=== PATIENT | female | born 1960 | race Caucasian/White ===

== ENCOUNTER 2021-04-29 12:36 | Outpatient (REF) | payer MEDICAID, SELFPAY ==
[2021-04-29 15:07] LABS: Free T4 (Free Thyroxine) 0.82 ng/dL (0.71-1.85); Thyroid Stimulating Hormone 4.08 uIU/mL (0.32-4.0)
== END 2021-04-29 12:37 | disposition home or self-care (01) ==
LOC: HO.LAB 12:36
PROVIDERS: PCP Family Medicine; Visit Provider Nurse Practitioner Gerontology
DX: E03.9 Hypothyroidism, unspecified (principal); E66.09 Other obesity due to excess calories
CPT/HCPCS: 36415; 84439; 84443; 99212

== ENCOUNTER 2021-06-11 10:56 | Outpatient (REF) | payer MEDICAID, SELFPAY ==
[2021-06-11 12:30] LABS: Free T4 (Free Thyroxine) 1.38 ng/dL (0.71-1.85)
[2021-06-17 14:30] LABS: Thyroid Stimulating Immunoglob <89 % baseline (<140)
== END 2021-06-11 10:57 | disposition home or self-care (01) ==
LOC: HO.LAB 10:56
PROVIDERS: PCP Family Medicine; Visit Provider Nurse Practitioner Gerontology
DX: E03.9 Hypothyroidism, unspecified (principal)
CPT/HCPCS: 36415; 84439; 84445

== ENCOUNTER 2021-08-02 21:25 | Observation (INO) | payer MEDICAID, SELFPAY ==
--- NOTE | ~2021-08-02 | XR_ITS ---
EXAMINATION: XR CHEST CLINICAL INFORMATION: Chest pain COMPARISON: 04/20/2019 TECHNIQUE: Frontal view of the chest was obtained. FINDINGS: The lungs are well expanded. There is no focal consolidation, edema, or effusion. No pneumothorax. The cardiomediastinal silhouette is within normal limits. No acute osseous abnormality. XR/XR chest 1V IMPRESSION: No acute pulmonary finding.
--- NOTE | 2021-08-02 21:45 | ECG_ITS ---
Test Reason : CHEST PAIN Blood Pressure : / mmHG Vent. Rate : 096 BPM Atrial Rate : 096 BPM P-R Int : 148 ms QRS Dur : 090 ms QT Int : 352 ms P-R-T Axes : 022 -01 033 degrees QTc Int : 444 ms Normal sinus rhythm RSR' or QR pattern in V1 suggests right ventricular conduction delay Nonspecific ST abnormality Possible Left atrial enlargement Left ventricular hypertrophy with repolarization abnormality Abnormal ECG No previous ECGs available Referred By: Generic ED Physician Electronically Signed By:JEN MATHIS MD
[2021-08-02 22:04] VITALS: BP 157/57; PULSE 96; RESP 18; TEMP 36.7; O2SAT 99; BMI 29.6
--- NOTE | 2021-08-02 22:32 | ED.CHESTPAIN ---
HPI - Chest Pain General Chief Complaint: Chest Pain Stated Complaint: Chest pain/High blood pressure Time Seen by Provider: 08/02/21 22:32 Source: patient Mode of arrival: ambulatory Limitations: no limitations History of Present Illness MD complaint: chest pain Onset (ago): day(s) (yesterday in the evening resolved no symptoms now) Timing of current episode: now resolved Prior episodes: No Onset: during rest Pain location: substernal Pain radiation: none Severity: mild Quality: other (pressure) Relieving factors: nothing Exacerbating factors: nothing Context: other (was stressed out, noted her BP has been high - takes 50mg chlorthalidone and lisinopril 5mg) Treatment prior to arrival: none Related Data Home Medications Medication Instructions Recorded Confirmed bupropion HCl 150 mg tablet,12 hr 150 mg PO DAILY 04/29/21 04/29/21 sustained-release (Wellbutrin SR) cholecalciferol (vitamin D3) 25 25 mcg PO DAILY 04/29/21 04/29/21 mcg (1,000 unit) tablet omeprazole magnesium 20 mg 20 mg PO DAILY 04/29/21 04/29/21 tablet,delayed release ranitidine HCl 150 mg tablet 150 mg PO tab 04/29/21 04/29/21 rosuvastatin 20 mg tablet (Crestor) 20 mg PO DAILY 04/29/21 04/29/21 Previous Rx's Medication Instructions Recorded levothyroxine 100 mcg tablet See Rx Instructions PO DAILY #34 04/30/21 tab Allergies Allergy/AdvReac Type Severity Reaction Status Date / Time No Known Allergies Allergy Verified 08/02/21 22:04 Review of Systems Review of Systems: Constitutional : No Weight loss, No Fever, No Chills ENT/Mouth : No sore throat, No Rhinorrhea Eyes: No Eye Pain, No Swelling Cardiovascular : pos Chest Pain, no SOB, no Dyspnea on Exertion, No Orthopnea, No Edema, No Palpitations Respiratory : No Cough, No Sputum Gastrointestinal : no Nausea, No Vomiting, No Diarrhea, No abdominal Pain, No Hematochezia, No Melena Genitourinary : No Dysuria, No Urinary Frequency Musculoskeletal : No joint pain, No Myalgias, No Joint Swelling Skin : No Skin Lesions, No rash Neuro : No Weakness, No Numbness, No Dizziness, No Headache Psych : No Anxiety/Panic, No Depression Heme/Lymph: No Bruising, No Lymphadenopathy Endocrine : No Polyuria, No Polydipsia All other systems reviewed and are negative [facility] Past Medical History Attestation statement: The following information was validated with the patient. Medical History Aortic insufficiency COPD (chronic obstructive pulmonary disease) Diabetes mellitus type 2, controlled, without complications Essential hypertension High cholesterol Hyperlipidemia LDL goal <100 Hypothyroidism Obesity due to excess calories PVD (peripheral vascular disease) Vitamin D deficiency Surgical History History of mandibular surgery History of skin surgery Hx laparoscopic cholecystectomy Hx of tubal ligation Family History Family History (Updated 04/29/21 @ 13:07 by Ciera Bahena Dwayne) Father Diabetes Mother No problems noted. Social History Social History Household Members: None Patient Tobacco Use Status: Current someday Tobacco user Advance Directives: No Advance Directives Information Provided: No Physical Exam Vital Signs: Vital Signs: Last Vital Signs Temp 98.1 F 08/03/21 00:00 Pulse 82 08/03/21 00:00 Resp 18 08/03/21 00:00 BP 142/50 H 08/03/21 00:00 Pulse Ox 97 08/03/21 00:00 Body Mass Index 29.6 Appearance: Alert. Oriented X3. No acute distress. Eyes: Pupils equal, round and reactive to light. ENT: Pharynx normal. Neck: Normal inspection. Neck supple. CVS: Normal heart rate and rhythm. Pulses normal. Respiratory: No respiratory distress. Breath sounds normal. Abdomen: Soft and nontender. Skin: Skin warm and dry. Normal skin color. Normal skin turgor. Extremities: No lower extremity edema. No calf ttp Neuro: Oriented X 3. No motor deficit. No sensory deficit. Course Course Course Narrative: repeat troponin ordered to check delta she has no chest pressure at this time repeat trop increased has no CP, BP stable PO aspirin ordered plan to admit MDM - Chest Pain MDM Narrative Medical decision making narrative: 61 yo female with hx of HTN, HLD, smoker who reports chest pressure and elevated BPs yesterday 170 and 190s. She reports all her symptoms are gone now and she has not had them for the last several hours but wanted to get checked out. She has been more stressed lately. No prior ACS episodes. Doubt PE given lack of tachycardia, hypoxia and pain is now resolved. Will obtain EKG, troponin and reasess, BP 160/70 which I would not expect to be causing symptoms she does have ACS risk factors. Lab Data Result diagrams: 08/02/21 22:49 08/02/21 22:49 Labs: Lab Results 08/02/21 08/02/21 08/02/21 Range/Units 22:49 22:49 22:49 WBC 10.4 (4.8-10.8) X10*3/uL RBC 4.48 (4.20-5.50) X10*6/uL Hgb 12.5 (12.0-16.0) g/dl Hct 37.4 (37-47) % MCV 83.5 (80-98) fL MCH 27.9 (27.0-33.0) pg MCHC 33.4 (31.0-35.0) g/dl RDW 14.8 (11.0-16.0) % Plt Count 300 (160-400) X10*3/uL MPV 9.8 (9.4-12.3) fL Immature Gran % (Auto) 0.3 (0.0-0.4) % Neut % (Auto) 56.4 (45-73) % Lymph % (Auto) 29.7 (20-40) % Mineral % (Auto) 10.4 (2-11) % Eos % (Auto) 2.5 (0-4) % Baso % (Auto) 0.7 (0-2) % Lymph # (Auto) 3.1 (1.2-4.9) X10*3/uL Mineral # (Auto) 1.1 (0.1-1.2) X10*3/uL Eos # (Auto) 0.3 (0.0-0.4) X10*3/uL Baso # (Auto) 0.1 (0.0-0.2) X10*3/uL Abs Immat Gran (auto) 0.03 (0.00-0.03) X10*3/uL Absolute Neuts (auto) 5.9 (2.0-8.3) X10*3/uL Absolute Nucleated RBC 0.000 (0.0-0.012) X10*3/uL Nucleated RBC % (auto) 0.0 (0.0-0.2) /100WBC Sodium 138 (135-145) mmol/L Potassium 3.6 (3.3-5.1) mmol/L Chloride 102 (96-108) mmol/L Carbon Dioxide 26 (22-29) mmol/L Anion Gap 14 (12-20) BUN 19 H (9-16) mg/dL Creatinine 0.89 (0.5-1.4) mg/dL Estim Creat Clear Calc 69.6 Estimated GFR > 60 Random Glucose 132 H (60-115) mg/dL Calcium 9.4 (8.4-10.2) mg/dL Troponin I High Sens 33.5 H* (<3.5-17.0) ng/L 08/03/21 Range/Units 00:41 WBC (4.8-10.8) X10*3/uL RBC (4.20-5.50) X10*6/uL Hgb (12.0-16.0) g/dl Hct (37-47) % MCV (80-98) fL MCH (27.0-33.0) pg MCHC (31.0-35.0) g/dl RDW (11.0-16.0) % Plt Count (160-400) X10*3/uL MPV (9.4-12.3) fL Immature Gran % (Auto) (0.0-0.4) % Neut % (Auto) (45-73) % Lymph % (Auto) (20-40) % Mineral % (Auto) (2-11) % Eos % (Auto) (0-4) % Baso % (Auto) (0-2) % Lymph # (Auto) (1.2-4.9) X10*3/uL Mineral # (Auto) (0.1-1.2) X10*3/uL Eos # (Auto) (0.0-0.4) X10*3/uL Baso # (Auto) (0.0-0.2) X10*3/uL Abs Immat Gran (auto) (0.00-0.03) X10*3/uL Absolute Neuts (auto) (2.0-8.3) X10*3/uL Absolute Nucleated RBC (0.0-0.012) X10*3/uL Nucleated RBC % (auto) (0.0-0.2) /100WBC Sodium (135-145) mmol/L Potassium (3.3-5.1) mmol/L Chloride (96-108) mmol/L Carbon Dioxide (22-29) mmol/L Anion Gap (12-20) BUN (9-16) mg/dL Creatinine (0.5-1.4) mg/dL Estim Creat Clear Calc Estimated GFR Random Glucose (60-115) mg/dL Calcium (8.4-10.2) mg/dL Troponin I High Sens 112.6 H* D (<3.5-17.0) ng/L ECG Data ECG #1: Attestation: I personally reviewed and interpreted this ECG as follows: ECG interpretation date: 08/02/21 ECG interpretation time: 22:33 Interpretation: Rate: 96 Rhythm: NSR [place]: normal LVH Normal P waves. Normal SANDY. Normal QRS complex. Poor R wave progression ST T wave : no EMERALD, nonspecific qTC: normal prior studies: The study has been interpreted contemporaneously by me. . Discharge Plan Discharge Clinical Impression: Elevated troponin Chest pain Qualifiers: Chest pain type: precordial pain Qualified Code(s): R07.2 - Precordial pain Patient Disposition: Admitted As Inpatient
[2021-08-02 22:37] VITALS: BP 160/70; PULSE 94; RESP 19; TEMP 36.9; O2SAT 99
[2021-08-02 22:53] LABS: MANUAL DIFF FLAG NO
[2021-08-02 22:54] LABS: Basophils Absolute Auto 0.1 X10*3/uL (0.0-0.2); Basophils Percent Auto 0.7 % (0-2); Eosinophils Absolute Auto 0.3 X10*3/uL (0.0-0.4); Eosinophils Percent Auto 2.5 % (0-4); Hematocrit 37.4 % (37-47); Hemoglobin 12.5 g/dl (12.0-16.0); Imm Gran Abs Auto 0.03 X10*3/uL (0.00-0.03); Imm Gran Pct Auto 0.3 % (0.0-0.4); Lymphocytes Absolute Auto 3.1 X10*3/uL (1.2-4.9); Lymphocytes Percent Auto 29.7 % (20-40); Mean Corpuscular HGB Conc 33.4 g/dl (31.0-35.0); Mean Corpuscular Hemoglobin 27.9 pg (27.0-33.0); Mean Corpuscular Volume 83.5 fL (80-98); Mean Platelet Volume 9.8 fL (9.4-12.3); Monocytes Absolute Auto 1.1 X10*3/uL (0.1-1.2); Monocytes Percent Auto 10.4 % (2-11); Neutrophils Absolute Auto 5.9 X10*3/uL (2.0-8.3); Neutrophils Percent Auto 56.4 % (45-73); Platelet Count 300 X10*3/uL (160-400); Red Blood Count 4.48 X10*6/uL (4.20-5.50); Red Cell Distribution Width 14.8 % (11.0-16.0); White Blood Count 10.4 X10*3/uL (4.8-10.8)
[2021-08-02 23:09] LABS: Anion Gap 14 (12-20); Blood Urea Nitrogen 19 mg/dL (9-16); Calcium 9.4 mg/dL (8.4-10.2); Carbon Dioxide 26 mmol/L (22-29); Chloride 102 mmol/L (96-108); Creatinine Clr Calc Pharmacy 69.6; Estimated Glomerular Filt Rate > 60; Glucose Random 132 mg/dL (60-115); Potassium 3.6 mmol/L (3.3-5.1); Sodium 138 mmol/L (135-145)
[2021-08-02 23:20] LABS: Troponin-I High Sensitivity 33.5 ng/L (<3.5-17.0)
[2021-08-03] VITALS (10 sets, daily range): BP systolic 123–164; BP diastolic 47–62; PULSE 70–95; RESP 14–20; TEMP 36.7–36.8; O2SAT 95–98
--- NOTE | 2021-08-03 | ECG_ITS ---
Test Reason : NSTEMI Blood Pressure : / mmHG Vent. Rate : 076 BPM Atrial Rate : 076 BPM P-R Int : 158 ms QRS Dur : 092 ms QT Int : 426 ms P-R-T Axes : 025 -03 041 degrees QTc Int : 479 ms Normal sinus rhythm Minimal voltage criteria for LVH, may be normal variant Nonspecific ST abnormality Abnormal ECG When compared with ECG of 02-AUG-2021 21:41, Nonspecific T wave abnormality now evident in Lateral leads Referred By: Nathanael Winslow Electronically Signed By:JEN MATHIS MD
[2021-08-03 01:23] LABS: Troponin-I High Sensitivity 112.6 ng/L (<3.5-17.0)
--- NOTE | 2021-08-03 01:52 | PC.NURSE ---
covid and coags obtained, sent to lab for processing. Dr Moran at bedside conducting eval
[2021-08-03] MEDS: Aspirin 325 MG TABLET 324 MG PO (01:54)
[2021-08-03 02:04] LABS: Prothrombin Time 11.9 SEC (9.9-13.0)
[2021-08-03 02:07] LABS: Partial Thromboplastin Time 35.8 SEC (24.1-38.0)
--- NOTE | 2021-08-03 02:09 | P.HPHOSP_ITS ---
History of Present Illness Date of Service: 08/03/21 Chief Complaint: Chest pain This is a 61-year-old [place]vian-speaking only female with past medical history of COPD, diabetes, HTN, HLD, aortic insufficiency, hypothyroidism, peripheral vascular disease vitamin-D deficiency who presents to the hospital with compla ints of intermittent chest pain. Patient reports that she had 2 episodes 1 on Wednesday night and 1 on Wednesday night which prompted her to come to the hospital. She describes the pain as midsternal with radiation to left as well as up to her neck, lasting 5-10 minutes, intermittent, associated with palpitations, about 8/10, tightening sensation. She denies any shortness of breath, no previous similar episodes. No nausea vomiting dizziness, no abdominal pain, no diarrhea but has constipation, no urinary symptoms and no lower extremity edema. Occurs at rest and resolved spontaneously At this time patient is chest pain-free On arrival to the ED patient hemodynamically stable with a blood pressure of 157/57 otherwise unremarkable Labs are significant for initial high sensitivity troponin of 33 that increased to 121, EKG shows sinus rhythm with no acute changes Given her increase in troponin as well as typical presentation will admit for further evaluation under observation Review of Systems Review of Systems: Yes all other systems are reviewed and are negative [facility] Medical History Aortic insufficiency COPD (chronic obstructive pulmonary disease) Diabetes mellitus type 2, controlled, without complications Essential hypertension High cholesterol Hyperlipidemia LDL goal <100 Hypothyroidism Obesity due to excess calories PVD (peripheral vascular disease) Vitamin D deficiency Family History Father Diabetes Mother No problems noted. Pertinent family history: No present in history Surgical History History of mandibular surgery History of skin surgery Hx laparoscopic cholecystectomy Hx of tubal ligation Social History Household Members: None Patient Tobacco Use Status: Current someday Tobacco user Advance Directives: No Advance Directives Information Provided: No Meds Allergies Allergy/AdvReac Type Severity Reaction Status Date / Time No Known Allergies Allergy Verified 08/03/21 02:09 Active Medications: Current Medications Pharmacy Consult (Consult Rx Perform Med Rec) 1 each MISCELLANE ONCE PRN PRN Reason: Consult order Home Medications Medication Instructions Recorded Confirmed Last Taken Type aspirin 81 mg chewable tablet 1 tab PO DAILY 08/03/21 08/03/21 Unknown History chlorthalidone 50 mg tablet 1 tab PO BEDTIME 08/03/21 08/03/21 Unknown History cholecalciferol (vitamin D3) 25 1 tab PO DAILY 08/03/21 08/03/21 Unknown History mcg (1,000 unit) tablet cyanocobalamin (vitamin B-12) 500 1 tab PO DAILY 08/03/21 08/03/21 Unknown History mcg tablet folic acid 400 mcg tablet 1 tab PO DAILY 08/03/21 08/03/21 Unknown History levothyroxine 100 mcg tablet 100 mcg PO DAILY 08/03/21 08/03/21 Unknown History lisinopril 5 mg tablet 1 tab PO DAILY 08/03/21 08/03/21 Unknown History metformin 500 mg tablet,extended 1 tab PO DAILY 08/03/21 08/03/21 Unknown Histo ry release 24 hr omeprazole 20 mg capsule,delayed 1 cap PO QAM 08/03/21 08/03/21 Unknown History release rosuvastatin 40 mg tablet 1 tab PO BEDTIME 08/03/21 08/03/21 Unknown History Physical Exam Vital Signs and Narrative: Vital Signs: Last Vital Signs Temp 98.2 F 08/03/21 02:00 Pulse 78 08/03/21 02:00 Resp 18 08/03/21 02:00 BP 164/47 H 08/03/21 02:00 Pulse Ox 98 08/03/21 02:00 Body Mass Index 29.6 Const: General: cooperative and no acute distress Orientation /consciousness: patient oriented x3 Eyes: General: appearance normal, both eyes and all related structures Resp: Effort & Inspection: normal respiratory effort Auscultation: clear to auscultation bilaterally Cardio: Rate: regular rate Rhythm: regular rhythm GI: Palpation (GI): Soft to palpation Auscultation: normal bowel sounds Skin: General skin exam: no rashes or lesions noted Neuro: General: patient oriented x3 Cognition (Neuro): normal cognition Extrem: General: Yes normal to inspection and Yes no pedal edema Results Labs CBC and Chem 7: 08/02/21 22:49 08/02/21 22:49 Labs: Laboratory Results - last 24 hr 08/02/21 08/02/21 08/02/21 22:49 22:49 22:49 MCV 83.5 MCH 27.9 MCHC 33.4 RDW 14.8 Plt Count 300 MPV 9.8 Immature Gran % (Auto) 0.3 Neut % (Auto) 56.4 Lymph % (Auto) 29.7 Richardson % (Auto) 10.4 Eos % (Auto) 2.5 Baso % (Auto) 0.7 Lymph # (Auto) 3.1 Richardson # (Auto) 1.1 Eos # (Auto) 0.3 Baso # (Auto) 0.1 Abs Immat Gran (auto) 0.03 Absolute Neuts (auto) 5.9 Absolute Nucleated RBC 0.000 Nucleated RBC % (auto) 0.0 PT INR APTT Anion Gap 14 Estim Creat Clear Calc 69.6 Estimated GFR > 60 Random Glucose 132 H Calcium 9.4 Troponin I High Sens 33.5 H* 08/03/21 08/03/21 00:41 01:48 MCV MCH MCHC RDW Plt Count MPV Immature Gran % (Auto) Neut % (Auto) Lymph % (Auto) Richardson % (Auto) Eos % (Auto) Baso % (Auto) Lymph # (Auto) Richardson # (Auto) Eos # (Auto) Baso # (Auto) Abs Immat Gran (auto) Absolute Neuts (auto) Absolute Nucleated RBC Nucleated RBC % (auto) PT 11.9 INR 1.0 APTT 35.8 Anion Gap Estim Creat Clear Calc Estimated GFR Random Glucose Calcium Troponin I High Sens 112.6 H* D Imaging Radiologist's Impressions: Impressions Chest X-Ray 08/02/21 22:12 IMPRESSION: No acute pulmonary finding. Assessment and Plan (1) Chest pain: Qualifiers: Chest pain type: precordial pain Qualified Code(s): R07.2 - Precordial pain Status: Acute (2) Elevated troponin: Status: Acute 61-year-old female with past medical history of COPD, hyperlipidemia, hypertension, hypothyroidism who presents to the hospital with complaints of jessica st pain found to have elevated troponin # chest pain - currently he is chest pain-free - has no EKG changes - elevated troponin - at this time will consult Cardiology, obtain echocardiogram - admit to telemetry # elevated troponin - possibly type 2 versus type 1 - has no EKG changes - currently chest pain-free - will trend - consult cardiology # diabetes - hold oral antihyperglycemics - start low-dose sliding scale insulin - diabetic diet # hypertension - stable - continue antihypertensives # COPD - not in exacerbation - continue home inhalers - will start her on nicotine patch DVT prophylaxis: Lovenox Quality Stroke Does the patient have a stroke diagnosis?: No VTE Prior VTE?: No VTE Risk Level:: Medical - moderate - high VTE Device Contraindication: Treatment Not Indicated VTE Drug Contraindication: N/A - Med Ordered
[2021-08-03 02:18] LABS: COVID-19 Test Negative (Negative); IDNOW Serial# 9DD0AD1C
[2021-08-03] MEDS: Enoxaparin Sodium 40 MG/0.4 ML SYRINGE SUBCUT (02:55)
[2021-08-03] MEDS: Nicotine Polacrilex Lozenge 4 MG LOZENGE BUCCAL (02:57)
[2021-08-03] MEDS: Docusate Sodium 100 MG CAPSULE PO ×3 (02:57→20:41)
--- NOTE | 2021-08-03 06:25 | PC.NURSE ---
Pt asleep on stretcher in NAD, breathing with ease on RA. Pt's VSS. Pt does not appear to be in any pain/discomfort. Pt stretcher in low locked position, rails raised, call roberts within reach. Pt remains on bedside phototypesetting equipment monitor, NSR.
[2021-08-03 07:02] LABS: MANUAL DIFF FLAG NO
[2021-08-03 07:07] LABS: Basophils Absolute Auto 0.1 X10*3/uL (0.0-0.2); Basophils Percent Auto 0.6 % (0-2); Eosinophils Absolute Auto 0.3 X10*3/uL (0.0-0.4); Eosinophils Percent Auto 3.6 % (0-4); Hematocrit 36.3 % (37-47); Hemoglobin 11.9 g/dl (12.0-16.0); Imm Gran Abs Auto 0.02 X10*3/uL (0.00-0.03); Imm Gran Pct Auto 0.2 % (0.0-0.4); Lymphocytes Absolute Auto 3.2 X10*3/uL (1.2-4.9); Lymphocytes Percent Auto 36.1 % (20-40); Mean Corpuscular HGB Conc 32.8 g/dl (31.0-35.0); Mean Corpuscular Hemoglobin 27.4 pg (27.0-33.0); Mean Corpuscular Volume 83.4 fL (80-98); Mean Platelet Volume 10.2 fL (9.4-12.3); Monocytes Absolute Auto 0.8 X10*3/uL (0.1-1.2); Monocytes Percent Auto 9.1 % (2-11); Neutrophils Absolute Auto 4.5 X10*3/uL (2.0-8.3); Neutrophils Percent Auto 50.4 % (45-73); Platelet Count 300 X10*3/uL (160-400); Red Blood Count 4.35 X10*6/uL (4.20-5.50); Red Cell Distribution Width 14.6 % (11.0-16.0); White Blood Count 8.8 X10*3/uL (4.8-10.8)
[2021-08-03 07:18] LABS: Anion Gap 16 (12-20); Blood Urea Nitrogen 20 mg/dL (9-16); Calcium 9.7 mg/dL (8.4-10.2); Carbon Dioxide 25 mmol/L (22-29); Chloride 101 mmol/L (96-108); Creatinine Clr Calc Pharmacy 79.5; Estimated Glomerular Filt Rate > 60; Glucose Random 139 mg/dL (60-115); Potassium 3.3 mmol/L (3.3-5.1); Sodium 139 mmol/L (135-145)
[2021-08-03] MEDS: Nicotine 21 MG PATCH.TD24 TRANSDERMA (08:44)
[2021-08-03] MEDS: Cyanocobalamin (Vitamin B-12) 500 MCG TABLET PO (08:46)
[2021-08-03] MEDS: hydroCHLOROthiazide 50 MG TABLET PO (08:46)
[2021-08-03] MEDS: Aspirin 81 MG TAB.CHEW PO (08:47)
[2021-08-03] MEDS: lisinopriL 5 MG TABLET PO (08:47)
[2021-08-03] MEDS: Cholecalciferol (Vitamin D3) 25 MCG TABLET PO (08:47)
[2021-08-03] MEDS: 0.9 % Sodium Chloride Flush 3 ML SYRINGE IVFLUSH (08:52)
--- NOTE | 2021-08-03 10:53 | P.CONCA_ITS ---
History of Present Illness History of Present Illness Date of Service: 08/03/21 Requesting physician: Delmis Pedersen Chief complaint: Chest pain, positive troponin Narrative: 61-year-old female who has background history of hypothyroidism and hypertension who is presenting with chest discomfort. She also has background of reported aortic valve insufficiency with no echocardiography will. She is saying she follows up at [facility] and has a compressor mechanic there to. I have contacted have been [facility] and they do not know this patient. She said she had pressure-like feeling in her chest last evening and her blood pressure at home was 190/110. With these symptoms she came to emergency department at [place]. Blood pressure in the ER was not as elevated as she described. She has previously experienced similar pressure-like feeling but has not had any further assessment for it. She is very vague in her history despite using a gas refrigerator servicer. ECG has some nonspecific changes right now. Troponins are 33, 112 and 185. She is currently pain free. Blood pressure control is good. [facility] Past Medical History Medical History (Updated 08/03/21 @ 11:58 by Nathanael Winslow MD) Aortic insufficiency COPD (chronic obstructive pulmonary disease) Diabetes mellitus type 2, controlled, without complications Essential hypertension High cholesterol Hyperlipidemia LDL goal <100 Hypothyroidism Obesity due to excess calories PVD (peripheral vascular disease) Vitamin D deficiency Family History Family History Father Diabetes Mother No problems noted. Surgical History Surgical History History of mandibular surgery History of skin surgery Hx laparoscopic cholecystectomy Hx of tubal ligation Social History Social History Household Members: None Patient Tobacco Use Status: Current someday Tobacco user Advance Directives: No Advance Directives Information Provided: No Meds Allergies Allergy/AdvReac Type Severity Reaction Status Date / Time No Known Allergies Allergy Verified 08/03/21 02:09 Active Medications: Current Medications Acetaminophen (Acetaminophen 325 Mg Tablet) 650 mg PO Q6H PRN PRN Reason: Pain, Mild (Pain Scale 1-3) Aspirin (Aspirin 81 Mg Tab.Chew) 81 mg PO DAILY [facility]ACK Last Admin: 08/03/21 08:47 Dose: 81 mg Documented by: Atorvastatin Calcium (Atorvastatin Calcium 80 Mg Tablet) 80 mg PO BEDTIME [facility] Cyanocobalamin (Cyanocobalamin (Vitamin B-12) 500 Mcg Tablet) 500 mcg PO DAILY [facility] Last Admin: 08/03/21 08:46 Dose: 500 mcg Documented by: Dextrose (Dextrose 50 % 25 Gm/50 Ml Vial) 25 gm IVPUSH Q15M PRN; Protocol PRN Reason: per Hypoglycemia Standing Ord. Docusate Sodium (Docusate Sodium 100 Mg Capsule) 100 mg PO BID [facility] Last Admin: 08/03/21 08:47 Dose: 100 mg Documented by: Enoxaparin Sodium (Enoxaparin Sodium 40 Mg/0.4 Ml Syringe) 40 mg SUBCUT Q24H [facility] Last Admin: 08/03/21 02:55 Dose: 40 mg Documented by: Folic Acid (Folic Acid 1 Mg Tablet) 1 mg PO DAILY [facility] Glucose (Glucose Gel 15 Gm Gel..Gram.) 15 gm PO Q15M PRN; Protocol PRN Reason: per Hypoglycemia Standing Ord. Hydrochlorothiazide (Hydrochlorothiazide 50 Mg Tablet) 50 mg PO DAILY [facility] Last Admin: 08/03/21 08:46 Dose: 50 mg Documented by: Insulin Human Lispro (Insulin Lispro 100 Unit/Ml 3 Ml Vial) 0 unit SUBCUT QIDACHS [facility]; Protocol Last Admin: 08/03/21 07:42 Dose: Not Given Documented by: Levothyroxine Sodium (Levothyroxine Sodium 100 Mcg Tablet) 100 mcg PO DAILY@0600 [facility] Lisinopril (Lisinopril 5 Mg Tablet) 5 mg PO DAILY [facility]; Protocol Last Admin: 08/03/21 08:47 Dose: 5 mg Documented by: Magnesium Hydroxide (Milk Of Magnesia 30 Ml Oral.Susp) 30 ml PO DAILY PRN PRN Reason: Constipation Nicotine (Nicotine 21 Mg Patch.Td24) 21 mg TRANSDERMA DAILY [facility] Last Admin: 08/03/21 08:44 Dose: 21 mg Documented by: Nicotine Polacrilex (Nicotine Polacrilex Lozenge 4 Mg Lozenge) 4 mg BUCCAL Q2H PRN PRN Reason: Nicotine Cravings Last Admin: 08/03/21 02:57 Dose: 4 mg Documented by: Omeprazole (Omeprazole 20 Mg Capsule.Dr) 20 mg PO DAILY@0630 [facility] Ondansetron HCl (Ondansetron Hcl 4 Mg/2 Ml Vial) 4 mg IVPUSH Q8H PRN PRN Reason: Nausea and Vomiting Pharmacy Consult (Consult Rx Perform Med Rec) 1 each MISCELLANE ONCE PRN PRN Reason: Consult order Sodium Chloride (0.9 % Sodium Chloride Flush 3 Ml Syringe) 3 ml IVFLUSH QSHIFT [facility] Last Admin: 08/03/21 08:52 Dose: 3 ml Documented by: Vitamin D (Cholecalciferol (Vitamin D3) 25 Mcg Tablet) 25 mcg PO DAILY [facility] Last Admin: 08/03/21 08:47 Dose: 25 mcg Documented by: Home Medications Medication Instructions Recorded Confirmed Last Taken Type aspirin 81 mg chewable tablet 1 tab PO DAILY 08/03/21 08/03/21 Unknown History chlorthalidone 50 mg tablet 1 tab PO BEDTIME 08/03/21 08/03/21 Unknown History cholecalciferol (vitamin D3) 25 1 tab PO DAILY 08/03/21 08/03/21 Unknown History mcg (1,000 unit) tablet cyanocobalamin (vitamin B-12) 500 1 tab PO DAILY 08/03/21 08/03/21 Unknown History mcg tablet folic acid 400 mcg tablet 1 tab PO DAILY 08/03/21 08/03/21 Unknown History levothyroxine 100 mcg tablet 100 mcg PO MOTUWETHFRSA 08/03/21 08/03/21 Unknown History levothyroxine 100 mcg tablet 200 mcg PO VILLEGAS 08/03/21 08/03/21 Unknown History lisinopril 5 mg tablet 1 tab PO DAILY 08/03/21 08/03/21 Unknown History metformin 500 mg tablet,extended 1 tab PO DAILY 08/03/21 08/03/21 Unknown History release 24 hr omeprazole 20 mg capsule,delayed 1 cap PO QAM 08/03/21 08/03/21 Unknown History release rosuvastatin 40 mg tablet 1 tab PO BEDTIME 08/03/21 08/03/21 Unknown History Physical Exam Vital Signs: Vital Signs: Last Vital Signs Temp 98.2 F 08/03/21 02:00 Pulse 80 08/03/21 08:03 Resp 18 08/03/21 08:03 BP 123/49 L 08/03/21 08:03 Pulse Ox 95 08/03/21 08:03 Body Mass Index 29.6 GENERAL APPEARANCE: in no acute distress, pleasant. NECK: no carotid bruit, no jugular venous distention. SKIN: no suspicious lesions, warm and dry. HEART: no murmurs, regular rate and rhythm. LUNGS: clear to auscultation bilaterally. ABDOMEN: soft, nontender. EXTREMITIES: no edema. PERIPHERAL PULSES: equal. NEUROLOGIC: No gross deficits, AAO X 3 Results Labs and Meds Result diagrams: 08/03/21 06:40 08/03/21 06:40 Lab results: Laboratory Results - last 24 hr 08/02/21 08/02/21 08/02/21 22:49 22:49 22:49 WBC 10.4 RBC 4.48 Hgb 12.5 Hct 37.4 MCV 83.5 MCH 27.9 MCHC 33.4 RDW 14.8 Plt Count 300 MPV 9.8 Immature Gran % (Auto) 0.3 Neut % (Auto) 56.4 Lymph % (Auto) 29.7 [place] % (Auto) 10.4 Eos % (Auto) 2.5 Baso % (Auto) 0.7 Lymph # (Auto) 3.1 [place] # (Auto) 1.1 Eos # (Auto) 0.3 Baso # (Auto) 0.1 Abs Immat Gran (auto) 0.03 Absolute Neuts (auto) 5.9 Absolute Nucleated RBC 0.000 Nucleated RBC % (auto) 0.0 PT INR APTT Sodium 138 Potassium 3.6 Chloride 102 Carbon Dioxide 26 Anion Gap 14 BUN 19 H Creatinine 0.89 Estim Creat Clear Calc 69.6 Estimated GFR > 60 Random Glucose 132 H Calcium 9.4 Troponin I High Sens 33.5 H* COVID-19 (LEXIE) COVID-19 Clin Com 08/03/21 08/03/21 08/03/21 00:41 01:48 01:48 WBC RBC Hgb Hct MCV MCH MCHC RDW Plt Count MPV Immature Gran % (Auto) Neut % (Auto) Lymph % (Auto) [place] % (Auto) Eos % (Auto) Baso % (Auto) Lymph # (Auto) [place] # (Auto) Eos # (Auto) Baso # (Auto) Abs Immat Gran (auto) Absolute Neuts (auto) Absolute Nucleated RBC Nucleated RBC % (auto) PT 11.9 INR 1.0 APTT 35.8 Sodium Potassium Chloride Carbon Dioxide Anion Gap BUN Creatinine Estim Creat Clear Calc Estimated GFR Random Glucose Calcium Troponin I High Sens 112.6 H* D COVID-19 (LEXIE) Negative COVID-19 Clin Com See Note 08/03/21 08/03/21 08/03/21 06:40 06:40 06:40 WBC 8.8 RBC 4.35 Hgb 11.9 L Hct 36.3 L MCV 83.4 MCH 27.4 MCHC 32.8 RDW 14.6 Plt Count 300 MPV 10.2 Immature Gran % (Auto) 0.2 Neut % (Auto) 50.4 Lymph % (Auto) 36.1 [place] % (Auto) 9.1 Eos % (Auto) 3.6 Baso % (Auto) 0.6 Lymph # (Auto) 3.2 [place] # (Auto) 0.8 Eos # (Auto) 0.3 Baso # (Auto) 0.1 Abs Immat Gran (auto) 0.02 Absolute Neuts (auto) 4.5 Absolute Nucleated RBC 0.000 Nucleated RBC % (auto) 0.0 PT INR APTT Sodium 139 Potassium 3.3 Chloride 101 Carbon Dioxide 25 Anion Gap 16 BUN 20 H Creatinine 0.78 Estim Creat Clear Calc 79.5 Estimated GFR > 60 Random Glucose 139 H Calcium 9.7 Troponin I High Sens 185.0 H* D COVID-19 (LEXIE) COVID-19 Clin Com ECG Attestation: I personally reviewed and interpreted this ECG as follows: (Sinus rhythm at 96 beats per minute, normal axis, left ventricular hypertrophy, poor R-wave progression, cannot rule out inferior infarct, QTC 444 milliseconds.) Imaging Radiologist's impression: Impressions Chest X-Ray 08/02/21 22:12 IMPRESSION: No acute pulmonary finding. Assessment and Plan (1) NSTEMI (non-ST elevated myocardial infarction): Status: Acute (2) Essential hypertension: Status: Acute (3) Aortic insufficiency: Status: Acute Pleasant 61-year-old female here for chest discomfort and NSTEMI. She reports high blood pressure at home but blood pressure in the ER has been okay. ECG has some old changes but no dynamic changes are present right now. History is limited from her despite using gas refrigerator servicer. I think we treat her like NSTEMI currently. Please start her on heparin drip. Continue aspirin. She is reporting history of aortic valve insufficiency. I think we should do an echo on her and see how bad the aortic valve insufficiency is. She likely will need transfer after that for cardiac catheterization. Other option is to do 48 hour of heparin and then performing a stress test. Echocardiography will help because of this a wall motion abnormality then that will probably help in making seen. Blood pressure control right now is good. Continue heparin drip for now. Thank you for allowing me to participate in the care of your patient. Please feel free to contact me if you have any questions. Procedures Date of Service Date of Service: 08/03/21
[2021-08-03] MEDS: Folic Acid 1 MG TABLET PO (11:06)
[2021-08-03] MEDS: Levothyroxine Sodium 100 MCG TABLET PO (11:06)
--- NOTE | 2021-08-03 11:18 | PC.NURSE ---
patient a&ox3, no complaints of pain or discomfort, patient nsr on cardiac catheterization technologist 70s, vss, poc obtained 115- no coverage needed, will continue to monitor.
[2021-08-03 11:42] LABS: Glucose, Whole Blood 115 mg/dL (60-115)
--- NOTE | 2021-08-03 12:04 | HO.PM.IMPN ---
Subjective Subjective Date of Service: 08/03/21 Interval History: seen and examined this am follow up for chest pain no chest pain at this time overall vague historian, difficult to obtain details Review of Systems Review of Systems: Yes all other systems are reviewed and are negative Constitutional Constitutional: Denies chills and Denies fever(s) Respiratory Respiratory: Denies cough Gastrointestinal Gastrointestinal: Denies abdominal pain Physical Exam Vital Signs: Vital Signs: Last Vital Signs Temp 98.1 F 08/03/21 11:17 Pulse 70 08/03/21 11:17 Resp 18 08/03/21 11:17 BP 129/51 L 08/03/21 11:17 Pulse Ox 95 08/03/21 11:17 Body Mass Index 29.6 Const: Nutritional Appearance: well nourished Orientation/consciousness: patient oriented x3 HENMT: Head: Yes normocephalic and Yes atraumatic Eyes: Sclerae: sclerae normal Resp: Effort & Inspection: normal respiratory effort and no respiratory distress Auscultation: clear to auscultation bilaterally Cardio: Rate: regular rate Rhythm: regular rhythm GI: Palpation (GI): Soft to palpation and nontender Neuro: General: patient oriented x3 Cranial nerves: Yes CN's II-XII intact bilaterally and Yes Bilaterally intact EOM present Objective Data Active Medications Acetaminophen (Acetaminophen 325 Mg Tablet) 650 mg PO Q6H PRN PRN Reason: Pain, Mild (Pain Scale 1-3) Aspirin (Aspirin 81 Mg Tab.Chew) 81 mg PO DAILY [facility] Last Admin: 08/03/21 08:47 Dose: 81 mg Documented by: TOÑA Atorvastatin Calcium (Atorvastatin Calcium 80 Mg Tablet) 80 mg PO BEDTIME [facility] Cyanocobalamin (Cyanocobalamin (Vitamin B-12) 500 Mcg Tablet) 500 mcg PO DAILY [facility] Last Admin: 08/03/21 08:46 Dose: 500 mcg Documented by: TOÑA Dextrose (Dextrose 50 % 25 Gm/50 Ml Vial) 25 gm IVPUSH Q15M PRN; Protocol PRN Reason: per Hypoglycemia Standing Ord. Docusate Sodium (Docusate Sodium 100 Mg Capsule) 100 mg PO BID [facility] Last Admin: 08/03/21 08:47 Dose: 100 mg Documented by: TOÑA Folic Acid (Folic Acid 1 Mg Tablet) 1 mg PO DAILY [facility] Last Admin: 08/03/21 11:06 Dose: 1 mg Documented by: TOÑA Glucose (Glucose Gel 15 Gm Gel..Gram.) 15 gm PO Q15M PRN; Protocol PRN Reason: per Hypoglycemia Standing Ord. Heparin Sodium (Porcine) (Heparin Sodium,Porcine 5,000 Unit/Ml Vial) 3,200 unit 40 unit/kg (3200 unit) IVPUSH PROTOCOL BOLUS PRN; Protocol PRN Reason: 40 unit/kg - Heparin Protocol Heparin Sodium (Porcine) (Heparin Sodium,Porcine 5,000 Unit/Ml Vial) 6,500 unit 80 unit/kg (6500 unit) IVPUSH PROTOCOL BOLUS PRN; Protocol PRN Reason: 80 unit/kg - Heparin Protocol Hydrochlorothiazide (Hydrochlorothiazide 50 Mg Tablet) 50 mg PO DAILY [facility] Last Admin: 08/03/21 08:46 Dose: 50 mg Documented by: TOÑA Heparin Sodium/Sodium Chloride () 25,000 unit in 250 mls @ 0 mls/hr IVCONT .Q0M [facility]; Protocol Insulin Human Lispro (Insulin Lispro 100 Unit/Ml 3 Ml Vial) 0 unit SUBCUT QIDACHS [facility]; Protocol Last Admin: 08/03/21 11:16 Dose: Not Given Documented by: JOSELYN Non-Admin Reason: No Insulin Coverage Comments: poc 115 Levothyroxine Sodium (Levothyroxine Sodium 100 Mcg Tablet) 100 mcg PO DAILY@0600 [facility] Last Admin: 08/03/21 11:06 Dose: 100 mcg Documented by: TOÑA Lisinopril (Lisinopril 5 Mg Tablet) 5 mg PO DAILY [facility]; Protocol Last Admin: 08/03/21 08:47 Dose: 5 mg Documented by: TOÑA Magnesium Hydroxide (Milk Of Magnesia 30 Ml Oral.Susp) 30 ml PO DAILY PRN PRN Reason: Constipation Nicotine (Nicotine 21 Mg Patch.Td24) 21 mg TRANSDERMA DAILY [facility] Last Admin: 08/03/21 08:44 Dose: 21 mg Documented by: TOÑA Nicotine Polacrilex (Nicotine Polacrilex Lozenge 4 Mg Lozenge) 4 mg BUCCAL Q2H PRN PRN Reason: Nicotine Cravings Last Admin: 08/03/21 02:57 Dose: 4 mg Documented by: MIRTA Omeprazole (Omeprazole 20 Mg Capsule.) 20 mg PO DAILY@0630 [facility] Ondansetron HCl (Ondansetron Hcl 4 Mg/2 Ml Vial) 4 mg IVPUSH Q8H PRN PRN Reason: Nausea and Vomiting Pharmacy Consult (Consult Rx Perform Med Rec) 1 each MISCELLANE ONCE PRN PRN Reason: Consult order Sodium Chloride (0.9 % Sodium Chloride Flush 3 Ml Syringe) 3 ml IVFLUSH QSHIFT [facility] Last Admin: 08/03/21 08:52 Dose: 3 ml Documented by: TOÑA Vitamin D (Cholecalciferol (Vitamin D3) 25 Mcg Tablet) 25 mcg PO DAILY [facility] Last Admin: 08/03/21 08:47 Dose: 25 mcg Documented by: TOÑA Labs CBC & Chem 7: 08/03/21 06:40 08/03/21 06:40 Labs: Laboratory Results - last 24 hr 08/02/21 08/02/21 08/02/21 22:49 22:49 22:49 MCV 83.5 MCH 27.9 MCHC 33.4 RDW 14.8 Plt Count 300 MPV 9.8 Immature Gran % (Auto) 0.3 Neut % (Auto) 56.4 Lymph % (Auto) 29.7 [place] % (Auto) 10.4 Eos % (Auto) 2.5 Baso % (Auto) 0.7 Lymph # (Auto) 3.1 [place] # (Auto) 1.1 Eos # (Auto) 0.3 Baso # (Auto) 0.1 Abs Immat Gran (auto) 0.03 Absolute Neuts (auto) 5.9 Absolute Nucleated RBC 0.000 Nucleated RBC % (auto) 0.0 PT INR APTT Anion Gap 14 Estim Creat Clear Calc 69.6 Estimated GFR > 60 POC Glucose Random Glucose 132 H Calcium 9.4 Troponin I High Sens 33.5 H* COVID-19 ([facility]) COVID-19 Clin Com 08/03/21 08/03/21 08/03/21 00:41 01:48 01:48 MCV MCH MCHC RDW Plt Count MPV Immature Gran % (Auto) Neut % (Auto) Lymph % (Auto) [place] % (Auto) Eos % (Auto) Baso % (Auto) Lymph # (Auto) [place] # (Auto) Eos # (Auto) Baso # (Auto) Abs Immat Gran (auto) Absolute Neuts (auto) Absolute Nucleated RBC Nucleated RBC % (auto) PT 11.9 INR 1.0 APTT 35.8 Anion Gap Estim Creat Clear Calc Estimated GFR POC Glucose Random Glucose Calcium Troponin I High Sens 112.6 H* D COVID-19 (LEXIE) Negative COVID-19 Clin Com See Note 08/03/21 08/03/21 08/03/21 06:40 06:40 06:40 MCV 83.4 MCH 27.4 MCHC 32.8 RDW 14.6 Plt Count 300 MPV 10.2 Immature Gran % (Auto) 0.2 Neut % (Auto) 50.4 Lymph % (Auto) 36.1 [place] % (Auto) 9.1 Eos % (Auto) 3.6 Baso % (Auto) 0.6 Lymph # (Auto) 3.2 [place] # (Auto) 0.8 Eos # (Auto) 0.3 Baso # (Auto) 0.1 Abs Immat Gran (auto) 0.02 Absolute Neuts (auto) 4.5 Absolute Nucleated RBC 0.000 Nucleated RBC % (auto) 0.0 PT INR APTT Anion Gap 16 Estim Creat Clear Calc 79.5 Estimated GFR > 60 POC Glucose Random Glucose 139 H Calcium 9.7 Troponin I High Sens 185.0 H* D COVID-19 (LEXIE) COVID-19 Clin Com 08/03/21 11:13 MCV MCH MCHC RDW Plt Count MPV Immature Gran % (Auto) Neut % (Auto) Lymph % (Auto) [place] % (Auto) Eos % (Auto) Baso % (Auto) Lymph # (Auto) [place] # (Auto) Eos # (Auto) Baso # (Auto) Abs Immat Gran (auto) Absolute Neuts (auto) Absolute Nucleated RBC Nucleated RBC % (auto) PT INR APTT Anion Gap Estim Creat Clear Calc Estimated GFR POC Glucose 115 Random Glucose Calcium Troponin I High Sens COVID-19 (LEXIE) COVID-19 Clin Com Assessment and Plan (1) NSTEMI (non-ST elevated myocardial infarction): Status: Acute (2) Chest pain: Status: Acute (3) Essential hypertension: Status: Acute Assessment and Plan: 61-year-old female with past medical history of COPD, hyperlipidemia, hypertension, hypothyroidism who presents to the hospital with complaints of chest pain found to have elevated troponin NSTEMI Troponin trending up 33, 112, 185. No EKG changes. Patient states BP was very high at home, but BP has not been excessively high while in ED no known h/o CAD, but multiple risk factors including HTN, HLD, DM, smoking currently chest pain-free -seen by cardiology, will start AC with heparin x 48 hrs -echo pending, based on outcome of ECHO, will decide further managment. If WMA, will need cath, otherwise likely stress test. -Continue statin, asa diabetes - hold oral antihyperglycemics - start low-dose sliding scale insulin - diabetic diet hypertension - stable - continue Lisinopril, HCTZ COPD not in exacerbation - continue home inhalers tobaccco dependence Smoking cessation advised -NRT gerd -continue omeprazole hypothyroidism -continue synthroid DVT prophylaxis: Heparin Attendin: Dr. Aragon Quality Stroke Does the patient have a stroke diagnosis?: No VTE Prior VTE?: No VTE Risk Level:: Medical - moderate - high VTE Device Contraindication: Treatment Not Indicated VTE Drug Contraindication: N/A - Med Ordered
[2021-08-03 12:27] LABS: Prothrombin Time 11.9 SEC (9.9-13.0)
[2021-08-03 12:29] LABS: PTT Heparin Drip 40.4 SEC (53-77.9)
[2021-08-03] MEDS: Heparin Sodium,Porcine/1/2NS 25,000 UNIT/250 ML IV.SOLN 9.69 UNIT IVCONT (12:49)
--- NOTE | 2021-08-03 12:51 | PC.NURSE ---
patient a&ox3, heparin drip started per order, pt denies chest pain at this time, ekg monitor nsr 70s, will continue to monitor.
[2021-08-03 14:09] LABS: Glucose, Whole Blood 198 mg/dL (60-115)
[2021-08-03 16:41] LABS: Glucose, Whole Blood 95 mg/dL (60-115)
--- NOTE | 2021-08-03 18:50 | PC.NURSE ---
repeat ptt drawn per order, pt sitting at bedside eating dinner, patient no c/o pain or discomfort, family at bedside, will continue to monitor.
[2021-08-03 19:16] LABS: PTT Heparin Drip 81.4 SEC (53-77.9)
--- NOTE | 2021-08-03 20:01 | PC.NURSE ---
patient a&ox3, hall monitor nsr 90s, pt has no c/o chest pain or discomfort, family at bedside, heparin drip change to 10u/kh/hr- ptt 81.4, ptt redraw to be at 0048, will continue to monitor.
[2021-08-03 20:22] LABS: Glucose, Whole Blood 179 mg/dL (60-115)
[2021-08-03] MEDS: Atorvastatin Calcium 80 MG TABLET PO (20:41)
[2021-08-03] MEDS: Insulin Lispro 100 UNIT/ML 3 ML VIAL SUBCUT (20:41)
--- NOTE | 2021-08-03 20:46 | PC.NURSE ---
patient a&ox3, ekg monitor tech nsr 80s, vss, heparin drip continues to run at 10 u/kg/hr, family at bedside, pt medicated per order, will continue to monitor.
--- NOTE | 2021-08-03 22:00 | PC.NURSE ---
patient currently sleeping, iv running per order, human resources benefits coordinator nsr, will continue to monitor.
--- NOTE | 2021-08-03 23:29 | PC.NURSE ---
pt a&o, no sob or chest pain at this time. pt report no n/v or lightheadedness. Pt on bedside monitor at this time.
[2021-08-03 23:49] LABS: Glucose, Whole Blood 79 mg/dL (60-115)
--- NOTE | 2021-08-04 02:17 | PC.NURSE ---
ptt at this time will remain the same due to protocol, will continue to monitor.
--- NOTE | 2021-08-04 03:05 | PC.NURSE ---
pt sleeping . no sign of distress.
[2021-08-04 06:00] VITALS: BP 127/43; PULSE 76; RESP 12; O2SAT 93
[2021-08-04] MEDS: Levothyroxine Sodium 100 MCG TABLET PO (06:24)
--- NOTE | 2021-08-04 06:29 | PC.NURSE ---
pt a&o , no sob or chest pain. pt sleeping comfortable all night. pt remains on monitor. Granddaughter at the bed side.
[2021-08-04] MEDS: Omeprazole 20 MG CAPSULE.DR PO (06:31)
--- NOTE | 2021-08-04 06:34 | PC.NURSE ---
attempted to call report. Rn will be calling back .
[2021-08-04 07:11] VITALS: BP 142/51; PULSE 74; RESP 17; TEMP 36.4; O2SAT 94
[2021-08-04 07:27] LABS: INTERNATIONAL NORM RATIO 1.1 (0.9-1.1)
--- NOTE | 2021-08-04 07:29 | PC.NURSE ---
nurse to nurse given to nan molina).
[2021-08-04 07:30] LABS: PTT Heparin Drip 70.2 SEC (53-77.9)
[2021-08-04 07:33] VITALS: BMI 35.4
[2021-08-04 07:46] VITALS: BP 145/69; PULSE 77; RESP 18; TEMP 36.9; O2SAT 96
[2021-08-04 08:01] LABS: Glucose, Whole Blood 121 mg/dL (60-115)
--- NOTE | 2021-08-04 09:00 | CA_ITS ---
Transthoracic Echocardiogram Patient (Last, First, Middle): Charisse Staton, Gender: Female Date of : 1960 Age: 61 Procedure Date: 08/04/2021 Procedure Type: Transthoracic Echocardiogram [place] [facility] [place]: 152.4 cm Weight: 82.1 kg BSA: 1.79 m2 Heart Rate: bpm BP: 142 / 51 mmHg Claims Specialist: Referring MD: Hermelindo Moran MD Symptoms: Elevated troponin Study Quality: Fair ECG Rhythm: Sinus Conclusions: - 1. Idly-ro-xxnzldcr LV systolic dysfunction with regional wall motion abnormality in RCA distribution with impaired relaxation filling pattern 2. Moderate aortic regurgitation 3. Normal RV systolic pressure 4. No pericardial effusion Findings Procedure Information Contrast agent, definity, is being given per protocol without apparent complications. Left Ventricle Normal left ventricular cavity size. There is normal left ventricular wall thickness. The left ventricular systolic function is mild to moderately decreased. The visually estimated ejection fraction is between 40-45%. Spectral Doppler is indicative of an impaired relaxation filling pattern. E/E prime ratio is between 8 and 15 consistent with indeterminate filling pressures. Wall Motion Rest Echo Findings The inferoseptal wall and apical septum segment are hypokinetic. The inferior wall is akinetic. All other scored wall segments showed normal motion. Right Ventricle Normal right ventricular cavity size and systolic function. Atria The left atrium is likely dilated. Interatrial shunt cannot be excluded. The right atrium is normal in size. Aortic Valve There is mild calcification of the aortic valve. There is no aortic valve stenosis. There is moderate aortic valve regurgitation. Mitral Valve Normal mitral valve structure and function. There is trace mitral valve regurgitation. There is no mitral valve stenosis. Pulmonic Valve The pulmonic valve was not well visualized. Tricuspid Valve Likely normal tricuspid valve structure and function. There is trace tricuspid valve regurgitation. The right ventricular systolic pressure is normal. The right ventricular systolic pressure is 23 mmHg. Normal right atrial pressure. There is no evidence of pulmonary hypertension. Great Vessels All visible segments of the aorta are normal in size. The pulmonary artery was not well visualized. Venous The inferior vena cava is normal in size and collapses greater than 50% with inspiration. Pericardium/Pleural There is no evidence of pericardial effusion. Prior Study Comparison No prior study available for comparison. Measurements 2D Linear Measurements IVSd: 1.10 0.6-0.9/0.6-1.0 cm LVIDd: 4.35 3.9-5.3/4.2-5.9 cm LVIDd Index: 2.43 2.4-3.2/2.2-3.1 cm/m2 LVIDs: 3.08 2.0-3.6 cm LVPWd: 1.08 0.7-1.1 cm Ao Root: 3.00 2.1-3.5 cm LA Diam: 4.00 2.7-3.8/3.0-4.0 cm LAIDs Index: 2.23 1.5-2.3 cm/m2 LV Mass: 203.98 67-162/88-224 g LV Mass Index: 113.95 43-95/49-115 g/m2 LVOT Diam: 2.00 3.0+(-)1.3 cm 2D Systolic Function EF 4C: 42.20 >55% EF 2C: 36.80 >55% EF BiP: 38.80 >55% Mitral Valve MV Pk E: 0.56 MV PK A: 1.19 MV Decel Time: 141.00 E/A: 0.50 E'Lateral: 5.22 E'Medial: 3.37 E/E' Med: 16.60 E/E' Lat: 10.70 PHT: 41.00 MVA PHT: 5.37 Decel Mellette: 3.99 Aortic Valve AoV Pk Alexandro: 1.94 AoV Mn Alexandro: 1.22 AoV VTI: 0.38 AoV Pk Grad: 15.00 Aov Mn Grad: 7.00 QUIRINO Cont.VTI: 2.13 AI Pk Alexandro: 4.28 AI Mellette: 3.36 LVOT LVOT Pk Alexandro: 1.13 LVOT Mn Alexandro: 0.63 LVOT VTI: 0.26 LVOT Pk Grad: 5.00 LVOT Mn Grad: 2.00 LVOT Diam: 2.00 LVOT Area: 3.14 Diastolic Function MV Pk E: 0.56 MV Pk A: 1.19 E/A: 0.50 E'Medial: 3.37 E/E' Med: 16.60 E' Laterial: 5.22 E/E' Lat: 10.70 Tricuspid Valve TR Pk Alexandro: 2.23 TR Pk Grad: 20.00 RA Press: 3.00 RVSP: 23.00 Great Vessels Aorta Ao Root-2D: 3.00 2.0-3.7 cm Ao Asc: 3.40 2.1-3.4 cm Updated in Other Vendor System with Status of Final Jaquan Orta MD electronically signed on 08/04/2021 11:45:51 AM with status of Final
[2021-08-04] MEDS: 0.9 % Sodium Chloride Flush 3 ML SYRINGE IVFLUSH ×2 (09:59→13:56)
[2021-08-04] MEDS: Nicotine 21 MG PATCH.TD24 TRANSDERMA (09:59)
[2021-08-04 10:00] VITALS: BP 145/69; PULSE 77
[2021-08-04] MEDS: Cyanocobalamin (Vitamin B-12) 500 MCG TABLET PO (10:00)
[2021-08-04] MEDS: Folic Acid 1 MG TABLET PO (10:00)
[2021-08-04] MEDS: Docusate Sodium 100 MG CAPSULE PO (10:00)
[2021-08-04] MEDS: Cholecalciferol (Vitamin D3) 25 MCG TABLET PO (10:00)
[2021-08-04] MEDS: Aspirin 81 MG TAB.CHEW PO (10:00)
[2021-08-04] MEDS: hydroCHLOROthiazide 50 MG TABLET PO (10:00)
[2021-08-04] MEDS: lisinopriL 5 MG TABLET PO (10:00)
[2021-08-04 10:55] LABS: Glucose, Whole Blood 120 mg/dL (60-115)
[2021-08-04 11:17] VITALS: BP 150/74; PULSE 82; RESP 18; TEMP 36.6; O2SAT 97
[2021-08-04 11:26] LABS: Glucose, Whole Blood 209 mg/dL (60-115)
[2021-08-04] MEDS: Insulin Lispro 100 UNIT/ML 3 ML VIAL SUBCUT (11:37)
[2021-08-04] MEDS: Heparin Sodium,Porcine/1/2NS 25,000 UNIT/250 ML IV.SOLN 8.07 UNIT IVCONT (11:38)
--- NOTE | 2021-08-04 12:30 | PM.DS ---
DS: Providers Provider Date of Service: 08/04/21 Date of admission: 08/03/21 02:09 Primary care physician: Mary Anne Armstrong NP Consults: 08/03/21 02:26 Consult to Cardiology Routine Consulting Provider: Nathanael Winslow Reason for consultation: chest pain,elevated trop Has provider been notified: No Attending physician on discharge: Kishor Aragon Discharging clinician: Jackie Pool DS: Diagnosis Discharge Diagnosis (1) NSTEMI (non-ST elevated myocardial infarction): Status: Acute (2) Chest pain: Status: Acute (3) Essential hypertension: Status: Acute DS: Summary Hospital Course Hospital Course: HP as per admitting provider This is a 61-year-old [place]-speaking only female with past medical history of COPD, diabetes, HTN, HLD, aortic insufficiency, hypothyroidism, peripheral vascular disease vitamin-D deficiency who presents to the hospital with complaints of intermittent chest pain.? Patient reports that she had 2 episodes 1 on Wednesday night and 1 on Wednesday night which prompted her to come to the hospital.? She describes the pain as midsternal with radiation to left as well as up to her neck, lasting 5-10 minutes, intermittent, associated with palpitations, about 8/10, tightening sensation.? She denies any shortness of breath, no previous similar episodes.? No nausea vomiting dizziness, no abdominal pain, no diarrhea but has constipation, no urinary symptoms and no lower extremity edema.? Occurs at rest and resolved spontaneously. At this time patient is chest pain-free. On arrival to the ED patient hemodynamically stable with a blood pressure of 157/57 otherwise unremarkable. Labs are significant for initial high sensitivity troponin of 33 that increased to 121, EKG shows sinus rhythm with no? acute changes. Given her increase in troponin as well as typical presentation will admit for further evaluation under observation . NSTEMI. No further chest pain during hospitalization. Troponin range 33.5, 112.6, 185.0. She was started on IV heparin. Echocardiogram showed EF of 40-45% with inferoseptal wall and apical septum segment with hypokinesis, inferior wall akinetic. today she was started on metoprolol 25 mg b.i.d. and Norvasc 2.5 mg daily. She was seen and evaluated by Cardiology with recommendation to transfer to [facility] for cardiac catheterization. Time Spent with Patient Time attestation: Total time spent providing and/or coordinating discharge services: Discharge coordination time: Greater than 30 minutes Quality: Stroke Does the patient have a stroke diagnosis?: No Physical Exam Vital Signs: Vital Signs: Last Vital Signs Temp 97.9 F 08/04/21 11:17 Pulse 82 08/04/21 11:17 Resp 18 08/04/21 11:17 BP 150/74 H 08/04/21 11:17 Pulse Ox 97 08/04/21 11:17 Body Mass Index 35.4 Appearing in no acute distress lung sounds are clear to auscultation heart regular rate rhythm, clear S1, S2 positive bowel sounds, abdomen is soft, nontender neuro patient is alert x3, no focal deficits DS: Data Data Completed and Pending Labs on day of discharge: Laboratory Results - last 24 hr 08/03/21 08/03/21 08/03/21 12:01 14:05 16:35 PT 11.9 INR 1.0 PTT (Heparin Protocol) 40.4 L POC Glucose 198 H 95 08/03/21 08/03/21 08/03/21 18:48 20:19 23:33 PT INR PTT (Heparin Protocol) 81.4 H D POC Glucose 179 H 79 08/04/21 08/04/21 08/04/21 00:49 07:09 07:15 PT 12.0 INR 1.1 PTT (Heparin Protocol) 70.0 70.2 POC Glucose 120 H 08/04/21 08/04/21 07:57 11:19 PT INR PTT (Heparin Protocol) POC Glucose 121 H 209 H Discharge Plan Discharge Anticipated Discharge Date/Time: 08/04/21 12:24 Patient Disposition: Xfer Acute Care Hospital Discharge Diagnosis: NSTEMI Referrals: Mary Anne Armstrong NP [Primary Care Provider] - 1 Week Discharge Medications: New amlodipine 2.5 mg Tablet 2.5 mg PO DAILY Qty: 30 RF: 0 metoprolol tartrate 25 mg Tablet 25 mg PO BID Qty: 60 RF: 0 heparin(porcine) in 0.45% NaCl 25,000 unit/250 mL Parenteral Solution 25,000 unit continuous IV infusion .Q0M Qty: 250 RF: 0 Continued chlorthalidone 50 mg tablet 1 tab PO BEDTIME RF: 0 folic acid 400 mcg tablet 1 tab PO DAILY RF: 0 levothyroxine 100 mcg tablet 100 mcg PO MOTUWETHFRSA RF: 0 cyanocobalamin (vitamin B-12) 500 mcg tablet 1 tab PO DAILY RF: 0 omeprazole 20 mg capsule,delayed release(DR/EC) 1 cap PO QAM RF: 0 aspirin 81 mg tablet,chewable 1 tab PO DAILY RF: 0 lisinopril 5 mg tablet 1 tab PO DAILY RF: 0 metformin 500 mg tablet extended release 24 hr 1 tab PO DAILY RF: 0 rosuvastatin 40 mg tablet 1 tab PO BEDTIME RF: 0 cholecalciferol (vitamin D3) 25 mcg (1,000 unit) tablet 1 tab PO DAILY RF: 0 levothyroxine 100 mcg tablet 200 mcg PO VILLEGAS RF: 0 Discharge Orders: Discharge Order (Routine); Ordered 08/04/21 Ordered By: Jackie Pool Diet: advance to usual diet Activity on Discharge: As tolerated Stand Alone Forms: Patient Portal Discharge page Care Plan Goals: Cardiac care at [facility] Concerns: NSTEMI Plan of Treatment: Plan is to transfer to [facility] for cardiac catheterization for further management and treatment of NSTEMI Assessment: See discharge summary
--- NOTE | 2021-08-04 12:48 | PM.PNCARD ---
Subjective Subjective Date of Service: 08/04/21 Principal diagnosis: Acute coronary syndrome Interval history: Patient seen and examined. Echocardiogram shows [id number] LV systolic dysfunction with RCA territory wall motion abnormality. Patient is currently not having any chest discomfort. Findings were discussed with her with help of a certified fulfillment representative at bedside. Review of Systems Review of Systems Constitutional : No Weight loss, No Fever, No Chills ENT/Mouth : No sore throat, No Rhinorrhea Eyes: No Eye Pain, No Swelling Cardiovascular : pos Chest Pain, no SOB, no Dyspnea on Exertion, No Orthopnea, No Edema, No Palpitations Respiratory : No Cough, No Sputum Gastrointestinal : no Nausea, No Vomiting, No Diarrhea, No abdominal Pain, No Hematochezia, No Melena Genitourinary : No Dysuria, No Urinary Frequency Musculoskeletal : No joint pain, No Myalgias, No Joint Swelling Skin : No Skin Lesions, No rash Neuro : No Weakness, No Numbness, No Dizziness, No Headache Psych : No Anxiety/Panic, No Depression Heme/Lymph: No Bruising, No Lymphadenopathy Endocrine : No Polyuria, No Polydipsia All other systems reviewed and are negative Physical Exam Vital Signs: Last Vital Signs Temp 97.9 F 08/04/21 11:17 Pulse 82 08/04/21 11:17 Resp 18 08/04/21 11:17 BP 150/74 H 08/04/21 11:17 Pulse Ox 97 08/04/21 11:17 Body Mass Index 35.4 Const General: cooperative and comfortable Nutritional Appearance: obese Orientation/consciousness: patient oriented x3 Neck Neck: Yes trachea midline and Yes no JVD Resp Effort & Inspection: normal respiratory effort Auscultation: clear to auscultation bilaterally Cardio Jugular venous distension: no JVD Palpation: normal PMI Rate: regular rate Rhythm: regular rhythm Heart sounds: S1 normal heart sound present, S2 normal heart sound present, no click, no gallops and Murmur heart sound present diastolic Skin General skin exam: no rashes or lesions noted Neuro General: patient oriented x3 and no focal motor deficits Extrem General: Yes no clubbing, cyanosis or edema Results Labs and Meds Result diagrams: 08/03/21 06:40 08/03/21 06:40 Lab results: Laboratory Results - last 24 hr 08/03/21 08/03/21 08/03/21 14:05 16:35 18:48 PT INR PTT (Heparin Protocol) 81.4 H D POC Glucose 198 H 95 08/03/21 08/03/21 08/04/21 20:19 23:33 00:49 PT INR PTT (Heparin Protocol) 70.0 POC Glucose 179 H 79 08/04/21 08/04/21 08/04/21 07:09 07:15 07:57 PT 12.0 INR 1.1 PTT (Heparin Protocol) 70.2 POC Glucose 120 H 121 H 08/04/21 11:19 PT INR PTT (Heparin Protocol) POC Glucose 209 H Progress Note: A&P Assessment and plan (1) NSTEMI (non-ST elevated myocardial infarction): Status: Acute Assessment and Plan: Patient presents with acute coronary syndrome with wall motion noted RCA territory most suggestive of primary acute coronary syndrome. Requires cardiac catheterization. Discussed with patient the risks, benefits, alternatives of procedure and transfer to [facility]. She is agreeable with this management plan. Will make the arrangements for the same. Continue high-intensity statin therapy, IV heparin, aspirin. Add metoprolol 25 mg b.i.d. and Norvasc 2.5 mg daily to her regimen. Further treatment based on finding of cardiac catheterization. Potential outcomes were discussed with her. She understands and agrees. Fall Risk Details Current Medications: Current Medications Acetaminophen (Acetaminophen 325 Mg Tablet) 650 mg PO Q6H PRN PRN Reason: Pain, Mild (Pain Scale 1-3) Amlodipine Besylate (Amlodipine Besylate 2.5 Mg Tablet) 2.5 mg PO DAILY [facility]; Protocol Aspirin (Aspirin 81 Mg Tab.Chew) 81 mg PO DAILY [facility] Last Admin: 08/04/21 10:00 Dose: 81 mg Documented by: Atorvastatin Calcium (Atorvastatin Calcium 80 Mg Tablet) 80 mg PO BEDTIME [facility] Last Admin: 08/03/21 20:41 Dose: 80 mg Documented by: Cyanocobalamin (Cyanocobalamin (Vitamin B-12) 500 Mcg Tablet) 500 mcg PO DAILY [facility] Last Admin: 08/04/21 10:00 Dose: 500 mcg Documented by: Dextrose (Dextrose 50 % 25 Gm/50 Ml Vial) 25 gm IVPUSH Q15M PRN; Protocol PRN Reason: per Hypoglycemia Standing Ord. Docusate Sodium (Docusate Sodium 100 Mg Capsule) 100 mg PO BID [facility] Last Admin: 08/04/21 10:00 Dose: 100 mg Documented by: Folic Acid (Folic Acid 1 Mg Tablet) 1 mg PO DAILY [facility] Last Admin: 08/04/21 10:00 Dose: 1 mg Documented by: Glucose (Glucose Gel 15 Gm Gel..Gram.) 15 gm PO Q15M PRN; Protocol PRN Reason: per Hypoglycemia Standing Ord. Heparin Sodium (Porcine) (Heparin Sodium,Porcine 5,000 Unit/Ml Vial) 3,200 unit 40 unit/kg (3200 unit) IVPUSH PROTOCOL BOLUS PRN; Protocol PRN Reason: 40 unit/kg - Heparin Protocol Heparin Sodium (Porcine) (Heparin Sodium,Porcine 5,000 Unit/Ml Vial) 6,500 unit 80 unit/kg (6500 unit) IVPUSH PROTOCOL BOLUS PRN; Protocol PRN Reason: 80 unit/kg - Heparin Protocol Hydrochlorothiazide (Hydrochlorothiazide 50 Mg Tablet) 50 mg PO DAILY [facility] Last Admin: 08/04/21 10:00 Dose: 50 mg Documented by: Heparin Sodium/Sodium Chloride () 25,000 unit in 250 mls @ 0 mls/hr IVCONT .Q0M [facility]; Protocol Stop: 08/05/21 11:29 Last Admin: 08/04/21 11:38 Dose: 10 units/kg/hr, 8.07 mls/hr Documented by: Insulin Human Lispro (Insulin Lispro 100 Unit/Ml 3 Ml Vial) 0 unit SUBCUT QIDACHS [facility]; Protocol Last Admin: 08/04/21 11:37 Dose: 4 unit Documented by: Levothyroxine Sodium (Levothyroxine Sodium 100 Mcg Tablet) 100 mcg PO DAILY@0600 [facility] Last Admin: 08/04/21 06:24 Dose: 100 mcg Documented by: Lisinopril (Lisinopril 5 Mg Tablet) 5 mg PO DAILY [facility]; Protocol Last Admin: 08/04/21 10:00 Dose: 5 mg Documented by: Magnesium Hydroxide (Milk Of Magnesia 30 Ml Oral.Susp) 30 ml PO DAILY PRN PRN Reason: Constipation Metoprolol Tartrate (Metoprolol Tartrate 25 Mg Tablet) 25 mg PO BID [facility]; Protocol Nicotine (Nicotine 21 Mg Patch.Td24) 21 mg TRANSDERMA DAILY [facility] Last Admin: 08/04/21 09:59 Dose: 21 mg Documented by: Nicotine Polacrilex (Nicotine Polacrilex Lozenge 4 Mg Lozenge) 4 mg BUCCAL Q2H PRN PRN Reason: Nicotine Cravings Last Admin: 08/03/21 02:57 Dose: 4 mg Documented by: Omeprazole (Omeprazole 20 Mg Capsule.) 20 mg PO DAILY@0630 [facility] Last Admin: 08/04/21 06:31 Dose: 20 mg Documented by: Ondansetron HCl (Ondansetron Hcl 4 Mg/2 Ml Vial) 4 mg IVPUSH Q8H PRN PRN Reason: Nausea and Vomiting Pharmacy Consult (Consult Rx Perform Med Rec) 1 each MISCELLANE ONCE PRN PRN Reason: Consult order Sodium Chloride (0.9 % Sodium Chloride Flush 3 Ml Syringe) 3 ml IVFLUSH QSHIFT [facility] Last Admin: 08/04/21 09:59 Dose: 3 ml Documented by: Vitamin D (Cholecalciferol (Vitamin D3) 25 Mcg Tablet) 25 mcg PO DAILY [facility] Last Admin: 08/04/21 10:00 Dose: 25 mcg Documented by: Time Spent With Patient Time: Total time spent is greater than 50% in coordination of care (as documented) at patient's floor/unit and/or counseling patient: Time with patient: 25 - 35 minutes Progress Note: Quality Stroke Does the patient have a stroke diagnosis?: No Procedures Date of Service Date of Service: 08/04/21
[2021-08-04 13:55] VITALS: BP 140/70; PULSE 80
[2021-08-04] MEDS: Metoprolol Tartrate 25 MG TABLET PO (13:55)
[2021-08-04] MEDS: amLODIPine Besylate 2.5 MG TABLET PO (13:55)
--- NOTE | 2021-08-04 15:07 | MHC.CM.PN ---
Addendum entered by Carley Villalobos 08/04/21 15:09: PT WILL BE TRANSFERRED TO [facility] Original Note: CM MET WITH PT WITH THE ASSIST[facility] OF [facility]ENCE CL[place]. PT REPORTS SHE LIVES ALONE AND HAS [employer] SERVICES FOR 4 HOURS DAILY. PT REPORTS SHE HAS A WALKER AND A SHOWER CHAIR FOR DME. PT REPORTS THE PCP ON FILE IS INCORRECT AND SAYS IT IS NOW YESICA BERKOWITZ. PTS CURRENT DC PLAN IS HOME WITH RESUMPTION OF [employer] VS TRANSFER TO [facility]
== END 2021-08-04 14:41 | disposition short-term general hospital (02) ==
LOC: HO.ED 08-03 01:24 → HO.EDOVER 08-03 02:22 → HO.IMC 08-04 06:12
PROVIDERS: Physician Assistant Medical; Admitting Provider Internal Medicine; Emergency Provider Emergency Medicine; PCP Hospitalist; Visit Provider Nurse Practitioner Acute Care
DX: R07.2 Precordial pain (principal); R77.8 Other specified abnormalities of plasma proteins; I21.4 Non-ST elevation (NSTEMI) myocardial infarction; I35.1 Nonrheumatic aortic (valve) insufficiency; I51.7 Cardiomegaly; I73.9 Peripheral vascular disease, unspecified; I10 Essential (primary) hypertension; E03.9 Hypothyroidism, unspecified; E11.9 Type 2 diabetes mellitus without complications; E78.00 Pure hypercholesterolemia, unspecified; E78.5 Hyperlipidemia, unspecified; E66.01 Morbid (severe) obesity due to excess calories; J44.9 Chronic obstructive pulmonary disease, unspecified; Z68.29 Body mass index [BMI] 29.0-29.9, adult; Z20.822 Contact with and (suspected) exposure to COVID-19; Z79.899 Other long term (current) drug therapy
CPT/HCPCS: 36415; 71045; 80048; 82947; 84484; 85025; 85610; 85730; 87635; 93005; 93306; 99219; 99285; J1650; Q9957

== ENCOUNTER 2021-08-13 09:43 | Outpatient (REF) | payer MEDICAID, SELFPAY ==
[2021-08-13 11:19] LABS: Free T4 (Free Thyroxine) 1.14 ng/dL (0.71-1.85); Thyroid Stimulating Hormone 5.07 uIU/mL (0.32-4.0)
== END 2021-08-13 09:44 | disposition home or self-care (01) ==
LOC: HO.LAB 09:43
PROVIDERS: PCP Family Medicine; Visit Provider Nurse Practitioner Gerontology
DX: E03.9 Hypothyroidism, unspecified (principal)
CPT/HCPCS: 36415; 84439; 84443

== ENCOUNTER → 2021-08-20 14:51 | Outpatient (BNVA) | payer MEDICAID, SELFPAY | PROVIDERS: PCP Hospitalist; Visit Provider Nurse Practitioner Gerontology | DX: E03.9 Hypothyroidism, unspecified (principal); E05.00 Thyrotoxicosis with diffuse goiter without thyrotoxic crisis or storm; E11.9 Type 2 diabetes mellitus without complications; I10 Essential (primary) hypertension; E78.00 Pure hypercholesterolemia, unspecified; E78.5 Hyperlipidemia, unspecified; E55.9 Vitamin D deficiency, unspecified; E66.09 Other obesity due to excess calories; F17.210 Nicotine dependence, cigarettes, uncomplicated; Z68.34 Body mass index [BMI] 34.0-34.9, adult; Z79.84 Long term (current) use of oral hypoglycemic drugs; Z79.899 Other long term (current) drug therapy | CPT/HCPCS: 99212 ==

== ENCOUNTER → 2021-08-25 10:51 | Outpatient (BNVA) | payer MEDICAID, SELFPAY | PROVIDERS: PCP Family Medicine; Referring Provider Family Medicine; Visit Provider Internal Medicine Cardiovascular Disease | DX: I21.4 Non-ST elevation (NSTEMI) myocardial infarction (principal); I10 Essential (primary) hypertension; T14.8XXD Other injury of unspecified body region, subsequent encounter | CPT/HCPCS: 93926; 99212 ==

== ENCOUNTER 2021-08-25 11:45 | Outpatient (REF) | payer MEDICAID, SELFPAY ==
--- NOTE | ~2021-08-25 | US_ITS ---
EXAMINATION: LEFT GROIN AND COLOR-FLOW DUPLEX IMAGING CLINICAL INFORMATION: This is a 61-year-old female who is status post left groin cardiac catheterization. Hematoma and swelling. Possible pseudoaneurysm. COMPARISON: None TECHNIQUE: Color-flow duplex imaging with spectral waveform analysis was performed. FINDINGS: No pseudoaneurysm is seen. There is calcified atherosclerotic disease with narrowing in the common femoral artery. High velocities measuring 498 cm/s are evident. This appears to be a high-grade hemodynamically significant stenosis. There is fluid in the subcutaneous space consistent with a hematoma. US/US arterial duplex LE LT IMPRESSION: 1. No pseudoaneurysm is seen. 2. Localized hematoma. 3. There is narrowing in the left common femoral artery with elevated velocities of 498 cm/s.
== END 2021-08-25 11:46 | disposition home or self-care (01) ==
LOC: HO.US 11:45
PROVIDERS: PCP Family Medicine; Visit Provider Internal Medicine Cardiovascular Disease
DX: R60.0 Localized edema (principal); N94.89 Other specified conditions associated with female genital organs and menstrual cycle
CPT/HCPCS: 93926

== ENCOUNTER 2021-10-01 09:57 | Outpatient (REF) | payer MEDICAID, SELFPAY ==
[2021-10-01 10:15] LABS: MANUAL DIFF FLAG NO
[2021-10-01 10:37] LABS: Basophils Absolute Auto 0.1 X10*3/uL (0.0-0.2); Basophils Percent Auto 0.8 % (0-2); Eosinophils Absolute Auto 0.4 X10*3/uL (0.0-0.4); Eosinophils Percent Auto 4.8 % (0-4); Hematocrit 37.2 % (37.0-47.0); Hemoglobin 11.7 g/dl (12.0-16.0); Imm Gran Abs Auto 0.02 X10*3/uL (0.00-0.03); Imm Gran Pct Auto 0.3 % (0.0-0.4); Lymphocytes Absolute Auto 2.7 X10*3/uL (1.2-4.9); Lymphocytes Percent Auto 35.6 % (20-40); Mean Corpuscular HGB Conc 31.5 g/dl (31.0-35.0); Mean Corpuscular Hemoglobin 27.2 pg (27.0-33.0); Mean Corpuscular Volume 86.5 fL (80.0-98.0); Mean Platelet Volume 9.6 fL (9.4-12.3); Monocytes Absolute Auto 0.8 X10*3/uL (0.1-1.2); Monocytes Percent Auto 9.9 % (2-11); Neutrophils Absolute Auto 3.7 x10*3/uL (2.0-8.3); Neutrophils Percent Auto 48.6 % (45-73); Platelet Count 372 X10*3/uL (160-400); Red Cell Distribution Width 15.6 % (11.0-16.0); White Blood Count 7.6 X10*3/uL (4.8-10.8)
[2021-10-01 11:07] LABS: Anion Gap 16 (12-20); Blood Urea Nitrogen 16 mg/dL (9-16); Calcium 9.9 mg/dL (8.4-10.2); Carbon Dioxide 23 mmol/L (22-29); Chloride 109 mmol/L (96-108); Estimated Glomerular Filt Rate > 60; Glucose Random 113 mg/dL (60-115); Iron 63 mcg/dL (30-160); Magnesium 1.9 mg/dL (1.6-2.6); Percent Iron Saturation 19 % (15-50); Potassium 4.5 mmol/L (3.3-5.1); Sodium 143 mmol/L (135-145); Total Iron Binding Capacity 334 mcg/dL (228-428); Unsaturated Iron Binding 271 ug/dL
[2021-10-01 11:21] LABS: Free T4 (Free Thyroxine) 1.25 ng/dL (0.71-1.85)
[2021-10-01 11:22] LABS: Ferritin 79 ng/mL (10-250)
[2021-10-01 11:27] LABS: Vitamin B12 574 pg/mL (200-900)
== END 2021-10-01 09:58 | disposition home or self-care (01) ==
LOC: HO.LAB 09:57
PROVIDERS: Absent Provider Family Medicine; PCP Family Medicine; Visit Provider Nurse Practitioner Gerontology
DX: G62.9 Polyneuropathy, unspecified (principal); I10 Essential (primary) hypertension; E03.9 Hypothyroidism, unspecified
CPT/HCPCS: 36415; 80048; 82607; 82728; 83540; 83735; 84439; 84443; 85025

== ENCOUNTER 2021-10-07 13:10 | Outpatient (REF) | payer MEDICAID, SELFPAY ==
--- NOTE | ~2021-10-07 | US_ITS ---
EXAMINATION: ANKLE-BRACHIAL INDICES. CLINICAL INFORMATION: This is a 61-year-old female with peripheral arterial disease. COMPARISON: None. TECHNIQUE: Ankle-brachial indices were obtained. The study was performed pre-exercise. FINDINGS: RIGHT SIDE: The right ankle-brachial index is 0.72 rest. The ankle pressures demonstrate evidence of peripheral arterial disease. LEFT SIDE: The left ankle-brachial index is 0.60 at rest. The ankle pressures demonstrate evidence of significant peripheral arterial disease. US/US PELON complete IMPRESSION: 1. RIGHT SIDE: There is hemodynamically significant atherosclerotic disease that appears moderate in severity. 2. LEFT SIDE: There is hemodynamically significant atherosclerotic disease that appears moderate in severity. INTERPRETATION CRITERIA FOR PERIPHERAL ARTERIAL DISEASE: > 0.97-1.25 = normal - no significant peripheral arterial disease. (0.95 - 0.91 may be abnormal-consider PVRs and Doppler waveforms). 0.75 - 0.96 = MILD peripheral arterial disease. 0.50 -0.74 = MODERATE peripheral arterial disease. < 0.50 = SEVERE peripheral arterial disease. < 0.30 = CRITICAL peripheral arterial disease.
== END 2021-10-07 13:11 | disposition home or self-care (01) ==
LOC: HO.US 13:10
PROVIDERS: PCP Family Medicine; Visit Provider Internal Medicine Cardiovascular Disease
DX: I73.9 Peripheral vascular disease, unspecified (principal)
CPT/HCPCS: 93923

== ENCOUNTER 2021-10-08 10:18 | Outpatient (REF) | payer MEDICAID, SELFPAY ==
--- NOTE | 2021-10-08 10:25 | EMG_ITS ---
This is a 61-year-old woman with a history of diabetes for 6 months and back problems, who comes in with intermittent numbness if she walks around in both lower extremities. PHYSICAL EXAMINATION: She moves slowly and seems to be in some pain. Muscle tone and strength are normal with slight atrophy of the left EDB muscle. Reflexes symmetrical. IMPRESSION: Rule out peripheral neuropathy. Nerve conduction EMG study: Moderate motor axonal loss of the left peroneal nerve, otherwise normal study. No evidence of diffuse neuropathy. EMG of the left L4-S1 innervated muscle is consistent with chronic denervated changes in the left EDB consistent with chronic peroneal neuropathy. MD GUERLINE Gutierrez/NOAH / [id number]
== END 2021-10-08 10:19 | disposition home or self-care (01) ==
LOC: HO.NEURO 10:18
PROVIDERS: Visit Provider Family Medicine
DX: G62.9 Polyneuropathy, unspecified (principal)
CPT/HCPCS: 95885; 95911

== ENCOUNTER → 2021-11-19 11:01 | Outpatient (BNVA) | payer MEDICAID, SELFPAY ==
[2021-10-28 07:27] VITALS: BP 116/56
== END ==
PROVIDERS: PCP Family Medicine; Referring Provider Family Medicine; Visit Provider Internal Medicine Cardiovascular Disease
DX: I25.2 Old myocardial infarction (principal); I10 Essential (primary) hypertension; I73.9 Peripheral vascular disease, unspecified; Z71.6 Tobacco abuse counseling
CPT/HCPCS: 99212

== ENCOUNTER → 2021-12-09 14:48 | Outpatient (BNVA) | payer MEDICAID, SELFPAY ==
[2021-11-25 08:05] VITALS: BP 124/52; BMI 33.6
== END ==
PROVIDERS: PCP Family Medicine; Visit Provider Surgery Vascular Surgery
DX: I73.9 Peripheral vascular disease, unspecified (principal)
CPT/HCPCS: 99202

== ENCOUNTER → 2022-01-12 10:22 | Outpatient (REF) | payer MEDICAID, SELFPAY ==
[2021-11-25 08:05] VITALS: BP 124/52; BMI 33.6
--- NOTE | 2022-01-12 10:27 | CA_ITS ---
Transthoracic Echocardiogram Patient (Last, First, Middle): Charisse Staton, Gender: Female Date of : 1960 Age: 61 Procedure Date: 01/12/2022 Procedure Type: Transthoracic Echocardiogram Location: OP Height: 152.4 cm Weight: 78.02 kg BSA: 1.75 m2 Heart Rate: bpm BP: 112 / [address] Roller Engineer: SARAH Referring MD: Nathanael Winslow MD Symptoms: I21.4 - Non-ST elevation (NSTEMI) myocardial infarction Study Quality: Fair/contrast Conclusions: - Normal left ventricular size and systolic function. There is moderately increased left ventricular wall thickness. The visually estimated ejection fraction is between 55-60%. - Normal right ventricular cavity size and systolic function. - There is mild aortic valve stenosis. There is mild aortic valve regurgitation. Findings Procedure Information Contrast agent, definity, is being given per protocol without apparent complications. Left Ventricle Normal left ventricular size and systolic function. There is moderately increased left ventricular wall thickness. The visually estimated ejection fraction is between 55-60%. Abnormal diastolic function is noted. Spectral Doppler is indicative of an impaired relaxation filling pattern. E/E prime ratio is between 8 and 15 consistent with indeterminate filling pressures. Right Ventricle Normal right ventricular cavity size and systolic function. Atria Both atria are normal in size. Aortic Valve The aortic valve structure and function is likely normal. There is mild calcification of the aortic valve. There is mild aortic valve stenosis. There is mild aortic valve regurgitation. Mitral Valve Normal mitral valve structure and function. There is no mitral valve regurgitation. There is no mitral valve stenosis. Pulmonic Valve The pulmonic valve is likely normal. Tricuspid Valve Normal tricuspid valve structure and function. There is trace tricuspid valve regurgitation. Normal right atrial pressure. There is no evidence of pulmonary hypertension. Great Vessels All visible segments of the aorta are normal in size. The visualized portions of the pulmonary artery and branches are normal. Venous The inferior vena cava is normal in size and collapses greater than 50% with inspiration. Pericardium/Pleural There is no evidence of pericardial effusion. Prior Study Comparison Changes noted compared to prior study dated: 08/04/2021. EF has improved back to normal. Measurements 2D Linear Measurements IVSd: 1.24 0.6-0.9/0.6-1.0 cm LVIDd: 5.06 3.9-5.3/4.2-5.9 cm LVIDd Index: 2.89 2.4-3.2/2.2-3.1 cm/m2 LVIDs: 3.51 2.0-3.6 cm LVPWd: 1.21 0.7-1.1 cm LA Diam: 4.00 2.7-3.8/3.0-4.0 cm LAIDs Index: 2.29 1.5-2.3 cm/m2 LV Mass: 305.77 67-162/88-224 g LV Mass Index: 174.73 43-95/49-115 g/m2 LVOT Diam: 2.00 3.0+(-)1.3 cm 2D Systolic Function EF 4C: 50.80 >55% EF 2C: 49.40 >55% EF BiP: 50.50 >55% Mitral Valve MV Pk E: 0.75 MV PK A: 1.14 MV Decel Time: 277.00 E/A: 0.70 E'Lateral: 6.20 E'Medial: 4.68 E/E' Med: 16.00 E/E' Lat: 12.00 PHT: 81.00 MVA PHT: 2.72 Decel Costilla: 2.70 Aortic Valve AoV Pk Alexandro: 2.02 AoV Mn Alexandro: 1.31 AoV VTI: 0.42 AoV Pk Grad: 16.00 Aov Mn Grad: 8.00 QUIRINO Cont.VTI: 2.56 AI Pk Alexandro: 3.94 AI Costilla: 2.32 LVOT LVOT Pk Alexandro: 1.64 LVOT Mn Alexandro: 0.98 LVOT VTI: 0.34 LVOT Pk Grad: 11.00 LVOT Mn Grad: 5.00 LVOT Diam: 2.00 LVOT Area: 3.14 Diastolic Function MV Pk E: 0.75 MV Pk A: 1.14 E/A: 0.70 E'Medial: 4.68 E/E' Med: 16.00 E' Laterial: 6.20 E/E' Lat: 12.00 Right Ventricle TAPSE (mm): 2.00 TVS' Alexandro: 10.80 Tricuspid Valve TR Pk Alexandro: 2.39 TR Pk Grad: 23.00 RA Press: 3.00 RVSP: 26.00 Great Vessels Aorta Sinus of Valsalva: 3.02 2.0-3.[address] Ridge: 2.66 1.7-3.4 cm Ao Asc: 3.10 2.1-3.4 cm Ao Arch: 3.00 Updated in Other Vendor System with Status of Final Nathanael Winslow MD electronically signed on 01/14/2022 2:36:11 PM with status of Final
== END ==
LOC: HO.CARD 10:22
PROVIDERS: Visit Provider Internal Medicine Cardiovascular Disease
DX: I21.4 Non-ST elevation (NSTEMI) myocardial infarction (principal)
CPT/HCPCS: 93306; Q9957

== ENCOUNTER 2022-01-26 08:18 | Outpatient (REF) | payer MEDICAID, SELFPAY ==
[2021-11-25 08:05] VITALS: BP 124/52; BMI 33.6
[2022-01-14 14:49] VITALS: BP 120/68
--- NOTE | ~2022-01-26 | US_ITS ---
EXAMINATION: NONINVASIVE ASSESSMENT OF THE ARTERIES OF BOTH LOWER EXTREMITIES WITH PVR EXAM AND BILATERAL LOWER EXTREMITY DUPLEX CLINICAL INFORMATION: Claudication. TECHNIQUE: Ankle pulse volume recordings, ankle pressure measurements and ankle brachial indices were obtained of the lower extremity arterial system bilaterally. Additionally, duplex Doppler techniques were used with wave form analysis and measurement of velocities in the common femoral, profunda femoral, superficial femoral, popliteal and tibial arteries. The study was performed only at rest. COMPARISON: Bilateral lower extremity ABIs/PVR on 02/05/2012. FINDINGS: ANKLE-BRACHIAL INDEX: Right: 0.71 Left: 0.63. PVR WAVEFORM: Right: Loss of dicrotic notch Left: Loss of dicrotic notch DIRECT DUPLEX DOPPLER FINDINGS: RIGHT LEG: Common femoral artery: 237 cm/s, diastolic flow reversal: Yes. Profunda femoris artery: 173 cm/s, diastolic flow reversal: Yes. Superficial femoral artery (proximal): 388 cm/s, diastolic flow reversal: No. Superficial femoral artery (mid): 119 cm/s, diastolic flow reversal: No. Superficial femoral artery (distal): 87 cm/s, diastolic flow reversal: No. Popliteal artery: 84.7 cm/s, diastolic flow reversal: No. Posterior tibial artery: 51.3cm/s, diastolic flow reversal: No. LEFT LEG: Common femoral artery: 329 cm/s, diastolic flow reversal: Yes. Profunda femoris artery: 146 cm/s, diastolic flow reversal: No. Superficial femoral artery (proximal): 184 cm/s, diastolic flow reversal: No. Superficial femoral artery (mid): Occluded Superficial femoral artery (distal): 84.3 cm/s, diastolic flow reversal: No. Popliteal artery: 71.6 cm/s, diastolic flow reversal: No. Posterior tibial artery: 75.7cm/s, diastolic flow reversal: No. Peroneal artery: 49.2cm/s, diastolic flow reversal: No. US/US arterial duplex LE BI IMPRESSION: RIGHT LEG: PELON 0.71 consistent with moderate peripheral arterial disease. Duplex ultrasound reveals elevated velocity within the common femoral artery consistent with moderate stenosis. There is markedly elevated velocity within the proximal superficial femoral artery consistent with a moderate to high-grade stenosis. Monophasic waveforms are present from the mid SFA to the distal calf. LEFT LEG: PELON 0.63 consistent with moderate peripheral arterial disease. Duplex ultrasound reveals elevated velocity within the common femoral artery consistent with a moderate stenosis. The mid SFA appears completely occluded. Monophasic waveforms are present from the distal SFA to the distal calf. PELON REFERENCE: - >0.97-1.25 = normal - no significant arterial disease. - 0.75-0.96 = mild peripheral arterial disease. - 0.5-0.74 = moderate peripheral arterial disease. - <0.50 = severe peripheral arterial disease.
== END 2022-01-26 08:19 | disposition home or self-care (01) ==
LOC: HO.US 08:18
PROVIDERS: PCP Family Medicine; Visit Provider Surgery Vascular Surgery
DX: I73.9 Peripheral vascular disease, unspecified (principal)
CPT/HCPCS: 93923; 93925

== ENCOUNTER → 2022-01-29 09:54 | Outpatient (BNVA) | payer MEDICAID, SELFPAY ==
[2021-11-25 08:05] VITALS: BMI 33.6
[2022-01-29 09:54] VITALS: BP 108/64
== END ==
PROVIDERS: PCP Family Medicine; Visit Provider Surgery Vascular Surgery
DX: I73.9 Peripheral vascular disease, unspecified (principal); I35.1 Nonrheumatic aortic (valve) insufficiency; J44.9 Chronic obstructive pulmonary disease, unspecified; E11.9 Type 2 diabetes mellitus without complications; I10 Essential (primary) hypertension; R79.89 Other specified abnormal findings of blood chemistry; E03.9 Hypothyroidism, unspecified; E78.5 Hyperlipidemia, unspecified; E78.00 Pure hypercholesterolemia, unspecified; E55.9 Vitamin D deficiency, unspecified; E66.01 Morbid (severe) obesity due to excess calories; F17.210 Nicotine dependence, cigarettes, uncomplicated; Z68.32 Body mass index [BMI] 32.0-32.9, adult
CPT/HCPCS: 99212

== ENCOUNTER 2022-02-11 07:25 | Day surgery (SDC) | payer MEDICAID, SELFPAY ==
[2021-11-25 08:05] VITALS: BMI 33.6
[2022-01-29 09:54] VITALS: BP 108/64
[2022-02-11] VITALS (8 sets, daily range): BP systolic 135–156; BP diastolic 43–60; PULSE 65–85; RESP 16–21; TEMP 36.3–36.7; O2SAT 96–97; BMI 30.9
[2022-02-11 07:55] LABS: Glucose, Whole Blood 149 mg/dL (60-115)
[2022-02-11] MEDS: 0.9 % Sodium Chloride 1,000 ML 100 ML IVCONT (08:16)
[2022-02-11 08:17] LABS: MANUAL DIFF FLAG NO
[2022-02-11 08:22] LABS: Basophils Absolute Auto 0.1 X10*3/uL (0.0-0.2); Basophils Percent Auto 0.6 % (0-2); Eosinophils Absolute Auto 0.3 X10*3/uL (0.0-0.4); Eosinophils Percent Auto 3.4 % (0-4); Hematocrit 35.2 % (37.0-47.0); Hemoglobin 11.5 g/dl (12.0-16.0); Imm Gran Abs Auto 0.03 X10*3/uL (0.00-0.03); Imm Gran Pct Auto 0.3 % (0.0-0.4); Lymphocytes Absolute Auto 2.3 X10*3/uL (1.2-4.9); Lymphocytes Percent Auto 22.7 % (20-40); Mean Corpuscular HGB Conc 32.7 g/dl (31.0-35.0); Mean Corpuscular Hemoglobin 27.1 pg (27.0-33.0); Mean Platelet Volume 9.6 fL (9.4-12.3); Monocytes Percent Auto 10.4 % (2-11); Neutrophils Absolute Auto 6.3 x10*3/uL (2.0-8.3); Neutrophils Percent Auto 62.6 % (45-73); Platelet Count 304 X10*3/uL (160-400); Red Blood Count 4.24 X10*6/uL (4.20-5.50); Red Cell Distribution Width 15.1 % (11.0-16.0)
[2022-02-11 08:40] LABS: Blood Urea Nitrogen 13 mg/dL (9-16); Creatinine Clr Calc Pharmacy 81.8; Estimated Glomerular Filt Rate > 60
--- NOTE | 2022-02-11 11:26 | P.OP_ITS ---
Operative Note Operative Note Date of Service: 02/11/22 Narrative: Angiogram report from [facility] Preoperative diagnosis: Atherosclerosis of right lower extremity with activity limiting claudication Postoperative diagnosis: Same Procedure: 1. Ultrasound-guided left common femoral access 2. Aortogram with bilateral lower extremity runoff 3. Right SFA atherectomy and stent Surgeon:Daniel Faye M.D., FACS, RPVI Psychiatry Adult Physician:None Anesthesia: Local with moderate conscious sedation. Total intraservice moderat e sedation time was 65 minutes. I monitored the patient's level of consciousness and physiologic status continuously throughout the procedure. Specimens:none Drains:none Estimated blood loss: Less than 10 ml Implant: Medtronic Ev 3 6 x 150, 6 x 100 Indications: Very pleasant 61 year old female with severe activity limiting claudication of the right lower extremity. She has had noninvasive testing. She now presents for endovascular intervention The patient has signed the informed consent after reviewing risks, complications, benefits, and alternatives previously discussed with the patient. The patient was given the opportunity to ask any additional questions or voice any concerns. All questions were answered to the patient's satisfaction. Procedure in detail: Patient was brought to the angiography suite prior to which a time-out was called for patient identification and site verification. Bilateral groins were prepped and draped in the standard surgical fashion. Under ultrasound guidance left common femoral was punctured with micro puncture needle and wire. Subsequently a precision 5 [place] sheath was then placed. Bentson wire was advanced to the level of the aorta. 5 [place] Flush catheter was brought up and parked at the level of the renal arteries. Aortogram was then undertaken. Catheter was brought down to the level of the iliac bifurcation. Iliacs were subsequently imaged. Catheter was then brought in up and over to the right side SFA. Runoff study was then undertaken. SFA disease was identified. At this time 5000 units of systemic heparin was administered. After 5 minutes of circulation time up and over 6 [place] sheath was then placed. We were able to traverse the Glidewire Advantage across the SFA. We confirmed true lumen by advancing a now be cross catheter instilling it with contrast. Once in position we exchanged out for a 6 [place] spider wire. We performed Hawk 1 atherectomy. Due to the long length the nature of disease a single unidirectional past had to be undertaken. The Hawk had to be cleared. And then we had to repeat this. This was done on 3 separate passes. We did notice and improved lumen. There was still residual stenosis. At this time we exchanged out once again of through a now be cross catheter for an 035 glidewire Advantage. Once this was all accomplished we then placed a 6 x 150 stent followed by a 6 x 100 stent for the length of the SFA. We followed this with a 6 x 120 balloon to obtain good wall apposition. Once this was accomplished completion angiogram demonstrated excellent result. Catheter wire sheath was brought back to the ipsilateral side. Left lower extremity runoff was then undertaken. We then placed a StarClose closure device. Patient tolerated the procedure well. Returned to recovery with stable vitals. Interpretation of films: 1. Ultrasound demonstrates appropriate femoral puncture. Image of which was saved. 2. Aortogram demonstrates appropriate caliber aorta. Minimal disease. Appropriate take-off of the renals. 3. Iliac images demonstrate minimal disease 4. Right Leg Common femoral artery: No significant disease Profundus Femoris: No significant disease Superficial femoral artery: High-grade stenosis starting just below the origin to just above the popliteal Popliteal artery (p1,p2,p3): Patent Anterior tibial artery: Patent Peroneal artery: Patent Posterior tibial artery: Patent Dorsalis pedis/plantar arch: Complete 5. Left Leg Common femoral artery: No significant disease Profundus Femoris: No significant disease Superficial femoral artery: Total occlusion from origin to above knee popliteal Popliteal artery (p1,p2,p3): Patent Anterior tibial artery: Patent Peroneal artery: Patent Posterior tibial artery: Patent Dorsalis pedis/plantar arch: Incomplete Conclusion: 1. Successful right SFA atherectomy and stent. If procedure was required on the left it will be a fem-pop bypass. 2. Anticoagulation status: Will resume Brilinta tomorrow and to remain on aspirin This note is constructed using voice recognition software. While every effort has been made to ensure accuracy, clin nurse errors may have been included. Thank you for allowing me to participate in the care of your patient. Yours sincerely, Daniel Faye MD, FACS, R.P.V.I.
== END 2022-02-11 14:29 | disposition home or self-care (01) ==
PROVIDERS: PCP Family Medicine; Visit Provider Surgery Vascular Surgery
DX: E11.51 Type 2 diabetes mellitus with diabetic peripheral angiopathy without gangrene (principal); I70.211 Atherosclerosis of native arteries of extremities with intermittent claudication, right leg; R26.2 Difficulty in walking, not elsewhere classified; J44.9 Chronic obstructive pulmonary disease, unspecified; I10 Essential (primary) hypertension; E78.5 Hyperlipidemia, unspecified; E03.9 Hypothyroidism, unspecified; E55.9 Vitamin D deficiency, unspecified; E66.09 Other obesity due to excess calories; Z68.32 Body mass index [BMI] 32.0-32.9, adult; Z79.84 Long term (current) use of oral hypoglycemic drugs; Z79.01 Long term (current) use of anticoagulants; Z79.82 Long term (current) use of aspirin; F17.210 Nicotine dependence, cigarettes, uncomplicated
CPT/HCPCS: 36415; 37227; 76937; 82565; 82947; 84520; 85025; 99152; 99153; C1714; C1725; C1760; C1769; C1876; C1884; C1887; J2250; J3010; Q9967

== ENCOUNTER → 2022-02-18 15:08 | Outpatient (BNVA) | payer MEDICAID, SELFPAY ==
[2021-11-25 08:05] VITALS: BMI 33.6
[2022-01-29 09:54] VITALS: BP 108/64
== END ==
PROVIDERS: PCP Family Medicine; Visit Provider Nurse Practitioner Gerontology
DX: E03.9 Hypothyroidism, unspecified (principal); E66.09 Other obesity due to excess calories; Z68.29 Body mass index [BMI] 29.0-29.9, adult; Z79.899 Other long term (current) drug therapy
CPT/HCPCS: 99212

== ENCOUNTER 2022-02-25 14:21 | Outpatient (REF) | payer MEDICAID, SELFPAY ==
[2021-11-25 08:05] VITALS: BMI 33.6
[2022-01-29 09:54] VITALS: BP 108/64
[2022-02-25 15:39] LABS: Free T4 (Free Thyroxine) 1.15 ng/dL (0.71-1.85); Thyroid Stimulating Hormone 1.64 uIU/mL (0.32-4.0)
== END 2022-02-25 14:22 | disposition home or self-care (01) ==
LOC: HO.LAB 14:21
PROVIDERS: PCP Family Medicine; Visit Provider Nurse Practitioner Gerontology
DX: I21.4 Non-ST elevation (NSTEMI) myocardial infarction (principal); I10 Essential (primary) hypertension; I73.9 Peripheral vascular disease, unspecified; E03.9 Hypothyroidism, unspecified; F17.200 Nicotine dependence, unspecified, uncomplicated; Z71.6 Tobacco abuse counseling
CPT/HCPCS: 36415; 84439; 84443; 99212

== ENCOUNTER → 2022-03-03 13:07 | Outpatient (BNVA) | payer MEDICAID, SELFPAY ==
[2021-11-25 08:05] VITALS: BMI 33.6
[2022-01-29 09:54] VITALS: BP 108/64
== END ==
PROVIDERS: PCP Family Medicine; Visit Provider Surgery Vascular Surgery
DX: I73.9 Peripheral vascular disease, unspecified (principal)
CPT/HCPCS: 99212

== ENCOUNTER → 2022-03-26 11:10 | Outpatient (BNVA) | payer MEDICAID, SELFPAY ==
[2021-11-25 08:05] VITALS: BMI 33.6
[2022-01-29 09:54] VITALS: BP 108/64
== END ==
PROVIDERS: PCP Family Medicine
DX: R32 Unspecified urinary incontinence (principal)
CPT/HCPCS: 99202

== ENCOUNTER 2022-05-06 14:41 | Outpatient (REF) | payer MEDICAID, SELFPAY ==
[2021-11-25 08:05] VITALS: BMI 33.6
[2022-01-29 09:54] VITALS: BP 108/64
--- NOTE | ~2022-05-06 | MM_ITS ---
EXAMINATION: MM SCREENING DIGITAL BREAST TOMOSYNTHESIS, BILATERAL CLINICAL INFORMATION: Screening. Asymptomatic. Family history breast cancer, mother. The lifetime risk of breast cancer based on the Tyrer-Cuzick Model is 8%. COMPARISON: Mammography: 07/26/2010 TECHNIQUE: Digital breast tomosynthesis is performed in both the craniocaudal and mediolateral oblique views along with computer-aided detection (CAD). Synthesized 2D images are generated from the tomosynthesis. Additional exaggerated left CC view is provided. FINDINGS: There are scattered areas of fibroglandular density (ACR BI-RADS breast composition Category b). There are no significant masses, abnormal calcifications, or other abnormalities. There is no architectural abnormality. The axilla and skin contours are unremarkable. MM/MM tomosynthesis screening BI IMPRESSION: No mammographic evidence of malignancy. ASSESSMENT: BI-RADS 1: Negative RECOMMENDATION: Routine annual mammography screening. This patient's information was entered into a reminder system with a target due date for their next mammogram.
== END 2022-05-06 14:42 | disposition home or self-care (01) ==
LOC: HO.MAMMO 14:41
PROVIDERS: Visit Provider Family Medicine
DX: Z12.31 Encounter for screening mammogram for malignant neoplasm of breast (principal)
CPT/HCPCS: 77063; 77067

== ENCOUNTER 2022-06-09 14:12 | Outpatient (REF) | payer MEDICAID, SELFPAY ==
[2021-11-25 08:05] VITALS: BMI 33.6
[2022-01-29 09:54] VITALS: BP 108/64
--- NOTE | ~2022-06-09 | US_ITS ---
EXAMINATION: ANKLE-BRACHIAL INDICES SINGLE LEVEL PULSE VOLUME RECORDING ARTERIAL DUPLEX BILATERAL LEGS CLINICAL INFORMATION: Peripheral arterial disease. COMPARISON: 01/26/2022 TECHNIQUE: Ankle-brachial indices and PVR at the ankle were obtained. Duplex Doppler of the bilateral lower extremity arterial systems was performed. FINDINGS: RIGHT: Ankle-brachial index: 0.78 PVR: Mildly abnormal Significant plaque on Doppler. Common femoral: Moderate stenosis. PSV 280 cm/s. Biphasic waveform. Deep femoral: Moderate stenosis. PSV 320 cm/s. Biphasic waveform. Proximal superficial femoral: PSV 166 cm/s. Biphasic waveform. Mid superficial femoral: PSV 129 cm/s. Biphasic waveform. Distal superficial femoral: Moderate stenosis. PSV 219 cm/s. Biphasic waveform. Popliteal: PSV 100 cm/s. Biphasic waveform. Posterior tibial: PSV 82 cm/s. Biphasic waveform. LEFT: Ankle-brachial index: 0.43 PVR: Moderately abnormal Significant plaque on Doppler. Common femoral: Moderate stenosis. PSV blank cm/s. Blank waveform. Deep femoral: Moderate stenosis. PSV blank cm/s. Blank waveform. Proximal superficial femoral: Occluded. Mid superficial femoral: Occluded. Distal superficial femoral: PSV 8 cm/s. Monophasic waveform. Popliteal: PSV 66 cm/s. Monophasic waveform. Posterior tibial: PSV 41 cm/s. Monophasic waveform. US/US PELON complete IMPRESSION: Right: PELON 0.78 consistent with mild to moderate peripheral arterial disease. The PVR waveform is mildly abnormal. Doppler examination demonstrated moderate common femoral, profunda femoral, and distal superficial femoral stenoses. Left: PELON 0.43 consistent with severe peripheral arterial disease. The PVR waveform is moderately abnormal. The Doppler examination demonstrates monophasic inflow disease in the common femoral artery and occlusion of the proximal and mid superficial femoral arteries. The distal superficial femoral artery is reconstituted with monophasic waveforms distally.
--- NOTE | ~2022-06-09 | US_ITS ---
EXAMINATION: ANKLE-BRACHIAL INDICES SINGLE LEVEL PULSE VOLUME RECORDING ARTERIAL DUPLEX BILATERAL LEGS CLINICAL INFORMATION: Peripheral arterial disease. COMPARISON: 01/26/2022 TECHNIQUE: Ankle-brachial indices and PVR at the ankle were obtained. Duplex Doppler of the bilateral lower extremity arterial systems was performed. FINDINGS: RIGHT: Ankle-brachial index: 0.78 PVR: Mildly abnormal Significant plaque on Doppler. Common femoral: Moderate stenosis. PSV 280 cm/s. Biphasic waveform. Deep femoral: Moderate stenosis. PSV 320 cm/s. Biphasic waveform. Proximal superficial femoral: PSV 166 cm/s. Biphasic waveform. Mid superficial femoral: PSV 129 cm/s. Biphasic waveform. Distal superficial femoral: Moderate stenosis. PSV 219 cm/s. Biphasic waveform. Popliteal: PSV 100 cm/s. Biphasic waveform. Posterior tibial: PSV 82 cm/s. Biphasic waveform. LEFT: Ankle-brachial index: 0.43 PVR: Moderately abnormal Significant plaque on Doppler. Common femoral: Moderate stenosis. PSV blank cm/s. Blank waveform. Deep femoral: Moderate stenosis. PSV blank cm/s. Blank waveform. Proximal superficial femoral: Occluded. Mid superficial femoral: Occluded. Distal superficial femoral: PSV 8 cm/s. Monophasic waveform. Popliteal: PSV 66 cm/s. Monophasic waveform. Posterior tibial: PSV 41 cm/s. Monophasic waveform. US/US arterial duplex LE BI IMPRESSION: Right: PELNO 0.78 consistent with mild to moderate peripheral arterial disease. The PVR waveform is mildly abnormal. Doppler examination demonstrated moderate common femoral, profunda femoral, and distal superficial femoral stenoses. Left: PELON 0.43 consistent with severe peripheral arterial disease. The PVR waveform is moderately abnormal. The Doppler examination demonstrates monophasic inflow disease in the common femoral artery and occlusion of the proximal and mid superficial femoral arteries. The distal superficial femoral artery is reconstituted with monophasic waveforms distally.
== END 2022-06-09 14:13 | disposition home or self-care (01) ==
LOC: HO.US 14:12
PROVIDERS: Visit Provider Surgery Vascular Surgery
DX: I73.9 Peripheral vascular disease, unspecified (principal)
CPT/HCPCS: 93923; 93925

== ENCOUNTER → 2022-06-16 14:09 | Outpatient (BNVA) | payer MEDICAID, SELFPAY ==
[2021-11-25 08:05] VITALS: BMI 33.6
[2022-01-29 09:54] VITALS: BP 108/64
== END ==
PROVIDERS: PCP Family Medicine; Visit Provider Surgery Vascular Surgery
DX: I73.9 Peripheral vascular disease, unspecified (principal)
CPT/HCPCS: 99212

== ENCOUNTER → 2022-07-08 15:13 | Outpatient (BNVA) | payer MEDICAID, SELFPAY ==
[2021-11-25 08:05] VITALS: BMI 33.6
[2022-01-29 09:54] VITALS: BP 108/64
== END ==
PROVIDERS: PCP Family Medicine; Referring Provider Family Medicine; Visit Provider Internal Medicine Cardiovascular Disease
DX: I10 Essential (primary) hypertension (principal); I73.9 Peripheral vascular disease, unspecified; I20.8 Other forms of angina pectoris
CPT/HCPCS: 99212

== ENCOUNTER 2022-10-21 12:03 | Outpatient (REF) | payer MEDICAID, SELFPAY ==
[2021-11-25 08:05] VITALS: BMI 33.6
[2022-01-29 09:54] VITALS: BP 108/64
--- NOTE | ~2022-10-21 | XR_ITS ---
EXAMINATION: XR LUMBOSACRAL SPINE CLINICAL INFORMATION: Chronic low back pain. COMPARISON: 11/23/2019 TECHNIQUE: Three views of the lumbosacral spine. FINDINGS: There is mild scoliosis convex left. There are 5 [id number] lumbar vertebrae. No acute fracture, spondylolisthesis, or spondylolysis is identified. There has been some progression in mild disc space narrowing at the L4-L5 and L5-S1 levels. Pedicles appear intact. There is facet arthropathy seen at L5-S1 which is unchanged. Sacroiliac joints are unremarkable. XR/XR lumbar spine 2-3V IMPRESSION: Mild degenerative change L4 through S1. Mild progression in disc space narrowing.
== END 2022-10-21 12:04 | disposition home or self-care (01) ==
LOC: HO.XRAY 12:03
PROVIDERS: PCP Family Medicine; Visit Provider Family Medicine
DX: M54.50 Low back pain, unspecified (principal)
CPT/HCPCS: 72100

== ENCOUNTER 2022-12-07 12:11 | Outpatient (REF) | payer MEDICAID, SELFPAY ==
[2021-11-25 08:05] VITALS: BMI 33.6
[2022-01-29 09:54] VITALS: BP 108/64
--- NOTE | ~2022-12-07 | US_ITS ---
EXAMINATION: NONINVASIVE ASSESSMENT OF THE ARTERIES OF BOTH LOWER EXTREMITIES INCLUDING PVR EXAM AND BILATERAL LOWER EXTREMITY DUPLEX CLINICAL INFORMATION: Peripheral vascular disease COMPARISON: Ultrasound 06/09/2022 TECHNIQUE: Ankle pulse volume recordings, ankle pressure measurements and ankle brachial indices were obtained of the lower extremity arterial system bilaterally in addition to duplex Doppler techniques with wave form analysis and measurement of velocities in the common femoral, profunda femoral, superficial femoral, popliteal, tibial and peroneal arteries. The study was performed only at rest. FINDINGS: RIGHT LEG 1. Right Ankle-Brachial Index: 0.49 (higher of the DP/PT) >0.97-1.25 = normal - no significant arterial disease 0.75-0.96 = mild peripheral arterial disease 0.5-0.74 = moderate peripheral arterial disease <0.50 = severe peripheral arterial disease <0.30 = critical arterial disease 2. Segmental Pressures (mmHg): Brachial: 142 Ankle: PT 76, DP 76 3. PVR Waveforms: Ankle: Abnormal 4. Direct Duplex: Common femoral artery: 186 cm/s, Multiphasic Profunda femoris artery: Not visualized, possibly occluded. There are stents extending from the origin of the superficial femoral artery along its length to the above the knee popliteal. Proximal to SFA stent construct: 144 cm/s, multiphasic Proximal stent construct: 377 cm/s, monophasic Mid stent construct: 148 cm/s, monophasic Distal stent construct: 131 cm/s, monophasic Distal to SFA stent construct: 63.9 cm/s, monophasic Proximal Popliteal artery: 84.4 cm/s, monophasic Distal posterior tibial artery: 36.9 cm/s, monophasic Peroneal artery: 66.8 cm/s, monophasic LEFT LE. Left Ankle-Brachial Index: 0.5 (higher of the DP/PT) >0.97-1.25 = normal - no significant arterial disease 0.75-0.96 = mild peripheral arterial disease 0.5-0.74 = moderate peripheral arterial disease <0.50 = severe peripheral arterial disease <0.30 = critical arterial disease 2. Segmental Pressures: Brachial: 155 Ankle: PT 78, DP 67 3. PVR Waveforms: Ankle: Abnormal 4. Direct Duplex: Common femoral artery: 400 cm/s, Multiphasic Profunda femoris artery: 279 cm/s, monophasic Superficial femoral artery (proximal): 91.1 cm/s, monophasic Shortly beyond the origin of the superficial femoral artery the vessel is occluded throughout its midportion. Superficial femoral artery (distal): 95.1 cm/s, monophasic Proximal Popliteal artery: 88 cm/s, monophasic Distal posterior tibial artery: 99.8 cm/s, Multiphasic Peroneal artery: 76.2 cm/s, Multiphasic US/US arterial duplex LE BI IMPRESSION: Right PELON 0.49 with abnormal PVR waveform. The profunda femoris is not visualized and possibly occluded. There is elevated velocity at the origin of the superficial femoral artery stent construct suggesting severe stenosis with monophasic flow throughout the lower extremity beyond. Left PELON 0.5 with abnormal PVR waveform. There is elevated velocity within the common femoral artery suggesting severe inflow disease. There is proximal occlusion of the superficial femoral artery, occlusion of the mid superficial femoral artery with reconstitution of the distal superficial femoral artery with monophasic flow beyond.
== END 2022-12-07 12:12 | disposition home or self-care (01) ==
LOC: HO.US 12:11
PROVIDERS: Visit Provider Surgery Vascular Surgery
DX: I70.213 Atherosclerosis of native arteries of extremities with intermittent claudication, bilateral legs (principal)
CPT/HCPCS: 93923; 93925

== ENCOUNTER → 2022-12-15 13:21 | Outpatient (BNVA) | payer MEDICAID, SELFPAY ==
[2021-11-25 08:05] VITALS: BMI 33.6
[2022-01-29 09:54] VITALS: BP 108/64
== END ==
PROVIDERS: PCP Family Medicine; Visit Provider Surgery Vascular Surgery
DX: I73.9 Peripheral vascular disease, unspecified (principal)
CPT/HCPCS: 99212

== ENCOUNTER 2022-12-30 05:48 | Day surgery (SDC) | payer MEDICAID, SELFPAY ==
[2022-12-15 14:12] VITALS: BP 108/64; BMI 33.6
[2022-12-30] VITALS (7 sets, daily range): BP systolic 116–159; BP diastolic 45–67; PULSE 61–77; RESP 16–18; TEMP 36.1; O2SAT 94–99; BMI 34.5
[2022-12-30 06:35] LABS: Glucose, Whole Blood 145 mg/dL (60-115)
[2022-12-30] MEDS: 0.9 % Sodium Chloride 1,000 ML 100 ML IVCONT (06:40)
[2022-12-30 06:44] LABS: MANUAL DIFF FLAG NO
[2022-12-30 06:49] LABS: Basophils Percent Auto 0.5 % (0-2); Eosinophils Absolute Auto 0.3 X10*3/uL (0.0-0.4); Eosinophils Percent Auto 4.3 % (0-4); Hematocrit 34.9 % (37.0-47.0); Hemoglobin 11.5 g/dl (12.0-16.0); Imm Gran Abs Auto 0.01 X10*3/uL (0.00-0.03); Imm Gran Pct Auto 0.1 % (0.0-0.4); Lymphocytes Absolute Auto 2.7 X10*3/uL (1.2-4.9); Lymphocytes Percent Auto 34.8 % (20-40); Mean Corpuscular Hemoglobin 27.3 pg (27.0-33.0); Mean Corpuscular Volume 82.9 fL (80.0-98.0); Mean Platelet Volume 9.7 fL (9.4-12.3); Monocytes Absolute Auto 0.9 X10*3/uL (0.1-1.2); Monocytes Percent Auto 12.3 % (2-11); Neutrophils Absolute Auto 3.7 x10*3/uL (2.0-8.3); Platelet Count 285 X10*3/uL (160-400); Red Blood Count 4.21 X10*6/uL (4.20-5.50); Red Cell Distribution Width 13.9 % (11.0-16.0); White Blood Count 7.7 X10*3/uL (4.8-10.8)
[2022-12-30 07:00] LABS: Blood Urea Nitrogen 14 mg/dL (9-16); Estimated Glomerular Filt Rate > 60
[2022-12-30] MEDS: iohexoL 300 MG/ML 100 ML INFUS..BTL IV (08:53)
--- NOTE | 2022-12-30 09:43 | W.PM.OPN ---
Operative Note Operative Note Date of Service: 12/30/22 Narrative: Angiogram report from [facility] Preoperative diagnosis: Atherosclerosis of right lower extremity with activity limiting claudication Postoperative diagnosis: Same Procedure: 1. Ultrasound-guided left common femoral access 2. Aortogram with right lower extremity runoff 3. Right SFA plasty Surgeon:Daniel Faye M.D., FACS, RPVI Emr Specialist:None Anesthesia: Local with moderate conscious sedation. Total intraservice moderate sedation time was 50 minutes. I monitored the patient's level of consciousness and physiologic status continuously throughout the procedure. Specimens:none Drains:none Estimated blood loss: Less than 10 ml Implant: Medtronic Impact DCB 6 x 250 Indications: Pleasant 62-year-old female found to have InStent restenosis on surveillance ultrasound. Now presents for endovascular intervention. The patient has signed the informed consent after reviewing risks, complications, benefits, and alternatives previously discussed with the patient. The patient was given the opportunity to ask any additional questions or voice any concerns. All questions were answered to the patient's satisfaction. Procedure in detail: Patient was brought to the angiography suite prior to which a time-out was called for patient identification and site verification. Bilateral groins were prepped and draped in the standard surgical fashion. Under ultrasound guidance left common femoral was punctured with micro puncture needle and wire. Subsequently a precision 4 Brazilian sheath was then placed. Bentson wire was advanced to the level of the aorta. 4 Brazilian Flush catheter was brought up and parked at the level of the renal arteries. Aortogram was then undertaken. Catheter was brought down to the level of the iliac bifurcation. Iliacs were subsequently imaged. Catheter was then brought in up and over to the right side SFA. Runoff study was then undertaken. We discovered that she had InStent restenoses. At this time 5000 units of systemic heparin was administered up and over 6 Brazilian sheath was then placed. Once this was accomplished glidewire Advantage was then placed and we brought it through in to the popliteal. We confirmed true lumen by instilling contrast into the [place] arteries. Once this was accomplished we plasty did with a 6 x 100 balloon with multiple insufflations. Once this was accomplished through the old [place] status we brought a 6 x 250 drug coated balloon into the right SFA. This was brought into position in under 3 minutes and insufflated for a total of 3 minutes in duration. Once this was all accomplished catheter wire sheath was brought back to the ipsilateral side StarClose closure device was deployed patient tolerated the procedure well. Interpretation of films: 1. Ultrasound demonstrates appropriate femoral puncture. Image of which was saved. Significant atherosclerotic disease was noted on ultrasound on the left common femoral 2. Aortogram demonstrates appropriate caliber aorta. Minimal disease. Appropriate take-off of the renals. 3. Iliac images demonstrate no significant disease, 4. Right Leg Common femoral artery: No significant disease Profundus Femoris: No significant disease Superficial femoral artery: InStent restenoses high-grade Popliteal artery (p1,p2,p3): No disease Anterior tibial artery: No disease Peroneal artery: No disease Posterior tibial artery: No disease Dorsalis pedis/plantar arch: Complete Conclusion: 1. Successful plasty of right SFA improving InStent restenoses 2. Anticoagulation status: Resume Brilinta and aspirin This note is constructed using voice recognition software. While every effort has been made to ensure accuracy, rn clinical errors may have been included. Thank you for allowing me to participate in the care of your patient. Yours sincerely, Daniel Faye MD, FACS, R.P.V.I.
== END 2022-12-30 11:15 | disposition home or self-care (01) ==
PROVIDERS: PCP Family Medicine; Visit Provider Surgery Vascular Surgery
DX: E11.51 Type 2 diabetes mellitus with diabetic peripheral angiopathy without gangrene (principal); I70.211 Atherosclerosis of native arteries of extremities with intermittent claudication, right leg; G62.9 Polyneuropathy, unspecified; I35.1 Nonrheumatic aortic (valve) insufficiency; I10 Essential (primary) hypertension; E78.00 Pure hypercholesterolemia, unspecified; R77.8 Other specified abnormalities of plasma proteins; J44.9 Chronic obstructive pulmonary disease, unspecified; E66.09 Other obesity due to excess calories; Z68.30 Body mass index [BMI] 30.0-30.9, adult; Z79.84 Long term (current) use of oral hypoglycemic drugs; Z79.01 Long term (current) use of anticoagulants; Z79.82 Long term (current) use of aspirin
CPT/HCPCS: 36415; 37224; 76937; 82565; 82947; 84520; 85025; 99152; 99153; C1725; C1769; C1887; J1643; J2250; J3010; Q9967

== ENCOUNTER → 2023-01-12 13:19 | Outpatient (BNVA) | payer MEDICAID, SELFPAY ==
[2022-12-15 14:12] VITALS: BP 108/64; BMI 33.6
== END ==
PROVIDERS: PCP Family Medicine; Referring Provider Family Medicine; Visit Provider Internal Medicine Cardiovascular Disease
DX: I20.8 Other forms of angina pectoris (principal); I10 Essential (primary) hypertension
CPT/HCPCS: 93005; 99212

== ENCOUNTER → 2023-01-19 14:23 | Outpatient (BNVA) | payer MEDICAID, SELFPAY ==
[2022-12-15 14:12] VITALS: BP 108/64; BMI 33.6
== END ==
PROVIDERS: PCP Family Medicine; Visit Provider Surgery Vascular Surgery
DX: I73.9 Peripheral vascular disease, unspecified (principal)
CPT/HCPCS: 99212

== ENCOUNTER 2023-09-07 11:26 | Outpatient (REF) | payer MEDICAID, SELFPAY ==
[2023-08-24 15:58] VITALS: BP 108/64; BMI 33.6
[2023-09-07 14:57] LABS: MANUAL DIFF FLAG NO
[2023-09-07 14:58] LABS: Basophils Absolute Auto 0.1 X10*3/uL (0.0-0.2); Basophils Percent Auto 0.7 % (0-2); Eosinophils Absolute Auto 0.2 X10*3/uL (0.0-0.4); Eosinophils Percent Auto 3.1 % (0-4); Hematocrit 38.9 % (37.0-47.0); Hemoglobin 12.7 g/dl (12.0-16.0); Imm Gran Abs Auto 0.02 X10*3/uL (0.00-0.03); Imm Gran Pct Auto 0.3 % (0.0-0.4); Lymphocytes Absolute Auto 2.3 X10*3/uL (1.2-4.9); Lymphocytes Percent Auto 31.7 % (20-40); Mean Corpuscular HGB Conc 32.6 g/dl (31.0-35.0); Mean Corpuscular Hemoglobin 27.6 pg (27.0-33.0); Mean Corpuscular Volume 84.6 fL (80.0-98.0); Monocytes Absolute Auto 0.7 X10*3/uL (0.1-1.2); Monocytes Percent Auto 9.3 % (2-11); Neutrophils Absolute Auto 3.9 x10*3/uL (2.0-8.3); Neutrophils Percent Auto 54.9 % (45-73); Platelet Count 296 X10*3/uL (160-400); Red Cell Distribution Width 14.2 % (11.0-16.0); White Blood Count 7.1 X10*3/uL (4.8-10.8)
[2023-09-07 15:21] LABS: Alanine Aminotransferase 16 U/L (0-31); Albumin Level 4.3 g/dL (3.5-5.0); Alkaline Phosphatase 68 U/L (39-117); Anion Gap 13 (12-20); Aspartate Amino Transferase 21 U/L (5-31); Bilirubin Total 0.3 mg/dL (0.0-1.0); Blood Urea Nitrogen 10 mg/dL (9-16); Calcium 9.6 mg/dL (8.4-10.2); Carbon Dioxide 26 mmol/L (22-29); Chloride 107 mmol/L (96-108); Cholesterol 122 mg/dL (<200); Estimated Glomerular Filt Rate > 60; Glucose Fasting 106 mg/dL (60-99); HDL Cholesterol 49 mg/dL (>40); LDL Cholesterol Calculated 56 mg/dL (<100); Potassium 4.8 mmol/L (3.3-5.1); Sodium 141 mmol/L (135-145); Total Protein 7.2 g/dL (6.5-8.0); Triglycerides 85 mg/dL (<150)
[2023-09-07 15:35] LABS: Creatinine Urine 147.21 mg/dL; Microalbum/Creatinine Ratio Ur 11.5 ug/mg cr (<30)
[2023-09-07 15:36] LABS: TSH reflex Free T4 0.78 uIU/mL (0.32-4.0)
[2023-09-08 03:10] LABS: HIV AB/AG Nonreactive (Nonreactive); HIV Num 1 0.18 S/CO (0.00-0.99); ~HepC Num1 0.04 S/CO (0.00-0.79); ~Hepatitis C Antibody Nonreactive (Nonreactive)
[2023-09-13 08:59] LABS: VITAMIN D (1,25 OH) D3 19 pg/mL; Vit D (1,25-Dihydroxy) Total 19 pg/mL (18-72); Vitamin D (1,25 OH) D2 <8 pg/mL
== END 2023-09-07 11:27 | disposition home or self-care (01) ==
LOC: HO.CHCLDS 11:26
PROVIDERS: Visit Provider Family Medicine
DX: E11.69 Type 2 diabetes mellitus with other specified complication (principal); E55.9 Vitamin D deficiency, unspecified; E03.9 Hypothyroidism, unspecified
CPT/HCPCS: 36415; 80053; 80061; 82043; 82570; 82652; 84443; 85025; 86803; 87389; 99212

== ENCOUNTER 2023-09-07 14:01 | Outpatient (AMB) | payer MEDICAID, SELFPAY ==
[2023-08-24 15:58] VITALS: BP 108/64; BMI 33.6
[2023-09-07 14:33] VITALS: BP 128/52; PULSE 81; BMI 29.7
--- NOTE | 2023-09-07 14:33 | MHC.OFFVIS ---
Intake Vital Signs 09/07/23 14:33 Height 5 ft 3 in Weight 167 lb 8.821 oz BMI 29.7 BP 128/52 L Blood Pressure Location Lt brachial Position Sitting Pulse 81 Pulse Source Pulse Oximeter Intake Visit Reasons: 6 month follow up Strapping Machine Tender Required: Yes Strapping Machine Tender Language: Chief Program Officer Name: David Jeffers [id number] / Bebeto Green Information Interpreted: non-clinical & clinical Accompanied by: bebeto green Allergies No Known Allergies Allergy (Verified 09/07/23 14:34) Medication List - Last Reconciled 09/07/23 by Haleigh Brown NP amlodipine 5 mg PO DAILY aspirin 1 tab PO DAILY carboxymethylcellulose sodium 0.5% (Lubricating Plus) 1 - 2 drps ophthalmic (eye) BID PRN chlorthalidone 25 mg PO BEDTIME cholecalciferol (vitamin D3) 1 tab PO DAILY cyanocobalamin (vitamin B-12) 1 tab PO DAILY diaper,brief,adult,disposable ([place] Choice Comfort Protect Adult Diaper X-Large) As directed docusate sodium 100 mg PO BID folic acid 1 mg PO DAILY levothyroxine 100 mcg PO DAILY lisinopril 1 tab PO DAILY metformin ER 750 mg PO QPM metoprolol succinate ER 50 mg PO DAILY omega-3 fatty acids-fish oil 340-1,000 mg (Fish Oil) 1 cap PO DAILY omeprazole 1 cap PO QAM rosuvastatin 40 mg PO DAILY sacubitril-valsartan 24-26 mg (Entresto) 1 tab PO BID 90 days tiotropium bromide (Spiriva with HandiHaler) 1 cap inhalation DAILY tolterodine 2 mg PO BID HPI HPI Comments History of Present Illness Details 63-year old female presents with her son for a follow-up. She reports she has been doing well and denies any symptoms. She did report that she had pressure once the last two days but belched and it was relieved. She has not been doing much for activities. Tolerating medications well. [facility] Medical History Urinary incontinence Essential hypertension Elevated troponin High cholesterol Aortic insufficiency PVD (peripheral vascular disease) Obesity due to excess calories Hypothyroidism COPD (chronic obstructive pulmonary disease) Vitamin D deficiency Essential hypertension Hyperlipidemia LDL goal <100 Diabetes mellitus type 2, controlled, without complications Surgical History Cerebral aneurysm without rupture (04/06/22) Hx laparoscopic cholecystectomy History of mandibular surgery History of skin surgery Hx of tubal ligation Family History Father Diabetes Mother No problems noted. Social History Household Members: Other Household Members Other:: [facility] Housing: Apartment Do you presently have visiting nurse or other home services: Yes ([employer]TERN[employer] APPRENTICE) Alcohol intake: never Patient Tobacco Use Status: Current someday Tobacco user Tobacco use type: Cigarette Cigarette Packs Per Day: 0.5 Cigarettes Per Day: 7 Years Smoked: 45 e-Cigarette/Vaping Use: Never Used Current occupational status: unemployed Review of Systems Const Denies chills, Denies fatigue, Denies fever(s), Denies frequent falls, Denies weakness, Denies weight gain and Denies weight loss ENT Denies dizziness Card Denies chest pain, Denies chest pain with activity, Denies syncope, Denies rapid heart rate, Denies pedal edema, Denies irregular heart rhythm, Denies leg edema, Denies lightheadedness, Denies palpitations, Denies dyspnea, Denies dyspnea on exertion, Denies orthopnea and Denies other (LOC) Resp Denies cough, Denies dyspnea and Denies dyspnea on exertion GI Denies hematochezia and Denies change in bowel habits Musc Denies abnormal gait, Denies arthralgias, Denies muscle weakness, Denies numbness, Denies radiating pain into limb and Denies tingling Neuro Denies abnormal gait, Denies dizziness, Denies syncope, Denies frequent falls, Denies numbness, Denies tingling and Denies weakness Endo Denies fatigue and Denies palpitations Physical Exam Const General: healthy appearing and no acute distress Orientation/consciousness: patient oriented x3 HEENT Head: Yes normal to inspection Eyes General: appearance normal, both eyes and all related structures Neck Neck: Yes normal visual inspection Chest Chest palpation & inspection: normal inspection of the chest Resp Effort & Inspection: normal respiratory effort Auscultation: clear to auscultation bilaterally Cardio Jugular venous distension: no JVD Palpation: normal PMI Rate: regular rate Rhythm: regular rhythm Heart sounds: S1 normal heart sound present, S2 normal heart sound present, no click, no gallops, no murmurs and no rubs GI Inspection: Yes normal to inspection Palpation (GI): Soft to palpation Skin General skin exam: no rashes or lesions noted Neuro General: patient oriented x3 Extrem General: Yes normal to inspection Psych Appearance: grossly normal Assessment & Plan Assessment & Plan (1) Essential hypertension: Code(s): I10 - Essential (primary) hypertension (2) NSTEMI (non-ST elevated myocardial infarction): Code(s): I21.4 - Non-ST elevation (NSTEMI) myocardial infarction (3) Stable angina: Code(s): I20.8 - Other forms of angina pectoris (4) Current every day smoker: Code(s): F17.200 - Nicotine dependence, unspecified, uncomplicated Plan Continue medications as currently prescribed. Heart healthy diet, complete smoking cessation, and increasing physical activities is strongly encouraged. Report any new or worsening symptoms. Monitor blood pressures at home peridoically. Return in six months or sooner if needed Coding Level of Care Code Est Pt Level 4 (38204) Diagnoses Essential hypertension I10 NSTEMI (non-ST elevated myocardial infarction) I21.4 Stable angina I20.8 Current every day smoker F17.200
== END 2023-09-07 14:59 | disposition home or self-care (01) ==
PROVIDERS: PCP Family Medicine; Visit Provider Nurse Practitioner
DX: I10 Essential (primary) hypertension (principal); I21.4 Non-ST elevation (NSTEMI) myocardial infarction; I20.8 Other forms of angina pectoris; F17.200 Nicotine dependence, unspecified, uncomplicated
CPT/HCPCS: 99214

== ENCOUNTER 2023-10-12 15:50 | Outpatient (REF) | payer MEDICAID, SELFPAY ==
[2023-08-24 15:58] VITALS: BP 108/64; BMI 33.6
[2023-10-12 17:56] LABS: Alanine Aminotransferase 17 U/L (0-31); Albumin Level 4.3 g/dL (3.5-5.0); Alkaline Phosphatase 77 U/L (39-117); Anion Gap 12 (12-20); Aspartate Amino Transferase 20 U/L (5-31); Bilirubin Total 0.3 mg/dL (0.0-1.0); Blood Urea Nitrogen 11 mg/dL (9-16); Calcium 9.9 mg/dL (8.4-10.2); Carbon Dioxide 25 mmol/L (22-29); Chloride 106 mmol/L (96-108); Estimated Glomerular Filt Rate > 60; Glucose Random 89 mg/dL (60-115); Lipase 51 U/L (8-78); Potassium 4.2 mmol/L (3.3-5.1); Sodium 139 mmol/L (135-145); Total Protein 8.1 g/dL (6.5-8.0)
== END 2023-10-12 15:51 | disposition home or self-care (01) ==
LOC: HO.CHCLDS 15:50
PROVIDERS: Visit Provider Family Medicine
DX: R10.13 Epigastric pain (principal)
CPT/HCPCS: 36415; 80053; 83690

== ENCOUNTER 2023-10-14 13:04 | Outpatient (REF) | payer MEDICAID, SELFPAY ==
[2023-08-24 15:58] VITALS: BP 108/64; BMI 33.6
== END 2023-10-14 13:05 | disposition home or self-care (01) ==
LOC: HO.CHCLNP 13:04
PROVIDERS: Visit Provider Family Medicine
DX: R10.13 Epigastric pain (principal)
CPT/HCPCS: 87338

== ENCOUNTER 2024-03-08 12:50 | Outpatient (AMB) | payer MEDICAID, SELFPAY ==
[2023-08-24 15:58] VITALS: BP 108/64; BMI 33.6
[2024-03-08 13:09] VITALS: BP 140/60; PULSE 82; BMI 31.0
--- NOTE | 2024-03-08 13:09 | MHC.OFFVIS ---
Vital Signs 03/08/24 13:09 Height 5 ft 3 in Weight 175 lb 0.752 oz BMI 31.0 BP 140/60 H Blood Pressure Location Lt brachial Position Sitting Pulse 82 Intake Visit Reasons: 6 mth f/up Mult Au Matic Operator Required: Yes Mult Au Matic Operator Name: Alycia Accompanied by: Son Allergies No Known Allergies Allergy (Verified 09/07/23 14:34) Medication List - Last Reconciled 03/08/24 by Nathanael Winslow MD amlodipine 5 mg PO DAILY aspirin 1 tab PO DAILY carboxymethylcellulose sodium 0.5% (Lubricating Plus) 1 - 2 drps ophthalmic (eye) BID PRN chlorthalidone 25 mg PO BEDTIME cholecalciferol (vitamin D3) 1 tab PO DAILY cyanocobalamin (vitamin B-12) 1 tab PO DAILY diaper,brief,adult,disposable ([place] Choice Comfort Protect Adult Diaper X-Large) As directed dulaglutide (Trulicity) mg subcut QWEEK folic acid 1 mg PO DAILY levothyroxine 100 mcg PO DAILY lisinopril 1 tab PO DAILY metformin ER 750 mg PO QPM metoprolol succinate ER 50 mg PO DAILY omega-3 fatty acids-fish oil 340-1,000 mg (Fish Oil) 1 cap PO DAILY rosuvastatin 40 mg PO DAILY sacubitril-valsartan 24-26 mg (Entresto) 1 tab PO BID 90 days HPI Comments Details: Pleasant 63-year-old female here for follow-up. She was seen at [facility] when she presented with NSTEMI and was transferred to [facility] for cardiac catheterization. She underwent cardiac catheterization from left femoral approach and was noticed to have severe mid LAD stenosis which was treated with a drug-eluting stent. She was discharged on aspirin and Brilinta. She noted a small hematoma at the site which was confirmed by ultrasound. There was no pseudoaneurysm. She does have peripheral vascular disease and her ankle brachial indices were abnormal pointing to her moderate bilateral lower extremity peripheral vascular disease. Referred to vascular surgery for claudication and underwent SFA PCI. Follow-up echo was reviewed and showed normal biventricular function. In follow-up she is doing well. No bleeding issues. Denying any symptoms currently. On follow-up she has stop the Brilinta. She already completed 1 year of dual antiplatelet therapy in July of 2022. She is denying any chest discomfort. She has some fatigue with activity but overall has been stable. 03/08/24: She is here for follow-up. She is denying any chest pain. She is saying that she is fatigued. On discussing with the she has known history of sleep apnea and has not been using the CPAP machine. She said she was not using it regularly and apparently the machine was taken away. She snores at night and likely cause for her fatigue currently is underlying untreated sleep apnea. [facility] Medical History (Updated 03/08/24 @ 14:31 by Nathanael Winslow MD) Urinary incontinence Essential hypertension Elevated troponin High cholesterol Aortic insufficiency PVD (peripheral vascular disease) Obesity due to excess calories Hypothyroidism COPD (chronic obstructive pulmonary disease) Vitamin D deficiency Essential hypertension Hyperlipidemia LDL goal <100 Diabetes mellitus type 2, controlled, without complications Surgical History (Updated 03/08/24 @ 13:20 by Farzaneh Patterson CMA) Cerebral aneurysm without rupture (04/06/22) Hx laparoscopic cholecystectomy History of mandibular surgery History of skin surgery Hx of tubal ligation Family History Father Diabetes Mother No problems noted. 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) Alcohol intake: never Patient Tobacco Use Status: Current someday Tobacco user Tobacco use type: Cigarette Cigarette Packs Per Day: 0.5 Cigarettes Per Day: 7 Years Smoked: 45 e-Cigarette/Vaping Use: Never Used Current occupational status: unemployed Review of Systems Const Denies chills, Denies fatigue, Denies fever(s), Denies frequent falls, Denies weakness, Denies weight gain and Denies weight loss ENT Denies dizziness Card Denies chest pain, Denies leg edema, Denies lightheadedness, Denies palpitations, Denies dyspnea and Denies dyspnea on exertion Resp Denies cough, Denies dyspnea and Denies dyspnea on exertion GI Denies hematochezia Musc Denies abnormal gait, Denies muscle weakness, Denies numbness, Denies radiating pain into limb and Denies tingling Neuro Denies abnormal gait, Denies dizziness, Denies frequent falls, Denies numbness, Denies tingling and Denies weakness Endo Denies fatigue and Denies palpitations Physical Exam Vital Signs: Last Vital Signs Pulse 82 03/08/24 13:09 BP 140/60 H 03/08/24 13:09 BMI result Body Mass Index 31.0 GENERAL APPEARANCE: in no acute distress, pleasant. NECK: no carotid bruit, no jugular venous distention. SKIN: no suspicious lesions, warm and dry. HEART: no murmurs, regular rate and rhythm. LUNGS: clear to auscultation bilaterally. ABDOMEN: soft, nontender. EXTREMITIES: no edema. NEUROLOGIC: No gross deficits, AAO X 3 Office Procedures EKG Details: Sinus rhythm, limb lead reversal, otherwise normal EKG, QTC 441 milliseconds. [id number], Complete Assessment & Plan Assessment & Plan (1) NENA (obstructive sleep apnea): Code(s): G47.33 - Obstructive sleep apnea (adult) (pediatric) Category: Medical (2) Stable angina: Code(s): I20.8 - Other forms of angina pectoris Category: Medical (3) Essential hypertension: Code(s): I10 - Essential (primary) hypertension Category: Medical Plan Pleasant 63 year female who is here for follow-up. She has known history of coronary disease underwent PCI to LAD. She had LV dysfunction which improved after PCI. She has been on antiplatelet therapy with aspirin. She was on Brilinta which has been stopped after 1 year of dual antiplatelet therapy. Blood pressure control is okay she is slightly elevated on follow-up. She has sleep apnea and fatigue. She was not using the machine regularly and apparently the mass was taken away. I am referring her to sleep Medicine for reassessment and management of sleep apnea. Continue same medications otherwise. On follow-up the blood pressure continues to be above 140 then increase amlodipine to 10 mg daily. Thank you for allowing me to participate in the care of your patient. Please feel free to contact me if you have any questions. Orders: Referrals Sleep Medicine Referral G47.33 - Obstructive sleep apnea (adult) (pediatric) Coding Level of Care Code Est Pt Level 4 (17786) Diagnoses NENA (obstructive sleep apnea) G47.33 Stable angina I20.8 Essential hypertension I10 CPT Codes EKG - CPT: 94953-[id number], Complete ([id number])
== END 2024-03-08 13:45 | disposition home or self-care (01) ==
PROVIDERS: PCP Family Medicine; Visit Provider Internal Medicine Cardiovascular Disease
DX: G47.33 Obstructive sleep apnea (adult) (pediatric) (principal); I20.89 Other forms of angina pectoris; I10 Essential (primary) hypertension
CPT/HCPCS: 93010; 99214

== ENCOUNTER → 2024-03-08 12:50 | Outpatient (BNVA) | payer MEDICAID, SELFPAY ==
[2023-08-24 15:58] VITALS: BP 108/64; BMI 33.6
== END ==
PROVIDERS: PCP Family Medicine; Visit Provider Internal Medicine Cardiovascular Disease
DX: G47.33 Obstructive sleep apnea (adult) (pediatric) (principal); I20.89 Other forms of angina pectoris; I10 Essential (primary) hypertension
CPT/HCPCS: 93005; 99212

== ENCOUNTER 2024-04-11 09:28 | Outpatient (REF) | payer MEDICAID, SELFPAY ==
[2023-08-24 15:58] VITALS: BP 108/64; BMI 33.6
--- NOTE | ~2024-04-11 | US_ITS ---
EXAMINATION: Noninvasive assessment of the bilateral lower extremities with ARTERIAL DUPLEX and ANKLE BRACHIAL INDICES (ABIs). CLINICAL INFORMATION: Peripheral vascular disease, history of arterial occlusions and right superficial femoral artery stent and recent angioplasty from 01/19/2023 TECHNIQUE: Duplex Doppler techniques with waveform analysis and measurement of velocities in the bilateral common femoral, profunda femoris, superficial femoral, popliteal and tibial arteries were performed. Additionally, ankle pulse volume recordings, ankle pressure measurements and ankle brachial indices were obtained of the lower extremity arterial system bilaterally. The study was performed only at rest. COMPARISON: Ultrasound and noninvasive arterial testing from 12/07/2022 and 06/09/2022 FINDINGS: DIRECT DUPLEX DOPPLER FINDINGS: RIGHT LEG: Common femoral artery: 174 cm/s, phasicity: Biphasic. Mild calcified plaque Profunda femoris artery: 126 cm/s, phasicity: Biphasic Stent present from the proximal superficial femoral artery to the distal superficial femoral artery. [place] artery proximal to stent: 230 cm/s, phasicity: Biphasic Stent (proximal): 71 cm/s, phasicity: Biphasic Stent (mid): 83.3 cm/s, phasicity: Monophasic Stent (distal): 97.5 cm/s, phasicity: Triphasic [place] artery distal to stent: 185 cm/s, phasicity: Monophasic Popliteal artery: 153 cm/s, phasicity: Triphasic Posterior tibial artery: 75.3 cm/s, phasicity: Monophasic Peroneal artery: 125 cm/s, phasicity: Biphasic Anterior tibial artery: 84.4 cm/s, phasicity: Monophasic Dorsalis pedis artery: 115 cm/s, phasicity:Monophasic LEFT LEG: Common femoral artery: 259 cm/s, phasicity: Triphasic. Moderate calcified plaque Profunda femoris artery: 113 cm/s, phasicity: Monophasic Superficial femoral artery (proximal): Occluded Superficial femoral artery (mid): Occluded Superficial femoral artery (distal): 118 cm/s, phasicity: Monophasic Popliteal artery: 59.3 cm/s, phasicity: Monophasic Posterior tibial artery: 53.0 cm/s, phasicity: Monophasic Peroneal artery: 34.7 cm/s, phasicity: Monophasic Anterior tibial artery: 45.8 cm/s, phasicity: Monophasic Dorsalis pedis artery: 42.3 cm/s, phasicity: Monophasic ANKLE-BRACHIAL INDEX: Right: 0.91, previously 0.49? Left: 0.49, previously 0.5 ANKLE PRESSURES: Right: PT 121, DP 136 Left: PT?68, DP?73 ANKLE PVR WAVEFORMS: Right: Abnormal Left: Abnormal US/US arterial duplex LE BI IMPRESSION: Right leg: Low-normal ankle-brachial index measures 0.91, previously 0.49. Previously seen elevated velocity in the proximal superficial femoral artery stent is improved post angioplasty with normal velocities and waveforms. Left leg: Severely decreased ankle-brachial index and PVR waveform with chronic occlusion of the left superficial femoral artery. No significant change compared to the prior exam PELON Reference: - >1.4 = calcified vessels - 0.9 - 1.4 = normal - no significant arterial disease - 0.7 - 0.89 = mild peripheral arterial disease - 0.51 - 0.69 = moderate peripheral arterial disease - ? 0.50 = severe peripheral arterial disease - < .30 = critical arterial disease
== END 2024-04-11 09:29 | disposition home or self-care (01) ==
LOC: HO.US 09:28
PROVIDERS: PCP Family Medicine; Visit Provider Surgery Vascular Surgery
DX: I73.9 Peripheral vascular disease, unspecified (principal)
CPT/HCPCS: 93923; 93925

== ENCOUNTER 2024-05-09 14:05 | Outpatient (AMB) | payer MEDICAID, SELFPAY ==
[2023-08-24 15:58] VITALS: BP 108/64; BMI 33.6
--- NOTE | 2024-05-09 14:05 | A.OFFVIS_ITS ---
Intake Visit Reasons: 1yr follow up s/p ART US 04/11/24 Intake Note: Patient presents for 1 year follow up arterial. Patient states she has foot and leg pain. Has on and off swelling as well. Allergies No Known Allergies Allergy (Verified 05/09/24 14:07) HPI HPI 1yr follow up s/p ART 04/11/24: Details: Very pleasant 64-year-old female presents for routine follow-up status post noninvasive arterial testing. She reports that her left leg continues to cramp a fair amount. She is having difficulty ambulating more than a half a block. It has become a source of discomfort for her. She has had prior endovascular intervention and she does have a known left SFA occlusion. She now presents for follow-up with noninvasive testing. [facility] Medical History (Updated 03/08/24 @ 14:31 by Nathanael Winslow MD) Urinary incontinence Essential hypertension Elevated troponin High cholesterol Aortic insufficiency PVD (peripheral vascular disease) Obesity due to excess calories Hypothyroidism COPD (chronic obstructive pulmonary disease) Vitamin D deficiency Essential hypertension Hyperlipidemia LDL goal <100 Diabetes mellitus type 2, controlled, without complications Surgical History (Updated 03/08/24 @ 13:20 by Farzaneh Patterson CMA) Cerebral aneurysm without rupture (04/06/22) Hx laparoscopic cholecystectomy History of mandibular surgery History of skin surgery Hx of tubal ligation Family History Father Diabetes Mother No problems noted. 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) Alcohol intake: never Patient Tobacco Use Status: Current someday Tobacco user Tobacco use type: Cigarette Cigarette Packs Per Day: 0.5 Cigarettes Per Day: 7 Years Smoked: 45 e-Cigarette/Vaping Use: Never Used Current occupational status: unemployed Review of Systems Const All systems reviewed & are unremarkable except as noted in HPI and below Reports no additional complaints ENT Reports Normal hearing present Card Denies chest pain, Denies chest pain at rest, Denies chest pain with activity and Denies pedal edema Resp Denies cough GI Denies abdominal pain Musc Denies abnormal gait, Denies muscle cramps and Denies radiating pain into limb Skin/Breast Denies skin ulcer and Denies wounds Neuro Reports Normal hearing present and Denies abnormal gait Psych Reports no additional complaints Physical Exam Const General: cooperative, healthy appearing and comfortable Orientation/consciousness: oriented to person, oriented to place and oriented to time HEENT Head: Yes normal to inspection Neck Neck: Yes normal visual inspection Carotids: no bruits Chest Chest palpation & inspection: normal inspection of the chest Resp Effort & Inspection: normal respiratory effort and able to speak in complete sentences Auscultation: clear to auscultation bilaterally, no crackles, no rales, no rhonchi and no wheezes Cardio Other: Bilateral DP signals Rate: regular rate Rhythm: regular rhythm Heart sounds: S1 normal heart sound present and S2 normal heart sound present Bruits: no carotid bruits Peripheral pulses: Peripheral pulses 2+ throughout GI Inspection: Yes normal to inspection Skin Wounds: no wounds Hair: normal Neuro General: oriented to person, oriented to place and oriented to time Cranial nerves: Yes CN's II-XII intact bilaterally and Yes Normal hearing present Cognition (Neuro): normal cognition Motor exam (neuro): 5/5 motor strength present throughout Extrem Other: venous exam: No significant superficial varicosities or spider telangiectasias, minimal edema General: No clubbing, No cyanosis and No edema Psych Appearance: grossly normal Mental Status: mental status grossly normal Speech and movement: Normal speech and movement present Results Reviewed Results Reviewed: Noninvasive testing dated 04/11/2024 demonstrates PELON on the right of 0.91 and on the left of 0.49. Assessment & Plan Assessment & Plan (1) PVD (peripheral vascular disease): Comment: 02/11/2022 - right SFA atherectomy and stent 12/30/2022 right SFA plasty Code(s): I73.9 - Peripheral vascular disease, unspecified Category: Medical Plan: In short it appears that she does have progression of disease of the left lower extremity. She does note some discomfort when ambulating more than half a block. On previous angiograms dating back to 2021 it is a total occlusion and she will need operative bypass if so clinically required. To better confirm this I have taken the liberty of ordering a CT angiogram with runoff to better identify my targets. She will follow up with me after testing and we can have a more in-depth discussion as to the need for surgery and if clinically warranted we will pursue this. Once again she will follow up with us after testing. Thank you for allowing us to assist in her care. Orders: Orders Blood Urea Nitrogen Today I73.9 - Peripheral vascular disease, unspecified Creatinine Today I73.9 - Peripheral vascular disease, unspecified CT angio abd aorta runoff 1 Week I73.9 - Peripheral vascular disease, unspecified Coding Level of Care Code Est Pt Level 4 (22552) Diagnoses PVD (peripheral vascular disease) I73.9
== END 2024-05-09 14:34 | disposition home or self-care (01) ==
PROVIDERS: PCP Family Medicine; Visit Provider Surgery Vascular Surgery
DX: I73.9 Peripheral vascular disease, unspecified (principal)
CPT/HCPCS: 99214

== ENCOUNTER → 2024-05-09 14:05 | Outpatient (BNVA) | payer MEDICAID, SELFPAY ==
[2023-08-24 15:58] VITALS: BP 108/64; BMI 33.6
== END ==
PROVIDERS: PCP Family Medicine; Visit Provider Surgery Vascular Surgery
DX: I73.9 Peripheral vascular disease, unspecified (principal)
CPT/HCPCS: 99212

== ENCOUNTER 2024-07-17 10:50 | Outpatient (AMB) | payer MEDICAID, SELFPAY ==
[2023-08-24 15:58] VITALS: BP 108/64; BMI 33.6
[2024-07-17 11:12] VITALS: BP 134/62; PULSE 78; BMI 31.3
--- NOTE | 2024-07-17 11:12 | A.OFFVIS_ITS ---
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: Manufacturing Laborer Services: Wood Milling Machine Tender Offered & Declined Wood Milling Machine Tender Name: timothy/Son Accompanied by: Son Allergies No Known Allergies Allergy (Verified 05/09/24 14:07) Medication List - Last Reconciled 07/17/24 by Nathanael Winslow MD amlodipine 5 mg PO DAILY aspirin 1 tab PO DAILY carboxymethylcellulose sodium 0.5% (Lubricating Plus) 1 - 2 drps ophthalmic (eye) BID PRN chlorthalidone 25 mg PO BEDTIME cholecalciferol (vitamin D3) 1 tab PO DAILY cyanocobalamin (vitamin B-12) 1 tab PO DAILY diaper,brief,adult,disposable (Reading Choice Comfort Protect Adult Diaper X- Large) As directed dulaglutide (Trulicity) mg subcut QWEEK folic acid 1 mg PO DAILY levothyroxine 100 mcg PO DAILY lisinopril 1 tab PO DAILY metformin ER 750 mg PO QPM metoprolol succinate ER 50 mg PO DAILY omega-3 fatty acids-fish oil 340-1,000 mg (Fish Oil) 1 cap PO DAILY rosuvastatin 40 mg PO DAILY sacubitril-valsartan 24-26 mg (Entresto) 1 tab PO BID 90 days HPI Comments Details: Pleasant 63-year-old female here for follow-up. She was seen at [facility] when she presented with NSTEMI and was transferred to [facility] for cardiac catheterization. She underwent cardiac catheterization from left femoral approach and was noticed to have severe mid LAD stenosis which was treated with a drug-eluting stent. She was discharged on aspirin and Brilinta. She noted a small hematoma at the site which was confirmed by ultrasound. There was no pseudoaneurysm. She does have peripheral vascular disease and her ankle brachial indices were abnormal pointing to her moderate bilateral lower extremity peripheral vascular disease. Referred to vascular surgery for claudication and underwent SFA PCI. Follow-up echo was reviewed and showed normal biventricular function. In follow-up she is doing well. No bleeding issues. Denying any symptoms currently. On follow-up she has stop the Brilinta. She already completed 1 year of dual antiplatelet therapy in July of 2022. She is denying any chest discomfort. She has some fatigue with activity but overall has been stable. 03/08/24: She is here for follow-up. She is denying any chest pain. She is saying that she is fatigued. On discussing with the she has known history of sleep apnea and has not been using the CPAP machine. She said she was not using it regularly and apparently the machine was taken away. She snores at night and likely cause for her fatigue currently is underlying untreated sleep apnea. 07/17/2024: She is here for follow-up. She continues to smoke and has claudication like symptoms. She is following with vascular surgery. No chest discomfort shortness of breath. Blood pressure is well controlled. She is glenny ing baby aspirin currently without any bleeding concerns. [facility] Medical History (Updated 03/08/24 @ 14:31 by Nathanael Winslow MD) Urinary incontinence Essential hypertension Elevated troponin High cholesterol Aortic insufficiency PVD (peripheral vascular disease) Obesity due to excess calories Hypothyroidism COPD (chronic obstructive pulmonary disease) Vitamin D deficiency Essential hypertension Hyperlipidemia LDL goal <100 Diabetes mellitus type 2, controlled, without complications Surgical History Cerebral aneurysm without rupture (04/06/22) Hx laparoscopic cholecystectomy History of mandibular surgery History of skin surgery Hx of tubal ligation Family History Father Diabetes Mother No problems noted. Social History Household Members: Other Household Members Other:: 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) Alcohol intake: never Patient Tobacco Use Status: Current someday Tobacco user Tobacco use type: Cigarette Cigarette Packs Per Day: 0.5 Cigarettes Per Day: 7 Years Smoked: 45 e-Cigarette/Vaping Use: Never Used Current occupational status: unemployed Review of Systems Const Denies chills, Denies fatigue, Denies fever(s), Denies frequent falls, Denies weakness, Denies weight gain and Denies weight loss ENT Denies dizziness Card Denies chest pain, Denies leg edema, Denies lightheadedness, Denies palpitations, Denies dyspnea and Denies dyspnea on exertion Resp Denies cough, Denies dyspnea and Denies dyspnea on exertion GI Denies hematochezia Musc Denies abnormal gait, Denies muscle weakness, Denies numbness, Denies radiating pain into limb and Denies tingling Neuro Denies abnormal gait, Denies dizziness, Denies frequent falls, Denies numbness, Denies tingling and Denies weakness Endo Denies fatigue and Denies palpitations Physical Exam Vital Signs: Last Vital Signs Pulse 78 07/17/24 11:12 BP 134/62 07/17/24 11:12 BMI result Body Mass Index 31.3 GENERAL APPEARANCE: in no acute distress, pleasant. NECK: no carotid bruit, no jugular venous distention. SKIN: no suspicious lesions, warm and dry. HEART: no murmurs, regular rate and rhythm. LUNGS: clear to auscultation bilaterally. ABDOMEN: soft, nontender. EXTREMITIES: no edema. NEUROLOGIC: No gross deficits, AAO X 3 Assessment & Plan Assessment & Plan (1) Stable angina: Code(s): I20.8 - Other forms of angina pectoris Category: Medical (2) Essential hypertension: Code(s): I10 - Essential (primary) hypertension Category: Medical Plan Pleasant 64 year female who is here for follow-up. She has known history of coronary disease and underwent PCI to LAD. She had LV dysfunction which improved after PCI. She has been on antiplatelet therapy with aspirin. She was on Brilinta which has been stopped after 1 year of dual antiplatelet therapy. Blood pressure control is good. Continue same medications otherwise. She has claudication like symptoms in the lower extremities. She will follow-up with vascular surgery as before. Thank you for allowing me to participate in the care of your patient. Please feel free to contact me if you have any questions. Medications: New nicotine 1 patch transdermal DAILY 28 ea 0RF F17.200 - Nicotine dependence, unspecified, uncomplicated Coding Level of Care Code Est Pt Level 4 (09131) Diagnoses Stable angina I20.8 Essential hypertension I10
== END 2024-07-17 11:42 | disposition home or self-care (01) ==
PROVIDERS: PCP Family Medicine; Visit Provider Internal Medicine Cardiovascular Disease
DX: I20.89 Other forms of angina pectoris (principal); I10 Essential (primary) hypertension
CPT/HCPCS: 99214

== ENCOUNTER → 2024-07-17 10:50 | Outpatient (BNVA) | payer MEDICAID, SELFPAY ==
[2023-08-24 15:58] VITALS: BP 108/64; BMI 33.6
== END ==
PROVIDERS: PCP Family Medicine; Visit Provider Internal Medicine Cardiovascular Disease
DX: I20.89 Other forms of angina pectoris (principal); I10 Essential (primary) hypertension; F17.210 Nicotine dependence, cigarettes, uncomplicated
CPT/HCPCS: 99212

== ENCOUNTER 2024-08-17 09:06 | Outpatient (REF) | payer MEDICAID, SELFPAY ==
[2023-08-24 15:58] VITALS: BP 108/64; BMI 33.6
--- NOTE | ~2024-08-17 | CT_ITS ---
EXAMINATION: CT ANGIOGRAM ABDOMEN AND PELVIS WITH RUN-OFF CLINICAL INFORMATION: Peripheral vascular disease. History of prior angioplasty and stents COMPARISON: Noninvasive evaluation from 04/11/2024. Arteriogram from 12/30/2022 TECHNIQUE: Multiple axial images were obtained through the abdomen, pelvis, and lower extremities following the administration of 100 mL of Omnipaque 350 intravenous contrast. Sagittal, coronal, and MIP oblique sagittal reformatted images were obtained on the CT workstation, uploaded to PACS, and reviewed. Images were evaluated on independent dedicated 3-D workstation and 3-D images were reconstructed with concurrent radiologist supervision and subsequently interpreted. This CT examination was performed using dose optimization techniques as appropriate, variously including the following: *Automated exposure control *Adjustment of mA and/or kV according to patient size (this includes techniques or standardized protocols for targeted exams where dose is matched to indication/reason for exam; i.e. extremities or head) *Use of iterative reconstruction technique DLP: 730 mGy-cm FINDINGS: VASCULATURE: AORTA: Normal in caliber. Scattered calcified plaque without significant stenosis. CELIOMESENTERIC ARTERIES: Patent. RENAL ARTERIES: Patent. RIGHT ILIAC ARTERIES: * Common iliac: Patent * External iliac: Patent * Internal iliac: Patent LEFT ILIAC ARTERIES: * Common iliac: Patent * External iliac: Patent * Internal iliac: Patent RIGHT LOWER EXTREMITY: * Common femoral: Patent. Mild atherosclerotic plaque without significant stenosis. * Profunda femoral: Patent * Superficial femoral: Overlapping stents extending from the ostium of the superior mesenteric artery through the adductor canal. Stents are widely patent without evidence of in-stent restenosis. * Popliteal: Patent Mild atherosclerotic plaque without significant stenosis. * Anterior tibial: Patent Dorsalis pedis artery is patent. * Posterior tibial: Patent * Peroneal: Patent LEFT LOWER EXTREMITY: * Common femoral: Patent. Mild atherosclerotic plaque without significant stenosis. * Profunda femoral: Patent * Superficial femoral: Chronic total occlusion. * Popliteal: Reconstituted flow in the P1 segment. Patent flow throughout the popliteal artery without significant stenosis * Anterior tibial: Patent Dorsalis pedis artery is patent. * Posterior tibial: Patent * Peroneal: Patent NONVASCULAR: Lung bases are clear. Liver is diffusely decreased in attenuation consistent with hepatic steatosis. Status post cholecystectomy. There are 2 small cortical cyst in the upper pole of the right kidney. No follow-up indicated. Solid abdominal organs are otherwise unremarkable. Bowel loops are unremarkable. No free fluid seen in the abdomen and pelvis. Status post hysterectomy. Urinary bladder is unremarkable. No pathologic lymphadenopathy or mass lesion seen in the abdomen and pelvis. Osseous structures are intact. CT/CT angio abd aorta runoff IMPRESSION: 1. Right superficial femoral artery stents which are widely patent. Three-vessel runoff to the right foot. 2. Chronic total occlusion of the left superficial femoral artery with reconstituted flow in the popliteal artery. Three-vessel runoff to the left foot. 3. Hepatic steatosis. Electronically signed by: Logan Yanez MD 08/28/2024 08:02 PM EST
[2024-08-17] MEDS: iohexoL 350 MG/ML 100 ML INFUS..BTL IV (10:29)
[2024-08-18 08:16] LABS: Creatinine POC 0.8 mg/dL (0.5-1.4); GFR POC > 60
== END 2024-08-17 09:07 | disposition home or self-care (01) ==
LOC: HO.CT 09:06
PROVIDERS: PCP Family Medicine; Visit Provider Surgery Vascular Surgery
DX: I73.9 Peripheral vascular disease, unspecified (principal)
CPT/HCPCS: 75635; 82565; Q9967

== ENCOUNTER 2024-08-17 11:37 | Outpatient (REF) | payer MEDICAID, SELFPAY ==
[2023-08-24 15:58] VITALS: BP 108/64; BMI 33.6
[2024-08-17 14:01] LABS: MANUAL DIFF FLAG NO
[2024-08-17 14:10] LABS: Basophils Absolute Auto 0.1 X10*3/uL (0.0-0.2); Eosinophils Absolute Auto 0.2 X10*3/uL (0.0-0.4); Eosinophils Percent Auto 2.4 % (0-4); Hematocrit 38.8 % (37.0-47.0); Imm Gran Abs Auto 0.02 X10*3/uL (0.00-0.03); Imm Gran Pct Auto 0.3 % (0.0-0.4); Lymphocytes Absolute Auto 3.1 X10*3/uL (1.2-4.9); Lymphocytes Percent Auto 42.7 % (20-40); Mean Corpuscular HGB Conc 33.5 g/dl (31.0-35.0); Mean Corpuscular Hemoglobin 28.7 pg (27.0-33.0); Mean Corpuscular Volume 85.7 fL (80.0-98.0); Mean Platelet Volume 10.1 fL (9.4-12.3); Monocytes Absolute Auto 0.7 X10*3/uL (0.1-1.2); Monocytes Percent Auto 9.8 % (2-11); Neutrophils Absolute Auto 3.1 x10*3/uL (2.0-8.3); Neutrophils Percent Auto 43.8 % (45-73); Platelet Count 268 X10*3/uL (160-400); Red Blood Count 4.53 X10*6/uL (4.20-5.50); Red Cell Distribution Width 13.7 % (11.0-16.0); White Blood Count 7.2 X10*3/uL (4.8-10.8)
[2024-08-17 14:40] LABS: Alanine Aminotransferase 33 U/L (0-31); Albumin Level 4.3 g/dL (3.5-5.0); Alkaline Phosphatase 80 U/L (39-117); Anion Gap 13 (12-20); Aspartate Amino Transferase 31 U/L (5-31); Bilirubin Total 0.2 mg/dL (0.0-1.0); Blood Urea Nitrogen 14 mg/dL (9-16); Calcium 9.6 mg/dL (8.4-10.2); Carbon Dioxide 23 mmol/L (22-29); Chloride 108 mmol/L (96-108); Cholesterol 208 mg/dL (<200); Estimated Glomerular Filt Rate > 60; Glucose Random 123 mg/dL (60-115); HDL Cholesterol 47 mg/dL (>40); LDL Cholesterol Calculated 124 mg/dL (<100); Potassium 4.4 mmol/L (3.3-5.1); Sodium 140 mmol/L (135-145); TSH reflex Free T4 0.73 uIU/mL (0.32-4.0); Total Protein 7.6 g/dL (6.5-8.0); Triglycerides 187 mg/dL (<150); Vitamin D 25-OH Total 65.7 ng/mL (>30)
== END 2024-08-17 11:38 | disposition home or self-care (01) ==
LOC: HO.HHCL 11:37
PROVIDERS: Visit Provider Family Medicine
DX: E66.9 Obesity, unspecified (principal); E55.9 Vitamin D deficiency, unspecified
CPT/HCPCS: 36415; 80053; 80061; 82306; 84443; 85025

== ENCOUNTER 2024-09-14 10:45 | Outpatient (AMB) | payer MEDICAID, SELFPAY ==
[2023-08-24 15:58] VITALS: BP 108/64; BMI 33.6
--- NOTE | 2024-09-14 10:48 | MHC.OFFVIS ---
Intake Visit Reasons: 3m follow up s/p Aorta CTA w/ runoff 08/17/24 Intake Note: Patient presents for 3 month follow up CTA. Patient has no complaints. Accompanied by: Family/Other Allergies No Known Allergies Allergy (Verified 09/14/24 10:51) HPI HPI 3m follow up s/p Aorta CTA w/ runoff 08/17/24: Details: Very pleasant 64-year-old female presents for follow-up regarding CT angiogram of her lower extremities. Upon discussion with her she reports that she has bilateral lower extremity discomfort actually right more so than left. She reports that it is more of a persistent pain. She now presents for follow-up with CT angiogram. [facility] Medical History (Updated 03/08/24 @ 14:31 by Nathanael Winslow MD) Urinary incontinence Essential hypertension Elevated troponin High cholesterol Aortic insufficiency PVD (peripheral vascular disease) Obesity due to excess calories Hypothyroidism COPD (chronic obstructive pulmonary disease) Vitamin D deficiency Essential hypertension Hyperlipidemia LDL goal <100 Diabetes mellitus type 2, controlled, without complications Surgical History Cerebral aneurysm without rupture (04/06/22) Hx laparoscopic cholecystectomy History of mandibular surgery History of skin surgery Hx of tubal ligation Family History Father Diabetes Mother No problems noted. 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) Alcohol intake: never Patient Tobacco Use Status: Current someday Tobacco user Tobacco use type: Cigarette Cigarette Packs Per Day: 0.5 Cigarettes Per Day: 7 Years Smoked: 45 e-Cigarette/Vaping Use: Never Used Current occupational status: unemployed Review of Systems Const All systems reviewed & are unremarkable except as noted in HPI and below Reports no additional complaints ENT Reports Normal hearing present Card Denies chest pain, Denies chest pain at rest, Denies chest pain with activity and Denies pedal edema Resp Denies cough GI Denies abdominal pain Musc Denies abnormal gait, Denies muscle cramps and Denies radiating pain into limb Skin/Breast Denies skin ulcer and Denies wounds Neuro Reports Normal hearing present and Denies abnormal gait Psych Reports no additional complaints Physical Exam Const General: cooperative, healthy appearing and comfortable Orientation/consciousness: oriented to person, oriented to place and oriented to time HEENT Head: Yes normal to inspection Neck Neck: Yes normal visual inspection Carotids: no bruits Chest Chest palpation & inspection: normal inspection of the chest Resp Effort & Inspection: normal respiratory effort and able to speak in complete sentences Auscultation: clear to auscultation bilaterally, no crackles, no rales, no rhonchi and no wheezes Cardio Other: Bilateral DP signals Rate: regular rate Rhythm: regular rhythm Heart sounds: S1 normal heart sound present and S2 normal heart sound present Bruits: no carotid bruits GI Inspection: Yes normal to inspection Skin Wounds: no wounds Hair: normal Neuro General: oriented to person, oriented to place and oriented to time Cranial nerves: Yes CN's II-XII intact bilaterally and Yes Normal hearing present Cognition (Neuro): normal cognition Motor exam (neuro): 5/5 motor strength present throughout Extrem Other: venous exam: No significant superficial varicosities or spider telangiectasias, minimal edema General: No clubbing, No cyanosis and No edema Psych Appearance: grossly normal Mental Status: mental status grossly normal Speech and movement: Normal speech and movement present Results Reviewed Results Reviewed: CT angiogram dated 08/17/2024 demonstrates right SFA stents are widely patent left SFA total occlusion. Written report and images were reviewed. Assessment & Plan Assessment & Plan (1) PVD (peripheral vascular disease): Comment: 02/11/2022 - right SFA atherectomy and stent 12/30/2022 right SFA plasty Code(s): I73.9 - Peripheral vascular disease, unspecified Category: Medical Plan: In short the patient does have an element of PA D. The right side seems to be flowing well all the way down. Left side has a known SFA occlusion but on CT scan it does appear to be well collateralized. If surgery was needed it would be a left fem to above knee popliteal bypass. At the current time I do not think that this is clinically warranted. We would continue with conservative measures. I did review the pathophysiology of peripheral vascular disease with the patient. In addition we did discuss routine conservative measures including a healthy diet and the importance of exercise and ambulation. We did discuss risk factor modification. The patient will continue to to follow-up with surveillance follow-up in approximately 6 months. Thank you for allowing us to participate in this patient's care. If there are any questions or concerns please do not hesitate to contact us. Orders: Orders US arterial duplex LE BI 6 Months I73.9 - Peripheral vascular disease, unspecified Coding Level of Care Code Est Pt Level 4 (38533) Diagnoses PVD (peripheral vascular disease) I73.9
== END 2024-09-14 11:20 | disposition home or self-care (01) ==
PROVIDERS: PCP Family Medicine; Visit Provider Surgery Vascular Surgery
DX: I73.9 Peripheral vascular disease, unspecified (principal)
CPT/HCPCS: 99214

== ENCOUNTER → 2024-09-14 10:45 | Outpatient (BNVA) | payer MEDICAID, SELFPAY ==
[2023-08-24 15:58] VITALS: BP 108/64; BMI 33.6
== END ==
PROVIDERS: PCP Family Medicine; Visit Provider Surgery Vascular Surgery
DX: I73.9 Peripheral vascular disease, unspecified (principal)
CPT/HCPCS: 99212

== ENCOUNTER 2024-10-09 11:00 | Outpatient (AMB) | payer MEDICAID, SELFPAY ==
[2023-08-24 15:58] VITALS: BP 108/64; BMI 33.6
[2024-10-09 11:18] VITALS: BP 120/58; PULSE 78; BMI 31.2
--- NOTE | 2024-10-09 11:18 | A.OFFVIS_ITS ---
Vital Signs 10/09/24 11:18 Height 5 ft 3 in Weight 175 lb 14.862 oz BMI 31.2 BP 120/58 L Blood Pressure Location Lt brachial Position Sitting Pulse 78 Pulse Source Pulse Oximeter Intake Visit Reasons: 3m follow up Intake Note: 3 mth f/up Regulatory Consultant Required: No Regulatory Consultant Services: Regulatory Consultant Offered & Declined Regulatory Consultant Name: timothy/ son/ samoan Accompanied by: Son Allergies No Known Allergies Allergy (Verified 09/14/24 10:51) Medication List - Last Reconciled 10/09/24 by Nathanael Winslow MD amlodipine 10 mg PO DAILY aspirin 1 tab PO DAILY bupropion HCl SR 150 mg PO Q12H carboxymethylcellulose sodium 0.5% (Lubricating Plus) 1 - 2 drps ophthalmic (eye) BID PRN chlorthalidone 25 mg PO BEDTIME cholecalciferol (vitamin D3) 1 tab PO DAILY cyanocobalamin (vitamin B-12) 1 tab PO DAILY diaper,brief,adult,disposable ([place] [employer] Comfort Protect Adult Diaper X- Large) As directed docusate sodium 100 mg PO DAILY doxepin 10 mg PO DAILY dulaglutide (Trulicity) mg subcut QWEEK folic acid 1 mg PO DAILY levothyroxine 100 mcg PO DAILY metformin ER 500 mg PO QPM metoprolol succinate ER 50 mg PO DAILY nicotine 1 patch transdermal DAILY omega-3 fatty acids-fish oil 340-1,000 mg (Fish Oil) 1 cap PO DAILY rosuvastatin 40 mg PO DAILY sacubitril-valsartan 24-26 mg (Entresto) 1 tab PO BID 90 days varenicline (Chantix Starting Month Box) PO PER PKG DIR HPI Comments Details: Pleasant 64-year-old female here for follow-up. She was seen at [facility] when she presented with NSTEMI and was transferred to [facility] for cardiac catheterization. She underwent cardiac catheterization from left femoral approach and was noticed to have severe mid LAD stenosis which was treated with a drug-eluting stent. She was discharged on aspirin and Brilinta. She noted a small hematoma at the site which was confirmed by ultrasound. There was no pseudoaneurysm. She does have peripheral vascular disease and her ankle brachial indices were abnormal pointing to her moderate bilateral lower extremity peripheral vascular disease. Referred to vascular surgery for claudication and underwent SFA PCI. Follow-up echo was reviewed and showed normal biventricular function. In follow-up she is doing well. No bleeding issues. Denying any symptoms currently. On follow-up she has stop the Brilinta. She already completed 1 year of dual antiplatelet therapy in July of 2022. She is denying any chest discomfort. She has some fatigue with activity but overall has been stable. 03/08/24: She is here for follow-up. She is denying any chest pain. She is saying that she is fatigued. On discussing with the she has known history of sleep apnea and has not been using the CPAP machine. She said she was not using it regularly and apparently the machine was taken away. She snores at night and likely cause for her fatigue currently is underlying untreated sleep apnea. 07/17/2024: She is here for follow-up. She continues to smoke and has claudication like symptoms. She is following with vascular surgery. No chest discomfort shortness of breath. Blood pressure is well controlled. She is taking baby aspirin currently without any bleeding concerns. 10/09/2024: She is here for follow-up. She is denying any chest discomfort shortness of breath. Continues to smoke unfortunately. She is following with vascular surgery for lower extremity PVD. [facility] Medical History (Updated 03/08/24 @ 14:31 by Nathanael Winslow MD) Urinary incontinence Essential hypertension Elevated troponin High cholesterol Aortic insufficiency PVD (peripheral vascular disease) Obesity due to excess calories Hypothyroidism COPD (chronic obstructive pulmonary disease) Vitamin D deficiency Essential hypertension Hyperlipidemia LDL goal <100 Diabetes mellitus type 2, controlled, without complications Surgical History Hx laparoscopic cholecystectomy History of mandibular surgery History of skin surgery Hx of tubal ligation Cerebral aneurysm without rupture (04/06/22) Family History Father Diabetes Mother No problems noted. 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) Alcohol intake: never Patient Tobacco Use Status: Current someday Tobacco user Tobacco use type: Cigarette Cigarette Packs Per Day: 0.5 Cigarettes Per Day: 7 Years Smoked: 45 e-Cigarette/Vaping Use: Never Used Current occupational status: unemployed Review of Systems Const Denies chills, Denies fatigue, Denies fever(s), Denies frequent falls, Denies weakness, Denies weight gain and Denies weight loss ENT Denies dizziness Card Denies chest pain, Denies leg edema, Denies lightheadedness, Denies palpitations, Denies dyspnea and Denies dyspnea on exertion Resp Denies cough, Denies dyspnea and Denies dyspnea on exertion GI Denies hematochezia Musc Denies abnormal gait, Denies muscle weakness, Denies numbness, Denies radiating pain into limb and Denies tingling Neuro Denies abnormal gait, Denies dizziness, Denies frequent falls, Denies numbness, Denies tingling and Denies weakness Endo Denies fatigue and Denies palpitations Physical Exam Vital Signs: Last Vital Signs Pulse 78 10/09/24 11:18 BP 120/58 L 10/09/24 11:18 BMI result Body Mass Index 31.2 GENERAL APPEARANCE: in no acute distress, pleasant. NECK: no carotid bruit, no jugular venous distention. SKIN: no suspicious lesions, warm and dry. HEART: no murmurs, regular rate and rhythm. LUNGS: clear to auscultation bilaterally. ABDOMEN: soft, nontender. EXTREMITIES: no edema. NEUROLOGIC: No gross deficits, AAO X 3 Assessment & Plan Assessment & Plan (1) Stable angina: Code(s): I20.8 - Other forms of angina pectoris Category: Medical (2) Essential hypertension: Code(s): I10 - Essential (primary) hypertension Category: Medical Plan Pleasant 64 year female who is here for follow-up. She has known history of coronary disease and underwent PCI to LAD. She had LV dysfunction which improved after PCI. She has been on antiplatelet therapy with aspirin. She was on Brilinta which has been stopped after 1 year of dual antiplatelet therapy. Blood pressure control is good. Continue same medications otherwise. She has no peripheral vascular disease and is following with vascular surgery. She continues to smoke. I have discussed with her that she is multiple cardiovascular issues which are due to smoking. She is interested in quitting smoking. I am sending Heidi for her. Thank you for allowing me to participate in the care of your patient. Please feel free to contact me if you have any questions. Medications: New varenicline (Chantix Starting Month Box) PO PER PKG DIR 53 ea 0RF Z71.6 - Tobacco abuse counseling Changed From amlodipine 10 mg PO DAILY T14.8XXA - Other injury of unspecified body region, initial encounter To amlodipine 5 mg PO DAILY 90 tabs 0RF T14.8XXA - Other injury of unspecified body region, initial encounter Coding Level of Care Code Est Pt Level 4 (05272) Diagnoses Stable angina I20.8 Essential hypertension I10
== END 2024-10-09 11:53 | disposition home or self-care (01) ==
PROVIDERS: PCP Family Medicine; Visit Provider Internal Medicine Cardiovascular Disease
DX: I20.89 Other forms of angina pectoris (principal); I10 Essential (primary) hypertension
CPT/HCPCS: 99214

== ENCOUNTER → 2024-10-09 11:00 | Outpatient (BNVA) | payer MEDICAID, SELFPAY ==
[2023-08-24 15:58] VITALS: BP 108/64; BMI 33.6
== END ==
PROVIDERS: PCP Family Medicine; Visit Provider Internal Medicine Cardiovascular Disease
DX: I20.89 Other forms of angina pectoris (principal); I10 Essential (primary) hypertension
CPT/HCPCS: 99212

== ENCOUNTER 2025-02-05 10:36 | Outpatient (AMB) | payer MEDICAID, SELFPAY ==
[2023-08-24 15:58] VITALS: BP 108/64; BMI 33.6
--- NOTE | 2025-02-05 10:50 | A.OFFVIS_ITS ---
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 Name: timothy/son/burundian Accompanied by: Son Allergies No Known Allergies Allergy (Verified 09/14/24 10:51) Medication List - Last Reconciled 02/05/25 by Nathanael Winslow MD amlodipine 5 mg PO DAILY aspirin 1 tab PO DAILY bupropion HCl SR 150 mg PO Q12H carboxymethylcellulose sodium 0.5% (Lubricating Plus) 1 - 2 drps ophthalmic (eye) BID PRN chlorthalidone 25 mg PO BEDTIME cholecalciferol (vitamin D3) 1 tab PO DAILY cyanocobalamin (vitamin B-12) 1 tab PO DAILY diaper,brief,adult,disposable ([place] Choice Comfort Protect Adult Diaper X- Large) As directed docusate sodium 100 mg PO DAILY doxepin 10 mg PO DAILY dulaglutide (Trulicity) mg subcut QWEEK folic acid 1 mg PO DAILY levothyroxine 100 mcg PO DAILY metformin ER 500 mg PO QPM metoprolol succinate ER 50 mg PO DAILY nicotine 1 patch transdermal DAILY omega-3 fatty acids-fish oil 340-1,000 mg (Fish Oil) 1 cap PO DAILY rosuvastatin 40 mg PO DAILY sacubitril-valsartan 24-26 mg (Entresto) 1 tab PO BID 90 days varenicline tartrate (Chantix Starting Month Box) PO PER PKG DIR HPI Comments Details: Pleasant 64-year-old female here for follow-up. She was seen at [facility] when she presented with NSTEMI and was transferred to [facility] for cardiac catheterization. She underwent cardiac catheterization from left femoral approach and was noticed to have severe mid LAD stenosis which was treated with a drug-eluting stent. She was discharged on aspirin and Brilinta. She noted a small hematoma at the site which was confirmed by ultrasound. There was no pseudoaneurysm. She does have peripheral vascular disease and her ankle brachial indices were abnormal pointing to her moderate bilateral lower extremity peripheral vascular disease. Referred to vascular surgery for claudication and underwent SFA PCI. Follow-up echo was reviewed and showed normal biventricular function. In follow-up she is doing well. No bleeding issues. Denying any symptoms currently. On follow-up she has stop the Brilinta. She already completed 1 year of dual antiplatelet therapy in July of 2022. She is denying any chest discomfort. She has some fatigue with activity but overall has been stable. 03/08/24: She is here for follow-up. She is denying any chest pain. She is saying that she is fatigued. On discussing with the she has known history of sleep apnea and has not been using the CPAP machine. She said she was not using it regularly and apparently the machine was taken away. She snores at night and likely cause for her fatigue currently is underlying untreated sleep apnea. 07/17/2024: She is here for follow-up. She continues to smoke and has claudication like symptoms. She is following with vascular surgery. No chest discomfort shortness of breath. Blood pressure is well controlled. She is taking baby aspirin currently without any bleeding concerns. 10/09/2024: She is here for follow-up. She is denying any chest discomfort shortness of breath. Continues to smoke unfortunately. She is following with vascular surgery for lower extremity PVD. 02/05/2025: She returns for follow-up. With Chantix, she has stopped smoking. I have congratulated her. She is saying she has been eating more and has gained more weight since then. This is normal after smoking cessation. She is going to senior [employer] and is trying to exercise. I have advised her to start doing some treadmill and become more active. Blood pressure is well controlled. Otherwise clinically stable. [facility] Medical History (Updated 03/08/24 @ 14:31 by Nathanael Winslow MD) Urinary incontinence Essential hypertension Elevated troponin High cholesterol Aortic insufficiency PVD (peripheral vascular disease) Obesity due to excess calories Hypothyroidism COPD (chronic obstructive pulmonary disease) Vitamin D deficiency Essential hypertension Hyperlipidemia LDL goal <100 Diabetes mellitus type 2, controlled, without complications Surgical History Hx laparoscopic cholecystectomy History of mandibular surgery History of skin surgery Hx of tubal ligation Cerebral aneurysm without rupture (04/06/22) Family History Father Diabetes Mother No problems noted. 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) Alcohol intake: never Patient Tobacco Use Status: Current someday Tobacco user Tobacco use type: Cigarette Cigarette Packs Per Day: 0.5 Cigarettes Per Day: 7 Years Smoked: 45 e-Cigarette/Vaping Use: Never Used Current occupational status: unemployed Review of Systems Const Denies chills, Denies fatigue, Denies fever(s), Denies frequent falls, Denies weakness, Denies weight gain and Denies weight loss ENT Denies dizziness Card Denies chest pain, Denies leg edema, Denies lightheadedness, Denies palpitations, Denies dyspnea and Denies dyspnea on exertion Resp Denies cough, Denies dyspnea and Denies dyspnea on exertion GI Denies hematochezia Musc Denies abnormal gait, Denies muscle weakness, Denies numbness, Denies radiating pain into limb and Denies tingling Neuro Denies abnormal gait, Denies dizziness, Denies frequent falls, Denies numbness, Denies tingling and Denies weakness Endo Denies fatigue and Denies palpitations Physical Exam Vital Signs: Last Vital Signs Pulse 80 02/05/25 10:52 BP 124/62 02/05/25 10:52 BMI result Body Mass Index 32.4 GENERAL APPEARANCE: in no acute distress, pleasant. NECK: no carotid bruit, no jugular venous distention. SKIN: no suspicious lesions, warm and dry. HEART: no murmurs, regular rate and rhythm. LUNGS: clear to auscultation bilaterally. ABDOMEN: soft, nontender. EXTREMITIES: no edema. NEUROLOGIC: No gross deficits, AAO X 3 Office Procedures EKG Details: Sinus rhythm 80 beats per minute, normal axis, nonspecific ST changes, QTC 456 milliseconds. [id number], Complete Assessment & Plan Assessment & Plan (1) Stable angina: Code(s): I20.8 - Other forms of angina pectoris Category: Medical (2) Essential hypertension: Code(s): I10 - Essential (primary) hypertension Category: Medical Plan Pleasant 64 year female who is here for follow-up. She has known history of coronary disease and underwent PCI to LAD. She had LV dysfunction with EF 40 45% but more recent echocardiography has shown normal LVEF. She has been on antiplatelet therapy with aspirin. She was on Brilinta which has been stopped after 1 year of dual antiplatelet therapy. Blood pressure control is good. Continue same medications otherwise. She has known peripheral vascular disease and is following with vascular surgery. She has stopped smoking after using Chantix in September 2024. I have advised her to become more physically active and start exercising regularly at the [facility]. If she wishes she can be referred for cardiac rehabilitation also. Thank you for allowing me to participate in the care of your patient. Please feel free to contact me if you have any questions. Coding Level of Care Code Est Pt Level 4 (35898) Diagnoses Stable angina I20.8 Essential hypertension I10 CPT Codes EKG - CPT: 63380-[id number], Complete ([id number])
[2025-02-05 10:52] VITALS: BP 124/62; PULSE 80; BMI 32.4
--- OUTSIDE RECORDS SUMMARY | 2025-02-05 12:14 | XMS_ITS | Clinical Summary ---
Author Organization [employer] Address [address] [place] [address] [address] [place] [address] Care Team Providers Care Sound Mixer Name Role Phone Li Langford MD Primary Care Provider [phone] Allergies No known active allergies Medications Spiriva HandiHaler 18 MCG inhalation capsuleIndicatio ns:Chronic obstructive pulmonary disease, unspecified COPD type (CMS/HCC) USE 1 CAPSULE FOR INHALATION ONCE A DAY DO NOT SWALLOW CAPSULE 90 capsule 3 10/30/19 23 Active docusate sodium (Colace) 100 MG capsuleIndicatio ns:Constipation, unspecified constipation type TAKE 1 CAPSULE BY MOUTH TWICE DAILY 60 capsule 5 11/18/19 23 Active buPROPion SR (Wellbutrin SR) 150 MG 12 hr tablet Take 150 mg by mouth in the morning. 10/29/19 23 Active Magnesium Citrate 100 MG tablet Take 100 mg by mouth in the morning. 90 tablet 1 10/12/20 23 Active cholecalciferol (Vitamin D-3) 50 MCG (1999 UT) capsule Take 1 capsule (50 mcg) by mouth in the morning. 120 capsule 3 10/12/20 23 Active glucose blood (FREESTYLE LITE) test strip 1 each by Other route every 12 (twelve) hours. USE 1 STRIP by DIRECTED route 2 times every day 100 each 11 10/12/20 23 Active Blood Glucose Monitoring Suppl (FreeStyle Lite) w/Device kit 1 Units 2 times daily. 1 kit 10/12/20 23 Active Entresto 24-26 MG tabletIndication s:Atherosclerosi s of coronary artery, unspecified vessel or lesion type, unspecified whether angina present, unspecified whether [place] or transplanted heart TAKE 1 TABLET BY MOUTH TWICE DAILY 60 tablet 5 12/27/19 24 Active rosuvastatin (Crestor) 40 MG tablet TAKE 1 TABLET BY MOUTH EVERY DAY 90 tablet 3 02/23/20 24 Active Magnesium Citrate 200 MG tablet TAKE 1/2 TABLET BY MOUTH DAILY IN THE MORNING 45 tablet 1 02/23/20 24 Active amLODIPine (Norvasc) 10 MG tabletIndication s:Hypertension Take 10 mg by mouth Once per day. Active cyanocobalamin (Vitamin B-12) 500 MCG tabletIndication s:Type 2 diabetes mellitus with other specified complication, without long-term current use of insulin (CMS/HCC) Take 1 tablet (500 mcg) by mouth in the morning. 90 tablet 1 05/22/20 24 Active Lubricating Plus Eye Drops 0.5 % ophthalmic solution Administer 1 drop into both eyes if needed in the morning, at noon, and at bedtime for dry eyes. 10 mL 2 05/22/20 24 Active carboxymethylcel lulose (Refresh Plus) 0.5 % ophthalmic solution Administer 1 drop into both eyes if needed for dry eyes. 30 mL 5 05/22/20 24 Active tiZANidine (Zanaflex) 4 MG tablet Take 1 tablet (4 mg) by mouth 3 times daily. 30 tablet 1 05/22/20 24 Active Aspirin Low Dose 81 MG chewable tablet CHEW AND SWALLOW 1 TABLET EVERY MORNING 90 tablet 1 06/05/20 24 Active metoprolol succinate XL (Toprol-XL) 50 MG 24 hr tablet TAKE 1 TABLET BY MOUTH EVERY MORNING 90 tablet 1 06/05/20 24 Active metFORMIN XR (Glucophage-XR) 500 MG 24 hr tabletIndication s:Type 2 diabetes mellitus with hyperglycemia, without long-term current use of insulin (CMS/HCC) TAKE 1 TABLET BY MOUTH TWICE DAILY DO NOT BREAK, CRUSH, DISSOLVE OR CHEW 180 tablet 1 06/05/20 24 Active levothyroxine (Synthroid, Levoxyl) 100 MCG tablet Take 1 tablet (100 mcg) by mouth before breakfast. 90 tablet 1 11/28/19 25 Active omeprazole (PriLOSEC) [address] capsule TAKE 2 CAPSULES BY MOUTH EVERY DAY IN THE MORNING BEFORE BREAKFAST, DO NOT BREAK, CRUSH, DISSOLVE OR CHEW 90 capsule 12/05/19 25 Active chlorthalidone (Hygroton) 25 MG tablet TAKE 1 TABLET BY MOUTH EVERY MORNING 90 tablet 1 12/05/19 25 Active doxepin (SINEquan) 10 MG capsuleIndicatio ns:Insomnia, unspecified type TAKE 1 CAPSULE BY MOUTH EVERY MORNING 90 capsule 1 12/05/19 25 Active folic acid (Folvite) 1 MG tabletIndication s:Type 2 diabetes mellitus with other specified complication, without long-term current use of insulin (CMS/HCC) TAKE 1 TABLET BY MOUTH EVERY DAY IN THE MORNING 90 tablet 1 12/05/19 25 Active Trulicity 0.75 MG/0.5ML solution auto-injectorInd ications:Type 2 diabetes mellitus with hyperglycemia, without long-term current use of insulin (CMS/HCC) INJECT ONE PEN (=0.75MG) SUBCUTANEOUSLY ONCE A WEEK DIRECTED 2 mL 3 12/15/19 Active Active Problems Problem Noted Date Diagnosed Date Symptomatic varicose veins, right 02/14/2024 Assessment & Plan (02/14/2024 2:27 PM EDT): Referring to Vascular Surgery for varicose vein pain and inflammation. Epigastric abdominal pain 10/12/2023 Assessment & Plan (10/12/2023 3:45 PM EST): Patient that presented visit with complaints of epigastric abdominal pain will be provided with medications to treat discomfort. In addition, patient will be sent for labs for further evaluation. -Labs: Comp. Metabolic Panel, Helicobacter Pylori Antigen, Lipase. 3+ pitting edema 03/26/2023 Intermittent claudication 11/26/2022 Trigger middle finger of left hand 11/26/2022 Assessment & Plan (11/26/2022 5:20 PM EST): Symptoms c/w triggering, discussed options with patient and she will want to proceed with occupational therapy. If she has not improvement with her symptoms she may benefit of a steroid injection. Black spot in vision 11/26/2022 Assessment & Plan (11/26/2022 5:18 PM EST): Patient reports see like a [place] in her field of vision that moves on her right eye that has been present since end of August. Reports it comes and goes and that she attempt to get an appt with eye doctor but was told she needed a referral, referral placed. Memory impairment 10/14/2022 Intracranial aneurysm 10/14/2022 Assessment & Plan (02/15/2024 3:37 PM EDT): Reports recently had imaging done and was told everything was stable. Assessment & Plan (11/26/2022 5:18 PM EST): Patient reports had imaging done recently and was told things were stable Class 1 obesity 10/14/2022 Assessment & Plan (05/23/2024 8:35 AM EDT): Ordering lab work for further evaluation. Assessment & Plan (08/09/2023 11:12 AM EDT): Discussed calorie deficit, recommended reduction of 20-30% of maintenance calories; paralegal specialist referral offered. Recommended to decrease soda and sugary beverage consumption. Recommended at least 20 g per meal of protein to assist with satiety. Recommended at least 150 min/week of moderate intensity exercise. Low back pain at multiple sites 10/14/2022 Assessment & Plan (10/20/2022 5:00 PM EST): Patient with LBP on multiple sites, paraspinal spasms on examination, normal bending test, will send lumbar X ray and followup with results. Will trial tizanidine. Mixed stress and urge urinary incontinence 10/14 Assessment & Plan (10/20/2022 4:59 PM EST): Reports no improvement with medications trialed, reports concern not approval of her disposable briefs despite symptoms. Pending urology and GI referrals to assess her symptoms. Reports trial of lifestyle modifications to assist with her symptoms, patient requires this DME given her symptoms, will send to DME specialist to assist in what insurance is requiring to approve her DME. Coronary atherosclerosis 10/05/2022 Peripheral neuropathy 10/05/2022 Status post non-ST elevation myocardial infarcti on (NSTEMI) 10/05/2022 History of cardiac cath 10/05/2022 History of swenson 10/05/2022 Presence of stent in anterio r descending branch of left coronary artery 08/02/2021 Depressive disorder 09/06/2015 Muscle pain 09/06/2015 Hypertension 09/06/2015 Assessment & Plan (08/09/2023 11:18 AM EDT): Controlled, will keep treating with medications. Advised to keep monitoring BP readings at home. Assessment & Plan (03/26/2023 2:24 PM EDT): Controlled. Will decrease chlorthalidone from 50 mg to 25 mg. Assessment & Plan (11/26/2022 5:21 PM EST): Controlled, continue current regimen and f/u in 3 months, per patient was told she needs a PA for Entresto this was sent by wool shearing supervisor, strongly encouraged for her to speak with office to start process as we need reasoning to answer PA request. Obstructive sleep apnea syndrome 09/06/2015 Tobacco dependence syndrome 09/06/2015 Type 2 diabetes mellitus 09/06/2015 Assessment & Plan (08/14/2024 1:35 PM EDT): DM is controlled at 6.2%. Referral to Podiatry for further evaluation. Continue on medications and to monitor glucose at home. Pt declined influenza immunization today. Follow up in 6 months. Assessment & Plan (05/23/2024 8:34 AM EDT): Discussed medications and refills as needed. Continue on medications. F/u in 4 months Assessment & Plan (02/15/2024 3:37 PM EDT): Controlled. Continue on current medication. Target A1c <7%. Followup in 6 months Assessment & Plan (08/09/2023 11:18 AM EDT): -Controlled: will keep treating with medication. Advised to keep monitoring glucose levels at home. -Labs: CBC, Met. Panel, Albumin, Lipid Panel. Assessment & Plan (03/26/2023 2:21 PM EDT): Improved. Continue current regimen. Will follow up in 3 months. Assessment & Plan (02/26/2023 9:45 AM EDT): Uncontrolled. Patient currently on max dose of metformin. Will start on 0.75mg of trulicity and follow up in a month. Assessment & Plan (11/26/2022 5:20 PM EST): Will increase dose of metformin to 1 tab BID and recheck in 3 months. POC a1c 7.5%, target < 7%. Encouraged continue lifestyle modification Assessment & Plan (10/20/2022 4:57 PM EST): POC a1c of 7.1%, close to target of < 7%. Cont current regimen, encouraged continue lifestyle modification. F/up in 3 months Vitamin D deficiency 09/06/2015 Chronic obstructive lung disease 05/22/2015 Pain in lower limb 05/22/2015 Aortic valve regurgitation 05/10/2014 Peripheral arterial disease 05/10/2014 Assessment & Plan (05/23/2024 8:34 AM EDT): Continue to follow up with [employer]. Acquired hypothyroidism 04/22/2012 Pure hypercholesterolemia 04/22/2012 Assessment & Plan (10/20/2022 5:00 PM EST): Reports was not really using her lipid medication when she had testing, now started using her rosuvastatin 20 mg and wants it to be recheck before proceeding with taking higher dose. Encounters Date Type Department Care Team Description 01/05/2025 Population Health Risk Score [facility] (C3) Department [address] [id number] Provider, Population Health Generic 12/15/2024 Refill [facility] PEDS [address] [place] [address] Li Langford MD Type 2 diabetes mellitus with hyperglycemia, without long-term current use of insulin ([facility]) 12/05/2024 Refill [facility] PEDS [address] [place] [address] Li Langford MD Insomnia, unspecified type; Type 2 diabetes mellitus with other specified complication, without long-term current use of insulin ([facility]) 11/28/2024 Refill [facility] MEDICINE [address] [place], [place] [phone] Li Langford MD from Last 3 Months Immunizations Name Administration Dates Next Due Hep B, adult 05/10/2013 Influenza injectable quadriv alent IIV4 with preservative 07/20/2018,09/06/2015 Influenza injectable quadrivalent preservative f ree 11/02/2019 Tdap 11/15/2009 Social History Tobacco Use Types Packs/Day Years Used Date Smoking Tobacco: Never Passive Smoke Exposure: Never Smokeless Tobacco: Never Tobacco Cessation:Counseling Given: Not Answered Alcohol Use Standard Drinks/Week Comments Never 0 (1 standard drink = 0.6 oz pur e alcohol) Alcohol Answer Date Recorded Frequency of Alcohol Consumption Not on file 08/14/2024 Average Number of Drinks Not on file 024 Frequency of Binge Drinking Not on file 07/26 Score 0 08/14/2024 Depression Answer Date Recorded Patient Health Questionnaire-9 Score 0 11/26/2022 Housing Stability Answer Date Recorded What is your housing situation today? I have radhacoy loja 08/09/[address] you li ve. Do you have problems with any of the following? None of the above 08/09/2023 Food Insecurity Answer Date Recorded Within the past 12 months, y ou worried that your food would run out before you got money to buy more: Never True 08/09/2023 Within the past 12 months,th e food you bought just didn't last and you didn't have enough money to get more: Never True Transportation Answer Date Recorded In the past 12 months, has l ack of transportation kept you from medical appts, meetings, work or from getting things needed for daily living? No 08/09/2023 Utilities Answer Date Recorded In the past 12 months, has t he electric, gas, oil or water company threatened to shut off services in your home? No 08/09/2023 Depression Answer Date Recorded Patient Health Questionnaire-2 Score 0 11/26/2022 Comments Unknown Sex and Gender Information Value Date Recorded Sex Assigned at Female 08/24/2022 10:14 AM EDT Legal Sex Female 10:14 AM EDT Gender Identity Female 08/24/2022 10:14 AM EDT Sexual Orientation Straight 08/24/2022 10 :14 AM EDT Last Filed Vital Signs Vital Sign Reading Time Taken Comments Blood Pressure 138/66 08/14/2024 1:00 PM EDT Pulse 86 08/14/2024 1:00 PM EDT Temperature 37.1 ??C (98.8 ??F) 08/14/2024 1:00 PM ED T Respiratory Rate 18 08/14/2024 1:00 PM EDT Oxygen Saturation 98% 08/14/2024 1:00 PM EDT Inhaled Oxygen Concentration - - Weight 78.8 kg (173 lb 12.8 oz) 08/14/2024 1:00 PM EDT Height 152.4 cm (5') 08/14/2024 1:00 PM EDT Body Mass Index 33.94 08/14/2024 1:00 PM EDT Plan of Treatment Upcoming Encounters Date Type Department Care Team ([facility] st Contact Info) Description 02/16/2025 10:45 AM EDT Office Visit [facility] [address] [place] [address] Lm Flanagan MD [address] [place] [address] Health Maintenance Due Date Last Done Comments CT Colonography 1960 Colonoscopy 1960 Colorectal Cancer Screening 1960 FIT DNA/Cologuard 1960 FIT 1960 FOBT 1960 Sigmoidoscopy 1960 Pneumococcal Vaccine: 50+ Years (1 of 2 - PCV) 1979 Depression Screening 11/26/2023 11/26/2022, 11/26/19 23 SDOH Screening 11/26/2023 11/26/2022 Mammogram 05/06/2024 05/06/2022 COVID-19 Vaccine ( season) 2024 Diabetes: Urine Protein Screening 09/07/2024 09/07/2023, 02/19/2021, 11/23/2019 Diabetes: Hemoglobin A1C 02/12/202508/14/ 024, 05/22/2024, 02/14/2024, Additional history exists Influenza Vaccine (#1) 2025 , 07/20/2018, 09/06/2015 Postponed from 06/25/2024 (Patient Refused) Pap Smear 05/12/2025 05/12/2022 DTaP/Tdap/Td Vaccines (2 - Td or Tdap) 05/22/2025 11/15/2009 Postponed from 11/15/2019 (Patient Refused) Hepatitis B Vaccines (2 of 3 - 19+ 3-dose series) 05/22/2025 05/10/2013 Postponed from 06/07/2013 (Patient Refused) RSV Patients and Patients Aged 60 years or older (1 - Risk 60-74 years 1-dose series) 05/22/2025 Postponed from 2020 (Patient Refused) Zoster Vaccines (1 of 2) 05/22/2025 Pos tponed from 2010 (Patient Refused) Alcohol/Substance Use Screening 08/14/2025 08/14/2024 Diabetes: Foot Exam 08/14/2025 08/14/2024, 08/14/2024, 08/14/2024, Additional history exists Tobacco Screening 08/14/2025 08/14/2024 Lipid Panel 08/17/2025 08/17/2024, 08/25, 10/14/2022, Additional history exists Eye Exam 12/15/2025 12/15/2023 Cervical Cancer Screening 05/12/2027 HPV/Cotest 05/12/2027 05/12/2022 HIV Screening Completed 09/07/2023 Hepatitis C Screening Completed 09/07/2023 HIB Vaccines Aged Out No longer eligi ble based on patient's age to complete this topic HPV Vaccines Aged Out No longer eligi ble based on patient's age to complete this topic Hepatitis A Vaccines Aged Out No long er eligible based on patient's age to complete this topic IPV Vaccines Aged Out No longer eligi ble based on patient's age to complete this topic Meningococcal Vaccine Aged Out No tarsha pepe eligible based on patient's age to complete this topic RSV under 20 months Aged Out No longe r eligible based on patient's age to complete this topic Rotavirus Vaccines Aged Out No longer eligible based on patient's age to complete this topic Procedures Procedure Name Priority Date/Time Associated Diagnosis Comments LIPID PANEL, STANDARD Routine 08/17/2024 11:40 AM EDT Class 1 obesity POCT GLYCATED HEMOGLOBIN, TOTAL Routine 08/14/2024 1:47 PM EDT Type 2 diabetes mellitus with other specified complication, without long-term current use of insulin (CMS/HCC) HM DIABETES EYE EXAM Routine 12/15/2023 ALBUMIN, RANDOM URINE W/CREATININE Routine 09/07/2023 11:40 AM EST Type 2 diabetes mellitus with other specified complication, without long-term current use of insulin (CMS/HCC) HEPATITIS C ANTIBODY Routine 09/07/2023 11:37 AM EST Encounter for health-related screening HIV 1/2 ANTIGEN/ANTIBODY, FOURTH GENERATION W/RFL Routine 09/07/2023 11:37 AM EST Encounter for health-related screening HP LINK DIABETIC FOOT EXAM Routine 08/09/2023 THINPREP IMAGING PAP AND HPV MRNA E6/E7 WITH REFLEX TO HPV 16,18/45 Routine 05/12/2022 3:31 PM EDT MAMMOGRAM GENERIC Routine 05/06/2022 3:1 0 PM EDT from Last 3 Months or Most Recently Relevant to Health Maintenance Results * (ABNORMAL) Lipid Panel, Standard (08/17/2024 11:40 AM EDT) Triglycerides 187(H) <150 mg/dL [facility] Comment:Desirable Triglyceri de: less than 150 mg/dLBorderline High Triglyceride 150-199 mg/dLHigh Triglyceride: 200-499 mg/dLVery High Triglyceride: greater than or equal to 5OO mg/dL Cholesterol 208(H) <200 mg/dL [facility] Comment:Desirable Cholestero l: less than 200 mg/dLBorderline High Cholesterol: 200-239 mg/dLHigh Cholesterol: greater than 239 mg/dL LDL Cholesterol Calculated 124(H) <100 mg/dL [facility] Comment:Desirable LDL: less than 100 mg/dLNear Optimal/Above Optimal LDL: 110- 129 mg/dLBorderline High LDL: 130-159 mg/dLHigh LDL: 160-189 mg/dLVery High LDL: greater than or equal to 190 mg/dL HDL Cholesterol 47 >40 mg/dL [facility] Comment:Desirable HDL: great er than 40 mg/dL Note: This HDL assay may give artificially low results in patients with liver disease. Blood Venous blood specimen / Unknown 08/17/2024 11:40 AM EDT 08/17/2024 1:54 PM EDT Li Langford MD LAB BLOOD ORDERABLES Final Re sult [facility] [address] [place] [phone] * (ABNORMAL) POCT HGB A1C (08/14/2024 1:47 PM EDT) Hemoglobin A1C 6.2(A) 4.0 - 6.0 % QC Media Lot # [id number] Lot# Expiration Date Blood 08/14/2024 1:47 PM EDT Li Langford MD POINT OF CARE TEST ENTER/EDIT ORDERABLES Final Result * Diabetes Eye Exam (12/15/2023) Eye Exam Normal Normal Comment:Scanned in EMR Historical Provider HEALTH MAINTENANCE Final Result * Albumin, Random Urine W/Creatinine (09/07/2023 11:40 AM EST) Creatinine, Urine 147.21 mg/dL [facility] Microalbumin Urine 17.0 mg/L [facility] Microalbum Creatinine Ratio Ur 11.5 <30 ug/mg cr [facility] Comment:Albumin/Creatinine R atio Reference Ranges: Normal: < 30 ug/mg creatinine Microalbuminuria: 30 - 300 ug/mg creatinineClinical Albuminuria: > 300 ug/mg creatinine Urine (Urine, Random) 09/07/2023 11:40 AM EST 09/07/2023 2:59 PM EST Li Langford MD LAB URINE ORDERABLES Final Re sult Performing Organization Address [facility] de Phone Number [facility] [address] [place] [phone] * Hepatitis C Ab (09/07/2023 11:37 AM EST) Hepatitis C Antibody Nonreactive Nonreactive [facility] Comment:Antibodies to HCV no t detected; does not exclude early acuteHCV infection. Blood 09/07/2023 11:3 7 AM EST 09/07/2023 2:50 PM EST Li Langford MD LAB BLOOD ORDERABLES Final Re sult Performing Organization Address [facility] de Phone Number [facility] [address] [place] [phone] * HIV-1/2 Antigen and Antibodies, Fourth Generation, with Reflexes (09/07/2023 11:37 AM EST) HIV AB/AG Nonreactive Nonreactive [facility] Comment:HIV-1 p24 Ag and/or HIV-1/HIV-2 Ab not detected.A test result that is nonreactive does not exclude thepossibility of exposure to or infection with HIV-1 and/orHIV-2. Nonreactive results in this assay for individualswith prior exposure to HIV-1 and/or HIV-2 may be due toantigen and antibody levels that are below the limit ofdetection of this assay.The [employer] HIV Ag/Ab Combo assay result andsupplemental assay results should be interpreted inconjunction with the patient's clinical presentation,history and other laboratory results. If the results areinconsistent with clinical evidence, additional testing issuggested to confirm the result. Blood Venous blood specimen / Unknown 09/07/2023 11:37 AM EST 09/07/2023 2:50 PM EST Li Langford MD LAB BLOOD ORDERABLES Final Re sult [facility] [address] [place] [phone] * HP Diabetic Foot Exam (08/09/2023) Narrative Li Langford MD - 08/09/2023 Decr sensation on left foot hx of peroneal neuropathy Li Langford MD HEALTH MAINTENANCE Final Resu lt * THINPREP TIS PAP AND HPV mRNA E6/E7 WITH REFLEX TO HPV 16,18/45 (05/12/2022 3:31 PM EDT) Clinical Information: None given [facility] COMMENT SEE COMMENT [facility] Comment: EXPLANATORY NOTE: ? The Pap is a screening test for cervical cancer. It is ?? not a diagnostic test and is subject to false negative ?? and false positive results. It is most reliable when a ?? satisfactory sample, regularly obtained, is submitted ?? with relevant clinical findings and history, and when ?? the Pap result is evaluated along with historic and ?? current clinical information. ?? COMMENT: This Pap test has been evaluated with computer assisted technology. [facility] Cytotechnologis t: SEE COMMENT [facility] Comment: HECTOR, CT(ASCP) CT screening location: [address] ??[id number] HPV nRNA E6/E7 Not Detected Not Detected [facility] Comment: Methodology: Product Inspection Supervisor-Mediated Amplification This assay detects E6/E7 viral messenger RNA (mRNA) from 14 high-risk HPV types (16,18,31,33,35,39,45,51,52,56,58,59,66,68). ? Cervical sources are required for HPV testing. If a vaginal source from a patient who has had a total hysterectomy with removal of cervix was ?? submitted, please contact the testing laboratory for alternative testing options. ?? For additional information, please refer to http://education.DNA Guide.[employer]/faq/KLW176g0 (This link if provided for information/ educational purposes only.) Interpretation/ Result: Negative for intraepithelial lesion or malignancy. [facility] LMP: NONE GIVEN [facility] Prev. BX: NONE [facility]IVEN [facility] Prev. PAP: NONE GIVEN [facility] SOURCE: None given [facility] Statement Of Adequacy: SEE COMMENT [facility] Comment: Satisfactory for evaluation. Endocervical/transformation zone component absent. 05/12/2022 3:31 PM EDT Li Langford MD LAB PATHOLOGY ORDERABLES Claire grace Result Performing Organization Address City/State/[facility] Co de Phone Number [facility] [address] * Mammography Report 1 (05/06/2022 3:10 PM EDT) Anatomical Region Laterality Modality Breast Bilateral Mammography 05/06/2022 3:10 PM EDT Narrative 05/08/2022 7:38 AM EDT Refer to the Notes tab for result details [facility] Procedure: Mammography Report 1 Procedure Note Provider, MD Dian - 01/17/2023 Refer to the Notes tab for result details [facility] Procedure: Mammography Report 1 us Li Langford MD IMG BI PROCEDURES Final Resul t from Last 3 Months or Most Recently Relevant to Health Maintenance Insurance [facility]3 Care Teams Sound Mixer Relationship Specialty Start Date End Date Li Langford MD [address] [place] [address] PCP - General Family Medicine 08/12/21
== END 2025-02-05 11:10 | disposition home or self-care (01) ==
LOC: HO.HCS 10:36
PROVIDERS: PCP Family Medicine; Visit Provider Internal Medicine Cardiovascular Disease
DX: I20.89 Other forms of angina pectoris (principal); I10 Essential (primary) hypertension
CPT/HCPCS: 93010; 99214

== ENCOUNTER → 2025-02-05 10:36 | Outpatient (BNVA) | payer MEDICAID, SELFPAY ==
[2023-08-24 15:58] VITALS: BP 108/64; BMI 33.6
== END ==
PROVIDERS: PCP Family Medicine; Visit Provider Internal Medicine Cardiovascular Disease
DX: I20.89 Other forms of angina pectoris (principal); I10 Essential (primary) hypertension; R94.31 Abnormal electrocardiogram [ECG] [EKG]
CPT/HCPCS: 93005; 99212

== ENCOUNTER 2025-02-16 11:27 | Outpatient (REF) | payer MEDICAID, SELFPAY ==
[2023-08-24 15:58] VITALS: BP 108/64; BMI 33.6
--- OUTSIDE RECORDS SUMMARY | 2025-02-16 12:22 | XMS_ITS | Encounter Summary ---
Author Organization [employer] Address [address] [facility] [address] [place] [address] Care Team Providers Care Mat Linker Name Role Phone Li Langford MD Primary Care Provider [phone] Encounter Details Date Type Department Care Team ([facility] st Contact Info) Description 02/16/2025 10:45 AM EDT Office Visit [facility] [address] [place], [place] [id number] Lm Flanagan MD [address] [place] [address] Screening-pulmonary TB (Primary Dx); Type 2 diabetes mellitus with hyperglycemia, without long-term current use of insulin ([facility]); Hypertension, unspecified type; Physical exam Social History Tobacco Use Types Packs/Day Years Used Date Smoking Tobacco: Never Passive Smoke Exposure: Never Smokeless Tobacco: Never Alcohol Use Standard Drinks/Week Comments Never 0 [...] is your housing situation today? I have radha loja 02/06/[address] you li ve. Do you have problems with any of the following? None of the above 02/06/2025 Food Insecurity Answer Date Recorded Within the past 12 months, y ou worried that your food would run out before you got money to buy more: Never True 02/06/2025 Within the past 12 months,th e food you bought just didn't last and you didn't have enough money to get more: Never True Transportation Answer Date Recorded In the past 12 months, has l ack of transportation kept you from medical appts, meetings, work or from getting things needed for daily living? No 02/06/2025 Utilities Answer Date Recorded In the past 12 months, has t he electric, gas, oil or water company threatened to shut off services in your home? No 02/06/2025 Depression Answer Date Recorded Patient Health Questionnaire-2 Score 0 11/26/2022 Internet Access Answer Date Recorded Internet Access Q1 Yes 02/06/2025 Internet Access Q2 Not on file 02/06/2025 Comments Unknown Sex and Gender Information Value Date Recorded Sex Assigned at Female 08/24/2022 10:14 AM EDT Legal Sex Female 10:14 AM EDT Gender Identity Female 08/24/2022 10:14 AM EDT Sexual Orientation Straight 08/24/2022 10 :14 AM EDT documented as of this encounter Last Filed Vital Signs Vital Sign Reading Time Taken Comments Blood Pressure 167/68 02/16/2025 10:37 AM EDT Pulse 80 02/16/2025 10:37 AM EDT Temperature 36.6 ??C (97.8 ??F) 02/16/2025 10:37 AM E DT Respiratory Rate 20 02/16/2025 10:37 AM EDT Oxygen Saturation - - Inhaled Oxygen Concentration - - Weight 81.7 kg (180 lb 3.2 oz) 02/16/2025 10:37 AM EDT Height 152.4 cm (5') 02/16/2025 10:37 AM EDT Body Mass Index 35.19 02/16/2025 10:37 AM EDT documented in this encounter Progress Notes * Lm Berry MD - 02/16/2025 10:45 AM EDT Subjective Patient ID: Charisse Staton is a 64 y.o. female who presents for No chief complaint on file.. HPI Patient was seen on office for a physical examination Review of Systems Constitutional: Negative for chills, fatigue and fever. Respiratory: Negative for cough and shortness of breath. Cardiovascular: Negative for chest pain and palpitations. Objective Physical Exam Constitutional: General: She is not in acute distress. Appearance: Normal appearance. She is normal weight. HENT: Head: Normocephalic. Right Ear: Tympanic membrane, ear canal and external ear normal. There is no impacted cerumen. Left Ear: Tympanic membrane, ear canal and external ear normal. There is no impacted cerumen. Nose: Nose normal. Mouth/Throat: Mouth: Mucous membranes are moist. Comments: Has braces Eyes: Extraocular Movements: Extraocular movements intact. Pupils: Pupils are equal, round, and reactive to light. Cardiovascular: Rate and Rhythm: Normal rate and regular rhythm. Pulses: Dorsalis pedis pulses are 2+ on the right side and 2+ on the left side. Posterior tibial pulses are 2+ on the right side and 2+ on the left side. Heart sounds: Normal heart sounds. No murmur heard. Pulmonary: Effort: Pulmonary effort is normal. No respiratory distress. Breath sounds: Normal breath sounds. No stridor. No wheezing or rhonchi. Abdominal: General: Abdomen is flat. Bowel sounds are normal. There is no distension. Palpations: Abdomen is soft. There is no mass. Tenderness: There is no abdominal tenderness. There is no guarding. Hernia: No hernia is present. Musculoskeletal: General: Normal range of motion. Cervical back: Normal range of motion. No rigidity or tenderness. Right lower leg: No edema. Left lower leg: No edema. Right foot: Normal range of motion. No deformity, bunion, Charcot foot or prominent metatarsal heads. Left foot: Normal range of motion. No deformity, bunion, Charcot foot or prominent metatarsal heads. Feet: Right foot: Protective Sensation: 7 sites tested. 7 sites sensed. Skin integrity: Skin integrity normal. No ulcer, blister, skin breakdown, erythema, warmth, callus or dry skin. Toenail Condition: Right toenails are normal. Left foot: Protective Sensation: 7 sites tested. 7 sites sensed. Skin integrity: Skin integrity normal. No ulcer, blister, skin breakdown, erythema, warmth, callus or dry skin. Toenail Condition: Left toenails are normal. Lymphadenopathy: Cervical: No cervical adenopathy. Skin: Capillary Refill: Capillary refill takes less than 2 seconds. Findings: No rash. Neurological: General: No focal deficit present. Mental Status: She is alert and oriented to person, place, and time. Psychiatric: Mood and Affect: Mood normal. Behavior: Behavior normal. Assessment/Plan Problem List Items Addressed This Visit Hypertension Uncontrolled, she refers has not taken her bp medication in over 2 days, risk were discussed, reinforced importance of low sodium diet, keep bp log, follow up in 4 months Type 2 diabetes mellitus (CMS/HCC) Not at target, will increase trulicity to 1.5mg, continue low carb/no sugar diet, follow up in 3-4 months, labs ordered Relevant Orders POCT Glucose (Completed) POCT HGB A1C (Completed) Comprehensive Metabolic Panel Lipid Panel, Standard TSH W/Reflex to FT4 Albumin, Random Urine W/Creatinine Other Visit Diagnoses Screening-pulmonary TB - Primary Relevant Orders T-SPOT??.TB Physical exam Examination was unremarkable, renforced importance of medication adherance, new labs ordered, pending mammogram and colon cancer screening test documented in this encounter Miscellaneous Notes * Assessment & Plan Note - Lm Berry MD - 02/16/2025 11:09 AM EDTAssociated Problem(s): Type 2 diabetes mellitus (CMS/HCC) Not at target, will increase trulicity to 1.5mg, continue low carb/no sugar diet, follow up in 3-4 months, labs ordered * Assessment & Plan Note - Lm Berry MD - 02/16/2025 11:08 AM EDTAssociated Problem(s): Hypertension Uncontrolled, she refers has not taken her bp medication in over 2 days, risk were discussed, reinforced importance of low sodium diet, keep bp log, follow up in 4 months documented in this encounter Plan of Treatment Scheduled Orders Name Type Priority Associated Diagnoses Orde r Schedule Comprehensive Metabolic Panel Lab Routine Type 2 diabetes mellitus with hyperglycemia, without long-term current use of insulin ([facility]) Expected: 02/16/2025 (Approximate), Expires: 02/16/2026 Lipid Panel, Standard Lab Routine Type 2 diabetes mellitus with hyperglycemia, without long-term current use of insulin ([facility]) Expected: 02/16/2025 (Approximate), Expires: 02/16/2026 TSH W/Reflex to FT4 Lab Routine Type 2 diabetes mellitus with hyperglycemia, without long-term current use of insulin ([facility]) Expected: 02/16/2025 (Approximate), Expires: 02/16/2026 Albumin, Random Urine W/Creatinine Lab Routine Type 2 diabetes mellitus with hyperglycemia, without long-term current use of insulin ([facility]) Expected: 02/16/2025 (Approximate), Expires: 02/16/2026 T-SPOT??.TB Lab Routine Screening-pulmonary TB Expected: 02/16/2025 (Approximate), Expires: 02/16/2026 documented as of this encounter Procedures Procedure Name Priority Date/Time Associated Diagnosis Comments POCT GLYCATED HEMOGLOBIN, TOTAL Routine 02/16/2025 10:41 AM EDT Type 2 diabetes mellitus with hyperglycemia, without long-term current use of insulin ([facility]) POCT GLUCOSE Routine 02/16/2025 10:41 AM EDT Type 2 diabetes mellitus with hyperglycemia, without long-term current use of insulin ([facility]) documented in this encounter Results * (ABNORMAL) POCT HGB A1C (02/16/2025 10:41 AM EDT) Hemoglobin A1C 7.1(A) 4.0 - 6.0 % QC Media Lot # [id number] Lot# Expiration Date Blood 02/16/2025 10:4 1 AM EDT Lm Berry MD POINT OF CARE TEST ENTER/EDIT ORDERABLES Final Result * POCT Glucose (02/16/2025 10:41 AM EDT) Glucose Blood, POC 110 60 - 200 mg/dL QC Media Lot # [id number] Lot# Expiration Date Blood Capillary blood specimen / Unknown 02/16/2025 10:41 AM EDT Lm Berry MD POINT OF CARE TEST ENTER/EDIT ORDERABLES Final Result documented in this encounter Visit Diagnoses Diagnosis Screening-pulmonary TB- Primary Screening examination for pulmonary tuberculosis Type 2 diabetes mellitus with hyperglycemia, without long-term current use of insulin ([facility]) Hypertension, unspecified type Physical exam Unspecified general medical examination documented in this encounter Additional Health Concerns Assessment Noted Time PHQ-9 Depression Total Score: 0 11/26/19 23 1:38 PM EST documented as of this encounter Care Teams Mat Linker Relationship Specialty Start Date End Date Li Langford MD [address] [place] [id number] PCP - General Family Medicine 08/12/21 documented as of this encounter
--- OUTSIDE RECORDS SUMMARY | 2025-02-16 12:22 | XMS_ITS | Encounter Summary ---
Author Organization [employer] Address [address] [facility] [address] [place] [address] Care Team Providers Care Cane Stripper Name Role Phone Li Langford MD Primary Care Provider Encounter Details Date Type Department Care Team (Latest Contact Info) Description 02/16/2025 Travel Social History Tobacco Use Types Packs/Day Years [...] AM EDT documented as of this encounter Plan of Treatment Not on file documented as of this encounter Visit Diagnoses Not on filedocumented in this encounter Additional Health Concerns Assessment Noted Time PHQ-9 Depression Total Score: 0 11/26/19 23 1:38 PM EST documented as of this encounter Care Teams Cane Stripper Relationship Specialty Start Date End Date Li Langford MD [address] [place] [id number] PCP - General Family Medicine 08/12/21 documented as of this encounter
--- OUTSIDE RECORDS SUMMARY | 2025-02-16 12:23 | XMS_ITS | Clinical Summary ---
Author Organization [employer] Address [address] [place] [address] [address] [place] [address] Care Team Providers Care Cleat Layer Name Role Phone Li Langford MD Primary Care Provider [phone] Allergies No known active allergies Medications Spiriva HandiHaler 18 MCG inhalation capsuleIndicati ons:Chronic obstructive pulmonary disease, unspecified COPD type (CMS/HCC) USE 1 CAPSULE FOR INHALATION ONCE A DAY DO NOT SWALLOW CAPSULE 90 capsule 3 023 Active docusate sodium (Colace) 100 MG capsuleIndicati ons:Constipatio n, unspecified constipation type TAKE 1 CAPSULE BY MOUTH TWICE DAILY 60 capsule 5 023 Active buPROPion SR (Wellbutrin SR) 150 MG 12 hr tablet Take 150 mg by mouth in the morning. 023 Active Magnesium Citrate 100 MG tablet Take 100 mg by mouth in the morning. 90 tablet 1 023 Active glucose blood (FREESTYLE LITE) test strip 1 each by Other route every 12 (twelve) hours. USE 1 STRIP by DIRECTED route 2 times every day 100 each 11 023 Active Blood Glucose Monitoring Suppl (FreeStyle Lite) w/Device kit 1 Units 2 times daily. 1 kit 023 Active Entresto 24-26 MG tabletIndicatio ns:Atherosclero sis of coronary artery, unspecified vessel or lesion type, unspecified whether angina present, unspecified whether crow or transplanted heart TAKE 1 TABLET BY MOUTH TWICE DAILY 60 tablet 5 024 Active rosuvastatin (Crestor) 40 MG tablet TAKE 1 TABLET BY MOUTH EVERY DAY 90 tablet 3 024 Active Magnesium Citrate 200 MG tablet TAKE 1/2 TABLET BY MOUTH DAILY IN THE MORNING 45 tablet 1 024 Active amLODIPine (Norvasc) 10 MG tabletIndicatio ns:Hypertension Take 10 mg by mouth Once per day. Active cyanocobalamin (Vitamin B-12) 500 MCG tabletIndicatio ns:Type 2 diabetes mellitus with other specified complication, without long-term current use of insulin (CMS/HCC) Take 1 tablet (500 mcg) by mouth in the morning. 90 tablet 1 024 Active Lubricating Plus Eye Drops 0.5 % ophthalmic solution Administer 1 drop into both eyes if needed in the morning, at noon, and at bedtime for dry eyes. 10 mL 2 024 Active carboxymethylce llulose (Refresh Plus) 0.5 % ophthalmic solution Administer 1 drop into both eyes if needed for dry eyes. 30 mL 5 024 Active tiZANidine (Zanaflex) 4 MG tablet Take 1 tablet (4 mg) by mouth 3 times daily. 30 tablet 1 024 Active Aspirin Low Dose 81 MG chewable tablet CHEW AND SWALLOW 1 TABLET EVERY MORNING 90 tablet 1 024 Active metoprolol succinate XL (Toprol-XL) 50 MG 24 hr tablet TAKE 1 TABLET BY MOUTH EVERY MORNING 90 tablet 1 024 Active metFORMIN XR (Glucophage-XR) 500 MG 24 hr tabletIndicatio ns:Type 2 diabetes mellitus with hyperglycemia, without long-term current use of insulin (CMS/HCC) TAKE 1 TABLET BY MOUTH TWICE DAILY DO NOT BREAK, CRUSH, DISSOLVE OR CHEW 180 tablet 024 Active levothyroxine (Synthroid, Levoxyl) 100 MCG tablet Take 1 tablet (100 mcg) by mouth before breakfast. 90 tablet 1 025 Active omeprazole (PriLOSEC) [address] capsule TAKE 2 CAPSULES BY MOUTH EVERY DAY IN THE MORNING BEFORE BREAKFAST, DO NOT BREAK, CRUSH, DISSOLVE OR CHEW 90 capsule 025 Active chlorthalidone (Hygroton) 25 MG tablet TAKE 1 TABLET BY MOUTH EVERY MORNING 90 tablet 025 Active doxepin (SINEquan) 10 MG capsuleIndicati ons:Insomnia, unspecified type TAKE 1 CAPSULE BY MOUTH EVERY MORNING 90 capsule 1 025 Active folic acid (Folvite) 1 MG tabletIndicatio ns:Type 2 diabetes mellitus with other specified complication, without long-term current use of insulin (CMS/HCC) TAKE 1 TABLET BY MOUTH EVERY DAY IN THE MORNING 90 tablet 1 025 Active Trulicity 0.75 MG/0.5ML solution auto-injectorIn dications:Type 2 diabetes mellitus with hyperglycemia, without long-term current use of insulin (CMS/HCC) INJECT ONE PEN (=0.75MG) SUBCUTANEOUSLY ONCE A WEEK DIRECTED 2 mL 3 025 Active Dulaglutide (Trulicity) 1.5 MG/0.5ML solution auto-injector Inject 1.5 mg under the skin 1 (one) time per week. 3 mL 3 025 Active cholecalciferol (Vitamin D-3) 50 MCG (2000 UT) capsule Take 1 capsule (50 mcg) by mouth Once per day. 120 capsule 3 025 Active cholecalciferol (Vitamin D-3) 50 MCG (2000 UT) capsule Take 1 capsule (50 mcg) by mouth in the morning. 120 capsule 3 023 2024 Discontinued(R eorder (will not trigger notification to Pharmacy)) Active Problems Problem Noted Date Diagnosed Date [...] recommended reduction of 20-30% of maintenance calories; material expeditor referral offered. Recommended to decrease soda and [...] pain 09/06/2015 Hypertension 09/06/2015 Assessment & Plan (02/16/2025 11:08 AM EDT): Uncontrolled, she refers has not taken her bp medication in over 2 days, risk were discussed, reinforced importance of low sodium diet, keep bp log, follow up in 4 months Assessment & Plan (08/09/2023 11:18 AM [...] PA for Entresto this was sent by solid surface fabricator, strongly encouraged for her to speak with office to start process as we need reasoning to answer PA request. Obstructive sleep apnea syndrome 09/06/2015 Tobacco dependence syndrome 09/06/2015 Type 2 diabetes mellitus 09/06/2015 Assessment & Plan (02/16/2025 11:09 AM EDT): Not at target, will increase trulicity to 1.5mg, continue low carb/no sugar diet, follow up in 3-4 months, labs ordered Assessment & Plan (08/14/2024 1:35 PM EDT): [...] AM EDT): Continue to follow up with Internal Communications Manager. Acquired hypothyroidism 04/22/2012 Pure hypercholesterolemia 04/22/2012 Assessment & Plan (10/20/2022 5:00 PM EST): Reports was not really using her lipid medication when she had testing, now started using her rosuvastatin 20 mg and wants it to be recheck before proceeding with taking higher dose. Encounters Date Type Department Care Team Description 02/16/2025 10:45 AM EDT Office Visit [facility] & PEDS [address] [place], [place] [phone] Lm Flanagan MD Screening-pulmonar y TB (Primary Dx); Type 2 diabetes mellitus with hyperglycemia, without long-term current use of insulin (CMS/HCC); Hypertension, unspecified type; Physical exam 02/16/2025 Travel 02/08/2025 11:15 AM EDT Office Visit [facility] OPTOMETRY [address] [place] [address] Jose, Kateryna, OD Myopia of both eyes (Primary Dx) 02/06/2025 Patient Outreach [facility] MEDICINE [address] [place] [address] Li Langford MD Pre-visit Planning (SDOH screening negative and Tobacco screening negative) 01/05/2025 Population Health Risk Score [facility] Department [address] [phone] Provider, Population Health Generic 12/15/2024 Refill [facility] [address] [place] [address] Li Langford MD Type 2 diabetes mellitus with hyperglycemia, without long-term current use of insulin (CMS/HCC) 12/05/2024 Refill [facility]ED[facility] [address] [place] [address] Li Langford MD Insomnia, unspecified type; Type 2 diabetes mellitus with other specified complication, without long-term current use of insulin (CMS/HCC) 11/28/2024 Refill [facility] MEDIC[facility] [address] [place], [place] [phone] Li Langford MD from Last 3 Months [...] 20 02/16/2025 10:37 AM EDT Oxygen Saturation 98% 08/14/2024 1:00 PM EDT Inhaled Oxygen Concentration - - Weight 81.7 kg (180 lb 3.2 oz) 02/16/2025 10:37 AM EDT Height 152.4 cm (5') 02/16/2025 10:37 AM EDT Body Mass Index 35.19 02/16/2025 10:37 AM EDT Plan of Treatment Health Maintenance Due Date Last Done Comments CT Colonography 1960 Colonoscopy 1960 Colorectal Cancer Screening 1960 FIT DNA/Cologuard 1960 FIT 1960 FOBT 1960 Sigmoidoscopy 1960 Pneumococcal Vaccine: 50+ Years (1 of 2 - PCV) 1979 Depression Screening 11/26/2023 11/26/2022, 11/26/19 23 Mammogram 05/06/2024 05/06/2022 COVID-19 Vaccine ( season) 2024 Diabetes: Urine Protein Screening 09/07/2024 09/07/2023, 02/19/2021, 11/23/2019 Influenza Vaccine (#1) 2025 , 07/20/2018, 09/06/2015 Postponed from 06/25/2024 (Patient Refused) Pap Smear 05/12/2025 05/12/2022 Diabetes: Hemoglobin A1C 05/18/202502/16/ 025, 08/14/2024, 05/22/2024, Additional history exists DTaP/Tdap/Td Vaccines (2 - Td or Tdap) [...] (Patient Refused) Alcohol/Substance Use Screening 08/14/2025 08/14/2024 Tobacco Screening 08/14/2025 08/14/2024 Lipid Panel 08/17/2025 08/17/2024, 08/25, 10/14/2022, Additional history exists Eye Exam 12/15/2025 12/15/2023 SDOH Screening 02/06/2026 02/06/2025 Diabetes: Foot Exam 02/16/2026 02/16/2025, 02/16/2025, 02/16/2025, Additional history exists Cervical Cancer Screening 05/12/2027 HPV/Cotest 05/12/2027 05/12/2022 [...] hyperglycemia, without long-term current use of insulin ([facility]) POCT GLUCOSE Routine 02/16/2025 10:41 AM EDT Type 2 diabetes mellitus with hyperglycemia, without long-term current use of insulin (CMS/[facility]) LIPID PANEL, STANDARD Routine 08/17/2024 11:40 AM EDT Class 1 obesity HM DIABETES EYE EXAM Routine 12/15/2023 ALBUMIN, [...] Relevant to Health Maintenance Results * (ABNORMAL) POCT HGB A1C (02/16/2025 [...] Media Lot # [id number] Lot# Expiration Date 025 Blood Capillary blood specimen / Unknown 02/16/2025 10:41 AM EDT Lm Berry MD POINT OF CARE TEST ENTER/EDIT ORDERABLES Final Result * (ABNORMAL) Lipid Panel, Standard (08/17/2024 11:40 AM EDT) Triglycerides 187(H) <150 mg/dL [facility] Comment:Desirable Triglyceri de: less than 150 mg/dLBorderline High Triglyceride 150-199 mg/dLHigh Triglyceride: 200-499 mg/dLVery High Triglyceride: greater than or equal to 5OO mg/dL Cholesterol 208(H) <200 mg/dL [facility] Comment:Desirable Cholestero l: less than 200 mg/dLBorderline High Cholesterol: 200-239 mg/dLHigh Cholesterol: greater than 239 mg/dL LDL Cholesterol Calculated 124(H) <100 mg/dL [facility] Comment:Desirable LDL: less than 100 mg/dLNear Optimal/Above Optimal LDL: 110- 129 mg/dLBorderline High LDL: 130-159 mg/dLHigh LDL: 160-189 mg/dLVery High LDL: greater than or equal to 190 mg/dL HDL Cholesterol 47 >40 mg/dL [facility] Comment:Desirable HDL: great er than 40 mg/dL Note: This HDL assay may give artificially low results in patients with liver disease. Blood Venous blood specimen / Unknown 08/17/2024 11:40 AM EDT 08/17/2024 1:54 PM EDT Li Langford MD LAB BLOOD ORDERABLES Final Re sult [facility] [address] [place] [phone] * Diabetes Eye Exam (12/15/2023) Eye Exam Normal Normal Comment:Scanned in EMR us Dian Provider HEALTH MAINTENANCE Final Result * Albumin, Random Urine W/Creatinine (09/07/2023 11:40 AM EST) Creatinine, Urine 147.21 mg/dL [facility] Microalbumin Urine 17.0 mg/L H [facility] Microalbum Creatinine Ratio Ur 11.5 <30 ug/mg cr [facility] Comment:Albumin/Creatinine R atio Reference Ranges: Normal: < 30 ug/mg creatinine Microalbuminuria: 30 - 300 ug/mg creatinineClinical Albuminuria: > 300 ug/mg creatinine Urine (Urine, Random) 09/07/2023 11:40 AM EST 09/07/2023 2:59 PM EST us Li Langford MD LAB URINE ORDERABLES Final Re sult Performing Organization Address [facility]/ZIP Co de Phone Number [facility] [address] [place] [phone] * Hepatitis C Ab (09/07/2023 11:37 AM EST) Hepatitis C Antibody Nonreactive Nonreactive [facility] Comment:Antibodies to HCV no t detected; does not exclude early acuteHCV infection. Blood 09/07/2023 11:3 7 AM EST 09/07/2023 2:50 PM EST Li Langford MD LAB BLOOD ORDERABLES Final Re sult Performing Organization Address [facility] Co de Phone Number [facility] [address] [place] [phone] * HIV-1/2 Antigen and Antibodies, Fourth Generation, with Reflexes (09/07/2023 11:37 AM EST) HIV AB/AG Nonreactive Nonreactive [facility] Comment:HIV-1 p24 Ag and/or HIV-1/HIV-2 Ab not detected.A test result that is nonreactive does not exclude thepossibility of exposure to or infection with HIV-1 and/orHIV-2. Nonreactive results in this assay for individualswith prior exposure to HIV-1 and/or HIV-2 may be due toantigen and antibody levels that are below the limit ofdetection of this assay.The Pace Alinity HIV Ag/Ab Combo assay result andsupplemental assay results should be interpreted inconjunction with the patient's clinical presentation,history and other laboratory results. If the results areinconsistent with clinical evidence, additional testing issuggested to confirm the result. Blood Venous blood specimen / Unknown 09/07/2023 11:37 AM EST 09/07/2023 2:50 PM EST Li Langford MD LAB BLOOD ORDERABLES Final Re sult [facility] [address] [place] [phone] * HP Diabetic Foot Exam (08/09/2023) Narrative Li Langford MD - 08/09/2023 Decr sensation on left foot hx of peroneal neuropathy Li Langford MD HEALTH MAINTENANCE Final Resu lt * THINPREP TIS PAP AND HPV mRNA E6/E7 WITH REFLEX TO HPV 16,18/45 (05/12/2022 3:31 PM EDT) Clinical Information: None given [facility] COMMENT SEE COMMENT [facility] ON [...] has been evaluated with computer assisted technology. [facility] Cytotechnologis t: SEE COMMENT [facility] Comment: HECTOR, CT(ASCP) CT screening location: [address] ??[id number] HPV nRNA E6/E7 Not Detected Not Detected [facility] Comment: Methodology: Production Statistical Clerk-Mediated Amplification This assay detects E6/E7 viral messenger RNA (mRNA) from 14 high-risk HPV types (16,18,31,33,35,39,45,51,52,56,58,59,66,68). ? Cervical sources are required for HPV testing. If a vaginal source from a patient who has had a total hysterectomy with removal of cervix was ?? submitted, please contact the testing laboratory for alternative testing options. ?? For additional information, please refer to http://education.[employer]/faq/PPV389x6 (This link if provided for information/ educational [...] ORDERABLES Claire grace Result Performing Organization Address City/State/[facility] Co de Phone Number [facility] [address] * Mammography Report 1 (05/06/2022 3:10 PM EDT) Anatomical Region Laterality Modality Breast Bilateral Mammography 05/06/2022 3:10 PM EDT Narrative 05/08/2022 7:38 AM EDT Refer to the Notes tab for result details [facility] Procedure: Mammography Report 1 Procedure Note Provider, MD Dian - 01/17/2023 Refer to the Notes tab for result details [facility] Procedure: Mammography Report 1 Li Langford MD IMG BI PROCEDURES Final Resul t from Last 3 Months or Most Recently Relevant to Health Maintenance [facility] Care Teams Cleat Layer Relationship Specialty Start Date End Date Li Langford MD [address] [place] [phone] PCP - General Family Medicine 08/12/21
[2025-02-16 14:37] LABS: Creatinine Urine 111.85 mg/dL; Microalbum/Creatinine Ratio Ur 35.7 ug/mg cr (<30)
[2025-02-16 14:38] LABS: Alanine Aminotransferase 40 U/L (0-31); Albumin Level 4.3 g/dL (3.5-5.0); Alkaline Phosphatase 87 U/L (39-117); Anion Gap 11 (12-20); Aspartate Amino Transferase 38 U/L (5-31); Bilirubin Total 0.4 mg/dL (0.0-1.0); Blood Urea Nitrogen 15 mg/dL (9-16); Calcium 9.4 mg/dL (8.4-10.2); Carbon Dioxide 23 mmol/L (22-29); Chloride 109 mmol/L (96-108); Cholesterol 195 mg/dL (<200); Estimated Glomerular Filt Rate > 60; Glucose Random 98 mg/dL (60-115); HDL Cholesterol 49 mg/dL (>40); LDL Cholesterol Calculated 125 mg/dL (<100); Potassium 4.1 mmol/L (3.3-5.1); Sodium 139 mmol/L (135-145); Total Protein 7.8 g/dL (6.5-8.0); Triglycerides 109 mg/dL (<150)
[2025-02-16 14:46] LABS: TSH reflex Free T4 0.63 uIU/mL (0.32-4.0)
[2025-02-19 18:28] LABS: TS Negative Control Passed; TS Panel A 23; TS Panel B 7; TS Positive Control Passed; TSpotTB Positive (Negative)
== END 2025-02-16 11:28 | disposition home or self-care (01) ==
LOC: HO.CHCLDS 11:27
PROVIDERS: Visit Provider Internal Medicine
DX: E11.65 Type 2 diabetes mellitus with hyperglycemia (principal); Z11.1 Encounter for screening for respiratory tuberculosis
CPT/HCPCS: 36415; 80053; 80061; 82043; 82570; 84443; 86481

== ENCOUNTER 2025-02-26 09:26 | Outpatient (REF) | payer MEDICAID, SELFPAY ==
[2023-08-24 15:58] VITALS: BP 108/64; BMI 33.6
--- NOTE | ~2025-02-26 | XR_ITS ---
EXAMINATION: XR CHEST CLINICAL INFORMATION: positive tspot COMPARISON: August 02, 2021. TECHNIQUE: 2 views of the chest were obtained. FINDINGS: Pulmonary reticular pattern. No consolidation, pleural effusion or pneumothorax. No gross hyperinflation. Cardiomediastinal silhouette size is normal. Calcified lesions in the thoracic aortic arch. Mild S-shaped curvature of the thoracolumbar spine. Mild endplate sclerosis. Vascular clips right upper abdomen, likely cholecystectomy. XR/XR chest 2V IMPRESSION: No acute airspace disease. Stable chest. Electronically signed by: Jourdan Rodríguez MD 02/26/2025 01:30 PM EDT
--- OUTSIDE RECORDS SUMMARY | 2025-02-26 10:13 | XMS_ITS | Encounter Summary ---
Author Organization [employer] Address [address] [facility] [address] [place] [address] Care Team Providers Care Supervisor Carding Name Role Phone Li Langford MD Primary Care Provider [phone] Reason for Visit * Reason Onset Date Comments Results 02/22/2025 Encounter Details Date Type Department Care Team ([facility] Contact Info) Description 02/22/2025 Telephone [facility] MED [facility] PEDS [address] [place], [place] [phone] Li Langford MD [address] [place] [address] Results Social History Tobacco Use Types Packs/Day Years [...] AM EDT documented as of this encounter Miscellaneous Notes * Telephone Encounter - Delmis Ambrocio RN - 02/23/2025 4:03 PM EDT TC to pt with hospice manager services. Informed pt of Tspot result and x- ray. Pt stated will ask son to bring her on Wednesday. Author advised for pt to wear mask to radiology and will look for x-ray results Wednesday afternoon. Pt verbalized understanding and agreement with plan. * Telephone Encounter - Addi Corbin - 02/22/2025 2:02 PM EDT Tc from pt returning call regarding prior message. Contact pt at [phone] * Telephone Encounter - Delmis Ambrocio RN - 02/22/2025 11:13 AM EDT TC to pt son, who pt signed off on HIPAA consent within past year authorizing office to communicatewith son. Author advised office attempted to call a couple of times to go over results, and asked if son could ask pt to have pt call office back. Pt son stated that pt is currently at a day center program and will be home around 2pm. Author verbalized understanding and stated would call pt in afternoon. Pt son stated understanding and agreement with plan, will tell pt that phone number may be different area code as author will call with an dining room host. * Telephone Encounter - Delmis Ambrocio RN - 02/22/2025 11:09 AM EDT TC to pt using hospice manager services. No answer x2. Voicemail left instructing pt to return call to office. * Telephone Encounter - Marlene Valentin RN - 02/22/2025 9:51 AM EDT Placed call to pt to inform of XR order placed by provider d/t positive T-Spot result. LVM to return call to nurses. Will forward message to PCP as FYI as well as team nurses for second attempt. documented in this encounter Plan of Treatment Not on file documented as of this encounter Visit Diagnoses Not on filedocumented in this encounter Additional Health Concerns Assessment Noted Time PHQ-9 Depression Total Score: 0 11/26/19 23 1:38 PM EST documented as of this encounter Care Teams Supervisor Carding Relationship Specialty Start Date End Date Li Langford MD [address] [place] [address] PCP - General Family Medicine 08/12/21 documented as of this encounter
--- OUTSIDE RECORDS SUMMARY | 2025-02-26 10:13 | XMS_ITS | Clinical Summary ---
Author Organization [employer] Address [address] [place] [address] [address] [place] [address] Care Team Providers Care Underwriting Support Manager Name Role Phone Li Langford MD Primary Care Provider [phone] Allergies No known active allergies Medications Spiriva [...] type, unspecified whether angina present, unspecified whether paimiut or transplanted heart TAKE 1 TABLET BY [...] recommended reduction of 20-30% of maintenance calories; benzene still utility operator referral offered. Recommended to decrease soda and [...] PA for [employer] this was sent by shorer, strongly encouraged for her to speak with [...] AM EDT): Continue to follow up with [facility]. Acquired hypothyroidism 04/22/2012 Pure hypercholesterolemia 04/22/2012 Assessment & Plan (10/20/2022 5:00 PM EST): Reports was not really using her lipid medication when she had testing, now started using her rosuvastatin 20 mg and wants it to be recheck before proceeding with taking higher dose. Encounters Date Type Department Care Team Description 02/22/2025 Telephone [facility] [address] [place] [address] Li Langford MD Results 02/21/2025 Orders Only [facility] MEDICINE [address] [place] [address] Lm Flanagan MD Screening-pulmonar y TB (Primary Dx) 02/16/2025 10:45 AM EDT Office Visit [facility] [address] [place] [address] Lm Flanagan MD Screening-pulmonar y TB (Primary Dx); Type 2 diabetes mellitus with hyperglycemia, without long-term current use of insulin (CMS/[facility]); Hypertension, unspecified type; Physical exam 02/16/2025 Travel 02/08/2025 11:15 AM EDT Office Visit [facility] OPTOMETRY [address] [place] [address] Jose, Kateryna, OD Myopia of both eyes (Primary Dx) 02/06/2025 Patient Outreach [facility] [address] [place] [address] Li Langford MD Pre-visit Planning (SDOH screening negative and Tobacco screening negative) 01/05/2025 Population Health Risk Score [facility] Department [address] [phone] Provider, Population Health Generic 12/15/2024 Refill [facility] [address] [place] [address] Li Langford MD Type 2 diabetes mellitus with hyperglycemia, without long-term current use of insulin (CMS/HCC) 12/05/2024 Refill [facility] [address], [place] [phone] Li Langford MD Insomnia, unspecified type; Type 2 diabetes mellitus with other specified complication, without long-term current use of insulin ([facility]) from Last 3 Months Immunizations Name Administration [...] 23 Mammogram 05/06/2024 05/06/2022 COVID-19 Vaccine ( - season) 2024 Influenza Vaccine (#1) 2025 0, 07/20/2018, 09/06/2015 Postponed from 06/25/2024 (Patient Refused) [...] Screening 08/14/2025 08/14/2024 Tobacco Screening 08/14/2025 08/14/2024 Eye Exam 12/15/2025 12/15/2023 SDOH Screening 02/06/2026 02/06/2025 Diabetes: Foot Exam 02/16/2026 02/16/2025, 02/16/2025, 02/16/2025, Additional history exists Diabetes: Urine Protein Screening 02/16/2026 02/16/2025, 09/07/2023, 02/19/2021, Additional history exists Lipid Panel 02/16/2026 02/16/2025, 07/26, 09/07/2023, Additional history exists Cervical Cancer Screening 05/12/2027 [...] Procedure Name Priority Date/Time Associated Diagnosis Comments T-SPOT(R).TB Routine 02/16/2025 11:30 AM EDT Screening-pulmonar y TB ALBUMIN, RANDOM URINE W/CREATININE Routine 02/16/2025 11:30 AM EDT Type 2 diabetes mellitus with hyperglycemia, without long-term current use of insulin (CMS/HCC) TSH W/REFLEX TO FT4 Routine 02/16/2025 1 1:30 AM EDT Type 2 diabetes mellitus with hyperglycemia, without long-term current use of insulin (CMS/HCC) LIPID PANEL, STANDARD Routine 02/16/2025 11:30 AM EDT Type 2 diabetes mellitus with hyperglycemia, without long-term current use of insulin (CMS/HCC) COMPREHENSIVE METABOLIC PANEL Routine 02/16/2025 11:30 AM EDT Type 2 diabetes mellitus with hyperglycemia, without long-term current use of insulin (CMS/HCC) POCT GLYCATED HEMOGLOBIN, TOTAL Routine 02/16/2025 10:41 AM EDT Type 2 diabetes mellitus with hyperglycemia, without long-term current use of insulin (CMS/HCC) POCT GLUCOSE Routine 02/16/2025 10:41 AM EDT Type 2 diabetes mellitus with hyperglycemia, without long-term current use of insulin (CMS/HCC) HM DIABETES EYE EXAM Routine 12/15/2023 HEPATITIS C ANTIBODY Routine 09/07/2023 11:37 AM [...] Relevant to Health Maintenance Results * (ABNORMAL) T-SPOT??.TB (02/16/2025 11:30 AM EDT) T Spot TB Positive( A) Negative [facility] Comment: Diagnosing or excluding tuberculosis (TB) disease andassessing the probability of latent TB infection (LTBI)requires a combination of epidemiological, historical,medical and diagnostic findings that should be takeninto consideration when interpreting T-SPOT.TB testresults. A positive test result does not rule in activeTB disease caused by Mycobacterium tuberculosis(M. tuberculosis); active TB disease should beconfirmed by other tests such as sputum smear andculture, PCR, and chest radiography.Uncommonly, a positive T-SPOT.TB result may be due toinfection with other Mycobacterium species includingM. kansasii, M. szulgai, M. gordonae, or M. marinum.Alternative tests would be required if these infectionsare suspected.The T-SPOT.TB test is qualitative and results arereported as positive, borderline, or negative, giventhat the test controls perform as expected. In linewith the Centers for Disease Control and Prevention's2010 recommendation to report quantitative measurementsalongside the qualitative result, the laboratoryprovides spot counts for informational purposes only.The T-SPOT.TB test should not be interpreted as aquantitative test. TS PANEL A 23 [facility] TS PANEL B 7 [facility] Negative Control Passed [facility] Positive Control Passed [facility] Comment:For additional infor ke, please refer tohttp://education.The Trade Desk/faq/DVG234(This link is being provided for informational/educational purposes only.)REPORT COMMENT:REC'D AT [facility] TEST WAS PERFORMED AT:[employer] [id number] [place] [id number] GILES MD,PHD 02/16/2025 11:3 0 AM EDT 02/16/2025 2:08 PM EDT us Lm Berry MD LAB BLOOD ORDERABL ES Final Result [facility] [address] [place] [phone] * TSH W/Reflex to FT4 (02/16/2025 11:30 AM EDT) TSH reflex Free T4 0.63 0.32 - 4.0 uIU/mL [facility] Blood Venous blood specimen / Unknown 02/16/2025 11:30 AM EDT 02/16/2025 2:08 PM EDT us Lm Berry MD LAB BLOOD ORDERABL ES Final Result Performing Organization Address [facility] [place] [facility]/ZIP Co de Phone Number [facility] [address] [place] [phone] * (ABNORMAL) Albumin, Random Urine W/Creatinine (02/16/2025 11:30 AM EDT) Creatinine, Urine 111.85 mg/dL [facility] Microalbumin Urine 40.0 mg/L H [facility] Microalbum Creatinine Ratio Ur 35.7(H) <30 ug/mg cr [facility] Comment:Albumin/Creatinine R atio Reference Ranges: Normal: < 30 ug/mg creatinine Microalbuminuria: 30 - 300 ug/mg creatinineClinical Albuminuria: > 300 ug/mg creatinine Urine (Urine, Random) 02/16/2025 11:30 AM EDT 02/16/2025 2:01 PM EDT us Lm Berry MD LAB URINE ORDERABL ES Final Result Performing Organization Address [facility] [place] [facility]/ZIP Co de Phone Number [facility] [address] [place] [phone] * (ABNORMAL) Lipid Panel, Standard (02/16/2025 11:30 AM EDT) Triglycerides 109 <150 mg/dL [facility] Comment:Desirable Triglyceri de: less than 150 mg/dLBorderline High Triglyceride 150-199 mg/dLHigh Triglyceride: 200-499 mg/dLVery High Triglyceride: greater than or equal to 5OO mg/dL Cholesterol 195 <200 mg/dL [facility] Comment:Desirable Cholestero l: less than 200 mg/dLBorderline High Cholesterol: 200-239 mg/dLHigh Cholesterol: greater than 239 mg/dL LDL Cholesterol Calculated 125(H) <100 mg/dL [facility] Comment:Desirable LDL: less than 100 mg/dLNear Optimal/Above Optimal LDL: 110- 129 mg/dLBorderline High LDL: 130-159 mg/dLHigh LDL: 160-189 mg/dLVery High LDL: greater than or equal to 190 mg/dL HDL Cholesterol 49 >40 mg/dL [facility] Comment:Desirable HDL: great er than 40 mg/dL Note: This HDL assay may give artificially low results in patients with liver disease. Blood Venous blood specimen / Unknown 02/16/2025 11:30 AM EDT 02/16/2025 2:08 PM EDT us Lm Berry MD LAB BLOOD ORDERABL ES Final Result [facility] [address] [place], [place] [phone] * (ABNORMAL) Comprehensive Metabolic Panel (02/16/2025 11:30 AM EDT) Sodium 139 135 - 145 mmol/L [facility] Potassium 4.1 3.3 - 5.1 mmol/L [facility] Chloride 109(H) 96 - 108 mmol/L [facility] Carbon Dioxide 23 22 - 29 mmol/L [facility] Anion Gap 11(L) 12 - 20 [facility] Urea Nitrogen (BUN) 15 9 - 16 mg/dL [facility] Creatinine, Serum 0.80 0.5 - 1.4 mg/dL [facility] Estimated Glomerular Filt Rate >60 [facility] Comment:Chronic Kidney Disea se: Estimated GFR < 60 mL/min/1.79t5Ssjgew Kidney Disease: Estimated GFR < 15 mL/min/1.73m2 Glucose 98 60 - 115 mg/dL [facility] Calcium 9.4 8.4 - 10.2 mg/dL [facility] Bilirubin, Total 0.4 0.0 - 1.0 mg/dL [facility] Aspartate Amino Transferase 38(H) 5 - 31 U/L [facility] Alanine Aminotransferase 40(H) 0 - 31 U/L [facility] Total Protein 7.8 6.5 - 8.0 g/dL [facility] Albumin Level 4.3 3.5 - 5.0 g/dL [facility] Alkaline Phosphatase 87 39 - 117 U/L [facility] Blood Venous blood specimen / Unknown 02/16/2025 11:30 AM EDT 02/16/2025 2:08 PM EDT Lm Berry MD LAB BLOOD ORDERABL ES Final Result Performing Organization Address City/State/[facility] Co de Phone Number [facility] [address] [place] [phone] * (ABNORMAL) POCT HGB A1C (02/16/2025 10:41 AM EDT) [facility] Hemoglobin A1C 7.1(A) 4.0 - 6.0 % QC Media Lot # [id number] Lot# Expiration Date Blood 02/16/2025 10:4 1 AM EDT Lm Berry MD POINT OF CARE TEST ENTER/EDIT ORDERABLES Final Result * POCT Glucose (02/16/2025 10:41 AM EDT) Pathologist [facility] Glucose Blood, POC 110 60 - 200 mg/dL QC Media Lot # [id number] Lot# Expiration Date , Blood Capillary blood specimen / Unknown 02/16/2025 10:41 AM EDT Lm Berry MD POINT OF CARE TEST ENTER/EDIT ORDERABLES Final Result * Hm Diabetes Eye Exam (12/15/2023) Eye Exam Normal Normal Comment:Scanned in EMR Dian Provider HEALTH MAINTENANCE Final Result * Hepatitis C Ab (09/07/2023 11:37 AM EST) Hepatitis C Antibody Nonreactive Nonreactive [facility] Comment:Antibodies to HCV no t detected; does not exclude early acuteHCV infection. Blood 09/07/2023 11:3 7 AM EST 09/07/2023 2:50 PM EST Result [facility] Li Langford MD LAB BLOOD ORDERABLES Final Re sult [facility] [address] [place] [phone] * HIV-1/2 Antigen and Antibodies, Fourth Generation, with Reflexes (09/07/2023 11:37 AM EST) HIV AB/AG Nonreactive Nonreactive [facility] Comment:HIV-1 p24 Ag and/or HIV-1/HIV-2 Ab not detected.A test result that is nonreactive does not exclude thepossibility of exposure to or infection with HIV-1 and/orHIV-2. Nonreactive results in this assay for individualswith prior exposure to HIV-1 and/or HIV-2 may be due toantigen and antibody levels that are below the limit ofdetection of this assay.The [employer] HIV Ag/Ab Combo assay result andsupplemental assay results should be interpreted inconjunction with the patient's clinical presentation,history and other laboratory results. If the results areinconsistent with clinical evidence, additional testing issuggested to confirm the result. Blood Venous blood specimen / Unknown 09/07/2023 11:37 AM EST 09/07/2023 2:50 PM EST Result [facility] Li Langford MD LAB BLOOD ORDERABLES Final Re sult [facility] [address] [place] [phone] * HP Diabetic Foot Exam (08/09/2023) Li Rizzo MD - 08/09/2023 Decr sensation on left foot hx of peroneal neuropathy us Li Langford MD HEALTH MAINTENANCE Final Resu lt * THINPREP TIS PAP AND HPV mRNA E6/E7 WITH REFLEX TO HPV 16,18/45 (05/12/2022 3:31 PM EDT) Clinical Information: None given [facility] COMMENT SEE COMMENT FOUNDAT[facility] [...] has been evaluated with computer assisted technology. Present LAB SYSTEM Cytotechnologis t: SEE COMMENT [facility] Comment: HECTOR, CT(ASCP) CT screening location: [address] ??[address] HPV nRNA E6/E7 Not Detected Not Detected [facility] Comment: Methodology: [employer] Associate-Mediated Amplification This assay detects E6/E7 viral messenger RNA (mRNA) from 14 high-risk HPV types (16,18,31,33,35,39,45,51,52,56,58,59,66,68). ? Cervical sources are required for HPV testing. If a vaginal source from a patient who has had a total hysterectomy with removal of cervix was ?? submitted, please contact the testing laboratory for alternative testing options. ?? For additional information, please refer to http://education.The Trade Desk/faq/OWG933t0 (This link if provided for information/ educational purposes only.) Interpretation/ Result: Negative for intraepithelial lesion or malignancy. [facility] LMP: NONE GIVEN [facility] Prev. BX: NONE GIVEN [facility] Prev. PAP: NONE GIVEN [facility] SOURCE: None given [facility] Statement Of Adequacy: SEE COMMENT [facility] Comment: Satisfactory for evaluation. Endocervical/transformation zone component absent. 05/12/2022 3:31 PM EDT Li Langford MD LAB PATHOLOGY ORDERABLES Claire l Result [facility] [address] * Mammography Report 1 (05/06/2022 3:10 [...] Most Recently Relevant to Health Maintenance Insurance C3 Care Teams Underwriting Support Manager Relationship Specialty Start Date End Date Li Langford MD [address] [place] [phone] PCP - General Family Medicine 08/12/21
--- OUTSIDE RECORDS SUMMARY | 2025-02-26 10:13 | XMS_ITS | Encounter Summary ---
Author Organization [employer] Address [address] [facility] [address] [place] [address] Care Team Providers Care Visual C Developer Name Role Phone Li Langford MD Primary Care Provider [phone] Encounter Details Date Type Department Care Team ([facility] st Contact Info) Description 02/21/2025 Orders Only [facility] [address] [place] [address] Lm Flanagan MD [address] [place] [address] Screening-pulmonary TB (Primary Dx) Social History Tobacco Use Types Packs/Day Years [...] as of this encounter Plan of Treatment Scheduled Orders Name Type Priority Associated Diagnoses Orde r Schedule XR Chest 2 Views Imaging Routine Screening-pulmonary TB Expected: 02/21/2025, Expires: 02/21/2026 documented as of this encounter Visit Diagnoses Diagnosis Screening-pulmonary TB- Primary Screening examination for pulmonary tuberculosis documented in this encounter Additional Health Concerns Assessment Noted Time PHQ-9 Depression Total Score: 0 11/26/19 23 1:38 PM EST documented as of this encounter Care Teams Visual C Developer Relationship Specialty Start Date End Date Li Langford MD [address] [place] [address] PCP - General Family Medicine 08/12/21 documented as of this encounter
== END 2025-02-26 09:27 | disposition home or self-care (01) ==
LOC: HO.XRAY 09:26
PROVIDERS: PCP Family Medicine; Visit Provider Internal Medicine
DX: Z11.1 Encounter for screening for respiratory tuberculosis (principal); R76.11 Nonspecific reaction to tuberculin skin test without active tuberculosis
CPT/HCPCS: 71046

== ENCOUNTER → 2025-02-26 09:29 | Outpatient (BNV) | payer MEDICAID, SELFPAY ==
[2023-08-24 15:58] VITALS: BP 108/64; BMI 33.6
== END ==
PROVIDERS: PCP Family Medicine; Visit Provider Radiology Diagnostic Radiology
DX: R76.11 Nonspecific reaction to tuberculin skin test without active tuberculosis (principal)
CPT/HCPCS: 71046

== ENCOUNTER 2025-03-06 12:49 | Outpatient (REF) | payer MEDICAID, SELFPAY ==
[2023-08-24 15:58] VITALS: BP 108/64; BMI 33.6
--- NOTE | ~2025-03-06 | US_ITS ---
EXAMINATION: Noninvasive assessment of the bilateral lower extremities with ARTERIAL DUPLEX, ANKLE BRACHIAL INDICES (ABIs), and PULSE VOLUME RECORDINGS (PVRs). CLINICAL INFORMATION: Status post stent, right superficial femoral artery. Peripheral vascular disease. TECHNIQUE: Duplex Doppler techniques with waveform analysis and measurement of velocities in the bilateral common femoral, profunda femoris, superficial femoral, popliteal and tibial arteries were performed. Additionally, ankle pulse volume recordings, ankle pressure measurements and ankle brachial indices were obtained of the lower extremity arterial system bilaterally. The study was performed only at rest. COMPARISON: April 11, 2024 FINDINGS: DIRECT DUPLEX DOPPLER FINDINGS: RIGHT LEG: Common femoral artery: 239 cm/s, phasicity: Biphasic. Profunda femoris artery: 185 cm/s, phasicity: Biphasic. Superficial femoral artery (proximal): Stent. 131 cm/s, phasicity: Biphasic Superficial femoral artery (mid): Stent: 162 cm/s, phasicity: Biphasic Superficial femoral artery (distal): Stent: 91 cm/s, phasicity: Biphasic. Popliteal artery: 117 cm/s, phasicity: Monophasic. Posterior tibial artery: 119 cm/s, phasicity: Biphasic. Peroneal artery: Normal color Doppler. Anterior tibial artery: 106 cm/s, phasicity: Monophasic. Dorsalis pedis artery: 204 cm/s, phasicity:Biphasic. Direct duplex of the stent: [place] artery, proximal to the stent: 131 cm/s. Biphasic. [place] artery, distal to stent: 104 cm/s. Biphasic. LEFT LEG: Common femoral artery: 240 cm/s, phasicity: Triphasic. Profunda femoris artery: 144 cm/s, phasicity: Triphasic. Superficial femoral artery (proximal): 78 cm/s, phasicity: Monophasic. Superficial femoral artery (mid): No color Doppler flow. Superficial femoral artery (distal): No color Doppler flow. Popliteal artery: 62 cm/s, phasicity: Monophasic. Posterior tibial artery: 51 cm/s, phasicity: Monophasic. Peroneal artery: No color Doppler flow. Anterior tibial artery: 32 cm/s, phasicity: Monophasic. Dorsalis pedis artery: 10 cm/s, phasicity: Monophasic. BRACHIAL PRESSURES: Right: 139 Left: 164 ANKLE PRESSURES: Right: PT 136, DP 157 Left: PT 94, DP 90 ANKLE-BRACHIAL INDEX: Right: 0.96 Left: 0.57 ANKLE PVR WAVEFORMS: Right: Abnormal Left: Abnormal US/US arterial duplex BI w/ PELON IMPRESSION: Right leg: Normal patency of the stent, superficial femoral artery with biphasic waveforms. Moderate to severe inflow disease more pronounced in the popliteal and anterior tibialis artery. Left leg: Severe inflow disease from the proximal superficial femoral artery to the dorsalis pedis artery. Occluded mid to distal segment superficial femoral artery with collateral flow. PELON Reference: - >1.4 = calcified vessels - 0.9 - 1.4 = normal - no significant arterial disease - 0.7 - 0.89 = mild peripheral arterial disease - 0.51 - 0.69 = moderate peripheral arterial disease - d 0.50 = severe peripheral arterial disease - < .30 = critical arterial disease Electronically signed by: Jourdan Rodríguez MD 03/06/2025 03:58 PM EDT
== END 2025-03-06 12:50 | disposition home or self-care (01) ==
LOC: HO.US 12:49
PROVIDERS: PCP Family Medicine; Visit Provider Surgery Vascular Surgery
DX: I73.9 Peripheral vascular disease, unspecified (principal)
CPT/HCPCS: 93922; 93925

== ENCOUNTER → 2025-03-06 12:54 | Outpatient (BNV) | payer MEDICAID, SELFPAY ==
[2023-08-24 15:58] VITALS: BP 108/64; BMI 33.6
== END ==
PROVIDERS: PCP Family Medicine; Visit Provider Radiology Diagnostic Radiology
DX: I70.203 Unspecified atherosclerosis of native arteries of extremities, bilateral legs (principal); Z95.820 Peripheral vascular angioplasty status with implants and grafts
CPT/HCPCS: 93922; 93925

== ENCOUNTER 2025-03-20 09:55 | Outpatient (AMB) | payer MEDICAID, SELFPAY ==
[2023-08-24 15:58] VITALS: BP 108/64; BMI 33.6
--- NOTE | 2025-03-20 10:00 | MHC.OFFVIS ---
Intake Visit Reasons: 6m follow up s/p Arterial 03/06/25 Intake Note: Patient presents for follow up arterial US. No complaints. Accompanied by: Son Allergies No Known Allergies Allergy (Verified 03/20/25 10:02) HPI HPI 6m follow up s/p Arterial 03/06/25: Details: The patient is a 64-year-old female presenting with routine arterial surveillance follow-up. She has a significant history of right superficial femoral artery stenosis, initially treated with artherectomy and stent placement in January 2022. Subsequent follow-up in December 2022 necessitated a repeat angioplasty to sustain arterial patency. Today, she reports no new symptoms or worsening of her leg condition, maintaining it is about the same. She experiences bilateral hip pain, particularly on the right, which impairs her walking ability and is reportedly influenced by physical activity levels. She has quit smoking since October of this year and reports that she did gained some weight. Overall doing fairly well. She now presents for routine arterial surveillance with noninvasive arterial testing. She is being maintained on aspirin and statin. COUNTS INCLUDE 234 BEDS AT THE [facility] Medical History Urinary incontinence Essential hypertension Elevated troponin High cholesterol Aortic insufficiency PVD (peripheral vascular disease) Obesity due to excess calories Hypothyroidism COPD (chronic obstructive pulmonary disease) Vitamin D deficiency Essential hypertension Hyperlipidemia LDL goal <100 Diabetes mellitus type 2, controlled, without complications Surgical History Hx laparoscopic cholecystectomy History of mandibular surgery History of skin surgery Hx of tubal ligation Cerebral aneurysm without rupture (04/06/22) Family History Father Diabetes Mother No problems noted. Social History Household Members: Other Household Members Other:: [facility] Housing: Apartment Do you presently have visiting nurse or other home services: Yes ([employer]) Alcohol intake: never Patient Tobacco Use Status: Current someday Tobacco user Tobacco use type: Cigarette Cigarette Packs Per Day: 0.5 Cigarettes Per Day: 7 Years Smoked: 45 e-Cigarette/Vaping Use: Never Used Current occupational status: unemployed Review of Systems Const All systems reviewed & are unremarkable except as noted in HPI and below Reports no additional complaints ENT Reports Normal hearing present Card Denies chest pain, Denies chest pain at rest, Denies chest pain with activity and Denies pedal edema Resp Denies cough GI Denies abdominal pain Musc Denies abnormal gait, Denies muscle cramps and Denies radiating pain into limb Skin/Breast Denies skin ulcer and Denies wounds Neuro Reports Normal hearing present and Denies abnormal gait Psych Reports no additional complaints Physical Exam Const General: cooperative, healthy appearing and comfortable Orientation/consciousness: oriented to person, oriented to place and oriented to time HEENT Head: Yes normal to inspection Neck Neck: Yes normal visual inspection Carotids: no bruits Chest Chest palpation & inspection: normal inspection of the chest Resp Effort & Inspection: normal respiratory effort and able to speak in complete sentences Auscultation: clear to auscultation bilaterally, no crackles, no rales, no rhonchi and no wheezes Cardio Other: Bilateral DP signals Rate: regular rate Rhythm: regular rhythm Heart sounds: S1 normal heart sound present and S2 normal heart sound present Bruits: no carotid bruits GI Inspection: Yes normal to inspection Skin Wounds: no wounds Hair: normal Neuro General: oriented to person, oriented to place and oriented to time Cranial nerves: Yes CN's II-XII intact bilaterally and Yes Normal hearing present Cognition (Neuro): normal cognition Motor exam (neuro): 5/5 motor strength present throughout Extrem Other: venous exam: No significant superficial varicosities or spider telangiectasias, minimal edema General: No clubbing, No cyanosis and No edema Psych Appearance: grossly normal Mental Status: mental status grossly normal Speech and movement: Normal speech and movement present Assessment & Plan Assessment & Plan (1) PVD (peripheral vascular disease): Comment: 02/11/2022 - right SFA atherectomy and stent 12/30/2022 right SFA plasty Code(s): I73.9 - Peripheral vascular disease, unspecified Category: Medical Plan: In short patient has stable claudication. I did review the pathophysiology of peripheral vascular disease with the patient. In addition we did discuss routine conservative measures including a healthy diet and the importance of exercise and ambulation. We did discuss risk factor modification. The patient will continue to to follow-up with surveillance follow-up in approximately 1 year. Thank you for allowing us to participate in this patient's care. If there are any questions or concerns please do not hesitate to contact us. Orders: Orders US arterial duplex LE 1 Year I73.9 - Peripheral vascular disease, unspecified Coding Level of Care Code Est Pt Level 4 (39557) Complex EM visit Add On G2211 Diagnoses PVD (peripheral vascular disease) I73.9
--- OUTSIDE RECORDS SUMMARY | 2025-03-20 10:34 | XMS_ITS | Clinical Summary ---
Author Organization [employer] Address [address] [place] [address] [address] [place] [address] Care Team Providers Care Comic Book Artist Name Role Phone Li Langford MD Primary Care Provider [phone] Allergies No known active allergies Medications Spiriva [...] morning. 90 tablet 1 10/12/20 23 Active glucose blood (FREESTYLE LITE) [...] type, unspecified whether angina present, unspecified whether inupiat or transplanted heart TAKE 1 TABLET BY [...] TABLET BY MOUTH EVERY MORNING 90 tablet 12/05/19 25 Active doxepin (SINEquan) 10 MG [...] A WEEK DIRECTED 2 mL 3 12/15/19 25 Active Dulaglutide (Trulicity) 1.5 MG/0.5ML solution auto-injector Inject 1.5 mg under the skin 1 (one) time per week. 3 mL 3 02/17/20 25 Active cholecalciferol (Vitamin D-3) 50 MCG (2000 UT) capsule Take 1 capsule (50 mcg) by mouth Once per day. 120 capsule 3 02/17/20 Active Active Problems Problem Noted Date Diagnosed [...] recommended reduction of 20-30% of maintenance calories; machine finisher referral offered. Recommended to decrease soda and [...] PA for Entresto this was sent by filter washer and presser, strongly encouraged for her to speak with [...] AM EDT): Continue to follow up with Production Technician. Acquired hypothyroidism 04/22/2012 Pure hypercholesterolemia 04/22/2012 Assessment & Plan (10/20/2022 5:00 PM EST): Reports was not really using her lipid medication when she had testing, now started using her rosuvastatin 20 mg and wants it to be recheck before proceeding with taking higher dose. Encounters Date Type Department Care Team Description 02/22/2025 Telephone [facility] [address] [place] [address] Li Langford MD Results 02/21/2025 Orders Only [facility] [address] [place] [address] Lm Flanagan MD Screening-pulmonar y TB (Primary Dx) 02/16/2025 10:45 AM EDT Office Visit [facility] [address] [place] [address] Lm Flanagan MD Screening-pulmonar y TB (Primary Dx); Type 2 diabetes mellitus with hyperglycemia, without long-term current use of insulin ([facility]); Hypertension, unspecified type; Physical exam 02/16/2025 Travel 02/08/2025 11:15 AM EDT Office Visit [facility] [address] [place] [address] Jose, Kateryna, OD Myopia of both eyes (Primary Dx) 02/06/2025 Patient Outreach [facility] [address] [place] [address] iL Langford MD Pre-visit Planning (SDOH screening negative and Tobacco screening negative) 01/05/2025 Population Health Risk Score [facility] () Department [address] [place] [phone] Provider, Population Health Generic from Last 3 Months Immunizations Immunization Administration Dates Next Due Hep B, adult [...] 1960 FIT 1960 FOBT 1960 Sigmoidoscopy 1960 Disability Screening 1960 Pneumococcal Vaccine: 50+ Years (1 of 2 - PCV) 1979 Depression Screening 11/26/2023 11/26/2022, 11/26/19 23 Mammogram 05/06/2024 05/06/2022 COVID-19 Vaccine ( - season) 2024 Influenza Vaccine (#1) 2025 , 07/20/2018, 09/06/2015 Postponed from 06/25/2024 (Patient Refused) Pap Smear 05/12/2025 05/12/2022 Diabetes: Hemoglobin A1C 05/18/2025 025, 08/14/2024, 05/22/2024, Additional history exists DTaP/Tdap/Td [...] patient's age to complete this topic Meningococcal B Vaccine Aged Out No l onger eligible based on patient's age to complete [...] Procedure Name Priority Date/Time Associated Diagnosis Comments VASC US LOWER EXTREMITY ARTERIAL DUPLEX BILATERAL WITH HANSA Routine 03/06/2025 1:29 PM EDT XR CHEST 2 VIEWS Routine 02/26/2025 9:35 AM EDT Screening-pulmonar y TB T-SPOT(R).TB Routine 02/16/2025 11:30 AM EDT Screening-pulmonar [...] Recently Relevant to Health Maintenance Results * [facility] US Lower Extremity Arterial Duplex Bilateral With Hansa (03/06/2025 1:29 PM EDT) 03/06/2025 1:29 PM EDT Narrative [facility] - 03/06/2025 4:01 PM EDT ? [facility] ?[address] ?[place] [address] ? Ultrasound Report ? Signed ? Patient: Staton,Charisse ?MR#: [id number] ?? 95 ? : 1960 ?Acct:[id number] ? Age/Sex: 64 / F ?ADM Date: 03/06/25 ? Loc: HO.US ? Attending Dr: Daniel Faye MD ? Ordering Physician: Daniel Faye MD ?? Date of Service: 03/06/25 ?? Procedure(s): US arterial duplex BI w/ HANSA ?? Accession Number(s): [id number] ? cc: Daniel Faye MD; Li Langford MD ? EXAMINATION: ?? Noninvasive assessment of the bilateral lower extremities with ARTERIAL ?? DUPLEX, ANKLE BRACHIAL INDICES (ABIs), and PULSE VOLUME RECORDINGS ?? (PVRs). ? CLINICAL INFORMATION: ?? Status post stent, right superficial femoral artery. Peripheral ?? vascular disease. ? TECHNIQUE: ?? Duplex Doppler techniques with waveform analysis and measurement of ?? velocities in the bilateral common femoral, profunda femoris, ?? superficial femoral, popliteal and tibial arteries were performed. ? Additionally, ankle pulse volume recordings, ankle pressure ?? measurements and ankle brachial indices were obtained of the lower ?? extremity arterial system bilaterally. The study was performed only at ?? rest. ? COMPARISON: April 11, 2024 ? FINDINGS: ? DIRECT DUPLEX DOPPLER FINDINGS: ? RIGHT LEG: ?? Common femoral artery: 239 cm/s, phasicity: Biphasic. ?? Profunda femoris artery: 185 cm/s, phasicity: Biphasic. ?? Superficial femoral artery (proximal): Stent. 131 cm/s, phasicity: ?? Biphasic ?? Superficial femoral artery (mid): Stent: 162 cm/s, phasicity: Biphasic ?? Superficial femoral artery (distal): Stent: 91 cm/s, phasicity: ?? Biphasic. ?? Popliteal artery: 117 cm/s, phasicity: Monophasic. ?? Posterior tibial artery: 119 cm/s, phasicity: Biphasic. ?? Peroneal artery: Normal color Doppler. ?? Anterior tibial artery: 106 cm/s, phasicity: Monophasic. ?? Dorsalis pedis artery: 204 cm/s, phasicity:Biphasic. ? Direct duplex of the stent: ?? [place] artery, proximal to the stent: 131 cm/s. Biphasic. ?? [place] artery, distal to stent: 104 cm/s. Biphasic. ? LEFT LEG: ?? Common femoral artery: 240 cm/s, phasicity: Triphasic. ?? Profunda femoris artery: 144 cm/s, phasicity: Triphasic. ?? Superficial femoral artery (proximal): 78 cm/s, phasicity: Monophasic. ?? Superficial femoral artery (mid): No color Doppler flow. ?? Superficial femoral artery (distal): No color Doppler flow. ?? Popliteal artery: 62 cm/s, phasicity: Monophasic. ?? Posterior tibial artery: 51 cm/s, phasicity: Monophasic. ?? Peroneal artery: No color Doppler flow. ?? Anterior tibial artery: 32 cm/s, phasicity: Monophasic. ?? Dorsalis pedis artery: 10 cm/s, phasicity: Monophasic. ? BRACHIAL PRESSURES: ? Right: 139 ? Left: 164 ? ANKLE PRESSURES: ? Right: PT 136, DP 157 ?? Left: PT 94, DP 90 ? ANKLE-BRACHIAL INDEX: ? Right: 0.96 ? Left: 0.57 ? ANKLE PVR WAVEFORMS: ? Right: Abnormal ?? Left: Abnormal ? US/US arterial duplex BI w/ HANSA ?? IMPRESSION: ? Right leg: Normal patency of the stent, superficial femoral artery with ?? biphasic waveforms. Moderate to severe inflow disease more pronounced ?? in the popliteal and anterior tibialis artery. ? Left leg: Severe inflow disease from the proximal superficial femoral ?? artery to the dorsalis pedis artery. Occluded mid to distal segment ?? superficial femoral artery with collateral flow. ? HANSA Reference: ?? - >1.4 = calcified vessels ?? - 0.9 - 1.4 = normal - no significant arterial disease ?? - 0.7 - 0.89 = mild peripheral arterial disease ?? - 0.51 - 0.69 = moderate peripheral arterial disease ?? - d 0.50 = severe peripheral arterial disease ?? - < .30 = critical arterial disease ? Electronically signed by: ??Jourdan Rodríguez MD ??03/06/2025 03:58 PM ?? EDT RP ? Dictated By: ?Jourdan Daniel MD ? Signed By: ?<Electronically signed by Jourdan Duong MD in OV> ? 03/06/25 1558 ? DD/ 1329 ? TD/TT: 03/06/25 1351 ? Fiber Technician: ? Procedure Note Donotuseinterpreter, Image - 03/06/2025 [place] [address] Ultrasound Report Signed Patient: Adenike Staton#: [id number] 95 : 1960Acct:[id number] Age/Sex: 64 / FADM Date: 03/06/25 Loc: HO.US Attending Dr: Daniel Faye MD Ordering Physician: Daniel Faye MD Date of Service: 03/06/25 Procedure(s): US arterial duplex BI w/ HANSA Accession Number(s): [id number] cc: Daniel Faye MD; iL Langford MD EXAMINATION: Noninvasive assessment of the bilateral lower extremities with ARTERIAL DUPLEX, ANKLE BRACHIAL INDICES (ABIs), and PULSE VOLUME RECORDINGS (PVRs). CLINICAL INFORMATION: Status post stent, right superficial femoral artery. Peripheral vascular disease. TECHNIQUE: Duplex Doppler techniques with waveform analysis and measurement of velocities in the bilateral common femoral, profunda femoris, superficial femoral, popliteal and tibial arteries were performed. Additionally, ankle pulse volume recordings, ankle pressure measurements and ankle brachial indices were obtained of the lower extremity arterial system bilaterally. The study was performed only at rest. COMPARISON: April 11, 2024 FINDINGS: DIRECT DUPLEX DOPPLER FINDINGS: RIGHT LEG: Common femoral artery: 239 cm/s, phasicity: Biphasic. Profunda femoris artery: 185 cm/s, phasicity: Biphasic. Superficial femoral artery (proximal): Stent. 131 cm/s, phasicity: Biphasic Superficial femoral artery (mid): Stent: 162 cm/s, phasicity: Biphasic Superficial femoral artery (distal): Stent: 91 cm/s, phasicity: Biphasic. Popliteal artery: 117 cm/s, phasicity: Monophasic. Posterior tibial artery: 119 cm/s, phasicity: Biphasic. Peroneal artery: Normal color Doppler. Anterior tibial artery: 106 cm/s, phasicity: Monophasic. Dorsalis pedis artery: 204 cm/s, phasicity:Biphasic. Direct duplex of the stent: [place]hal[place] artery, proximal to the stent: 131 cm/s. Biphasic. [place] artery, distal to stent: 104 cm/s. Biphasic. LEFT LEG: Common femoral artery: 240 cm/s, phasicity: Triphasic. Profunda femoris artery: 144 cm/s, phasicity: Triphasic. Superficial femoral artery (proximal): 78 cm/s, phasicity: Monophasic. Superficial femoral artery (mid): No color Doppler flow. Superficial femoral artery (distal): No color Doppler flow. Popliteal artery: 62 cm/s, phasicity: Monophasic. Posterior tibial artery: 51 cm/s, phasicity: Monophasic. Peroneal artery: No color Doppler flow. Anterior tibial artery: 32 cm/s, phasicity: Monophasic. Dorsalis pedis artery: 10 cm/s, phasicity: Monophasic. BRACHIAL PRESSURES: Right: 139 Left: 164 ANKLE PRESSURES: Right: PT 136, DP 157 Left: PT 94, DP 90 ANKLE-BRACHIAL INDEX: Right: 0.96 Left: 0.57 ANKLE PVR WAVEFORMS: Right: Abnormal Left: Abnormal US/US arterial duplex BI w/ HANSA IMPRESSION: Right leg: Normal patency of the stent, superficial femoral artery with biphasic waveforms. Moderate to severe inflow disease more pronounced in the popliteal and anterior tibialis artery. Left leg: Severe inflow disease from the proximal superficial femoral artery to the dorsalis pedis artery. Occluded mid to distal segment superficial femoral artery with collateral flow. HANSA Reference: - >1.4 = calcified vessels - 0.9 - 1.4 = normal - no significant arterial disease - 0.7 - 0.89 = mild peripheral arterial disease - 0.51 - 0.69 = moderate peripheral arterial disease - d 0.50 = severe peripheral arterial disease - < .30 = critical arterial disease Electronically signed by: Jourdan Rodríguez MD 03/06/2025 03:58 PM EDT Dictated By: Jourdan Daniel MD Signed By: <Electronically signed by Jourdan Duong MDin OV> 03/06/25 5248 DD/ 1329 TD/TT: 03/06/25 1351 Fiber Technician: us [facility] External Provider CV VASC ULAR PROCEDURES Final Result [facility] [address] [place] [address] * XR Chest 2 Views (02/26/2025 9:35 AM EDT) Anatomical Region Laterality Modality Chest Radiographic Christa ging 02/26/2025 9:35 AM EDT Narrative 02/26/2025 1:33 PM EDT ? [facility] ?[address] ?[place] [address] ?XRay Report ? Signed ? Patient: Charisse Staton ?MR#: [id number] ?? 95 ? : 1960 ?Acct:[id number] ? Age/Sex: 64 / F ?ADM Date: 02/26/25 ? Loc: HO.XRAY ? Attending Dr: Lm Berry MD ? Ordering Physician: Lm Flanagan MD ?? Date of Service: 02/26/25 ?? Procedure(s): XR chest 2V ?? Accession Number(s): [id number] ? cc: Lm Flanagan MD; Li Langford MD ? EXAMINATION: ?? XR CHEST ? CLINICAL INFORMATION: ?? positive tspot ? COMPARISON: ?? August 02, 2021. ? TECHNIQUE: ?? 2 views of the chest were obtained. ? FINDINGS: ?? Pulmonary reticular pattern. ?? No consolidation, pleural effusion or pneumothorax. No gross ?? hyperinflation. ?? Cardiomediastinal silhouette size is normal. ?? Calcified lesions in the thoracic aortic arch. ?? Mild S-shaped curvature of the thoracolumbar spine. Mild endplate ?? sclerosis. ?? Vascular clips right upper abdomen, likely cholecystectomy. ? XR/XR chest 2V ?? IMPRESSION: ?? No acute airspace disease. Stable chest. ? Electronically signed by: ??Jourdan Rodríguez MD ??02/26/2025 01:30 PM ?? EDT RP ? Dictated By: ?Jourdan Daniel MD ? Signed By: ?<Electronically signed by Jourdan Duong MD in OV> ? 02/26/25 1330 ? DD/ 0935 ? TD/TT: 02/26/25 0940 ? Fiber Technician: ? Procedure Note Donotuseinterpreter, Image - 02/26/[address] [address] XRay Report Signed Patient: Adenike Staton#: [id number] 95 : 1960Acct:[id number] Age/Sex: 64 / FADM Date: 02/26/25 Loc: HO.XRAY Attending Dr: Lm Berry MD Ordering Physician: Lm Flanagan MD Date of Service: 02/26/25 Procedure(s): XR chest 2V Accession Number(s): [id number] cc: Lm Flanagan MD; Li Langford MD EXAMINATION: XR CHEST CLINICAL INFORMATION: positive tspot COMPARISON: August 02, 2021. TECHNIQUE: 2 views of the chest were obtained. FINDINGS: Pulmonary reticular pattern. No consolidation, pleural effusion or pneumothorax. No gross hyperinflation. Cardiomediastinal silhouette size is normal. Calcified lesions in the thoracic aortic arch. Mild S-shaped curvature of the thoracolumbar spine. Mild endplate sclerosis. Vascular clips right upper abdomen, likely cholecystectomy. XR/XR chest 2V IMPRESSION: No acute airspace disease. Stable chest. Electronically signed by: Jourdan Rodríguez MD 02/26/2025 01:30 PM EDT Dictated By: Jourdan Daniel MD Signed By: <Electronically signed by Jourdan Duong MDin OV> 02/26/25 1330 DD/ 0935 TD/TT: 02/26/25 0940 Fiber Technician: Lm Berry MD IMG XR PROCEDURES Final Result * (ABNORMAL) T-SPOT??.TB (02/16/2025 11:30 AM EDT) T Spot TB Positive( A) Negative [facility] Comment: Diagnosing or excluding tuberculosis [...] as aquantitative test. TS PANEL A 23 [facility] TS PANEL B 7 [facility] Negative Control Passed [facility] Positive Control Passed [facility] Comment:For additional infor ke, please refer tohttp://education.[employer]/faq/LSF032(This link is being provided for informational/educational purposes only.)REPORT COMMENT:REC'D AT [facility] TEST WAS PERFORMED AT:[employer]/[facility] [address] [id number] [place] [phone] GILES MD,PHD 02/16/2025 11:3 0 AM EDT 02/16/2025 2:08 PM EDT us Lm Berry MD LAB BLOOD ORDERABL ES Final Result [facility] [address] [place] [phone] * TSH W/Reflex to FT4 (02/16/2025 11:30 AM EDT) TSH reflex Free T4 0.63 0.32 - 4.0 uIU/mL [facility] Blood Venous blood specimen / Unknown 02/16/2025 11:30 AM EDT 02/16/2025 2:08 PM EDT Lm Berry MD LAB BLOOD ORDERABL ES Final Result Performing Organization Address [facility] Co de Phone Number [facility] [address] [place] [phone] * (ABNORMAL) Albumin, Random Urine W/Creatinine (02/16/2025 11:30 AM EDT) Creatinine, Urine 111.85 mg/dL [facility] Microalbumin Urine 40.0 mg/L [facility] Microalbum Creatinine Ratio Ur 35.7(H) <30 ug/mg cr [facility] Comment:Albumin/Creatinine R atio Reference Ranges: Normal: < 30 ug/mg creatinine Microalbuminuria: 30 - 300 ug/mg creatinineClinical Albuminuria: > 300 ug/mg creatinine Urine (Urine, Random) 02/16/2025 11:30 AM EDT 02/16/2025 2:01 PM EDT Lm Berry MD LAB URINE ORDERABL ES Final Result Performing Organization Address [facility] Co de Phone Number [facility] [address] [place] [phone] * (ABNORMAL) Lipid Panel, Standard (02/16/2025 11:30 AM EDT) Triglycerides 109 <150 mg/dL [facility] Comment:Desirable Triglyceri de: less than 150 mg/dLBorderline High Triglyceride 150-199 mg/dLHigh Triglyceride: 200-499 mg/dLVery High Triglyceride: greater than or equal to 5OO mg/dL Cholesterol 195 <200 mg/dL [facility] Comment:Desirable Cholestero l: less than 200 mg/dLBorderline High Cholesterol: 200-239 mg/dLHigh Cholesterol: greater than 239 mg/dL LDL Cholesterol Calculated 125(H) <100 mg/dL [facility] Comment:Desirable LDL: less than 100 mg/dLNear Optimal/Above Optimal LDL: 110- 129 mg/dLBorderline High LDL: 130-159 mg/dLHigh LDL: 160-189 mg/dLVery High LDL: greater than or equal to 190 mg/dL HDL Cholesterol 49 >40 mg/dL [facility] Comment:Desirable HDL: great er than 40 mg/dL Note: This HDL assay may give artificially low results in patients with liver disease. Blood Venous blood specimen / Unknown 02/16/2025 11:30 AM EDT 02/16/2025 2:08 PM EDT us Lm Berry MD LAB BLOOD ORDERABL ES Final Result [facility] [address] [place] [phone] * (ABNORMAL) Comprehensive Metabolic Panel (02/16/2025 11:30 AM EDT) Sodium 139 135 - 145 mmol/L [facility] Potassium 4.1 3.3 - 5.1 mmol/L [facility] Chloride 109(H) 96 - 108 mmol/L [facility] Carbon Dioxide 23 22 - 29 mmol/L [facility] Anion Gap 11(L) 12 - 20 [facility] Urea Nitrogen (BUN) 15 9 - 16 mg/dL [facility] Creatinine, Serum 0.80 0.5 - 1.4 mg/dL [facility] Estimated Glomerular Filt Rate >60 [facility] Comment:Chronic Kidney Disea se: Estimated GFR < 60 mL/min/[id number] Kidney Disease: Estimated GFR < 15 mL/min/1.73m2 Glucose 98 60 - 115 mg/dL [facility] Calcium 9.4 8.4 - 10.2 mg/dL [facility] Bilirubin, Total 0.4 0.0 - 1.0 mg/dL [facility] Aspartate Amino Transferase 38(H) 5 - 31 U/L [facility] Alanine Aminotransferase 40(H) 0 - 31 U/L [facility] Total Protein 7.8 6.5 - 8.0 g/dL [facility] Albumin Level 4.3 3.5 - 5.0 g/dL [facility] Alkaline Phosphatase 87 39 - 117 U/L [facility] Blood Venous blood specimen / Unknown 02/16/2025 11:30 AM EDT 02/16/2025 2:08 PM EDT us Lm Berry MD LAB BLOOD ORDERABL ES Final Result [facility] [address] [place] [phone] * (ABNORMAL) POCT HGB A1C (02/16/2025 10:41 AM EDT) Hemoglobin A1C 7.1(A) 4.0 - 6.0 % QC Media Lot # [id number] Lot# Expiration Date Blood 02/16/2025 10:4 1 AM EDT us Lm Berry MD POINT OF CARE TEST ENTER/EDIT ORDERABLES Final Result * POCT Glucose (02/16/2025 10:41 AM EDT) Glucose Blood, POC 110 60 - 200 mg/dL QC Media Lot # [id number] Lot# Expiration Date Blood Capillary blood specimen / Unknown 02/16/2025 10:41 AM EDT us Lm Berry MD POINT OF CARE TEST ENTER/EDIT ORDERABLES Final Result * Hm Diabetes Eye Exam (12/15/2023) Pathologist [facility] Eye Exam Normal Normal Comment:Scanned in EMR Historical Provider HEALTH MAINTENANCE Final Result * Hepatitis C Ab (09/07/2023 11:37 AM EST) [facility] Hepatitis C Antibody Nonreactive Nonreactive [facility] Comment:Antibodies to HCV no t detected; does not exclude early acuteHCV infection. Blood 09/07/2023 11:3 7 AM EST 09/07/2023 2:50 PM EST Li Langford MD LAB BLOOD ORDERABLES Final Re sult Performing Organization Address [facility] Co de Phone Number [facility] [address] [place] [phone] * HIV-1/2 Antigen and Antibodies, Fourth Generation, with Reflexes (09/07/2023 11:37 AM EST) [facility] HIV AB/AG Nonreactive Nonreactive [facility] Comment:HIV-1 p24 Ag and/or HIV-1/HIV-2 Ab not detected.A test result that is nonreactive does not exclude thepossibility of exposure to or infection with HIV-1 and/orHIV-2. Nonreactive results in this assay for individualswith prior exposure to HIV-1 and/or HIV-2 may be due toantigen and antibody levels that are below the limit ofdetection of this assay.The [employer] HIV Ag/Ab Combo assay result andsupplemental assay results should be interpreted inconjunction with the patient's clinical presentation,history and other laboratory results. If the results areinconsistent with clinical evidence, additional testing issuggested to confirm the result. Blood Venous blood specimen / Unknown 09/07/2023 11:37 AM EST 09/07/2023 2:50 PM EST Li Langford MD LAB BLOOD ORDERABLES Final Re sult Performing Organization Address [facility] Co de Phone Number [facility] [address] [place] [phone] * HP Diabetic Foot Exam (08/09/2023) Narrative Li Langford MD - 08/09/2023 Decr sensation on left foot hx of peroneal neuropathy Li Langford MD HEALTH MAINTENANCE Final Resu lt * THINPREP TIS PAP AND HPV mRNA E6/E7 WITH REFLEX TO HPV 16,18/45 (05/12/2022 3:31 PM EDT) Clinical Information: None given [facility] COMMENT SEE COMMENT [facility] [...] has been evaluated with computer assisted technology. [facility] Cytotechnologis t: SEE COMMENT [facility] Comment: HECTOR, CT(ASCP) CT screening location: [address] ??[phone] HPV nRNA E6/E7 Not Detected Not Detected [facility] Comment: Methodology: Wood Carving Machine Operator-Mediated Amplification This assay detects E6/E7 viral messenger RNA (mRNA) from 14 high-risk HPV types (16,18,31,33,35,39,45,51,52,56,58,59,66,68). ? Cervical sources are required for HPV testing. If a vaginal source from a patient who has had a total hysterectomy with removal of cervix was ?? submitted, please contact the testing laboratory for alternative testing options. ?? For additional information, please refer to http://education.[employer]/faq/AHG040n2 (This link if provided for information/ educational purposes only.) Interpretation/ Result: Negative for intraepithelial lesion or malignancy. [facility] LMP: NONE GIVEN [facility] Prev. BX: NONE GIVEN [facility] Prev. PAP: NONE GIVEN [facility] SOURCE: None given [facility] Statement Of Adequacy: SEE COMMENT [facility] Comment: Satisfactory for evaluation. Endocervical/transformation zone component absent. 05/12/2022 3:31 PM EDT us Li Langford MD LAB PATHOLOGY ORDERABLES Claire grace Result [facility] [address] * Mammography Report 1 (05/06/2022 3:10 [...] Most Recently Relevant to Health Maintenance Insurance [facility] C3 Care Teams Comic Book Artist Relationship Specialty Start Date End Date Li Langford MD [address] [place] [phone] PCP - General Family Medicine 08/12/21
== END 2025-03-20 10:09 | disposition home or self-care (01) ==
LOC: HO.HVS 09:56
PROVIDERS: PCP Family Medicine; Visit Provider Surgery Vascular Surgery
DX: I73.9 Peripheral vascular disease, unspecified (principal)
CPT/HCPCS: 99214

== ENCOUNTER → 2025-03-20 09:55 | Outpatient (BNVA) | payer MEDICAID, SELFPAY ==
[2023-08-24 15:58] VITALS: BP 108/64; BMI 33.6
== END ==
PROVIDERS: PCP Family Medicine; Visit Provider Surgery Vascular Surgery
DX: I73.9 Peripheral vascular disease, unspecified (principal)
CPT/HCPCS: 99212

== ENCOUNTER 2025-06-01 13:22 | Outpatient (REF) | payer MEDICAID, SELFPAY ==
[2023-08-24 15:58] VITALS: BP 108/64; BMI 33.6
== END 2025-06-01 13:23 | disposition home or self-care (01) ==
LOC: HO.LNP 13:22
PROVIDERS: Visit Provider Internal Medicine
DX: R30.0 Dysuria (principal)
CPT/HCPCS: 87086; 87088; 87186

== ENCOUNTER 2025-06-18 10:37 | Outpatient (AMB) | payer MEDICAID, SELFPAY ==
[2023-08-24 15:58] VITALS: BP 108/64; BMI 33.6
--- NOTE | 2025-06-18 10:49 | MHC.OFFVIS ---
Vital Signs 06/18/25 10:50 Height 5 ft 3 in Weight 183 lb 6.793 oz BMI 32.5 BP 124/62 Blood Pressure Location Lt brachial Position Sitting Pulse 83 Pulse Source Pulse Oximeter Intake Visit Reasons: 4 mth f/uip Intake Note: 4 mth f/up Publication Manager Required: Yes Publication Manager Name: [email or web address] Accompanied by: Self / Same As Patient Allergies No Known Allergies Allergy (Verified 03/20/25 10:02) Medication List - Last Reconciled 06/18/25 by Nathanael Winslow MD amlodipine 5 mg PO DAILY aspirin 1 tab PO DAILY bupropion HCl SR 150 mg PO Q12H carboxymethylcellulose sodium 0.5% (Lubricating Plus) 1 - 2 drps ophthalmic (eye) BID PRN chlorthalidone 25 mg PO BEDTIME cholecalciferol (vitamin D3) 1 tab PO DAILY cyanocobalamin (vitamin B-12) 1 tab PO DAILY diaper,brief,adult,disposable ([employer] Choice Comfort Protect Adult Diaper X-Large) As directed docusate sodium 100 mg PO DAILY doxepin 10 mg PO DAILY dulaglutide (Trulicity) mg subcut QWEEK folic acid 1 mg PO DAILY levothyroxine 100 mcg PO DAILY metformin ER 500 mg PO QPM metoprolol succinate ER 50 mg PO DAILY nicotine 1 patch transdermal DAILY omega-3 fatty acids-fish oil 340-1,000 mg (Fish Oil) 1 cap PO DAILY rosuvastatin 40 mg PO DAILY sacubitril-valsartan 24-26 mg (Entresto) 1 tab PO BID 90 days varenicline tartrate (Chantix Starting Month Box) PO PER PKG DIR HPI Comments Details: Pleasant 65-year-old female here for follow-up. She was seen at [facility] when she presented with NSTEMI and was transferred to [facility] for cardiac catheterization. She underwent cardiac catheterization from left femoral approach and was noticed to have severe mid LAD stenosis which was treated with a drug-eluting stent. She was discharged on aspirin and Brilinta. She noted a small hematoma at the site which was confirmed by ultrasound. There was no pseudoaneurysm. She does have peripheral vascular disease and her ankle brachial indices were abnormal pointing to her moderate bilateral lower extremity peripheral vascular disease. Referred to vascular surgery for claudication and underwent SFA PCI. Follow-up echo was reviewed and showed normal biventricular function. In follow-up she is doing well. No bleeding issues. Denying any symptoms currently. On follow-up she has stop the Brilinta. She already completed 1 year of dual antiplatelet therapy in July of 2022. She is denying any chest discomfort. She has some fatigue with activity but overall has been stable. 03/08/24: She is here for follow-up. She is denying any chest pain. She is saying that she is fatigued. On discussing with the she has known history of sleep apnea and has not been using the CPAP machine. She said she was not using it regularly and apparently the machine was taken away. She snores at night and likely cause for her fatigue currently is underlying untreated sleep apnea. 07/17/2024: She is here for follow-up. She continues to smoke and has claudication like symptoms. She is following with vascular surgery. No chest discomfort shortness of breath. Blood pressure is well controlled. She is taking baby aspirin currently without any bleeding concerns. 10/09/2024: She is here for follow-up. She is denying any chest discomfort shortness of breath. Continues to smoke unfortunately. She is following with vascular surgery for lower extremity PVD. 02/05/2025: She returns for follow-up. With Chantix, she has stopped smoking. I have congratulated her. She is saying she has been eating more and has gained more weight since then. This is normal after smoking cessation. She is going to [employer] and is trying to exercise. I have advised her to start doing some treadmill and become more active. Blood pressure is well controlled. Otherwise clinically stable. 06/18/2025: She is here for follow-up. She is complaining of some palpitations which happen this week. They lasted for a minute or so and she felt her heart racing. No dizziness or syncope. Denying any other symptoms currently. [facility] Medical History Urinary incontinence Essential hypertension Elevated troponin High cholesterol Aortic insufficiency PVD (peripheral vascular disease) Obesity due to excess calories Hypothyroidism COPD (chronic obstructive pulmonary disease) Vitamin D deficiency Essential hypertension Hyperlipidemia LDL goal <100 Diabetes mellitus type 2, controlled, without complications Surgical History Hx laparoscopic cholecystectomy History of mandibular surgery History of skin surgery Hx of tubal ligation Cerebral aneurysm without rupture (04/06/22) Family History Father Diabetes Mother No problems noted. Social History Household Members: Other Household Members Other:: [facility] Housing: Apartment Do you presently have visiting nurse or other home services: Yes ([employer]) Alcohol intake: never Patient Tobacco Use Status: Current someday Tobacco user Tobacco use type: Cigarette Cigarette Packs Per Day: 0.5 Cigarettes Per Day: 7 Years Smoked: 45 e-Cigarette/Vaping Use: Never Used Current occupational status: unemployed Review of Systems Const Denies chills, Denies fatigue, Denies fever(s), Denies frequent falls, Denies weakness, Denies weight gain and Denies weight loss ENT Denies dizziness Card Denies chest pain, Denies leg edema, Denies lightheadedness, Denies palpitations, Denies dyspnea and Denies dyspnea on exertion Resp Denies cough, Denies dyspnea and Denies dyspnea on exertion GI Denies hematochezia Musc Denies abnormal gait, Denies muscle weakness, Denies numbness, Denies radiating pain into limb and Denies tingling Neuro Denies abnormal gait, Denies dizziness, Denies frequent falls, Denies numbness, Denies tingling and Denies weakness Endo Denies fatigue and Denies palpitations Physical Exam Vital Signs: Last Vital Signs Pulse 83 06/18/25 10:50 BP 124/62 06/18/25 10:50 BMI result Body Mass Index 32.5 GENERAL APPEARANCE: in no acute distress, pleasant. NECK: no carotid bruit, no jugular venous distention. SKIN: no suspicious lesions, warm and dry. HEART: no murmurs, regular rate and rhythm. LUNGS: clear to auscultation bilaterally. ABDOMEN: soft, nontender. EXTREMITIES: no edema. NEUROLOGIC: No gross deficits, AAO X 3 Assessment & Plan Assessment & Plan (1) Essential hypertension: Code(s): I10 - Essential (primary) hypertension Category: Medical (2) Stable angina: Code(s): I20.8 - Other forms of angina pectoris Category: Medical (3) Palpitations: Code(s): R00.2 - Palpitations Category: Medical Plan Pleasant 65-year-old female presenting for follow-up. She has known history of coronary disease with previous LAD PCI. LV function is preserved by echocardiography. Denying any chest discomfort shortness of breath. Blood pressure well controlled. She is complaining of some palpitations off and on. We will arrange a 7 days Holter monitor to rule out any significant arrhythmia. Same medications for now. Thank you for allowing me to participate in the care of your patient. Please feel free to contact me if you have any questions. Orders: Orders ECG 7 day holter monitor Today R00.2 - Palpitations Medications: New rosuvastatin 40 mg PO DAILY 90 tabs 3RF R00.2 - Palpitations aspirin 1 tab PO DAILY 120 tabs 3RF R00.2 - Palpitations chlorthalidone 25 mg (1/2 x 50 mg) PO BEDTIME 90 tabs 3RF R00.2 - Palpitations Refilled sacubitril-valsartan 24-26 mg (Entresto) 1 tab PO BID 180 tabs 3RF 90 days R00.2 - Palpitations metoprolol succinate ER 50 mg PO DAILY 90 tabs 3RF T14.8XXA - Other injury of unspecified body region, initial encounter amlodipine 5 mg PO DAILY 90 tabs 3RF T14.8XXA - Other injury of unspecified body region, initial encounter Coding Level of Care Code Est Pt Level 4 (78952) Diagnoses Essential hypertension I10 Stable angina I20.8 Palpitations R00.2
[2025-06-18 10:50] VITALS: BP 124/62; PULSE 83; BMI 32.5
--- OUTSIDE RECORDS SUMMARY | 2025-06-18 11:51 | XMS_ITS | Encounter Summary ---
Author Organization [employer] Address [address] [place] [address] Care Team Providers Care Assistant Coach Name Role Phone iL Langford MD Primary Care Provider Reason for Visit * Reason Comments Med Refill Encounter Details Date Type Department Care Team ([facility] st Contact Info) Description 06/18/2025 Refill [facility] [address] [place], [place] [id number] Fawad Blood MD [address] [place] [address] Insomnia, unspecified type; Type 2 diabetes mellitus with other specified complication, without long-term current use of insulin ([facility]) Social History Tobacco Use Types Packs/Day Years [...] as of this encounter Plan of Treatment Upcoming Encounters Date Type Department Care Team (Late st Contact Info) Description 06/19/2025 10:30 AM EDT Immunization [facility] [address] [place] [address] 07/18/2025 9:45 AM EDT Office Visit [facility] [address] [place] [address] Li Langford MD [address] [place] [address] documented as of this encounter Visit Diagnoses Diagnosis Insomnia, unspecified type Type 2 diabetes mellitus with other specified complication, without long-term current use of insulin ([facility]) documented in this encounter Additional Health Concerns Assessment Noted Time PHQ-9 Depression Total Score: 0 11/26/19 23 1:38 PM EST documented as of this encounter Care Teams Assistant Coach Relationship Specialty Start Date End Date Li Langford MD [address] [place] [id number] PCP - General Family Medicine 08/12/21 documented as of this encounter
== END 2025-06-18 11:07 | disposition home or self-care (01) ==
LOC: HO.HCS 10:40
PROVIDERS: PCP Family Medicine; Visit Provider Internal Medicine Cardiovascular Disease
DX: I10 Essential (primary) hypertension (principal); I20.89 Other forms of angina pectoris; R00.2 Palpitations
CPT/HCPCS: 99214

== ENCOUNTER → 2025-06-18 10:37 | Outpatient (BNVA) | payer MEDICAID, SELFPAY ==
[2023-08-24 15:58] VITALS: BP 108/64; BMI 33.6
== END ==
PROVIDERS: PCP Family Medicine; Visit Provider Internal Medicine Cardiovascular Disease
DX: I10 Essential (primary) hypertension (principal); R00.2 Palpitations; I20.89 Other forms of angina pectoris
CPT/HCPCS: 99212

== ENCOUNTER → 2025-07-09 09:45 | Outpatient (REF) | payer OTHER, SELFPAY ==
[2023-08-24 15:58] VITALS: BP 108/64; BMI 33.6
--- NOTE | 2025-07-09 09:48 | HM_ITS ---
Conclusion: 1. Patient was monitored for total period of 1 day and 23 hours 2. Baseline was normal sinus rhythm with average heart of 94 beats per minute 3. Frequent sinus tachycardia noted with 30% of the time heart rate about 100 beats per minute 4. No significant pauses noted 5. Very rare ectopy noted 6. Patient marked the counter 1 time with no obvious symptoms reported correlating with sinus rhythm MTDD
--- OUTSIDE RECORDS SUMMARY | 2025-07-09 11:59 | XMS_ITS | Clinical Summary ---
Author Organization [employer] Address [address] [place] [address] [address] [place] [address] Care Team Providers Care Public Health Sanitarian Name Role Phone Li Langford MD Primary Care Provider [phone] Allergies No known active allergies Medications Spiriva HandiHaler 18 MCG inhalation capsuleIndicati ons:Chronic obstructive pulmonary disease, unspecified COPD type (CMS/[facility]) USE 1 CAPSULE FOR INHALATION ONCE A [...] type, unspecified whether angina present, unspecified whether [place] or transplanted heart TAKE 1 TABLET BY MOUTH TWICE DAILY 60 tablet 5 024 Active rosuvastatin (Crestor) 40 MG tablet TAKE 1 TABLET BY MOUTH EVERY DAY 90 tablet 3 024 Active amLODIPine (Norvasc) 10 MG tabletIndicatio ns:Hypertension Take 10 mg by mouth Once per day. Active Lubricating Plus Eye Drops 0.5 % [...] times daily. 30 tablet 1 024 Active chlorthalidone (Hygroton) 25 MG tablet TAKE 1 TABLET BY MOUTH EVERY MORNING 90 tablet 1 025 Active Trulicity [...] per day. 120 capsule 3 025 Active metoprolol succinate XL (Toprol-XL) 50 MG 24 hr tablet TAKE 1 TABLET BY MOUTH EVERY DAY IN THE MORNING 90 tablet 1 025 Active metFORMIN XR (Glucophage-XR) 500 MG 24 hr tabletIndicatio ns:Type 2 diabetes mellitus with hyperglycemia, without long-term current use of insulin (CMS/HCC) TAKE 1 TABLET BY MOUTH TWICE DAILY, DO NOT BREAK, CRUSH, DISSOLVE OR CHEW 180 tablet 1 025 Active Aspirin Low Dose 81 MG chewable tablet CHEW AND SWALLOW 1 TABLET BY MOUTH EVERY DAY IN THE MORNING 90 tablet 1 025 Active cyanocobalamin (Vitamin B-12) 500 MCG tabletIndicatio ns:Type 2 diabetes mellitus with other specified complication, without long-term current use of insulin (CMS/[facility]) TAKE 1 TABLET BY MOUTH EVERY DAY IN THE MORNING 90 tablet 1 025 Active omeprazole (PriLOSEC) [address] capsule TAKE 2 CAPSULES BY MOUTH EVERY DAY IN THE MORNING BEFORE BREAKFAST. DO NOT BREAK, CRUSH, DISSOLVE OR CHEW. 180 capsule 1 025 Active levothyroxine (Synthroid, Levoxyl) 100 MCG tablet TAKE 1 TABLET BY MOUTH EVERY DAY BEFORE BREAKFAST 90 tablet 1 025 Active doxepin (SINEquan) 10 MG capsuleIndicati ons:Insomnia, unspecified type TAKE 1 CAPSULE BY MOUTH EVERY DAY IN THE MORNING 90 capsule 1 025 Active folic acid (Folvite) 1 MG tabletIndicatio ns:Type 2 diabetes mellitus with other specified complication, without long-term current use of insulin (CMS/HCC) TAKE 1 TABLET BY MOUTH EVERY DAY IN THE MORNING 90 tablet 1 025 Active doxepin (SINEquan) 10 MG capsuleIndicati ons:Insomnia, unspecified type TAKE 1 CAPSULE BY MOUTH EVERY MORNING 90 capsule 1 025 2024 Discontinued folic acid (Folvite) 1 MG tabletIndicatio ns:Type 2 diabetes mellitus with other specified complication, without long-term current use of insulin ([facility]) TAKE 1 TABLET BY MOUTH EVERY DAY IN THE MORNING 90 tablet 1 025 2024 Discontinued Active Problems Problem Noted Date Diagnosed Date Acute cystitis with hematuria 06/01/2025 Assessment & Plan (06/01/2025 9:21 AM EDT): UA consistent with UTI, culture send patient will be contacted with results Bactrim prescribed I advise to drink plenty of water and do not hold the urine Latent tuberculosis by blood test 05/14/2025 Transaminitis 05/14/2025 Symptomatic varicose veins, right 02/14/2024 Assessment & [...] recommended reduction of 20-30% of maintenance calories; mattress filler referral offered. Recommended to decrease soda and [...] PA for Entresto this was sent by feather shaper, strongly encouraged for her to speak with [...] AM EDT): Continue to follow up with [facility]ist. Acquired hypothyroidism 04/22/2012 Pure hypercholesterolemia 04/22/2012 Assessment & Plan (10/20/2022 5:00 PM EST): Reports was not really using her lipid medication when she had testing, now started using her rosuvastatin 20 mg and wants it to be recheck before proceeding with taking higher dose. Encounters Date Type Department Care Team Description 06/18/2025 Refill [facility] [address] [place] [address] Fawad Blood MD Insomnia, unspecified type; Type 2 diabetes mellitus with other specified complication, without long-term current use of insulin ([facility]) 06/01/2025 9:00 AM EDT Office Visit [facility] [address] [place] [phone] Indu Godoy MD Dysuria; Acute cystitis with hematuria 06/01/2025 Travel 05/31/2025 Telephone [facility] [address] [place] [phone] Li Langford MD Nurse Triage 05/20/2025 Refill [facility] [address] [place] [phone] Fawad lBood MD 05/15/2025 Telephone [facility] [address] [place] [address] Li Langford MD 05/14/2025 1:45 PM EDT Office Visit [facility] [address] [place] [address] Li Langford MD Type 2 diabetes mellitus with other specified complication, without long-term current use of insulin (CMS/HCC) (Primary Dx); Latent tuberculosis by blood test; Breast cancer screening by mammogram; Encounter for immunization; Colon cancer screening; Dietary counseling; Exercise counseling; Class 2 severe obesity with serious comorbidity and body mass index (BMI) of 36.0 to 36.9 in adult, unspecified obesity type (CMS/HCC); Transaminitis 05/14/2025 Travel 05/10/2025 Telephone [facility] [address] [place] [address] Li Langford MD chart prep 05/04/2025 Patient Outreach [facility] [address] [place], [place] [phone] Li Langford MD Pre-visit Planning ([facility] screening completed on 02/06/25) 04/08/2025 Refill [facility] [address] [place] [address] Fawad Blood MD 04/08/2025 Refill [facility] [address] [place] [address] Li Langford MD Type 2 diabetes mellitus with hyperglycemia, without long-term current use of insulin (CMS/HCC); Type 2 diabetes mellitus with other specified complication, without long-term current use of insulin (CMS/HCC) from Last 3 Months Immunizations Immunization Administration Dates Next Due Hep B, adult 05/10/2013 Influenza injectable quadriv alent IIV4 with preservative 07/20/2018,09/06/2015 Influenza injectable quadrivalent preservative f ree 11/02/2019 Pneumococcal Conjugate PCV 20 05/14/2025 Tdap 11/15/2009 Social History Tobacco Use Types [...] Sign Reading Time Taken Comments Blood Pressure 134/64 06/01/2025 9:13 AM EDT MAN UALLY Pulse 88 06/01/2025 9:01 AM EDT Temperature 37.2 C (98.9 F) 06/01/2025 9:01 AM EDT Respiratory Rate 19 06/01/2025 9:01 AM EDT Oxygen Saturation 98% 06/01/2025 9:01 AM EDT Inhaled Oxygen Concentration - - Weight 82.1 kg (181 lb) 06/01/2025 9:01 AM EDT Height 152.4 cm (5') 06/01/2025 9:01 AM EDT Body Mass Index 35.35 06/01/2025 9:01 AM EDT Plan of Treatment Upcoming Encounters Date Type Department Care Team (Late st Contact Info) Description 07/18/2025 9:45 AM EDT Office Visit [facility] [address] [place] [address] Li Langford MD [address] [place] [address] 08/28/2025 10:30 AM EST Immunization [facility] [address] [place] [address] Health Maintenance Due Date Last Done Comments CT Colonography 1960 Colonoscopy 1960 Colorectal Cancer Screening 1960 FIT DNA/Cologuard 1960 FIT 1960 FOBT 1960 Sigmoidoscopy 1960 Zoster Vaccines (1 of 2) 2010 Hepatitis B Vaccines (2 of 3 - 19+ 3-dose series) 06/07/2013 05/10/2013 DTaP/Tdap/Td Vaccines (2 - Td or Tdap) 11/15/2019 11/15/2009 RSV Patients and Patients Aged 60 years or older (1 - Risk 60-74 years 1-dose series) 2020 Depression Screening 11/26/2023 11/26/2022, 11/26/19 23 Mammogram 05/06/2024 05/06/2022 COVID-19 Vaccine ( season) 2025 Influenza Vaccine (#1) 2025 , 07/20/2018, 09/06/2015 Alcohol/Substance Use Screening 08/14/2025 08/14/2024 Diabetes: Hemoglobin A1C 11/14/2025 025, 02/16/2025, 08/14/2024, Additional history exists Eye Exam 12/15/2025 12/15/2023 SDOH Screening 02/06/2026 02/06/2025 Diabetes: Foot Exam 02/16/2026 02/16/2025, 02/16/2025, 02/16/2025, Additional history exists Diabetes: Urine Protein Screening 02/16/2026 02/16/2025, 09/07/2023, 02/19/2021, Additional history exists Lipid Panel 02/16/2026 02/16/2025, 07/26, 09/07/2023, Additional history exists Tobacco Screening 06/01/2026 06/01/2025 Cervical Cancer Screening 05/12/2027 HPV/Cotest 05/12/2027 05/12/2022 Pap Smear 05/12/2027 05/12/2022 Hepatitis C Screening Completed 09/07/2023 Pneumococcal Vaccine: 50+ Years Completed 05/14/2025 HIB Vaccines Aged Out No longer eligi [...] Procedure Name Priority Date/Time Associated Diagnosis Comments CULTURE, URINE, ROUTINE Routine 06/01/2025 9:15 AM EDT Dysuria POCT URINALYSIS DIPSTICK Routine 06/01/2025 9:13 AM EDT Dysuria POCT GLYCATED HEMOGLOBIN, TOTAL Routine 05/14/2025 3:04 PM EDT Type 2 diabetes mellitus with other specified complication, without long-term current use of insulin ([facility]/HCC) POCT GLUCOSE Routine 05/14/2025 3:04 PM EDT Type 2 diabetes mellitus with other specified complication, without long-term current use of insulin (CMS/HCC) ALBUMIN, RANDOM URINE W/CREATININE Routine 02/16/2025 11:30 AM EDT Type 2 diabetes mellitus with hyperglycemia, without long-term current use of insulin (CMS/HCC) LIPID PANEL, STANDARD Routine 02/16/2025 11:30 AM EDT Type 2 diabetes mellitus with hyperglycemia, without long-term current use of insulin ([facility]) HM DIABETES EYE EXAM Routine 12/15/2023 HEPATITIS C ANTIBODY Routine 09/07/2023 11:37 AM EST Encounter for health-related screening HP LINK DIABETIC FOOT EXAM Routine 08/09/2023 THINPREP IMAGING PAP AND HPV MRNA E6/E7 WITH REFLEX TO HPV 16,18/45 Routine 05/12/2022 3:31 PM EDT MAMMOGRAM GENERIC Routine 05/06/2022 3:1 0 PM EDT from Last 3 Months or Most Recently Relevant to Health Maintenance Results * Culture, Urine, Routine (06/01/2025 9:15 AM EDT) Urine Urine specimen obtained by clean catch procedure / Unknown 06/01/2025 9:15 AM EDT 06/01/2025 1:23 PM EDT Comment:[facility] - 06/03/2025 7:51 AM EDT Escherichia coli Quant > 100,000 cfu/mL Escherichia coli: Ampicillin <=2(S) Escherichia coli: Cefazolin (Urine) <=1(S) Escherichia coli: Cefepime <=0.12(S) Escherichia coli: Ceftriaxone <=0.25(S) Escherichia coli: Ciprofloxacin <=0.06(S) Escherichia coli: Gentamicin <=1(S) Escherichia coli: Nitrofurantoin <=16(S) Escherichia coli: Trimethoprim/Sulfamethoxazole <=20(S) Specimen Source: Urine clean catch us Indu Ayala MD LAB MICROBIOLOGY - GE NERAL ORDERABLES Final Result [facility] [address] [place] [phone] * (ABNORMAL) POCT Urinalysis (06/01/2025 9:13 AM EDT) Color, UA Yellow Clarity, UA Clear Glucose, UA Negative Bilirubin, UA Negative Ketones, UA Negative Spec Grav, UA 1.020 Blood, UA Positive(A) Negative, None Detected Comment:Large pH, UA 6.0 Protein, UA Trace Comment:>=300 mg/dL Urobilinogen, UA 0.2 Leukocytes, UA Moderate(A) Negative, Rare, Trace Nitrite, UA Positive(A) Negative, None Detected Appearance, UA clear QC Media Lot # [id number] Lot# Expiration Date [id number] Urine 06/01/2025 9:13 AM EDT Indu Ayala MD POINT OF CARE TEST EN TER/EDIT ORDERABLES Final Result * (ABNORMAL) POCT HGB A1C (05/14/2025 3:04 PM EDT) Pathologist [facility] Hemoglobin A1C 6.6(A) 4.0 - 5.7 % Blood 05/14/2025 3:04 PM EDT Li Langford MD POINT OF CARE TEST ENTER/EDIT ORDERABLES Final Result * POCT Glucose (05/14/2025 3:04 PM EDT) Glucose Blood, POC 158 60 - 200 mg/dL Blood Capillary blood specimen / Unknown 05/14/2025 3:04 PM EDT Li Langford MD POINT OF CARE TEST ENTER/EDIT ORDERABLES Final Result * (ABNORMAL) Albumin, Random Urine W/Creatinine (02/16/2025 11:30 AM EDT) Creatinine, Urine 111.85 mg/dL [facility] Microalbumin Urine 40.0 mg/L H [facility] Microalbum Creatinine Ratio Ur 35.7(H) <30 ug/mg cr [facility] Comment:Albumin/Creatinine R atio Reference Ranges: Normal: < 30 ug/mg creatinine Microalbuminuria: 30 - 300 ug/mg creatinineClinical Albuminuria: > 300 ug/mg creatinine Urine (Urine, Random) 02/16/2025 11:30 AM EDT 02/16/2025 2:01 PM EDT us Lm Berry MD LAB URINE ORDERABL ES Final Result Performing Organization Address [facility] de Phone Number [facility] [address] [place] [phone] * (ABNORMAL) Lipid Panel, Standard (02/16/2025 11:30 AM EDT) Triglycerides 109 <150 mg/dL [facility] Comment:Desirable Triglyceri de: less than 150 mg/dLBorderline High Triglyceride 150-199 mg/dLHigh Triglyceride: 200-499 mg/dLVery High Triglyceride: greater than or equal to 5OO mg/dL Cholesterol 195 <200 mg/dL [facility] Comment:Desirable Cholestero l: less than 200 mg/dLBorderline High Cholesterol: 200-239 mg/dLHigh Cholesterol: greater than 239 mg/dL LDL Cholesterol Calculated 125(H) <100 mg/dL [facility] Comment:Desirable LDL: less than 100 mg/dLNear Optimal/Above Optimal LDL: 110- 129 mg/dLBorderline High LDL: 130-159 mg/dLHigh LDL: 160-189 mg/dLVery High LDL: greater than or equal to 190 mg/dL HDL Cholesterol 49 >40 mg/dL [facility] Comment:Desirable HDL: great er than 40 mg/dL Note: This HDL assay may give artificially low results in patients with liver disease. Blood Venous blood specimen / Unknown 02/16/2025 11:30 AM EDT 02/16/2025 2:08 PM EDT us Lm Berry MD LAB BLOOD ORDERABL ES Final Result Performing Organization Address [facility] Co de Phone Number [facility] [address] [place] [address] [phone] * Hm Diabetes Eye Exam (12/15/2023) Eye Exam Normal Normal Comment:Scanned in EMR Historical Provider HEALTH MAINTENANCE Final Result * Hepatitis C Ab (09/07/2023 11:37 AM EST) Hepatitis C Antibody Nonreactive Nonreactive [facility] Comment:Antibodies to HCV no t detected; does not exclude early acuteHCV infection. Blood 09/07/2023 11:3 7 AM EST 09/07/2023 2:50 PM EST Li Langford MD LAB BLOOD ORDERABLES Final Re sult [facility] [address] [place] [phone] * HP Diabetic Foot Exam (08/09/2023) Narrative Li Langford MD - 08/09/2023 Decr sensation on left foot hx of peroneal neuropathy Result [facility] Li Langford MD HEALTH MAINTENANCE Final Resu lt * THINPREP TIS PAP AND HPV mRNA E6/E7 WITH REFLEX TO HPV 16,18/45 (05/12/2022 3:31 PM EDT) Clinical Information: None given [facility] COMMENT SEE COMMENT [facility] Comment: EXPLANATORY NOTE: The Pap is a screening test for cervical cancer. It is not a diagnostic test and is subject to false negative and false positive results. It is most reliable when a satisfactory sample, regularly obtained, is submitted with relevant clinical findings and history, and when the Pap result is evaluated along with historic and current clinical information. COMMENT: This Pap test has been evaluated with computer assisted technology. [facility] Cytotechnologis t: SEE COMMENT [facility] Comment: HECTOR, CT(ASCP) CT screening location: [place] [address] HPV nRNA E6/E7 Not Detected Not Detected [facility] Comment: Methodology: Help Desk Analyst-Mediated Amplification This assay detects E6/E7 viral messenger RNA (mRNA) from 14 high-risk HPV types (16,18,31,33,35,39,45,51,52,56,58,59,66,68). Cervical sources are required for HPV testing. If a vaginal source from a patient who has had a total hysterectomy with removal of cervix was submitted, please contact the testing laboratory for alternative testing options. For additional information, please refer to http://education.[employer]/faq/EHG776n7 (This link if provided for information/ educational purposes only.) Interpretation/ Result: Negative for intraepithelial lesion or malignancy. [facility] LMP: NONE GIVEN [facility] Prev. BX: NONE GIVEN [facility] Prev. PAP: NONE GIVEN [facility] SOURCE: None given [facility] Statement Of Adequacy: SEE COMMENT [email or web address] Comment: Satisfactory for evaluation. Endocervical/transformation zone component absent. 05/12/2022 3:31 PM EDT us Li Langford MD LAB PATHOLOGY ORDERABLES Claire l Result [email or web address] [address] * Mammography Report 1 (05/06/2022 3:10 [...] Most Recently Relevant to Health Maintenance Insurance [facility] [employer] (HMO D-SNP) [place] [id number] Care Teams Public Health Sanitarian Relationship Specialty Start Date End Date Li Langford MD [address] [place] [address] PCP - General Family Medicine 08/12/21
== END ==
LOC: HO.CARD 09:45
PROVIDERS: PCP Family Medicine; Visit Provider Internal Medicine Cardiovascular Disease
DX: R00.2 Palpitations (principal)
CPT/HCPCS: 93242

== ENCOUNTER → 2025-07-09 09:48 | Outpatient (BNV) | payer OTHER, SELFPAY ==
[2023-08-24 15:58] VITALS: BP 108/64; BMI 33.6
== END ==
PROVIDERS: PCP Family Medicine; Visit Provider Internal Medicine Cardiovascular Disease
DX: R00.0 Tachycardia, unspecified (principal)
CPT/HCPCS: 93227

== ENCOUNTER 2025-07-23 09:12 | Outpatient (REF) | payer OTHER, SELFPAY ==
[2023-08-24 15:58] VITALS: BP 108/64; BMI 33.6
--- OUTSIDE RECORDS SUMMARY | 2025-07-18 09:45 | XMS_ITS | Encounter Summary ---
Author Organization [employer] Address [address] [place] [address] [address] [place] [address] Care Team Providers Care Csm Consultant Name Role Phone Li Langford MD Primary Care Provider [phone] Reason for Visit * Reason Comments Follow-up Encounter Details Date Type Department Care Team ([facility] st Contact Info) Description 07/18/2025 9:45 AM EDT Office Visit [facility] [address] [place] [address] Li Langford MD [address] [place] [address] Type 2 diabetes mellitus with other specified complication, without long-term current use of insulin ([facility]) (Primary Dx); Right hip pain; Arthritis of right hip Social History Tobacco Use Types Packs/Day Years [...] the past 12 months, has t he [employer] gas, oil or water company threatened to [...] Sign Reading Time Taken Comments Blood Pressure 136/80 07/18/2025 10:22 AM EDT Pulse 78 07/18/2025 10:22 AM EDT Temperature 36.6 C (97.9 F) 07/18/2025 10:22 AM EDT Respiratory Rate 20 07/18/2025 10:22 AM EDT Oxygen Saturation 98% 07/18/2025 10:22 AM EDT Inhaled Oxygen Concentration - - Weight 81.2 kg (179 lb) 07/18/2025 10:22 AM EDT Height 153 cm (5' 0.24 ) 07/18/2025 10:22 AM EDT Body Mass Index 34.69 07/18/2025 10:22 AM EDT documented in this encounter Progress Notes * Li Langford MD - 07/18/2025 9:45 AM EDT Subjective Patient ID: Charisse Staton is a 65 y.o. female who presents for Follow-up. Charisse Staton is a 65-year-old female with a history of heart attacks and diabetes mellitus presenting for follow-up care with multiple ongoing concerns. The patient reports difficulty with nasal breathing, describing that when she practices breathing through her nose, she feels like she cannot breathe well and has to open her mouth. She states that when trying not to breathe through her mouth and practicing nasal breathing, she forgets to breathe and feels it's dangerous. This breathing difficulty appears to be an ongoing concern affecting her daily functioning. She continues to experience significant lower back pain, describing it as hurting a lot. Additionally, she reports hip pain and notes that her foot fails her, having recently fallen though she states nothing happened from the fall. These mobility issues appear to be impacting her ability to walk safely. The patient acknowledges poor adherence to blood pressure monitoring, stating she forgets to check both her blood sugar and blood pressure because both machines are damaged. She reports that the pharmacy does not have a blood pressure machine available for use. Regarding recent healthcare interactions, she confirms she went to a pharmacy billing adjudicator who placed a Holter monitor, though she does not know the results. She mentions still having tavares from the monitor that were itching. She has not completed a recommended colonoscopy, stating she failed twice in previous attempts. The patient reports she has not received her flu vaccine or tetanus vaccine and has not had her mammography, though she mentions possibly going for mammography in August. Medical History - History of heart attacks - Diabetes mellitus - Hypertension - Arthritis affecting hip and lower back - Failed colonoscopy attempts (twice) Social History - Substance Use: History of cigarette smoking Review of Systems Respiratory: Positive for difficulty breathing through nose, feels like cannot breathe well throughnose and has to open mouth to breathe. Musculoskeletal: Positive for lower back pain, positive for falls. Review of Systems Objective Visit Vitals BP 136/80 Pulse 78 Temp 97.9 ??F (36.6 ??C) (Oral) Resp 20 Ht 5' 0.24 (1.53 m) Wt 179 lb (81.2 kg) SpO2 98% BMI 34.69 kg/m?? Smoking Status Never BSA 1.86 m?? Physical Exam Constitutional: General: She is not in acute distress. Appearance: She is not ill-appearing. HENT: Head: Normocephalic and atraumatic. Nose: No congestion. Pulmonary: Effort: Pulmonary effort is normal. No respiratory distress. Breath sounds: Normal breath sounds. Musculoskeletal: Cervical back: Normal range of motion. Right hip: No tenderness, bony tenderness or crepitus. Decreased range of motion. Normal strength. Left hip: No tenderness, bony tenderness or crepitus. Normal range of motion. Normal strength. Comments: Stiff hips Neurological: General: No focal deficit present. Mental Status: She is alert. Psychiatric: Mood and Affect: Mood normal. Assessment/Plan Problem List Items Addressed This Visit Type 2 diabetes mellitus ([facility]) - Primary Relevant Orders POCT Glucose (Completed) POCT Hgb A1c (Completed) Right hip pain Relevant Medications acetaminophen (Tylenol Extra Strength) 500 MG tablet Diclofenac Sodium 1 % gel Other Relevant Orders XR Lumbar Spine Complete 4+ Views XR Hip 2 or 3 Views Right Arthritis of right hip Relevant Medications acetaminophen (Tylenol Extra Strength) 500 MG tablet Diclofenac Sodium 1 % gel Charisse Staton is a 65-year-old female with a history of heart attacks and smoking presenting with breathing difficulties, hip and lower back pain, and concerns about blood sugar and blood pressure management. Dyspnea Assessment: Patient reports difficulty breathing through her nose, feeling like she can't breathe well and has to open her mouth. This may be related to her history of heart attacks and smoking. The exact cause of the dyspnea is unclear, but it appears to be causing significant distress and concernfor the patient. Plan: - Consider referral to pulmonology for further evaluation and potential breathing exercises Hip and lower back pain Assessment: Physical examination reveals evidence of arthritis in the hip. Patient also complains of significant lower back pain. The pain is affecting mobility, as evidenced by the patient's report of falling due to foot issues. Plan: - Order cane for mobility assistance - Prescribe Tylenol 1 gram for pain management - Recommend topical treatments for pain relief - Educate patient on safe use of anti-inflammatory medications, considering risks to cardiovascularhealth Diabetes mellitus Assessment: Current blood glucose reading is 176.6 mg/dL, which is consistent with the previous reading of 6.6% from April. The condition appears stable. Plan: - Continue current diabetes management plan - Order new glucose monitoring machine - Educate patient on importance of regular blood glucose monitoring Hypertension Assessment: Blood pressure is reported as fine during this visit, suggesting adequate control with current management. Plan: - Recommend purchase of blood pressure machine using [employer] card for home monitoring - Educate patient on importance of regular blood pressure monitoring Preventive care Assessment: Patient is due for several preventive care measures, including tetanus vaccine, flu vaccine, and mammography. A colonoscopy has been attempted twice but not completed. Plan: - Schedule flu vaccine administration - Schedule tetanus vaccine administration - Confirm mammography appointment for September 18 - Provide referral letter for colonoscopy ~~~~~~~~~~~~~~~~~~~~~~~~~~~~ Patient???s clinical findings support the need for a cane given the patient has a mobility limitation that significantly impairs her ability to participate in one or more mobility-related activities of daily living (MRADL). Medical condition: Right hip arthritis (Offset Cane): Indications -> moderate lower limb arthritis Patient has capability and willingness to operate a cane safely, she needs to intermittently use one upper extremity for weight-bearing . documented in this encounter Plan of Treatment Upcoming Encounters Date Type Department Care Team (Late st Contact Info) Description 08/28/2025 10:30 AM EST Immunization [facility] [address] [place] [id number] Scheduled Orders Name Type Priority Associated Diagnoses Orde r Schedule XR Lumbar Spine Complete 4+ Views Imaging Routine Right hip pain Expected: 07/18/2025, Expires: 07/18/2026 XR Hip 2 or 3 Views Right Imaging Routine Right hip pain Expected: 07/18/2025, Expires: 07/18/2026 documented as of this encounter Procedures Procedure Name Priority Date/Time Associated Diagnosis Comments POCT GLYCATED HEMOGLOBIN, TOTAL Routine 07/18/2025 11:00 AM EDT Type 2 diabetes mellitus with other specified complication, without long-term current use of insulin ([facility]) POCT GLUCOSE Routine 07/18/2025 11:00 AM EDT Type 2 diabetes mellitus with other specified complication, without long-term current use of insulin ([facility]) documented in this encounter Results * (ABNORMAL) POCT Hgb A1c (07/18/2025 11:00 AM EDT) Hemoglobin A1C 6.6(A) 4.0 - 5.7 % QC Media Lot # [id number] Lot# Expiration Date 072,[id number] Blood 07/18/2025 11:0 0 AM EDT Li Langford MD POINT OF CARE TEST ENTER/EDIT ORDERABLES Final Result * POCT Glucose (07/18/2025 11:00 AM EDT) Glucose Blood, POC 102 60 - 200 mg/dL QC Media Lot # [id number] Lot# Expiration Date ,464 Blood Capillary blood specimen / Unknown 07/18/2025 11:00 AM EDT Li Langford MD POINT OF CARE TEST ENTER/EDIT ORDERABLES Final Result documented in this encounter Visit Diagnoses Diagnosis Type 2 diabetes mellitus with other specified complication, without long-term current use of insulin (HCC)- Primary Right hip pain Pain in joint, pelvic region and thigh Arthritis of right hip documented in this encounter Additional Health Concerns Assessment Noted Time PHQ-9 Depression Total Score: 0 11/26/19 23 1:38 PM EST documented as of this encounter Care Teams Csm Consultant Relationship Specialty Start Date End Date Li Langford MD [address] [place] [id number] PCP - General Family Medicine 08/12/21 documented as of this encounter
--- NOTE | ~2025-07-23 | XR_ITS ---
EXAMINATION: XR LUMBOSACRAL SPINE CLINICAL INFORMATION: 65 yo F with right hip and lumbar pain ddx OA. COMPARISON: 10/21/2022, 11/23/2019. TECHNIQUE: 5 views of the lumbar spine, inclusive of bilateral oblique views, were obtained. FINDINGS: There is a trace levoconvex scoliosis, apex at L3-4. There is a normal lumbar lordosis. There is no subluxation. Alignment is anatomic. There is no fracture, compression deformity, or suspicious bone lesion evident. There is minimal multilevel disc degeneration present. Facets are normally aligned. There are very mild facet degenerative changes spanning L4-S1. Mild to moderate degenerative changes in both SI joints. Sacrum is intact. There are vascular calcifications in the soft tissues. There are cholecystectomy clips. XR/XR lumbar spine 4V min IMPRESSION: 1. No acute bony or soft tissue abnormality of the lumbar spine. 2. Mild degenerative lumbar spondylosis, without change from prior exams. Electronically signed by: Bernardo Brown MD 07/23/2025 10:45 AM EDT
--- NOTE | ~2025-07-23 | XR_ITS ---
EXAMINATION: XR HIP, RIGHT CLINICAL INFORMATION: 65 yo F with right hip and lumbar pain ddx OA. COMPARISON: 03/07/2013. TECHNIQUE: Two views of the right hip. FINDINGS: No fracture, dislocation, or suspicious bone lesion. There is normal alignment of the right hip joint. There is mild osteoarthritis present, with superolateral acetabular spurring, similar to the prior examination without definite progression. There is over coverage of the posterior acetabulum, finding which can be seen with pincer-type ELIZABETH. Normal femoral head contour without evidence of AVN. Overlapping stents noted in the proximal thigh. Soft tissues otherwise normal. XR/XR hip RT min 2V IMPRESSION: 1. No acute bony abnormalities. 2. Mild osteoarthrosis of the right hip joint, similar to the prior examination. Electronically signed by: Bernardo Brown MD 07/23/2025 10:40 AM EDT
--- OUTSIDE RECORDS SUMMARY | 2025-07-23 09:54 | XMS_ITS | Clinical Summary ---
Author Organization [employer] Address [address] [place] [address] 7[address] [place] [address] Care Team Providers Care Quality Assurance Tester Name Role Phone Li Langford MD Primary Care Provider [phone] Allergies No known active allergies Medications Spiriva HandiHaler 18 MCG inhalation capsuleIndicati ons:Chronic obstructive pulmonary disease, unspecified COPD type (CMS/HCC) ([facility]) USE 1 CAPSULE FOR INHALATION ONCE A [...] every day 100 each 11 023 Active Entresto 24-26 MG tabletIndicatio ns:Atherosclero sis of coronary artery, unspecified vessel or lesion type, unspecified whether angina present, unspecified whether squaxin or transplanted heart TAKE 1 TABLET BY [...] at bedtime for dry eyes. 10 mL 024 Active carboxymethylce llulose (Refresh Plus) 0.5 % ophthalmic solution Administer 1 drop into both eyes if needed for dry eyes. 30 mL 5 024 Active tiZANidine (Zanaflex) 4 MG tablet Take 1 tablet (4 mg) by mouth 3 times daily. 30 tablet 024 Active Dulaglutide (Trulicity) 1.5 MG/0.5ML solution auto-injector Inject 1.5 mg under the skin 1 (one) time per week. 3 mL 3 Active cholecalciferol (Vitamin D-3) 50 MCG (2000 UT) capsule Take 1 capsule (50 mcg) by mouth Once per day. 120 capsule Active metoprolol succinate XL (Toprol-XL) 50 MG 24 hr tablet TAKE 1 TABLET BY MOUTH EVERY DAY IN THE MORNING 90 tablet 025 Active metFORMIN XR (Glucophage-XR) 500 MG 24 hr tabletIndicatio ns:Type 2 diabetes mellitus with hyperglycemia, without long-term current use of insulin (HCC) TAKE 1 TABLET BY MOUTH TWICE DAILY, DO NOT BREAK, CRUSH, DISSOLVE OR CHEW 180 tablet 025 Active Aspirin Low Dose 81 MG chewable tablet CHEW AND SWALLOW 1 TABLET BY MOUTH EVERY DAY IN THE MORNING 90 tablet 025 Active cyanocobalamin (Vitamin B-12) 500 MCG tabletIndicatio ns:Type 2 diabetes mellitus with other specified complication, without long-term current use of insulin (HCC) TAKE 1 TABLET BY MOUTH EVERY DAY IN THE MORNING 90 tablet 025 Active omeprazole (PriLOSEC) [address] capsule TAKE 2 CAPSULES BY MOUTH EVERY DAY IN THE MORNING BEFORE BREAKFAST. DO NOT BREAK, CRUSH, DISSOLVE OR CHEW. 180 capsule 025 Active levothyroxine (Synthroid, Levoxyl) 100 MCG tablet TAKE 1 TABLET BY MOUTH EVERY DAY BEFORE BREAKFAST 90 tablet 025 Active doxepin (SINEquan) 10 MG capsuleIndicati ons:Insomnia, unspecified type TAKE 1 CAPSULE BY MOUTH EVERY DAY IN THE MORNING 90 capsule 1 Active folic acid (Folvite) 1 MG tabletIndicatio ns:Type 2 diabetes mellitus with other specified complication, without long-term current use of insulin (HCC) TAKE 1 TABLET BY MOUTH EVERY DAY IN THE MORNING 90 tablet 1 Active chlorthalidone (Hygroton) 25 MG tablet TAKE 1 TABLET BY MOUTH EVERY DAY IN THE MORNING 90 tablet 1 Active Blood Glucose Monitoring Suppl (FreeStyle Lite) w/Device kit 1 Units 2 times daily. 1 kit Active acetaminophen (Tylenol Extra Strength) 500 MG tablet Take 2 tablets (1,000 mg) by mouth every 8 (eight) hours if needed for mild pain for up to 10 days. 30 tablet 025 2024 Active Diclofenac Sodium 1 % gel Apply 5 g topically 4 times daily. 200 g Active Blood Glucose Monitoring Suppl (FreeStyle Lite) w/Device kit 1 Units 2 times daily. 1 kit 023 2024 Discontinued(R eorder (will not trigger notification to Pharmacy)) chlorthalidone (Hygroton) 25 MG tablet TAKE 1 TABLET BY MOUTH EVERY MORNING 90 tablet 1 025 2024 Discontinued Trulicity 0.75 MG/0.5ML solution auto-injectorIn dications:Type 2 diabetes mellitus with hyperglycemia, without long-term current use of insulin ([facility]) INJECT ONE PEN (=0.75MG) SUBCUTANEOUSLY ONCE A WEEK DIRECTED 2 mL 3 025 2024 Discontinued(T herapy completed) Active Problems Problem Noted Date Diagnosed Date Right hip pain 07/18/2025 Arthritis of right hip 07/18/2025 Acute cystitis with hematuria 06/01/2025 Assessment & [...] recommended reduction of 20-30% of maintenance calories; reconsignment clerk referral offered. Recommended to decrease soda and [...] PA for Entresto this was sent by quarry equipment operator, strongly encouraged for her to speak with [...] AM EDT): Continue to follow up with Looping Inspector. Acquired hypothyroidism 04/22/2012 Pure hypercholesterolemia 04/22/2012 Assessment & Plan (10/20/2022 5:00 PM EST): Reports was not really using her lipid medication when she had testing, now started using her rosuvastatin 20 mg and wants it to be recheck before proceeding with taking higher dose. Encounters Date Type Department Care Team Description 07/18/2025 9:45 AM EDT Office Visit [facility] [address] [place] [address] Li Langford MD Type 2 diabetes mellitus with other specified complication, without long-term current use of insulin ([facility]) (Primary Dx); Right hip pain; Arthritis of right hip 07/18/2025 Travel 07/18/2025 Refill [facility] [address] [place] [address] Fawad Blood MD 07/11/2025 Patient Outreach [facility] [address] [place], [place] [phone] Li Langford MD Pre-visit Planning (SDOH screening completed on 02/06/25) 06/18/2025 Refill [facility] [address] [place] [address] Fawad Blood MD Insomnia, unspecified type; Type 2 diabetes mellitus with other specified complication, without long-term current use of insulin (CMS/HCC) 06/01/2025 9:00 AM EDT Office Visit [facility] [address] [place] [phone] Indu Godoy MD Dysuria; Acute cystitis with hematuria 06/01/2025 Travel 05/31/2025 Telephone [facility] [address] [place] [phone] Li Langford MD Nurse Triage 05/20/[address] [address] Fawad Blood MD 05/15/2025 Telephone [facility] [address] [place] [address] Li Langford MD 05/14/2025 1:45 PM EDT Office Visit [facility] [address] [place] [address] Li Langford MD Type 2 diabetes mellitus [...] type (CMS/HCC); Transaminitis 05/14/2025 Travel 05/10/2025 Telephone [facility] [address] [place] [address] Li Langford MD chart prep 05/04/2025 Patient Outreach [address] [address] Li Langford MD Pre-visit Planning ([facility] screening completed on 02/06/25) from Last 3 Months Immunizations Immunization Administration Dates Next Due Hep B, adult 05/10/2013 Influenza injectable quadriv alent IIV4 with preservative 07/20/2018,09/06/2015 Influenza injectable quadrivalent preservative f ree 11/02/2019 Pneumococcal Conjugate PCV 20 05/14/2025 Tdap 11/15/2009 Zoster, Recombinant 06/19/2025 Social History Tobacco Use Types Packs/Day Years [...] Mass Index 34.69 07/18/2025 10:22 AM EDT Plan of Treatment Upcoming Encounters Date Type Department Care Team (Late st Contact Info) Description 08/28/2025 10:30 AM EST Immunization [facility] [address] [place] [address] Health Maintenance Due Date Last Done Comments CT Colonography 1960 Colonoscopy 1960 Colorectal Cancer Screening 1960 FIT DNA/Cologuard 1960 FIT 1960 FOBT 1960 Sigmoidoscopy 1960 Hepatitis B Vaccines (2 of 3 - [...] 07/20/2018, 09/06/2015 Alcohol/Substance Use Screening 08/14/2025 08/14/2024 Zoster Vaccines (2 of 2) 08/14/2025 06/19/2025 Eye Exam 12/15/2025 12/15/2023 Diabetes: Hemoglobin A1C 01/15/2026 025, 05/14/2025, 02/16/2025, Additional history exists SDOH Screening 02/06/2026 02/06/2025 Diabetes: Foot Exam 02/16/2026 02/16/2025, 02/16/2025, 02/16/2025, Additional history exists Diabetes: Urine Protein Screening 02/16/2026 02/16/2025, 09/07/2023, 02/19/2021, Additional history exists Lipid Panel 02/16/2026 02/16/2025, 10/01/2024, 09/07/2023, Additional history exists Tobacco Screening 07/18/2026 07/18/2025 Cervical Cancer Screening 05/12/2027 HPV/Cotest 05/12/2027 05/12/2022 [...] complication, without long-term current use of insulin ([facility]) POCT GLUCOSE Routine 07/18/2025 11:00 AM EDT Type 2 diabetes mellitus with other specified complication, without long-term current use of insulin ([facility]) CULTURE, URINE, ROUTINE Routine 06/01/2025 9:15 AM EDT Dysuria POCT URINALYSIS DIPSTICK Routine 06/01/2025 9:13 AM EDT Dysuria POCT GLYCATED HEMOGLOBIN, TOTAL Routine 05/14/2025 3:04 PM EDT Type 2 diabetes mellitus with other specified complication, without long-term current use of insulin ([facility]) POCT GLUCOSE Routine 05/14/2025 3:04 PM EDT Type 2 diabetes mellitus with other specified complication, without long-term current use of insulin ([facility]) ALBUMIN, RANDOM URINE W/CREATININE Routine 02/16/2025 11:30 AM EDT Type 2 diabetes mellitus with hyperglycemia, without long-term current use of insulin ([facility]) LIPID PANEL, STANDARD Routine 02/16/2025 11:30 AM EDT Type 2 diabetes mellitus with hyperglycemia, without long-term current use of insulin ([facility]) HM DIABETES EYE EXAM Routine 12/15/2023 HEPATITIS [...] to Health Maintenance Results * (ABNORMAL) POCT Hgb A1c (07/18/2025 11:00 AM EDT) Only the most recent of2 resultswithin the time period is included. Hemoglobin A1C 6.6(A) 4.0 - 5.7 % QC Media Lot # [id number] Lot# Expiration Date [id number] Blood 07/18/2025 11:0 0 AM EDT Li Langford MD POINT OF CARE TEST ENTER/EDIT ORDERABLES Final Result * POCT Glucose (07/18/2025 11:00 AM EDT) Only the most recent of2 resultswithin the time period is included. Glucose Blood, POC 102 60 - 200 mg/dL QC Media Lot # [id number] Lot# Expiration Date Blood Capillary blood specimen / Unknown 07/18/2025 11:00 AM EDT Li Langford MD POINT OF CARE TEST ENTER/EDIT ORDERABLES Final Result * Culture, Urine, Routine (06/01/2025 9:15 AM EDT) Urine Urine specimen obtained by clean catch procedure / Unknown 06/01/2025 9:15 AM EDT 06/01/2025 1:23 PM EDT Comment:CC Narrative [facility] - 06/03/2025 7:51 AM EDT Escherichia coli Quant > 100,000 cfu/mL Escherichia coli: Ampicillin <=2(S) Escherichia coli: Cefazolin (Urine) <=1(S) Escherichia coli: Cefepime <=0.12(S) Escherichia coli: Ceftriaxone <=0.25(S) Escherichia coli: Ciprofloxacin <=0.06(S) Escherichia coli: Gentamicin <=1(S) Escherichia coli: Nitrofurantoin <=16(S) Escherichia coli: Trimethoprim/Sulfamethoxazole <=20(S) Specimen Source: Urine clean catch Indu Ayala MD LAB MICROBIOLOGY - NERAL ORDERABLES Final Result [facility] [address] [place] [phone] * (ABNORMAL) POCT Urinalysis (06/01/2025 9:13 [...] Media Lot # [id number] Lot# Expiration Date 548 Urine 06/01/2025 9:13 AM EDT us Indu Ayala MD POINT OF CARE TEST EN TER/EDIT ORDERABLES Final Result * (ABNORMAL) Albumin, Random Urine W/Creatinine (02/16/2025 11:30 AM EDT) Creatinine, Urine 111.85 mg/dL [facility] Microalbumin Urine 40.0 mg/L [facility] Microalbum Creatinine Ratio Ur 35.7(H) <30 ug/mg cr [facility] Comment:Albumin/Creatinine R atio Reference Ranges: Normal: < 30 ug/mg creatinine Microalbuminuria: 30 - 300 ug/mg creatinineClinical Albuminuria: > 300 ug/mg creatinine Urine (Urine, Random) 02/16/2025 11:30 AM EDT 02/16/2025 2:01 PM EDT us Lm Berry MD LAB URINE ORDERABL ES Final Result [facility] [address] [place] [phone] * (ABNORMAL) Lipid Panel, Standard (02/16/2025 11:30 AM EDT) Triglycerides 109 <150 mg/dL [facility] Comment:Desirable Triglyceri de: less than 150 mg/dLBorderline High Triglyceride 150-199 mg/dLHigh Triglyceride: 200-499 mg/dLVery High Triglyceride: greater than or equal to 5OO mg/dL Cholesterol 195 <200 mg/dL [facility] Comment:Desirable Cholestero l: less than 200 mg/dLBorderline High Cholesterol: 200-239 mg/dLHigh Cholesterol: greater than 239 mg/dL LDL Cholesterol Calculated 125(H) <100 mg/dL [facility] Comment:Desirable LDL: less than 100 mg/dLNear Optimal/Above Optimal LDL: 110- 129 mg/dLBorderline High LDL: 130-159 mg/dLHigh LDL: 160-189 mg/dLVery High LDL: greater than or equal to 190 mg/dL HDL Cholesterol 49 >40 mg/dL [facility] Comment:Desirable HDL: great er than 40 mg/dL Note: This HDL assay may give artificially low results in patients with liver disease. Blood Venous blood specimen / Unknown 02/16/2025 11:30 AM EDT 02/16/2025 2:08 PM EDT Lm Berry MD LAB BLOOD ORDERABL ES Final Result Performing Organization Address [facility] Co de Phone Number [facility] [address] [place] [phone] * Hm Diabetes Eye Exam (12/15/2023) Eye Exam Normal Normal Comment:Scanned in EMR Dian Haney MD HEALTH MAINTENANCE Final Result * Hepatitis C Ab (09/07/2023 11:37 AM EST) Hepatitis C Antibody Nonreactive Nonreactive [facility] Comment:Antibodies to HCV no t detected; does not exclude early acuteHCV infection. Blood 09/07/2023 11:3 7 AM EST 09/07/2023 2:50 PM EST Li Langford MD LAB BLOOD ORDERABLES Final Re sult Performing Organization Address City/[facility] Co de Phone Number [facility] [address] [place] [address] [phone] * HP Diabetic Foot Exam (08/09/2023) [...] has been evaluated with computer assisted technology. [facility] Cytotechnologis t: SEE COMMENT [facility] Comment: HECTOR, CT(ASCP) CT screening location: [place] [address] HPV nRNA E6/E7 Not Detected Not Detected [facility] Comment: Methodology: Central Scheduler-Mediated Amplification This assay detects E6/E7 viral messenger RNA (mRNA) from 14 high-risk HPV types (16,18,31,33,35,39,45,51,52,56,58,59,66,68). Cervical sources are required for HPV testing. If a vaginal source from a patient who has had a total hysterectomy with removal of cervix was submitted, please contact the testing laboratory for alternative testing options. For additional information, please refer to [email or web address]/faq/ONM621c7 (This link if provided for information/ educational purposes only.) Interpretation/ Result: Negative for intraepithelial lesion or malignancy. [facility] LMP: NONE [facility] Prev. BX: NONE [facility] Prev. PAP: NONE [facility] SOURCE: None given [facility] Statement Of Adequacy: SEE COMMENT [facility] Comment: Satisfactory for evaluation. Endocervical/transformation zone component absent. 05/12/2022 3:31 PM EDT Li Langford MD LAB PATHOLOGY ORDERABLES Claire grace Result [facility] [address] * Mammography Report 1 (05/06/2022 3:10 [...] Most Recently Relevant to Health Maintenance Insurance [facility] [employer] (O D-SNP) [place] [id number] Care Teams Quality Assurance Tester Relationship Specialty Start Date End Date Li Langford MD [address] [facility] [place] [address] PCP - General Family Medicine 08/12/21
--- OUTSIDE RECORDS SUMMARY | 2025-07-23 09:54 | XMS_ITS | Encounter Summary ---
Author Organization [employer] Address [address] [facility] [address] [place] [address] Care Team Providers Care Mail Weigher Name Role Phone Li Langford MD Primary Care Provider [phone] Reason for Visit * Reason Comments Med Refill Encounter Details Date Type Department Care Team ([facility] Contact Info) Description 07/18/2025 Refill [facility] [address] [place], [place] [phone] Fawad Blood MD [address] [place] [address] Social History Tobacco Use Types Packs/Day Years [...] Info) Description 08/28/2025 10:30 AM EST Immunization [facility] [address] [place] [address] documented as of this encounter Visit Diagnoses Not on filedocumented in this encounter Additional Health Concerns Assessment Noted Time PHQ-9 Depression Total Score: 0 11/26/19 23 1:38 PM EST documented as of this encounter Care Teams Mail Weigher Relationship Specialty Start Date End Date Li Langford MD [address] [place] [address] PCP - General Family Medicine 08/12/21 documented as of this encounter
--- OUTSIDE RECORDS SUMMARY | 2025-07-23 09:54 | XMS_ITS | Encounter Summary ---
Author Organization [employer] Address [address] [facility] [address] [place] [address] Care Team Providers Care Photographer Lithographic Name Role Phone Li Langford MD Primary Care Provider [phone] Encounter Details Date Type Department Care Team (Latest Contact Info) Description 07/18/2025 Travel Social History Tobacco Use Types Packs/Day [...] Info) Description 08/28/2025 10:30 AM EST Immunization [facility] [address] [place] [address] documented as of this encounter Visit Diagnoses Not on filedocumented in this encounter Additional Health Concerns Assessment Noted Time PHQ-9 Depression Total Score: 0 11/26/19 23 1:38 PM EST documented as of this encounter Care Teams Photographer Lithographic Relationship Specialty Start Date End Date Li Langford MD [address] [place] [phone] PCP - General Family Medicine 08/12/21 documented as of this encounter
== END 2025-07-23 09:13 | disposition home or self-care (01) ==
LOC: HO.XRAY 09:12
PROVIDERS: PCP Family Medicine; Visit Provider Family Medicine
DX: M25.551 Pain in right hip (principal); M54.50 Low back pain, unspecified
CPT/HCPCS: 72110; 73502

== ENCOUNTER → 2025-07-23 09:17 | Outpatient (BNV) | payer OTHER, SELFPAY ==
[2023-08-24 15:58] VITALS: BP 108/64; BMI 33.6
== END ==
PROVIDERS: PCP Family Medicine; Visit Provider Radiology Diagnostic Radiology
DX: M54.50 Low back pain, unspecified (principal); M25.551 Pain in right hip
CPT/HCPCS: 72110; 73502

== ENCOUNTER 2025-08-14 11:44 | Outpatient (REF) | payer OTHER, SELFPAY ==
[2023-08-24 15:58] VITALS: BP 108/64; BMI 33.6
--- OUTSIDE RECORDS SUMMARY | 2025-08-14 15:13 | XMS_ITS | Clinical Summary ---
Author Organization [employer] Address [address] [place] [address] [address] [place] [address] Care Team Providers Care Rn Manager Name Role Phone Li Langford MD Primary Care Provider [phone] Allergies No known active allergies Medications Spiriva HandiHaler 18 MCG inhalation capsuleIndicati ons:Chronic obstructive pulmonary disease, unspecified COPD type (CMS/HCC) ([facility]) USE 1 CAPSULE FOR INHALATION [...] type, unspecified whether angina present, unspecified whether knik or transplanted heart TAKE 1 TABLET BY [...] Units 2 times daily. 1 kit Active Diclofenac Sodium 1 % gel Apply [...] without long-term current use of insulin (HCC) INJECT ONE PEN (=0.75MG) SUBCUTANEOUSLY ONCE A WEEK DIRECTED 2 mL 3 025 2024 Discontinued(T herapy completed) acetaminophen (Tylenol Extra Strength) 500 MG tablet Take 2 tablets (1,000 mg) by mouth every 8 (eight) hours if needed for mild pain for up to 10 days. 30 tablet 025 2024 Active Problems Problem Noted Date Diagnosed Date [...] recommended reduction of 20-30% of maintenance calories; glass lathe operator referral offered. Recommended to decrease soda [...] PA for Entrest[employer] this was sent by comb setter, strongly encouraged for her to speak with [...] AM EDT): Continue to follow up with [employer] Waste Technician. Acquired hypothyroidism 04/22/2012 Pure hypercholesterolemia 04/22/2012 Assessment & Plan (10/20/2022 5:00 PM EST): Reports was not really using her lipid medication when she had testing, now started using her rosuvastatin 20 mg and wants it to be recheck before proceeding with taking higher dose. Encounters Date Type Department Care Team Description 08/02/2025 Results Follow-Up [facility] [address] [place] [address] Li Langford MD XR Hip 2 or 3 Views Right 07/18/2025 9:45 AM EDT Office Visit [facility] [address] [place] [address] Li Langford MD Type 2 diabetes mellitus with other specified complication, without long-term current use of insulin ([facility]) (Primary Dx); Right hip pain; Arthritis of right hip 07/18/2025 Travel 07/18/2025 Refill [facility] [address] [place] [address] Fawad Blood MD 07/11/2025 Patient Outreach [facility] [address] [place], [place] [phone] Li Langford MD Pre-visit Planning (SDOH screening completed on 02/06/25) 06/18/2025 Refill [facility] [address] [place] [address] Fawad Blood MD Insomnia, unspecified type; Type 2 diabetes mellitus with other specified complication, without long-term current use of insulin (CMS/HCC) 06/01/2025 9:00 AM EDT Office Visit [facility] [address] [place] [phone] Indu Godoy MD Dysuria; Acute cystitis with hematuria 06/01/2025 Travel 05/31/2025 Telephone [facility] [address] [place] [phone] Li Langford MD Nurse Triage 05/20/2025 Refill [facility] [address] [place] [phone] Fawad Blood MD 05/15/2025 Telephone [facility] [address] [place] [address] Li Langford MD 05/14/2025 1:45 PM EDT Office Visit [facility] [address] [place] [address] Li Langford MD Type 2 diabetes mellitus [...] unspecified obesity type (CMS/HCC); Transaminitis 05/14/2025 Travel from Last 3 Months Immunizations Immunization Administration [...] Info) Description 08/28/2025 10:30 AM EST Immunization [facility] [address] [place] [address] Health Maintenance Due Date Last Done Comments [...] Procedure Name Priority Date/Time Associated Diagnosis Comments XR HIP 2 OR 3 VIEWS RIGHT Routine 07/23/2025 9:38 AM EDT Right hip pain XR LUMBAR SPINE COMPLETE 4+ VIEWS Routine 07/23/2025 9:38 AM EDT Right hip pain POCT GLYCATED HEMOGLOBIN, TOTAL Routine 07/18/2025 11:00 AM EDT Type 2 diabetes mellitus with other specified complication, without long-term current use of insulin ([facility]) POCT GLUCOSE Routine 07/18/2025 11:00 AM EDT Type 2 diabetes mellitus with other specified complication, without long-term current use of insulin (CMS/HCC) CULTURE, URINE, ROUTINE Routine 06/01/2025 9:15 AM EDT Dysuria POCT URINALYSIS DIPSTICK Routine 06/01/2025 9:13 AM EDT Dysuria POCT GLYCATED HEMOGLOBIN, TOTAL Routine 05/14/2025 3:04 PM EDT Type 2 diabetes mellitus with other specified complication, without long-term current use of insulin ([facility]/HCC) POCT GLUCOSE Routine 05/14/2025 3:04 PM EDT Type 2 diabetes mellitus with other specified complication, without long-term current use of insulin (CMS/HCC) ALBUMIN, RANDOM URINE W/CREATININE Routine 02/16/2025 11:30 AM EDT Type 2 diabetes mellitus with hyperglycemia, without long-term current use of insulin ([facility]) LIPID PANEL, STANDARD Routine 02/16/2025 11:30 AM EDT Type 2 diabetes mellitus with hyperglycemia, without long-term current use of insulin ([facility]) HM DIABETES EYE EXAM Routine [...] Recently Relevant to Health Maintenance Results * XR Hip 2 or 3 Views Right (07/23/2025 9:38 AM EDT) Anatomical Region Laterality Modality Lower Extremities, Hip Right Radiograp hic Imaging 07/23/2025 9:38 AM EDT Narrative 07/23/2025 10:43 AM EDT [address] [address] XRay Report Signed Patient: Charisse Staton MR#: [id number] 95 : 1960 Acct:[id number] Age/Sex: 65 / F ADM Date: 07/23/25 Loc: HO.XRAY Attending Dr: Li Langford MD Ordering Physician: Li Langford MD Date of Service: 07/23/25 Procedure(s): XR hip RT min 2V Accession Number(s): [id number] cc: Li Langford MD Reason for Exam: 65 yo F with right hip and lumbar pain ddx OA, send to [facility] EXAMINATION: XR HIP, RIGHT CLINICAL INFORMATION: 65 yo F with right hip and lumbar pain ddx OA. COMPARISON: 03/07/2013. TECHNIQUE: Two views of the right hip. FINDINGS: No fracture, dislocation, or suspicious bone lesion. There is normal alignment of the right hip joint. There is mild osteoarthritis present, with superolateral acetabular spurring, similar to the prior examination without definite progression. There is over coverage of the posterior acetabulum, finding which can be seen with pincer-type ELIZABETH. Normal femoral head contour without evidence of AVN. Overlapping stents noted in the proximal thigh. Soft tissues otherwise normal. XR/XR hip RT min 2V IMPRESSION: 1. No acute bony abnormalities. 2. Mild osteoarthrosis of the right hip joint, similar to the prior examination. Electronically signed by: Bernardo Brown MD 07/23/2025 10:40 AM EDT Dictated By: Bernardo Brown MD Signed By: <Electronically signed by Bernardo Brown MD in OV> 07/23/25 1040 DD/ 0938 TD/TT: 07/23/25 0948 Main Entree Cook And Cashier: Procedure Note Donotuseinterpreter, Image - 07/23/[address] [address] XRay Report Signed Patient: Ish StatonR#: [id number] 95 : 1960Acct:[id number] Age/Sex: 65 / FADM Date: 07/23/25 Loc: HO.XRAY Attending Dr: Li Langford MD Ordering Physician: Li Langford MD Date of Service: 07/23/25 Procedure(s): XR hip RT min 2V Accession Number(s): [id number] cc: Li Langford MD Reason for Exam: 65 yo F with right hip and lumbar pain ddx OA[facility]: XR HIP, RIGHT CLINICAL INFORMATION: 65 yo F with right hip and lumbar pain ddx OA. COMPARISON: 03/07/2013. TECHNIQUE: Two views of the right hip. FINDINGS: No fracture, dislocation, or suspicious bone lesion. There is normal alignment of the right hip joint. There is mild osteoarthritis present, with superolateral acetabular spurring, similar to the prior examination without definite progression. There is over coverage of the posterior acetabulum, finding which can be seen with pincer-type ELIZABETH. Normal femoral head contour without evidence of AVN. Overlapping stents noted in the proximal thigh. Soft tissues otherwise normal. XR/XR hip RT min 2V IMPRESSION: 1. No acute bony abnormalities. 2. Mild osteoarthrosis of the right hip joint, similar to the prior examination. Electronically signed by: Bernardo Brown MD 07/23/2025 10:40 AM EDT Dictated By: Bernardo Brown MD Signed By: <Electronically signed by Bernardo Brown MD in OV> 07/23/25 1040 DD/ 0938 TD/TT: 07/23/25 0948 Main Entree Cook And Cashier: us Li Langford MD IMG XR PROCEDURES Edited Resu lt - Final * XR Lumbar Spine Complete 4+ Views (07/23/2025 9:38 AM EDT) Anatomical Region Laterality Modality Spine, L-spine Radiographic Christa ging 07/23/2025 9:38 AM EDT Narrative 07/23/2025 10:48 AM EDT [address] [address] XRay Report Signed Patient: Charisse Staton MR#: [id number] [birth year] : 1960 Acct:[id number] Age/Sex: 65 / F ADM Date: 07/23/25 Loc: HO.XRAY Attending Dr: Li Langford MD Ordering Physician: Li Langford MD Date of Service: 07/23/25 Procedure(s): XR lumbar spine 4V min Accession Number(s): [id number] cc: Li Langford MD Reason for Exam: 65 yo F with right hip and lumbar pain ddx OA, send to [facility] EXAMINATION: XR LUMBOSACRAL SPINE CLINICAL INFORMATION: 65 yo F with right hip and lumbar pain ddx OA. COMPARISON: 10/21/2022, 11/23/2019. TECHNIQUE: 5 views of the lumbar spine, inclusive of bilateral oblique views, were obtained. FINDINGS: There is a trace levoconvex scoliosis, apex at L3-4. There is a normal lumbar lordosis. There is no subluxation. Alignment is anatomic. There is no fracture, compression deformity, or suspicious bone lesion evident. There is minimal multilevel disc degeneration present. Facets are normally aligned. There are very mild facet degenerative changes spanning L4-S1. Mild to moderate degenerative changes in both SI joints. Sacrum is intact. There are vascular calcifications in the soft tissues. There are cholecystectomy clips. XR/XR lumbar spine 4V min IMPRESSION: 1. No acute bony or soft tissue abnormality of the lumbar spine. 2. Mild degenerative lumbar spondylosis, without change from prior exams. Electronically signed by: Bernardo Brown MD 07/23/2025 10:45 AM EDT Dictated By: Bernardo Brown MD Signed By: <Electronically signed by Bernardo Brown MD in OV> 07/23/25 1045 DD/ 0938 TD/TT: 07/23/25 0948 Main Entree Cook And Cashier: Procedure Note Donotuseinterpreter, Image - 07/23/[address] [address] XRay Report Signed Patient: Adenike Staton#: [id number] [birth year] : 1960Acct:[id number] Age/Sex: 65 / FADM Date: 07/23/25 Loc: [facility] Attending Dr: Li Langford MD Ordering Physician: Li Langford MD Date of Service: 07/23/25 Procedure(s): XR lumbar spine 4V min Accession Number(s): [id number] cc: Li Langford MD Reason for Exam: 65 yo F with right hip and lumbar pain [facility]dx [facility]: XR LUMBOSACRAL SPINE CLINICAL INFORMATION: 65 yo F with right hip and lumbar pain ddx OA. COMPARISON: 10/21/2022, 11/23/2019. TECHNIQUE: 5 views of the lumbar spine, inclusive of bilateral oblique views, were obtained. FINDINGS: There is a trace levoconvex scoliosis, apex at L3-4. There is a normal lumbar lordosis. There is no subluxation. Alignment is anatomic. There is no fracture, compression deformity, or suspicious bone lesion evident. There is minimal multilevel disc degeneration present. Facets are normally aligned. There are very mild facet degenerative changes spanning L4-S1. Mild to moderate degenerative changes in both SI joints. Sacrum is intact. There are vascular calcifications in the soft tissues. There are cholecystectomy clips. XR/XR lumbar spine 4V min IMPRESSION: 1. No acute bony or soft tissue abnormality of the lumbar spine. 2. Mild degenerative lumbar spondylosis, without change from prior exams. Electronically signed by: Bernardo Brown MD 07/23/2025 10:45 AM EDT Dictated By: Bernardo Brown MD Signed By: <Electronically signed by Bernardo Brown MD in OV> 07/23/25 1045 DD/ 0938 TD/TT: 07/23/25 0948 Main Entree Cook And Cashier: us Li Langford MD IMG XR PROCEDURES Edited Resu lt - Final * (ABNORMAL) POCT Hgb A1c (07/18/2025 11:00 AM EDT) Only the most recent of2 resultswithin the time period is included. Hemoglobin A1C 6.6(A) 4.0 - 5.7 % QC Media Lot # [id number] Lot# Expiration Date [id number] Blood 07/18/2025 11:0 0 AM EDT Li Langford MD POINT OF CARE TEST ENTER/EDIT ORDERABLES Final Result * POCT Glucose (07/18/2025 11:00 AM EDT) Only the most recent of2 resultswithin the time period is included. Glucose Blood, POC 102 60 - 200 mg/dL QC Media Lot # [id number] Lot# Expiration Date ,244 Blood Capillary blood specimen / Unknown 07/18/2025 11:00 AM EDT Li Langford MD POINT OF CARE TEST ENTER/EDIT ORDERABLES Final Result * Culture, Urine, Routine (06/01/2025 9:15 AM EDT) Urine Urine specimen obtained by clean catch procedure / Unknown 06/01/2025 9:15 AM EDT 06/01/2025 1:23 PM EDT Comment:[facility] Narrative [facility] - 06/03/2025 7:51 AM EDT Escherichia coli Quant > 100,000 cfu/mL Escherichia coli: Ampicillin <=2(S) Escherichia coli: Cefazolin (Urine) <=1(S) Escherichia coli: Cefepime <=0.12(S) Escherichia coli: Ceftriaxone <=0.25(S) Escherichia coli: Ciprofloxacin <=0.06(S) Escherichia coli: Gentamicin <=1(S) Escherichia coli: Nitrofurantoin <=16(S) Escherichia coli: Trimethoprim/Sulfamethoxazole <=20(S) Specimen Source: Urine clean catch Indu Ayala MD LAB MICROBIOLOGY - NERAL ORDERABLES Final Result [facility] [address] [place] [phone] * (ABNORMAL) POCT Urinalysis (06/01/2025 9:13 [...] Media Lot # [id number] Lot# Expiration Date [id number] Urine 06/01/2025 9:13 AM EDT us Indu Ayala MD POINT OF CARE TEST EN TER/EDIT ORDERABLES Final Result * (ABNORMAL) Albumin, Random Urine W/Creatinine (02/16/2025 11:30 AM EDT) Creatinine, Urine 111.85 mg/dL [facility] Microalbumin Urine 40.0 mg/L H [facility] Microalbum Creatinine Ratio Ur 35.7(H) <30 ug/mg cr [facility] Comment:Albumin/Creatinine R atio Reference Ranges: Normal: < 30 ug/mg creatinine Microalbuminuria: 30 - 300 ug/mg creatinineClinical Albuminuria: > 300 ug/mg creatinine Urine (Urine, Random) 02/16/2025 11:30 AM EDT 02/16/2025 2:01 PM EDT us Lm Berry MD LAB URINE ORDERABL ES Final Result [facility] [address] [place] [phone] * (ABNORMAL) Lipid Panel, Standard (02/16/2025 11:30 AM EDT) Triglycerides 109 <150 mg/dL [facility] Comment:Desirable Triglyceri de: less than 150 mg/dLBorderline High Triglyceride 150-199 mg/dLHigh Triglyceride: 200-499 mg/dLVery High Triglyceride: greater than or equal to 5OO mg/dL Cholesterol 195 <200 mg/dL [facility] Comment:Desirable Cholestero l: less than 200 mg/dLBorderline High Cholesterol: 200-239 mg/dLHigh Cholesterol: greater than 239 mg/dL LDL Cholesterol Calculated 125(H) <100 mg/dL [facility] Comment:Desirable LDL: less than 100 mg/dLNear Optimal/Above Optimal LDL: 110- 129 mg/dLBorderline High LDL: 130-159 mg/dLHigh LDL: 160-189 mg/dLVery High LDL: greater than or equal to 190 mg/dL HDL Cholesterol 49 >40 mg/dL [facility] Comment:Desirable HDL: great er than 40 mg/dL Note: This HDL assay may give artificially low results in patients with liver disease. Blood Venous blood specimen / Unknown 02/16/2025 11:30 AM EDT 02/16/2025 2:08 PM EDT us Lm Berry MD LAB BLOOD ORDERABL ES Final Result Performing Organization Address [facility] de Phone Number [facility] [address] [place] [phone] * Diabetes Eye Exam (12/15/2023) Eye Exam Normal Normal Comment:Scanned in EMR Dian Haney MD HEALTH MAINTENANCE Final Result * Hepatitis C Ab (09/07/2023 11:37 AM EST) Hepatitis C Antibody Nonreactive Nonreactive [facility] Comment:Antibodies to HCV no t detected; does not exclude early acuteHCV infection. Blood 09/07/2023 11:3 7 AM EST 09/07/2023 2:50 PM EST Li Langford MD LAB BLOOD ORDERABLES Final Re sult Performing Organization Address [facility] Co de Phone Number [facility] [address] [place] [phone] * HP Diabetic Foot Exam (08/09/2023) [...] has been evaluated with computer assisted technology. [facility] Cytotechnologis t: SEE COMMENT [facility] Comment: HECTOR, CT(ASCP) CT screening location: [place] [address] HPV nRNA E6/E7 Not Detected Not Detected [facility] Comment: Methodology: Autos Disassembler-Mediated Amplification This assay detects E6/E7 viral messenger RNA (mRNA) from 14 high-risk HPV types (16,18,31,33,35,39,45,51,52,56,58,59,66,68). Cervical sources are required for HPV testing. If a vaginal source from a patient who has had a total hysterectomy with removal of cervix was submitted, please contact the testing laboratory for alternative testing options. For additional information, please refer to http://education.Tugg/faq/PXD945e2 (This link if provided for information/ educational purposes only.) Interpretation/ Result: Negative for intraepithelial lesion or malignancy. [facility] LMP: NONE [facility] Prev. BX: NONE [facility] Prev. PAP: NONE [facility] SOURCE: None given [facility] Statement Of Adequacy: SEE COMMENT [facility] Comment: Satisfactory for evaluation. Endocervical/transformation zone component absent. 05/12/2022 3:31 PM EDT us Li Langford MD LAB PATHOLOGY ORDERABLES Claire l Result [facility] [address] * Mammography Report 1 (05/06/2022 3:10 [...] Most Recently Relevant to Health Maintenance Insurance [employer] [facility] (O D-SNP) Care Teams Rn Manager Relationship Specialty Start Date End Date Li Langford MD [address] [place] [address] PCP - General Family Medicine 08/12/21
== END 2025-08-14 11:45 | disposition home or self-care (01) ==
LOC: HO.MAMMO 11:44
PROVIDERS: PCP Family Medicine; Visit Provider Family Medicine
DX: Z12.31 Encounter for screening mammogram for malignant neoplasm of breast (principal)
CPT/HCPCS: 77063; 77067

== ENCOUNTER → 2025-08-14 12:15 | Outpatient (BNV) | payer OTHER, SELFPAY ==
[2023-08-24 15:58] VITALS: BP 108/64; BMI 33.6
== END ==
PROVIDERS: PCP Family Medicine; Visit Provider Internal Medicine
DX: Z12.31 Encounter for screening mammogram for malignant neoplasm of breast (principal)
CPT/HCPCS: 77063; 77067

== ENCOUNTER 2025-10-22 13:41 | Outpatient (REF) | payer OTHER, SELFPAY ==
[2023-08-24 15:58] VITALS: BP 108/64; BMI 33.6
--- OUTSIDE RECORDS SUMMARY | 2025-10-22 13:00 | XMS_ITS | Encounter Summary ---
Author Organization [employer] Address [address] [place] [address] [address] [place] [address] Care Team Providers Care Cafe Lead Name Role Phone Li Langford MD Primary Care Provider [phone] Reason for Referral * Imaging (Routine) - Pending Review Specialty Diagnoses / Procedures Referred By Contac t Referred To Contact Radiology Diagnoses Intracranial aneurysm Procedures MRA Head w/o Contrast Li Langford MD [address] [place] [address] Phone: tel: fax: Referral ID Status Reason Start Date Expiration Date V isits Requested Visits Authorized [id number] Pending Review 10/22/2025 10/22/2026 1 1 Encounter Details Date Type Department Care Team (Late st Contact Info) Description 10/22/2025 1:00 PM EST Office Visit [facility] [address] [place] [address] Li Langford MD [address] [place] [address] Type 2 diabetes mellitus with other specified complication, without long-term current use of insulin (HCC) (Primary Dx); Mixed stress and urge urinary incontinence; Other fatigue; Intracranial aneurysm Social History Tobacco Use Types Packs/Day Years [...] Sign Reading Time Taken Comments Blood Pressure 142/68 10/22/2025 1:10 PM EST Pulse 80 10/22/2025 1:03 PM EST Temperature 36.9 C (98.4 F) 10/22/2025 1:03 PM EST Respiratory Rate 20 10/22/2025 1:03 PM EST Oxygen Saturation 98% 10/22/2025 1:03 PM EST Inhaled Oxygen Concentration - - Weight 82.6 kg (182 lb) 10/22/2025 1:03 PM EST Height 152.4 cm (5') 10/22/2025 1:03 PM EST Body Mass Index 35.54 10/22/2025 1:03 PM EST documented in this encounter Progress Notes * Li Langford MD - 10/22/2025 1:00 PM EST Subjective Patient ID: Charisse Staton is a 65 y.o. female who presents for No chief complaint on file.. Charisse Staton is a female patient with a history of hypertension, brain aneurysms, and tuberculosis who presents for follow-up care with concerns about elevated blood pressure and worsening fatigue. The patient reports that her blood pressure has been high, with a current reading of 142/68 mmHg during the visit. She notes that her appeals and generalist clerk recently changed her medications in August, with her amlodipine being lowered from 10mg to 5mg and her chlorthalidone being increased. She requires a new prescription for her blood pressure medication. The patient describes significant worsening fatigue that began approximately 2 weeks ago. She reports staying tired all day, getting up to do activities but her body asking her to lie down. She experiences sleeping during the day but then staying up at night, describing being tired without doing anything. This fatigue is impacting her daily functioning and she expresses concern about potential anemia, stating I don't want to have anemia, because if I have good blood pressure, sugar, that fatigue that gives me, I want to be healthy. Regarding her history of brain aneurysms, the patient had coiling procedures performed, with one [id number] and another procedure at [facility] in 2021. She reports having aneurysms in multiple locations including the left VIOLA, anterior communicating artery, and right ICA. She mentions that one small aneurysm was left untreated and was supposed to be followed, but she cannot remember when her last neurosurgical follow-up occurred or the name of the practice. The patient has not completed laboratory work that was ordered in April, stating she was called and told she needed papers but was unclear about what to bring. She has not called for her colonoscopy referral despite being given paperwork previously. She also has not been following up with neurosurgery for her aneurysms and has not had recent imaging studies. Medications and Supplements - Amlodipine 5 mg - Dose was lowered from 10 mg by appeals and generalist clerk in July - Chlorthalidone - Dose was raised by appeals and generalist clerk in July Review of Systems General: Positive for fatigue. Patient reports feeling tired without doing anything and needing to lie down during the day, with symptoms worsening over the past 2 weeks. Review of Systems Constitutional: Negative for appetite change, fatigue and fever. HENT: Negative for congestion, postnasal drip and rhinorrhea. Eyes: Negative for discharge and redness. Respiratory: Negative for apnea, cough, chest tightness and shortness of breath. Cardiovascular: Negative for chest pain. Gastrointestinal: Negative for abdominal pain. Endocrine: Negative for polyphagia. Genitourinary: Negative for difficulty urinating, dysuria and urgency. Musculoskeletal: Negative for arthralgias. Neurological: Negative for dizziness, light-headedness, numbness and headaches. Hematological: Negative for adenopathy. Does not bruise/bleed easily. Objective BP (!) 142/68 (BP Location: Left arm, Patient Position: Sitting, BP Cuff Size: Large adult) Pulse80 Temp 98.4 ??F (36.9 ??C) (Oral) Resp 20 Ht 5' (1.524 m) Wt 182 lb (82.6 kg) SpO2 98% BMI 35.54 kg/m?? Physical Exam Constitutional: General: She is not in acute distress. Appearance: She is obese. She is not ill-appearing. HENT: Head: Normocephalic and atraumatic. Nose: No congestion. Pulmonary: Effort: Pulmonary effort is normal. No respiratory distress. Breath sounds: Normal breath sounds. Musculoskeletal: Cervical back: Normal range of motion. Neurological: General: No focal deficit present. Mental Status: She is alert. Psychiatric: Mood and Affect: Mood normal. Assessment/Plan Problem List Items Addressed This Visit Type 2 diabetes mellitus (HCC) - Primary Relevant Orders POCT Glucose (Completed) POCT Hgb A1c (Completed) Intracranial aneurysm Relevant Medications amLODIPine (Norvasc) 5 MG tablet chlorthalidone (Hygroton) 50 MG tablet Other Relevant Orders MRA Head w/o Contrast Mixed stress and urge urinary incontinence Charisse Staton requires diapers given a history of mixed incontinence, she has had appropriate workup, treatment and referrals to evaluate for potential reversible factors contributing to her incontinence with partial/incomplete resolution of symptoms. The patient has the following risk factors fordeveloping incontinence ( F hx of vaginal deliveries, menopause, impaired mobility, increasing age,obesity). Prior referrals: Urology Recert: Rx since 2021 Prior pelvic/rectal examination: 2021 Other Visit Diagnoses Other fatigue Relevant Orders CBC auto differential Ferritin Iron And Total Iron Binding Capacity Comprehensive Metabolic Panel Lipid Panel, Standard TSH W/Reflex to FT4 Charisse Staton is a female patient with history of hypertension, brain aneurysms status post coiling procedures, and possible latent tuberculosis presenting for routine follow-up with elevated blood pressure and fatigue. Hypertension Assessment: Blood pressure measured at 142/68 mmHg, which remains elevated despite recent medication adjustments by cardiology in August. Patient's amlodipine was decreased from 10mg to 5mg and chlorthalidone was increased, though the specific reasoning for these changes is unclear from available documentation. Current blood pressure reading indicates suboptimal control requiring medication adjustment. Plan: - New prescription for pulpo (blood pressure medication) to be sent to pharmacy - Blood pressure monitor prescription sent to local pharmacy for home monitoring Fatigue Assessment: Patient reports worsening fatigue over the past 2 weeks, describing excessive daytime sleepiness and need to lie down frequently despite minimal activity. Fatigue is concerning for possible anemia or other metabolic causes given the chronicity and impact on daily functioning. Plan: - Order new laboratory studies including iron levels and cholesterol panel - Laboratory work preferably to be done fasting, but can be done non-fasting if patient unable to return - Laboratory orders reissued as April orders were too old Brain aneurysms Assessment: Patient has history of multiple brain aneurysms including left VIOLA, anterior communicating artery, and right ICA aneurysms, status post coiling procedures in 2018 and 2021 at [facility]. Patient reports uncertainty about follow-up care and cannot recall recent neurosurgical evaluations. Last imaging appears to have been in January 2024 showing stable findings, but patient lacks clear follow-up plan with neurosurgery. Plan: - Order brain imaging to assess current status of aneurysms - Depending on imaging results, referral to neurosurgeon will be considered Latent tuberculosis Assessment: Patient has history of latent tuberculosis that was identified but treatment status is unclear. Documentation indicates never been treated, probably in tuberculosis suggesting possible untreated latent TB requiring evaluation for treatment initiation. Plan: - Treatment for tuberculosis to be initiated (specific regimen not detailed) Preventive care Assessment: Patient requires routine preventive care including colonoscopy screening and tetanus vaccination. Colonoscopy referral was previously provided but patient has not followed through with scheduling. Tetanus vaccination is overdue as it has been more than 10 years since last dose. Plan: - Patient instructed to call for colonoscopy scheduling using previously provided referral information - Tetanus vaccination to be administered Follow-up visit scheduled to reassess blood pressure control. documented in this encounter Miscellaneous Notes * Assessment & Plan Note - Li Langford MD - 10/22/2025 1:37 PM EST Associated Problem(s): Mixed stress and urge urinary incontinence Charisse Staton requires diapers given a history of mixed incontinence, she has had appropriate workup, treatment and referrals to evaluate for potential reversible factors contributing to her incontinence with partial/incomplete resolution of symptoms. The patient has the following risk factors fordeveloping incontinence ( F hx of vaginal deliveries, menopause, impaired mobility, increasing age,obesity). Prior referrals: Urology Recert: Rx since 2021 Prior pelvic/rectal examination: 2021 documented in this encounter Plan of Treatment Upcoming Encounters Date Type Department Care Team (Late st Contact Info) Description 11/30/2025 9:00 AM EST Office Visit [facility] [address] [place] [address] Li Langford MD [address] [place] [address] Scheduled Orders Name Type Priority Associated Diagnoses Orde r Schedule MRA Head w/o Contrast Imaging Routine Intracranial aneurysm Expected: 10/22/2025, Expires: 10/22/2026 documented as of this encounter Goals Goal Patient Goal Type Associated Problems Recent Progress Patient-Stated? Author Help patients manage their type 2 diabetes Care Plan Help patients manage their type 2 diabetes No Donya Taveras Weekly blood pressure task Care Plan Weekly blood pressure task No Donya Taveras Help patients manage their type 2 diabetes Care Plan Help patients manage their type 2 diabetes No Donya Taveras Patient has chronic kidney disease Care Plan Patient has chronic kidney disease No Donya Taveras Weekly blood pressure task Care Plan Weekly blood pressure task No Donya Taveras Patient has chronic kidney disease Care Plan Patient has chronic kidney disease No Donya Taveras Weekly blood pressure task Care Plan Weekly blood pressure task No Neda Espana RN Weekly blood pressure task Care Plan Weekly blood pressure task No Neda Espana RN Patient has chronic kidney disease Care Plan Patient has chronic kidney disease No Neda Espana RN Patient has chronic kidney disease Care Plan Patient has chronic kidney disease No Neda Espana RN Weekly blood pressure task Care Plan Weekly blood pressure task No Tyrell Conner [place] Weekly blood pressure task Care Plan Weekly blood pressure task No Tyerll Conner [place] Patient has chronic kidney disease Care Plan Patient has chronic kidney disease No Tyrell Conner [place] Patient has chronic kidney disease Care Plan Patient has chronic kidney disease No Tyrell Conner [place] Weekly blood pressure task Care Plan Weekly blood pressure task No Li Langford MD Weekly blood pressure task Care Plan Weekly blood pressure task No Li Langford MD Patient has chronic kidney disease Care Plan Patient has chronic kidney disease No Li Langford MD Patient has chronic kidney disease Care Plan Patient has chronic kidney disease No Li Langford MD documented as of this encounter Procedures Procedure Name Priority Date/Time Associated Diagnosis Comments TSH W/REFLEX TO FT4 Routine 10/22/2025 1 :42 PM EST Other fatigue CBC WITH AUTO DIFFERENTIAL Routine 10/22/2025 1:42 PM EST Other fatigue IRON AND TOTAL IRON BINDING CAPACITY Routine 10/22/2025 1:42 PM EST Other fatigue FERRITIN Routine 10/22/2025 1:42 PM EST Other fatigue LIPID PANEL, STANDARD Routine 10/22/2025 1:42 PM EST Other fatigue COMPREHENSIVE METABOLIC PANEL Routine 10/22/2025 1:42 PM EST Other fatigue POCT GLYCATED HEMOGLOBIN, TOTAL Routine 10/22/2025 1:09 PM EST Type 2 diabetes mellitus with other specified complication, without long-term current use of insulin (HCC) POCT GLUCOSE (CPT-94928) Routine 10/22/2025 1:08 PM EST Type 2 diabetes mellitus with other specified complication, without long-term current use of insulin (HCC) documented in this encounter Results * TSH W/Reflex to FT4 (10/22/2025 1:42 PM EST) TSH reflex Free T4 0.34 0.32 - 4.0 uIU/mL [facility] Blood Venous blood specimen / Unknown 10/22/2025 1:42 PM EST 10/22/2025 2:51 PM EST us Li Langford MD LAB BLOOD ORDERABLES Final Re sult [facility] [address] [place] [address] [phone] * (ABNORMAL) Lipid Panel, Standard (10/22/2025 1:42 PM EST) Triglycerides 109 <150 mg/dL [facility] Comment:Desirable Triglyceri de: less than 150 mg/dLBorderline High Triglyceride 150-199 mg/dLHigh Triglyceride: 200-499 mg/dLVery High Triglyceride: greater than or equal to 5OO mg/dL Cholesterol 196 <200 mg/dL [facility] Comment:Desirable Cholestero l: less than 200 mg/dLBorderline High Cholesterol: 200-239 mg/dLHigh Cholesterol: greater than 239 mg/dL LDL Cholesterol Calculated 127(H) <100 mg/dL [facility] Comment:Desirable LDL: less than 100 mg/dLNear Optimal/Above Optimal LDL: 110- 129 mg/dLBorderline High LDL: 130-159 mg/dLHigh LDL: 160-189 mg/dLVery High LDL: greater than or equal to 190 mg/dL HDL Cholesterol 48 >40 mg/dL [facility] Comment:Desirable HDL: great er than 40 mg/dL Note: This HDL assay may give artificially low results in patients with liver disease. Blood Venous blood specimen / Unknown 10/22/2025 1:42 PM EST 10/22/2025 2:51 PM EST us Li Langford MD LAB BLOOD ORDERABLES Final Re sult Performing Organization Address City/[facility] Co de Phone Number [facility] [address] [place] [address] [phone] * (ABNORMAL) Comprehensive Metabolic Panel (10/22/2025 1:42 PM EST) Sodium 142 135 - 145 mmol/L [facility] Potassium 4.5 3.3 - 5.1 mmol/L [facility] Chloride 109(H) 96 - 108 mmol/L [facility] Carbon Dioxide 26 22 - 29 mmol/L [facility] Anion Gap 12 12 - 20 [facility] Urea Nitrogen (BUN) 14 9 - 16 mg/dL [facility] Creatinine, Serum 0.79 0.5 - 1.4 mg/dL [facility] Estimated Glomerular Filt Rate >60 [facility] Comment:Chronic Kidney Disea se: Estimated GFR < 60 mL/min/[id number] Kidney Disease: Estimated GFR < 15 mL/min/1.73m2 Glucose 84 60 - 115 mg/dL [facility] Calcium 9.3 8.4 - 10.2 mg/dL [facility] Bilirubin, Total 0.2 0.0 - 1.0 mg/dL [facility] Aspartate Amino Transferase 32(H) 5 - 31 U/L [facility] Alanine Aminotransferase 35(H) 0 - 31 U/L [facility] Total Protein 7.8 6.5 - 8.0 g/dL [facility] Albumin Level 4.4 3.5 - 5.0 g/dL [facility] Alkaline Phosphatase 76 39 - 117 U/L [facility] Blood Venous blood specimen / Unknown 10/22/2025 1:42 PM EST 10/22/2025 2:51 PM EST us Li Langford MD LAB BLOOD ORDERABLES Final Re sult Performing Organization Address City/[facility]/ZIP Co de Phone Number [facility] [address] [place] [address] [phone] * Iron And Total Iron Binding Capacity (10/22/2025 1:42 PM EST) Pathologist [facility] [place] Iron 67 30 - 160 mcg/dL [facility] Total Iron Binding Capacity 279 228 - 428 mcg/dL [facility] Percent Iron Saturation 24 15 - 50 % [facility] Unsaturated Iron Binding 212 ug/dL [facility] Blood Venous blood specimen / Unknown 10/22/2025 1:42 PM EST 10/22/2025 2:51 PM EST Li Langford MD LAB BLOOD ORDERABLES Final Re sult Performing Organization Address [facility]/ZIP Co de Phone Number [facility] [address] [place] [address] [phone] * Ferritin (10/22/2025 1:42 PM EST) Pathologist [facility] [place] Ferritin 90 10 - 250 ng/mL [facility] Blood Venous blood specimen / Unknown 10/22/2025 1:42 PM EST 10/22/2025 2:51 PM EST Li Langford MD LAB BLOOD ORDERABLES Final Re sult Performing Organization Address City/[facility]/ZIP Co de Phone Number [facility] [address] [place] [address] [phone] * (ABNORMAL) CBC auto differential (10/22/2025 1:42 PM EST) Pathologist [facility] [place] White Blood Count 6.4 4.8 - 10.8 X10*3/uL [facility] Red Blood Count 4.65 4.20 - 5.50 X10*6/uL [facility] Hemoglobin 12.7 12.0 - 16.0 g/dl [facility] Hematocrit 39.1 37.0 - 47.0 % [facility] Mean Corpuscular Volume 84.1 80.0 - 98.0 fL [facility] Mean Corpuscular Hemoglobin 27.3 27.0 - 33.0 pg [facility] Mean Corpuscular HGB Conc 32.5 31.0 - 35.0 g/dl [facility] Red Cell Distribution Width 14.2 11.0 - 16.0 % [facility] Platelet Count 251 160 - 400 X10*3/uL [facility] Mean Platelet Volume 9.7 9.4 - 12.3 fL [facility] Neutrophils Percent Auto 33.8(L) 45 - 73 % [facility] Imm Gran Pct Auto 0.2 0.0 - 0.4 % [facility] Lymphocytes Percent Auto 51.8(H) 20 - 40 % [facility] Monocytes Percent Auto 11.2(H) 2 - 11 % [facility] Eosinophils Percent Auto 2.2 0 - 4 % [facility] Basophils Percent Auto 0.8 0 - 2 % [facility] NRBC Pct Auto 0.0 0.0 - 0.2 /100WBC [facility] Neutrophils Absolute Auto 2.2 2.0 - 8.3 x10*3/uL [facility] Imm Gran Abs Auto 0.01 0.00 - 0.03 X10*3/uL [facility] Lymphocytes Absolute Auto 3.3 1.2 - 4.9 X10*3/uL [facility] Monocytes Absolute Auto 0.7 0.1 - 1.2 X10*3/uL [facility] Eosinophils Absolute Auto 0.1 0.0 - 0.4 X10*3/uL [facility] Basophils Absolute Auto 0.1 0.0 - 0.2 X10*3/uL [facility] NRBC Abs Auto 0.000 0.0 - 0.012 X10*3/uL [facility] Blood Venous blood specimen / Unknown 10/22/2025 1:42 PM EST 10/22/2025 2:51 PM EST us Li Langford MD LAB BLOOD ORDERABLES Final Re sult [facility] [address] [place] [address] [phone] * (ABNORMAL) POCT Hgb A1c (10/22/2025 1:09 PM EST) Hemoglobin A1C 6.5(A) 4.0 - 5.7 % [employer] Lot # [id number] Lot# Expiration Date Blood 10/22/2025 1:09 PM EST Li Langford MD POINT OF CARE TEST ENTER/EDIT ORDERABLES Final Result * POCT Glucose (10/22/2025 1:08 PM EST) Glucose Blood, POC 113 60 - 200 mg/dL [employer] Lot # [id number] Lot# Expiration Date 59 Blood Capillary blood specimen / Unknown 10/22/2025 1:08 PM EST Li Langford MD POINT OF CARE TEST ENTER/EDIT ORDERABLES Final Result documented in this encounter Visit Diagnoses Diagnosis Type 2 diabetes mellitus with other specified complication, without long-term current use of insulin (HCC)- Primary Mixed stress and urge urinary incontinence Mixed incontinence urge and stress (male)(female) Other fatigue Intracranial aneurysm Cerebral aneurysm, nonruptured documented in this encounter Additional Health Concerns Active Problems Noted Date Diagnosed Date Help patients manage their type 2 diabetes 10/09 Weekly blood pressure task 10/09/2025 Help patients manage their type 2 diabetes 10/09 Patient has chronic kidney disease 10/09/2025 Weekly blood pressure task 10/09/2025 Patient has chronic kidney disease 10/09/2025 Weekly blood pressure task 10/09/2025 Weekly blood pressure task 10/09/2025 Patient has chronic kidney disease 10/09/2025 Patient has chronic kidney disease 10/09/2025 Weekly blood pressure task 10/16/2025 Weekly blood pressure task 10/16/2025 Patient has chronic kidney disease 10/16/2025 Patient has chronic kidney disease 10/16/2025 Weekly blood pressure task 10/22/2025 Weekly blood pressure task 10/22/2025 Patient has chronic kidney disease 10/22/2025 Patient has chronic kidney disease 10/22/2025 Assessment Noted Time PHQ-9 Depression Total Score: 0 11/26/19 1:38 PM EST documented as of this encounter Care Teams Cafe Lead Relationship Specialty Start Date End Date Li Langford MD [address] [place] [phone] PCP - General Family Medicine 08/12/21 documented as of this encounter
[2025-10-22 14:53] LABS: MANUAL DIFF FLAG NO
[2025-10-22 14:57] LABS: Hematocrit 39.1 % (37.0-47.0); Hemoglobin 12.7 g/dl (12.0-16.0); Imm Gran Abs Auto 0.01 X10*3/uL (0.00-0.03); Imm Gran Pct Auto 0.2 % (0.0-0.4); Lymphocytes Absolute Auto 3.3 X10*3/uL (1.2-4.9); Mean Corpuscular HGB Conc 32.5 g/dl (31.0-35.0); Mean Corpuscular Hemoglobin 27.3 pg (27.0-33.0); Mean Corpuscular Volume 84.1 fL (80.0-98.0); NRBC Abs Auto 0.000 X10*3/uL (0.0-0.012); NRBC Pct Auto 0.0 /100WBC (0.0-0.2); Platelet Count 251 X10*3/uL (160-400); Red Blood Count 4.65 X10*6/uL (4.20-5.50); White Blood Count 6.4 X10*3/uL (4.8-10.8)
[2025-10-22 15:39] LABS: Alanine Aminotransferase 35 U/L (0-31); Albumin Level 4.4 g/dL (3.5-5.0); Alkaline Phosphatase 76 U/L (39-117); Anion Gap 12 (12-20); Aspartate Amino Transferase 32 U/L (5-31); Blood Urea Nitrogen 14 mg/dL (9-16); Calcium 9.3 mg/dL (8.4-10.2); Carbon Dioxide 26 mmol/L (22-29); Chloride 109 mmol/L (96-108); Cholesterol 196 mg/dL (<200); Estimated Glomerular Filt Rate > 60; Ferritin 90 ng/mL (10-250); HDL Cholesterol 48 mg/dL (>40); Iron 67 mcg/dL (30-160); Percent Iron Saturation 24 % (15-50); Potassium 4.5 mmol/L (3.3-5.1); Sodium 142 mmol/L (135-145); Total Iron Binding Capacity 279 mcg/dL (228-428); Total Protein 7.8 g/dL (6.5-8.0); Triglycerides 109 mg/dL (<150); Unsaturated Iron Binding 212 ug/dL
--- OUTSIDE RECORDS SUMMARY | 2025-10-22 15:54 | XMS_ITS | Clinical Summary ---
Author Organization [employer] Address [address] [place] [address] 7t [place] [address] Care Team Providers Care Home Health Occupational Therapist Name Role Phone Li Langford MD Primary Care Provider [phone] Allergies No known active allergies Medications Spiriva HandiHaler 18 MCG inhalation capsuleIndicati ons:Chronic obstructive pulmonary disease, unspecified COPD type (CMS/HCC) ([facility]) USE 1 CAPSULE FOR INHALATION [...] type, unspecified whether angina present, unspecified whether picayune or transplanted heart TAKE 1 TABLET BY MOUTH TWICE DAILY 60 tablet 5 024 Active rosuvastatin (Crestor) 40 MG tablet TAKE 1 TABLET BY MOUTH EVERY DAY 90 tablet 3 024 Active Lubricating Plus Eye Drops 0.5 [...] times daily. 30 tablet 1 024 Active cholecalciferol (Vitamin D-3) 50 MCG (2000 UT) capsule Take 1 capsule (50 mcg) by mouth Once per day. 120 capsule 3 025 Active metoprolol succinate XL (Toprol-XL) 50 MG 24 hr tablet TAKE 1 TABLET BY MOUTH EVERY DAY IN THE MORNING 90 tablet Active metFORMIN XR (Glucophage-XR) 500 MG 24 [...] EVERY DAY IN THE MORNING 90 capsule 025 Active folic acid (Folvite) 1 MG [...] topically 4 times daily. 200 g Active Trulicity 1.5 MG/0.5ML solution auto-injector INJECT ONE PEN (=1.5MG) SUBCUTANEOUSLY ONCE A WEEK DIRECTED 2 mL 5 10/03/20 4:05 PM EST Active Acetaminophen Extra Strength 500 MG tablet TAKE 2 TABLETS BY MOUTH EVERY 8 HOURS NEEDED FOR MILD PAIN FOR UP TO 10 DAYS Active amLODIPine (Norvasc) 5 MG tablet Take 1 tablet by mouth Once per day. Active chlorthalidone (Hygroton) 50 MG tablet Take 25 mg by mouth at bedtime. Active Blood Pressure kit 1 Units Once per day. 1 kit Active amLODIPine (Norvasc) 10 MG tabletIndicatio ns:Hypertension Take 10 mg by mouth Once per day. 2024 Discontinued chlorthalidone (Hygroton) 25 MG tablet TAKE 1 [...] recommended reduction of 20-30% of maintenance calories; patternmaker metal bench referral offered. Recommended to decrease soda and [...] urge urinary incontinence 10/14 Assessment & Plan (10/22/2025 1:37 PM EST): Charisse Staton requires diapers given a history of mixed incontinence, she has had appropriate workup, treatment and referrals to evaluate for potential reversible factors contributing to her incontinence with partial/incomplete resolution of symptoms. The patient has the following risk factors for developing incontinence ( F hx of vaginal deliveries, menopause, impaired mobility, increasing age, obesity). 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 Acquired hypothyroidism 04/22/2012 Pure hypercholesterolemia 04/22/2012 Assessment & Plan (10/20/2022 5:00 PM EST): Reports was not really using her lipid medication when she had testing, now started using her rosuvastatin 20 mg and wants it to be recheck before proceeding with taking higher dose. Encounters Date Type Department Care Team Description 10/22/2025 1:00 PM EST Office Visit [facility] [address] [place] [address] Li Langford MD Type 2 diabetes mellitus with other specified complication, without long-term current use of insulin (HCC) (Primary Dx); Mixed stress and urge urinary incontinence; Other fatigue; Intracranial aneurysm 10/22/2025 Travel 10/16/2025 Telephone [facility] [address] [place] [address] Li Langford MD chart prep 10/09/2025 Telephone [facility] [address] [place] [address] [phone] Neda Espana RN 10/09/2025 Patient Outreach [facility] [address] [place] [phone] Li Langford MD Pre-visit Planning (SDOH screening was completed on 02/06/2025) 08/24/2025 Refill [facility] [address] [place] [address] Lm Flanagan MD 08/02/2025 Results Follow-Up [facility] [address] [place] [address] Li Langford MD XR Hip 2 or 3 Views Right from Last 3 Months Immunizations Immunization Administration Dates Next Due Hep B, adult 05/10/2013 Influenza injectable quadriv alent IIV4 with preservative 07/20/2018,09/06/2015 Influenza injectable quadrivalent preservative f ree 11/02/2019 Pneumococcal Conjugate PCV 20 05/14/2025 Tdap 11/15/2009 Zoster, Recombinant 08/28/2025,06/19/2025 Social History Tobacco Use Types Packs/Day Years [...] Mass Index 35.54 10/22/2025 1:03 PM EST Plan of Treatment Upcoming Encounters Date Type Department Care Team (Late st Contact Info) Description 11/30/2025 9:00 AM EST Office Visit [facility] [address] [place] [address] Li Langford MD [address] [place] [address] Health Maintenance Due Date Last Done Comments CT Colonography 1960 Colonoscopy 1960 Colorectal Cancer Screening 1960 FIT DNA/Cologuard 1960 FIT 1960 FOBT 1960 Sigmoidoscopy 1960 Alcohol/Substance Use Screening 1972 RSV Patients and Patients Aged 60 years or older (1 - Risk 50-74 years 1-dose series) 2010 Hepatitis B Vaccines (2 of 3 - 19+ 3-dose series) 06/07/2013 05/10/2013 DTaP/Tdap/Td Vaccines (2 - Td or Tdap) 11/15/2019 11/15/2009 Depression Screening 11/26/2023 11/26/2022, 11/26/19 Eye Exam 12/15/2025 12/15/2023 SDOH Screening 02/06/2026 02/06/2025 Diabetes: Foot Exam 02/16/2026 02/16/2025, 02/16/2025, 02/16/2025, Additional history exists Diabetes: Urine Protein Screening 02/16/2026 02/16/2025, 09/07/2023, 09/07/2023, Additional history exists Lipid Panel 02/16/2026 10/22/2025, 01/24, 08/17/2024, Additional history exists Diabetes: Hemoglobin A1C 04/22/2026 025, 07/18/2025, 05/14/2025, Additional history exists Influenza Vaccine (#1) 2026 , 07/20/2018, 09/06/2015 Postponed from 06/25/2025 (Patient Refused) Mammogram 08/14/2026 08/14/2025, 05/06/2022 COVID-19 Vaccine ( season) 2026 Postponed from 06/25/2025 (Patient Refused) Tobacco Screening 10/22/2026 10/22/2025 Cervical Cancer Screening 05/12/2027 HPV/Cotest 05/12/2027 05/12/2022 Pap Smear 05/12/2027 05/12/2022 Hepatitis C Screening Completed 09/07/2023 Pneumococcal Vaccine: 50+ Years Completed 05/14/2025 Zoster Vaccines Completed 08/28/2025, 06/19/2025 HIB Vaccines Aged Out No longer eligi [...] on patient's age to complete this topic Goals Goal Patient Goal Type Associated Problems [...] blood pressure task No Tyrell Conner MA Patient has chronic [...] chronic kidney disease No Li Langford MD Procedures Procedure Name Priority Date/Time Associated Diagnosis Comments TSH W/REFLEX TO FT4 Routine 10/22/2025 1 :42 PM EST Other fatigue LIPID PANEL, STANDARD Routine 10/22/2025 1:42 PM EST Other fatigue COMPREHENSIVE METABOLIC PANEL Routine 10/22/2025 1:42 PM EST Other fatigue IRON AND TOTAL IRON BINDING CAPACITY Routine 10/22/2025 1:42 PM EST Other fatigue FERRITIN Routine 10/22/2025 1:42 PM EST Other fatigue CBC WITH AUTO DIFFERENTIAL Routine 10/22/2025 1:42 PM EST Other fatigue POCT GLYCATED HEMOGLOBIN, TOTAL Routine 10/22/2025 1:09 PM EST Type 2 diabetes mellitus with other specified complication, without long-term current use of insulin (HCC) POCT GLUCOSE (CPT-91380) Routine 10/22/2025 1:08 PM EST Type 2 diabetes mellitus with other specified complication, without long-term current use of insulin (HCC) BI MAMMOGRAM SCREENING TOMOSYNTHESIS BILATERAL Routine 08/14/2025 11:50 AM EDT Breast cancer screening by mammogram XR HIP 2 OR 3 VIEWS RIGHT Routine 07/23/2025 9:38 AM EDT Right hip pain XR LUMBAR SPINE COMPLETE 4+ VIEWS Routine 07/23/2025 9:38 AM EDT Right hip pain ALBUMIN, RANDOM URINE W/CREATININE Routine 02/16/2025 11:30 [...] HPV 16,18/45 Routine 05/12/2022 3:31 PM EDT from Last 3 Months or Most Recently Relevant to Health Maintenance Results * TSH W/Reflex to FT4 (10/22/2025 1:42 PM EST) TSH reflex Free T4 0.34 0.32 - 4.0 uIU/mL [facility] Blood Venous blood specimen / Unknown 10/22/2025 1:42 PM EST 10/22/2025 2:51 PM EST us Li Langford MD LAB BLOOD ORDERABLES Final Re sult [facility] [address] [place], [place] [phone] * (ABNORMAL) CBC auto differential (10/22/2025 1:42 PM EST) White Blood Count 6.4 4.8 - 10.8 X10*3/uL [facility] Red Blood Count 4.65 4.20 - 5.50 X10*6/uL [facility] Hemoglobin 12.7 12.0 - 16.0 g/dl [facility] Hematocrit 39.1 37.0 - 47.0 % [facility] Mean Corpuscular Volume 84.1 80.0 - 98.0 fL [facility] Mean Corpuscular Hemoglobin 27.3 27.0 - 33.0 pg [facility] Mean Corpuscular HGB Conc 32.5 31.0 - 35.0 g/dl [facility] Red Cell Distribution Width 14.2 11.0 - 16.0 % [facility] Platelet Count 251 160 - 400 X10*3/uL [facility] Mean Platelet Volume 9.7 9.4 - 12.3 fL [facility] Neutrophils Percent Auto 33.8(L) 45 - 73 % [facility] Imm Gran Pct Auto 0.2 0.0 - 0.4 % [facility] Lymphocytes Percent Auto 51.8(H) 20 - 40 % [facility] Monocytes Percent Auto 11.2(H) 2 - 11 % [facility] Eosinophils Percent Auto 2.2 0 - 4 % [facility] Basophils Percent Auto 0.8 0 - 2 % [facility] NRBC Pct Auto 0.0 0.0 - 0.2 /100WBC [facility] Neutrophils Absolute Auto 2.2 2.0 - 8.3 x10*3/uL [facility] Imm Gran Abs Auto 0.01 0.00 - 0.03 X10*3/uL [facility] Lymphocytes Absolute Auto 3.3 1.2 - 4.9 X10*3/uL [facility] Monocytes Absolute Auto 0.7 0.1 - 1.2 X10*3/uL [facility] Eosinophils Absolute Auto 0.1 0.0 - 0.4 X10*3/uL [facility] Basophils Absolute Auto 0.1 0.0 - 0.2 X10*3/uL [facility] NRBC Abs Auto 0.000 0.0 - 0.012 X10*3/uL [facility] Blood Venous blood specimen / Unknown 10/22/2025 1:42 PM EST 10/22/2025 2:51 PM EST us Li Langford MD LAB BLOOD ORDERABLES Final Re sult [facility] [address] [place] [phone] * Iron And Total Iron Binding Capacity (10/22/2025 1:42 PM EST) Iron 67 30 - 160 mcg/dL [facility] Total Iron Binding Capacity 279 228 - 428 mcg/dL [facility] Percent Iron Saturation 24 15 - 50 % [facility] Unsaturated Iron Binding 212 ug/dL [facility] Blood Venous blood specimen / Unknown 10/22/2025 1:42 PM EST 10/22/2025 2:51 PM EST Li Langford MD LAB BLOOD ORDERABLES Final Re sult Performing Organization Address City/[facility] Co de Phone Number [facility] [address] [place] [phone] * Ferritin (10/22/2025 1:42 PM EST) Ferritin 90 10 - 250 ng/mL [facility] Blood Venous blood specimen / Unknown 10/22/2025 1:42 PM EST 10/22/2025 2:51 PM EST Li Langford MD LAB BLOOD ORDERABLES Final Re sult Performing Organization Address [facility] de Phone Number [facility] [address] [place] [address] [phone] * (ABNORMAL) Lipid Panel, Standard (10/22/2025 1:42 PM EST) Triglycerides 109 <150 mg/dL [facility] Comment:Desirable Triglyceri de: less than 150 mg/dLBorderline High Triglyceride 150-199 mg/dLHigh Triglyceride: 200-499 mg/dLVery High Triglyceride: greater than or equal to 5OO mg/dL Cholesterol 196 <200 mg/dL [facility] Comment:Desirable Cholestero l: less than 200 mg/dLBorderline High Cholesterol: 200-239 mg/dLHigh Cholesterol: greater than 239 mg/dL LDL Cholesterol Calculated 127(H) <100 mg/dL [facility] Comment:Desirable LDL: less than 100 mg/dLNear Optimal/Above Optimal LDL: 110- 129 mg/dLBorderline High LDL: 130-159 mg/dLHigh LDL: 160-189 mg/dLVery High LDL: greater than or equal to 190 mg/dL HDL Cholesterol 48 >40 mg/dL [facility] Comment:Desirable HDL: great er than 40 mg/dL Note: This HDL assay may give artificially low results in patients with liver disease. Blood Venous blood specimen / Unknown 10/22/2025 1:42 PM EST 10/22/2025 2:51 PM EST us Li Langford MD LAB BLOOD ORDERABLES Final Re sult [facility] [address] [place] [address] [phone] * (ABNORMAL) Comprehensive Metabolic Panel (10/22/2025 1:42 PM EST) Sodium 142 135 - 145 mmol/L [facility] Potassium 4.5 3.3 - 5.1 mmol/L [facility] Chloride 109(H) 96 - 108 mmol/L [facility] Carbon Dioxide 26 22 - 29 mmol/L [facility] Anion Gap 12 12 - 20 [facility] Urea Nitrogen (BUN) 14 9 - 16 mg/dL [facility] Creatinine, Serum 0.79 0.5 - 1.4 mg/dL [facility] Estimated Glomerular Filt Rate >60 [facility] Comment:Chronic Kidney Disea se: Estimated GFR < 60 mL/min/1.58c9Ficvmy Kidney Disease: Estimated GFR < 15 mL/min/1.73m2 Glucose 84 60 - 115 mg/dL [facility] Calcium 9.3 8.4 - 10.2 mg/dL [facility] Bilirubin, Total 0.2 0.0 - 1.0 mg/dL [facility] Aspartate Amino Transferase 32(H) 5 - 31 U/L [facility] Alanine Aminotransferase 35(H) 0 - 31 U/L [facility] Total Protein 7.8 6.5 - 8.0 g/dL [facility] Albumin Level 4.4 3.5 - 5.0 g/dL [facility] Alkaline Phosphatase 76 39 - 117 U/L [facility] Blood Venous blood specimen / Unknown 10/22/2025 1:42 PM EST 10/22/2025 2:51 PM EST us Li Langford MD LAB BLOOD ORDERABLES Final Re sult [facility] [address] [place] [address] [phone] * (ABNORMAL) POCT Hgb A1c (10/22/2025 [...] Media Lot # [id number] Lot# Expiration Date Blood Capillary blood specimen / Unknown 10/22/2025 1:08 PM EST Li Langford MD POINT OF CARE TEST ENTER/EDIT ORDERABLES Final Result * BI Mammogram Screening Tomosynthesis Bilateral (08/14/2025 11:50 AM EDT) Anatomical Region Laterality Modality Breast Bilateral Mammography 08/14/2025 11:5 0 AM EDT Narrative 08/17/2025 3:46 PM EDT [facility] [address] [place] [address] Mammography Report Signed with Addenda Patient: Charisse Staton MR#: [id number] 95 : 1960 Acct:[id number] Age/Sex: 65 / F ADM Date: 08/14/25 Loc: HO.MAMMO Attending Dr: Li Langford MD Ordering Physician: Li Langford MD Results: 1Nega tive Date of Service: 08/14/25 Follow Up: 1 Year From Orig inal Mammogram Procedure(s): MM tomosynthesis screening BI Accession Number(s): [id number] cc: Li Langford MD Reason For Exam: 65 yo F who needs breast cancer screening, send to [facility] ADDENDUM ADDENDUM #1 ADDENDUM: Due to a software issue this mammogram was reviewed a second time. The findings and recommendations remain the same. OVERALL ASSESSMENT: Category 1: Negative RECOMMENDATION: 1 year F/U Electronically signed by: Naye Griffin DO 08/27/2025 02:48 PM EST RP Addendum Dictated By: Naye Griffin DO Addendum Signed By: <Electronically signed by Naye Griffin DO in OV> 08/27/25 1448 Addendum Cosigned By: DD/ TD/TT: 08/14/25 EXAMINATION: MM SCREENING DIGITAL BREAST TOMOSYNTHESIS, BILATERAL CLINICAL INFORMATION: Screening. Asymptomatic. COMPARISON: Mammography: Comparison is made with available priors TECHNIQUE: Digital breast mammography with tomosynthesis is performed in both the craniocaudal and mediolateral oblique views along with computer-aided detection (CAD). FINDINGS: There are scattered areas of fibroglandular density. There are no significant masses, abnormal calcifications, or other abnormalities. MM/MM tomosynthesis screening BI IMPRESSION: No mammographic evidence of malignancy. ASSESSMENT: BI-RADS Category 1: Negative RECOMMENDATION: Routine annual mammography screening. 1 year F/U This examination should not preclude the clinical evaluation of a suspicious palpable abnormality. This patient's information was entered into a reminder system with a target due date for their next mammogram. Electronically signed by: Naye Griffin DO 08/17/2025 03:43 PM EDT RP Dictated By: Naye Griffin DO Signed By: <Electronically signed by Naye Griffin DO in OV> 08/17/25 1543 DD/ 1150 TD/TT: 08/14/25 1215 Orthopaedic Doctor: Procedure Note Donotuseinterpreter, Image - 08/27/2025 [facility] [address] [place], [place] [address] Mammography Report Signed with Addenda Patient: Adenike Staton#: [id number] 95 : 1960Acct:[id number] Age/Sex: 65 / FADM Date: 08/14/25 Loc: HO.MAMMO Attending Dr: Li Langford MD Ordering Physician: Li Langford MDResults: 1Nega tive Date of Service: 08/14/25Follow Up: 1 Year From Orig inal Mammogram Procedure(s): MM tomosynthesis screening BI Accession Number(s): [id number] cc: Li Langford MD Reason For Exam: 65 yo F who needs breast cancer screening, send to [facility] ADDENDUM ADDENDUM #1 ADDENDUM: Due to a software issue this mammogram was reviewed a second time. The findings and recommendations remain the same. OVERALL ASSESSMENT: Category 1: Negative RECOMMENDATION: 1 year F/U Electronically signed by: Naye Griffin DO 08/27/2025 02:[address] [facility] Addendum Dictated By: Naye Griffin DO Addendum Signed By: <Electronically signed by DO Swati in OV> 08/27/25 1448 Addendum Cosigned By: DD/ TD/TT: 08/14/25 EXAMINATION: MM SCREENING DIGITAL BREAST TOMOSYNTHESIS, BILATERAL CLINICAL INFORMATION: Screening. Asymptomatic. COMPARISON: Mammography: Comparison is made with available priors TECHNIQUE: Digital breast mammography with tomosynthesis is performed in both the craniocaudal and mediolateral oblique views along with computer-aided detection (CAD). FINDINGS: There are scattered areas of fibroglandular density. There are no significant masses, abnormal calcifications, or other abnormalities. MM/MM tomosynthesis screening BI IMPRESSION: No mammographic evidence of malignancy. ASSESSMENT: BI-RADS Category 1: Negative RECOMMENDATION: Routine annual mammography screening. 1 year F/U This examination should not preclude the clinical evaluation of a suspicious palpable abnormality. This patient's information was entered into a reminder system with a target due date for their next mammogram. Electronically signed by: Naye Griffin DO 08/17/2025 03:43 PM EDT Dictated By: Naye Griffin DO Signed By: <Electronically signed by Naye Griffin DO in OV> 08/17/25 1543 DD/ 1150 TD/TT: 08/14/25 1215 Orthopaedic Doctor: us Li Langford MD IMG BI PROCEDURES Edited Resu lt - Final * XR Hip 2 or 3 Views Right (07/23/2025 9:38 AM EDT) Anatomical Region Laterality Modality Lower Extremities, Hip Right Radiograp hic Imaging 07/23/2025 9:38 AM EDT Narrative 07/23/2025 10:43 AM EDT [place] [address] XRay Report Signed Patient: Charisse Staton MR#: [id number] [birth year] : 1960 Acct:[id number] Age/Sex: 65 / F ADM Date: 07/23/25 Loc: HO.XRAY Attending Dr: Li Langford MD Ordering Physician: Li Langford MD Date of Service: 07/23/25 Procedure(s): XR hip RT min 2V Accession Number(s): [id number] cc: Li Langford MD Reason for Exam: 65 yo F with right hip and lumbar pain ddx OA, send to [facility] EXAMINATION: XR HIP, RIGHT CLINICAL INFORMATION: 65 [...] 07/23/25 1040 DD/ 0938 TD/TT: 07/23/25 0948 Orthopaedic Doctor: Procedure Note Donotuseinterpreter, Image - 07/23/[address] [address] XRay Report Signed Patient: Adenike Staton#: [id number] 95 : 1960Acct:[id number] Age/Sex: 65 / FADM Date: 07/23/25 Loc: HO.XRAY Attending Dr: Li Langford MD Ordering Physician: Li Langford MD Date of Service: 07/23/25 Procedure(s): XR hip RT min 2V Accession Number(s): [id number] cc: Li Langford MD Reason for Exam: 65 yo F with right hip and lumbar pain ddx OA[facility] EXAMINATION: XR HIP, RIGHT CLINICAL INFORMATION: 65 [...] Bernardo Brown MD 07/23/2025 10:40 AM EDT RP Dictated By: Bernardo Brown MD Signed By: <Electronically signed by Bernardo Brown MD in OV> 07/23/25 1040 DD/ 0938 TD/TT: 07/23/25 0948 Orthopaedic Doctor: us Li Langford MD IMG XR PROCEDURES Edited Resu lt - Final * XR Lumbar Spine Complete 4+ Views (07/23/2025 9:38 AM EDT) Anatomical Region Laterality Modality Spine, L-spine Radiographic Christa ging 07/23/2025 9:38 AM EDT Narrative 07/23/2025 10:48 AM EDT [place] [address] XRay Report Signed Patient: Charisse Staton MR#: [id number] [birth year] : 1960 Acct:[id number] Age/Sex: 65 / F ADM Date: 07/23/25 Loc: HO.XRAY Attending Dr: Li Langford MD Ordering Physician: Li Langford MD Date of Service: 07/23/25 Procedure(s): XR lumbar spine 4V min Accession Number(s): [id number] cc: Li Langford MD Reason for Exam: 65 yo F with right hip and lumbar pain ddx OA, send to [facility] EXAMINATION: XR LUMBOSACRAL SPINE CLINICAL INFORMATION: 65 [...] 07/23/25 1045 DD/ 0938 TD/TT: 07/23/25 0948 Orthopaedic Doctor: Procedure Note Donotuseinterpreter, Image - 07/23/[address] [address] XRay Report Signed Patient: Adenike Staton#: [id number] [birth year] : 1960Acct:[id number] Age/Sex: 65 / FADM Date: 07/23/25 Loc: [facility] Attending Dr: Li Langford MD Ordering Physician: Li Langford MD Date of Service: 07/23/25 Procedure(s): XR lumbar spine 4V min Accession Number(s): [id number] cc: Li Langford MD Reason for Exam: 65 yo F with right hip and lumbar pain ddx OA[facility] EX[facility]INATION: XR LUMBOSACRAL SPINE CLINICAL INFORMATION: 65 [...] Bernardo Brown MD 07/23/2025 10:45 AM EDT RP Dictated By: Bernardo Brown MD Signed By: <Electronically signed by Bernardo Brown MD in OV> 07/23/25 1045 DD/ 0938 TD/TT: 07/23/25 0948 Orthopaedic Doctor: Li Langford MD IMG XR PROCEDURES Edited Resu lt - Final * (ABNORMAL) Albumin, Random Urine W/Creatinine (02/16/2025 11:30 AM EDT) Creatinine, Urine 111.85 mg/dL [facility] Microalbumin Urine 40.0 mg/L [facility] Microalbum Creatinine Ratio Ur 35.7(H) <30 ug/mg cr [facility] Comment:Albumin/Creatinine R atio Reference Ranges: Normal: < 30 ug/mg creatinine Microalbuminuria: 30 - 300 ug/mg creatinineClinical Albuminuria: > 300 ug/mg creatinine Urine (Urine, Random) 02/16/2025 11:30 AM EDT 02/16/2025 2:01 PM EDT Lm Berry MD LAB URINE ORDERABL ES Final Result [facility] [address] [place] [phone] * Hm Diabetes Eye Exam (12/15/2023) Eye Exam Normal Normal Comment:Scanned in EMR Historical Provider HEALTH MAINTENANCE Final Result * Hepatitis C Ab (09/07/2023 11:37 AM EST) Hepatitis C Antibody Nonreactive Nonreactive [facility] Comment:Antibodies to HCV no t detected; does not exclude early acuteHCV infection. Blood 09/07/2023 11:3 7 AM EST 09/07/2023 2:50 PM EST Li Langford MD LAB BLOOD ORDERABLES Final Re sult [facility] [address] [place] [address] [phone] * HP Diabetic Foot Exam (08/09/2023) Narrative Li Langford MD - 08/09/2023 Decr sensation on left foot hx of peroneal neuropathy Li Langford MD HEALTH MAINTENANCE Final Resu lt * THINPREP TIS PAP AND HPV mRNA E6/E7 WITH REFLEX TO HPV 16,18/45 (05/12/2022 3:31 PM EDT) Clinical Information: None given [facility] COMMENT SEE COMMENT FOUNDAT[facility] ON [...] along with historic and current clinical information. Comment: This Pap test has been evaluated with computer assisted technology. [facility] Cytotechnologis t: SEE COMMENT [facility] Comment: HECTOR, CT(ASCP) CT screening location: [place] [address] HPV nRNA E6/E7 Not Detected Not Detected [facility] [facility] Comment: Methodology: [employer]r-Mediated Amplification This assay detects E6/E7 viral messenger RNA (mRNA) from 14 high-risk HPV types (16,18,31,33,35,39,45,51,52,56,58,59,66,68). Cervical sources are required for HPV testing. If a vaginal source from a patient who has had a total hysterectomy with removal of cervix was submitted, please contact the testing laboratory for alternative testing options. For additional information, please refer to http://education.ioSafe/faq/ABQ985r1 (This link if provided for information/ educational [...] MD LAB PATHOLOGY ORDERABLES Claire grace Result [facility] [address] from Last 3 Months or Most Recently Relevant to Health Maintenance Additional Health Concerns Active Problems Noted Date [...] 10/22/2025 Patient has chronic kidney disease 10/22/2025 Insurance [facility] [employer] (O D-SNP) Care Teams Home Health Occupational Therapist Relationship Specialty Start Date End Date Li Langford MD [address] [place] [phone] PCP - General Family Medicine 08/12/21
--- OUTSIDE RECORDS SUMMARY | 2025-10-22 15:54 | XMS_ITS | Encounter Summary ---
Author Organization [employer] Address [address] [place] [address] Care Team Providers Care Almond Blancher Operator Name Role Phone Li Langford MD Primary Care Provider [phone] Encounter Details Date Type Department Care Team (Latest Contact Info) Description 10/22/2025 Travel Social History Tobacco Use Types Packs/Day [...] t he electric, gas, oil or water [employer] threatened to shut off services in your [...] Upcoming Encounters Date Type Department Care Team ([facility] st Contact Info) Description 11/30/2025 9:00 AM EST Office Visit [facility] [address] [place] [address] Li Langford MD [address] [place] [address] documented as of this encounter Goals Goal [...] Plan Weekly blood pressure task No Neda Espana, HUGH Weekly blood pressure task Care Plan Weekly blood pressure task No Neda Espana, HUGH Patient has chronic kidney disease Care Plan Patient has chronic kidney disease No Neda Espana, HUGH Patient has chronic kidney disease Care Plan Patient has chronic kidney disease No Neda Espana, HUGH Weekly blood pressure task Care Plan Weekly [...] Langford MD documented as of this encounter Visit Diagnoses Not on filedocumented in this encounter Additional Health Concerns Active [...] documented as of this encounter Care Teams Almond Blancher Operator Relationship Specialty Start Date End Date Li Langford MD [address] [place] [address] PCP - General Family Medicine 08/12/21 documented as of this encounter
== END 2025-10-22 13:42 ==
LOC: HO.CHCLDS 13:41
PROVIDERS: Visit Provider Family Medicine
DX: R53.83 Other fatigue (principal); Z13.0 Encounter for screening for diseases of the blood and blood-forming organs and certain disorders involving the immune mechanism; Z13.6 Encounter for screening for cardiovascular disorders
CPT/HCPCS: 36415; 80053; 80061; 82728; 83540; 84443; 85025